=== PATIENT | male | born 1960 | race Caucasian/White ===

== ENCOUNTER → 2019-08-16 10:24 | Outpatient (BNVA) | payer BC, SELFPAY | PROVIDERS: Family Provider Family Medicine; PCP Family Medicine; Referring Provider Family Medicine; Visit Provider Family Medicine | DX: R50.9 Fever, unspecified (principal); J30.89 Other allergic rhinitis | CPT/HCPCS: 87071; 87400; 87880 ==

== ENCOUNTER 2020-06-13 07:14 | Emergency (ER) | payer OTHER, SELFPAY ==
[2020-06-13] VITALS (9 sets, daily range): BP systolic 138–183; BP diastolic 85–115; PULSE 97–119; RESP 17–28; TEMP 36.9; O2SAT 91–95; BMI 27.9
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
--- NOTE | 2020-06-13 07:31 | ECG_ITS ---
[facility] Test Date: 2020-06-13 Pat Name: Joshua Avila Department: Room: Gender: Male Diamond Broker: : 1960 Requested By: Vivien Barbosa Order Number: [id number] Reading MD: MYRA KAY Measurements Intervals [place] Rate: 114 P: 64 ND: 151 QRS: -82 QRSD: 89 T: 67 QT: 324 QTc: 447 Interpretive Statements SINUS TACHYCARDIA POSSIBLE LEFT ATRIAL ENLARGEMENT [-0.1mV P WAVE IN V1/V2] INFERIOR MYOCARDIAL INFARCTION , OF INDETERMINATE AGE [40+ ms Q WAVE AND/OR ST/T ABNORMALITY IN II/aVF] No previous ECG available for comparison Electronically Signed On 06-13-2020 18:09:43 MARKET SPECIALIST by MYRA KAY [id number]
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
[2020-06-13] MEDS: morphine 4 mg/mL SDV 1 mL IVP (09:14)
[2020-06-13] MEDS: ondansetron 2 mg/ML SDV 2 mL 4 MG IVP (09:14)
[2020-06-13 09:19] LABS: Basophils # 0.1 10^3/uL (0.0-0.1); Basophils % 0.3 %; Hematocrit 48.1 % (42.0-52.0); Hemoglobin 16.7 g/dL (11.7-16.6); Lymphocytes # 0.6 10^3/uL (0.8-4.8); Lymphocytes % 3.5 %; Mean Corpuscular HGB Conc 34.7 g/dL (30.0-36.0); Mean Corpuscular Hemoglobin 33.1 pg (28.0-34.0); Mean Corpuscular Volume 95.2 fL (80-94); Mean Platelet Volume 9.6 fL (7.4-10.4); Monocytes # 1.1 10^3/uL (0.2-0.9); Monocytes % 6.2 %; Neutrophils # 15.87 10^3/uL (1.8-7.7); Neutrophils % 89.2 %; Nucleated Red Blood Cells % 0 %; Platelet Count 249 10^3/cmm (130-400); Red Blood Count 5.05 10^6/uL (4.1-5.3); Red Cell Distribution Width 12.3 % (12.1-15.1); White Blood Count 17.8 10^3/uL (4.0-10.0)
[2020-06-13] MEDS: sodium chloride 0.9% 1,000 ML 999 ML IV (09:19)
[2020-06-13] MEDS: iohexol 300 mg/mL 100 mL Btl IV (09:26)
[2020-06-13 09:34] LABS: Alanine Aminotransferase 26 U/L (0-41); Albumin Level 4.1 g/dL (3.5-5.2); Alkaline Phosphatase 137 IU/L (40-130); Anion Gap 12.7 (5-19); Aspartate Amino Transferase 30 U/L (0-40); Blood Urea Nitrogen 8 mg/dL (6-20); Calcium 9.7 mg/dL (8.5-10.5); Carbon Dioxide 25 mmol/L (22-29); Chloride 97 mmol/L (98-107); Globulin 3.6 g/dL (1.3-4.6); Glomerular Filtration Rate 115.8 mL/min (90-130); Glucose 259 mg/dL (65-115); Osmolality Calculated 277 mOsm/kg (285-295); Potassium 4.7 mmol/L (3.5-5.1); Sodium 130 mmol/L (136-145); Total Bilirubin 0.6 mg/dL (0.15-1.2); Total Protein 7.7 g/dL (6.6-8.7)
[2020-06-13] MEDS: HYDROmorphone 1 mg/mL INJ 1 mL IVP (10:32)
[2020-06-13] MEDS: HYDROmorphone 1 mg/mL INJ 1 mL 0.5 MG IVP ×2 (12:12→14:44)
[2020-06-13] MEDS: fentaNYL 50 mcg/mL INJ 2mL IVP ×2 (15:19→17:05)
== END 2020-06-13 17:10 ==
PROVIDERS: Physician Assistant; Emergency Provider Nurse Practitioner Family; PCP Family Medicine
DX: S42.018A Nondisplaced fracture of sternal end of left clavicle, initial encounter for closed fracture (principal); S42.021A Displaced fracture of shaft of right clavicle, initial encounter for closed fracture; S20.211A Contusion of right front wall of thorax, initial encounter; S22.31XA Fracture of one rib, right side, initial encounter for closed fracture; J44.9 Chronic obstructive pulmonary disease, unspecified; I10 Essential (primary) hypertension; Z87.891 Personal history of nicotine dependence; V68.5XXA Driver of heavy transport vehicle injured in noncollision transport accident in traffic accident, initial encounter
CPT/HCPCS: 12345; 36415; 71045; 71260; 73030; 73090; 80053; 85025; 93005; 96361; 96374; 96375; 96376; 99281; 99285; J1170; J2270; J2405; J3010; J7030; Q9967

== ENCOUNTER 2020-10-16 15:27 | Outpatient (CLI) | payer BC, SELFPAY ==
--- NOTE | 2020-10-16 15:32 | CT_ITS ---
WS: [id number] CT ABDOMEN AND PELVIS WITH CONTRAST HISTORY: acute appendicitis TECHNIQUE: Imaging performed of the abdomen and pelvis with IV contrast. Single phase imaging of the abdomen. Coronal and sagittal reformats are submitted. All CT scans at [facility] use at least one of these dose optimization techniques: automated exposure control; mA and/or kV adjustment per patient size (includes targeted exams where dose is matched to clinical indication); or iterativ e reconstruction. IV CONTRAST: Omnipaque 300; 95 mL IV. Oral contrast: No DLP: 1682.02 mGy.cm COMPARISON: 03/29/2013 Lower thorax: Lung bases are hyperinflated. Benign granuloma at the RIGHT lung base. Heart is normal size. No hiatal hernia. Liver/biliary system: Mild hepatomegaly. Mild steatosis. Surface of the liver is slightly irregular. Gallbladder: Normal. No gallstones or wall thickening. No pericholecystic fluid. Pancreas: Normal size pancreas and pancreatic duct. No adjacent inflammation. Spleen: Normal size spleen. No mass or infarct. Adrenal glands: Normal. Right kidney: Normal. Left kidney: Normal. Aorta: Mild atherosclerosis with no aneurysm. Lymphadenopathy: Small RIGHT lower quadrant mesenteric lymph nodes. Free fluid: None. GI tract: Normal appendix. There is mild fluid distention of the cecum. There is no obstructive patte rn. Changing caliber in the colon at the splenic flexure may be due to peristalsis. No definite mass is identified. Anastomosis near the sigmoid rectal junction. Abdominal wall: Supraumbilical abdominal wall hernia contains fat only. There is additional umbilical hernia containing fat only. Pelvis: Nondistended urinary bladder. Bones: Benign bone island in the RIGHT femoral head and neck area. CT/CT abdomen pelvis w con* [id number] IMPRESSION: 1. No evidence for acute appendicitis. 2. No GI tract obstruction. There is an air-fluid level in the cecum but no wa ll thickening. 3. Stable rectosigmoid anastomosis. 4. Umbilical and supraumbilical abdominal wall hernias containing fat only. 5. No renal obstruction. 6. Change in caliber in the colon near the splenic flexure. May be due to yeny stalsis. No definite soft tissue mass is identified. Colonoscopy may be necessa ry for further evaluation if symptoms persist.
[2020-10-16] MEDS: iohexol 300 mg/mL 100 mL Btl IV (15:39)
== END 2020-10-16 15:28 | disposition home or self-care (01) ==
LOC: RAD 15:29
PROVIDERS: PCP Family Medicine; Visit Provider Family Medicine
DX: K35.80 Unspecified acute appendicitis (principal); K43.9 Ventral hernia without obstruction or gangrene; K63.89 Other specified diseases of intestine
CPT/HCPCS: 74177

== ENCOUNTER → 2020-11-21 10:00 | Outpatient (BNVA) | payer BC, SELFPAY | PROVIDERS: PCP Family Medicine; Visit Provider Nurse Practitioner Family | DX: Z20.822 Contact with and (suspected) exposure to COVID-19 (principal) | CPT/HCPCS: 87635 ==

== ENCOUNTER → 2021-05-01 10:08 | Outpatient (BNVA) | payer BC, SELFPAY | PROVIDERS: PCP Family Medicine; Visit Provider Nurse Practitioner Family | DX: Z01.812 Encounter for preprocedural laboratory examination (principal); Z20.822 Contact with and (suspected) exposure to COVID-19 | CPT/HCPCS: 87635 ==

== ENCOUNTER 2022-03-08 06:56 | Outpatient (CLI) | payer BC, SELFPAY ==
--- NOTE | 2022-03-08 07:03 | XR_ITS ---
WS: [id number] Exam: XR chest 2V* [id number] Date/Time of Exam: 03/08/2022 7:03 AM Reason For Exam: J41.0 - Simple chronic bronchitis Comparison 06/13/2020. The lungs are hyperinflated and clear. Normal cardiomediastinal silhouette. No pleural effusions. Old fracture deformity of the right clavicle. XR/XR chest 2V* [id number] IMPRESSION: 1. Pulmonary hyperinflation which may indicate COPD. No acute process noted.
== END 2022-03-08 06:57 | disposition home or self-care (01) ==
LOC: RAD 06:58
PROVIDERS: PCP Family Medicine; Visit Provider Family Medicine
DX: J41.0 Simple chronic bronchitis (principal)
CPT/HCPCS: 71046

== ENCOUNTER 2022-04-29 16:52 | Emergency (ER) | payer BC, SELFPAY ==
[2022-04-29 16:56] VITALS: BP 203/101; PULSE 102; RESP 16; TEMP 36.8; O2SAT 96
--- NOTE | 2022-04-29 17:14 | XRR_ITS ---
PROCEDURE INFORMATION: Exam: XR Left Ribs with PA Chest Exam date and time: 04/29/2022 5:24 PM Age: 61 years old Clinical indication: Other: Lt mid rib pain; Additional info: Fall injury TECHNIQUE: Imaging protocol: Radiologic exam of the Left ribs with PA chest. Views: 3 views COMPARISON: CR XR chest 2V* [id number] 03/08/2022 7:08 AM FINDINGS: Lungs: Minimal left lung base atelectasis or airspace disease. Pleural spaces: Unremarkable. No pleural effusion. No pneumothorax. A few minute benign calcified lung nodules. Heart/Mediastinum: Unremarkable. No cardiomegaly. Vasculature: Vascular calcification. Bones/joints: Subtle left 3rd and 4th rib fractures are possible. Subtle left lateral 8th rib fracture. No filled chest or displaced rib fracture. XR/XR ribs LT mn 3V w CXR1V [id number] IMPRESSION: 1. A couple of very subtle left rib fracture are likely, as above. No pneumothorax. 2. Minimal left lung base atelectasis or, less likely, airspace disease. Given the presence of left rib fractures, atelectasis is favored.
--- NOTE | 2022-04-29 17:16 | W.ED.FALL ---
HPI - Fall General: Chief Complaint: Fall Stated Complaint: fell and both ribs are hurting Time Seen by Provider: 04/29/22 17:11 History of Present Illness: 61-year-old male patient fell on and now with complaints of bilateral thoracic pain. Patient does have a history of rib fractures on the right side. Patient does have history of COPD. Patient endorses pain with deep inspiration. Patient appears chronically ill. Patient appears in mild to moderate pain. Review of Systems Resp: Reports: wheezing and pain on inspiration Musc: Reports: other (Rib pain) PFS ED PFSH: Medical History COPD (chronic obstructive pulmonary disease) Hypertension Social History Smoking and tobacco status: former smoker Alcohol intake: current Physical Exam Const: COMMON NORMALS: alert HENMT: COMMON NORMALS: normocephalic HEAD & SCALP: normocephalic Neck/C-Spine: COMMON NORMALS: full ROM Chest: CHEST: No crepitus and Yes tenderness rib (Left posterior) Resp: COMMON NORMALS: normal respiratory effort AUSCULTATION: wheezes Cardio: COMMON NORMALS: regular rhythm RHYTHM: regular rhythm GI: COMMON NORMALS: Soft to palpation PALPATION: Yes Soft to palpation Extremity: COMMON NORMALS: normal to inspection Neuro: SENSORIUM/ORIENTATION: Yes alert Skin: COMMON NORMALS: turgor normal GENERAL SKIN EXAM: turgor normal Course Vital Signs: Vital signs: Vital Signs Temperature 98.2 F 04/29/22 16:56 Pulse Rate 102 H 04/29/22 16:56 Respiratory Rate 16 04/29/22 16:56 Blood Pressure 203/101 04/29/22 16:56 Pulse Oximetry 96 04/29/22 16:56 Oxygen Delivery Me thod 04/29/22 16:56 MDM - Fall Medical Decision Making 61-year-old male patient comes in today with complaints of chest wall pain from a fall last . Patient reports increased pain with inspiration. On exam patient has wheezes throughout lung jones this is most likely due to his COPD. Vital signs note some mild elevation in pulse of 102, and blood pressure 203. Pulse oxygenation is 96 on room air. Differential diagnosis includes but not limited to rib contusion, fracture, pneumothorax, pneumonia. Chest x-ray noted some nondisplaced rib fractures on the left side with some atelectasis. No signs of pneumonia or pneumothorax at this time. Reviewed exam with patient with recommendations for treatment for nondisplaced rib fractures. Recommended medications for pain and follow-up with primary care. Discussed need for monitoring for fever and return to the ER for worsening symptoms. Lab Data Radiology Impressions Ribs X-Ray 04/29/22 17:14 IMPRESSION: 1. A couple of very subtle left rib fracture are likely, as above. No pneumothorax. 2. Minimal left lung base atelectasis or, less likely, airspace disease. Given the presence of left rib fractures, atelectasis is favored. Discharge Plan Discharge Patient Disposition: Home Clinical Impression: Left rib fracture Qualifiers: Encounter type: initial encounter Rib fracture type: multiple ribs Fracture type: closed Qualified Code(s): S22.42XA - Multiple fractures of ribs, left side, initial encounter for closed fracture Condition: Stable Prescriptions: Continued hydrocodone-acetaminophen 7.5-325 mg tablet 1 tab PO Q6H PRN (Reason: pain) 7 Days Qty: 10 0RF No Action clonidine HCl 0.2 mg tablet 0.2 mg PO PRN amoxicillin 875 mg tablet 875 mg PO BID Qty: 20 0RF prednisone 20 mg tablet 20 mg PO DAILY Qty: 30 0RF Rx Instructions: 4 tabs day 1 and 2, then 3 /12 x 2 d, then 3 x 2d, then 2 1/2 x 2....... losartan-hydrochlorothiazide 100-12.5 mg tablet See Rx Instructions .ROUTE .COMPLEX Qty: 90 0RF Dose Instruction: Take 1 tablet by mouth once daily Rx Instructions: Take 1 tablet by mouth once daily benzonatate 200 mg capsule 200 mg PO TID PRN (Reason: cough) Qty: 30 1RF albuterol sulfate 90 mcg/actuation HFA aerosol inhaler See Rx Instructions .ROUTE .COMPLEX Qty: 18 5RF Dose Instruction: INHALE 2 PUFFS BY MOUTH EVERY 4 HOURS NEEDED FOR SHORTNESS OF BREATH AND FOR WHEEZING Rx Instructions: INHALE 2 PUFFS BY MOUTH EVERY 4 HOURS NEEDED FOR SHORTNESS OF BREATH AND FOR WHEEZING Symbicort 160-4.5 mcg/actuation HFA aerosol inhaler See Rx Instructions .ROUTE .COMPLEX Qty: 11 5RF Dose Instruction: INHALE 2 PUFFS BY MOUTH EVERY 12 HOURS Rx Instructions: INHALE 2 PUFFS BY MOUTH EVERY 12 HOURS Spiriva Respimat 2.5 mcg/actuation mist See Rx Instructions .ROUTE .COMPLEX Rx Instructions: 2 sprays po daily Discharge Orders: Discharge ED (Routine); Ordered 04/29/22 Ordered By: Yasmani Clark Referrals: Abram Horn MD [Primary Care Provider] - Discharge Diet: Usual diet Discharge Activity: Increase activity as tolerated Patient Instructions: Rib Fracture (ED), Opioid Safety Activity Restrictions/Additional Instructions: Home and rest. Activity as tolerated. Take medications as needed for pain. Use hydrocodone for severe pain. Use acetaminophen or ibuprofen for pain control. Use ice or heat for further pain relief. Follow-up with primary care for further instruction. Return to ED for new concerns. Coding Level of Care Code ED Bulk Loader for Sabine Fwd Exam Comprehensive
[2022-04-29] MEDS: HYDROcodone-acetaminophen 7.5-325 mg Tablet 1 TAB PO (17:21)
== END 2022-04-29 18:30 | disposition home or self-care (01) ==
PROVIDERS: Emergency Provider Nurse Practitioner Family; PCP Family Medicine
DX: S22.42XA Multiple fractures of ribs, left side, initial encounter for closed fracture (principal); W19.XXXA Unspecified fall, initial encounter
CPT/HCPCS: 71101; 99283

== ENCOUNTER 2022-05-10 20:35 | Inpatient (IN) | payer BC, SELFPAY ==
[2022-05-10] VITALS (13 sets, daily range): BP systolic 109–137; BP diastolic 70–81; PULSE 90–111; RESP 17–27; TEMP 37.1; O2SAT 92–95
[2022-05-10 21:09] LABS: Basophils # 0.1 10^3/uL (0.0-0.1); Basophils % 0.6 %; Eosinophils # 0.2 10^3/uL (0.0-0.8); Eosinophils % 1.6 %; Hematocrit 32.6 % (42.0-52.0); Hemoglobin 10.8 g/dL (11.7-16.6); Lymphocytes # 1.7 10^3/uL (0.8-4.8); Lymphocytes % 15.8 %; Mean Corpuscular HGB Conc 33.1 g/dL (30.0-36.0); Mean Corpuscular Hemoglobin 30.6 pg (28.0-34.0); Mean Corpuscular Volume 92.4 fl (80-94); Mean Platelet Volume 8.8 fL (7.4-10.4); Monocytes # 1.7 10^3/uL (0.2-0.9); Monocytes % 15.7 %; Neutrophils % 65.8 %; Nucleated Red Blood Cells % 0 %; Platelet Count 310 10^3/cmm (130-400); Red Blood Count 3.53 10^6/uL (4.1-5.3); Red Cell Distribution Width 14.4 % (12.1-15.1); White Blood Count 10.8 10^3/uL (4.0-10.0)
[2022-05-10 21:32] LABS: Alanine Aminotransferase 56 U/L (0-41); Albumin Level 3.6 g/dL (3.5-5.2); Alkaline Phosphatase 139 U/L (40-130); Anion Gap 12.2 (5-19); Aspartate Amino Transferase 27 U/L (0-40); Blood Urea Nitrogen 33 mg/dL (8-23); Calcium 9.4 mg/dL (8.5-10.5); Carbon Dioxide 28 mmol/L (22-29); Chloride 94 mmol/L (98-107); Globulin 3.3 g/dL (1.3-4.6); Glomerular Filtration Rate 86.1 mL/min (90-130); Glucose 111 mg/dL (65-115); Lipase 30 U/L (13-60); Osmolality Calculated 278 mOsm/kg (285-295); Potassium 4.2 mmol/L (3.5-5.1); Sodium 130 mmol/L (136-145); Total Bilirubin 0.8 mg/dL (0.15-1.2); Total Protein 6.9 g/dL (6.6-8.7)
--- NOTE | 2022-05-10 22:10 | CTR_ITS ---
PROCEDURE INFORMATION: Exam: CTA Abdomen and Pelvis With Contrast Exam date and time: 05/10/2022 10:22 PM Age: 61 years old Clinical indication: Other: Gi bleed - no cta chest; Other: Gi bleed -no cta chest; Prior surgery; Surgery date: 6+ months; Patient HX: HX colon resection x2 for diverticulitis TECHNIQUE: Imaging protocol: Computed tomographic angiography of the abdomen and pelvis with contrast. 3D rendering (Not supervised by radiologist): MIP and/or 3D reconstructed images were created by the technologist. Radiation optimization: All CT scans at this facility use at least one of these dose optimization techniques: automated exposure control; mA and/or kV adjustment per patient size (includes targeted exams where dose is matched to clinical indication); or iterative reconstruction. Contrast material: OMNI 350; Contrast volume: 100 ml; Contrast route: INTRAVENOUS (IV); COMPARISON: CT abdomen pelvis w con* [id number] 10/16/2020 3:35 PM RADIATION DOSE METRICS: Total DLP (mGy-cm): 1852.68 FINDINGS: Lungs: Lung bases grossly clear. Pleural spaces: Trace left pleural effusion. Heart: The heart is normal size. Aorta: The abdominal aorta measures up to 2.7 cm. No AAA. Celiac trunk and mesenteric arteries: No occlusion or significant stenosis. Renal arteries: No occlusion or significant stenosis. Right iliac arteries: No occlusion or significant stenosis. Left iliac arteries: No occlusion or significant stenosis. Liver: Liver appears moderately cirrhotic. No ascites or liver mass noted. Gallbladder and bile ducts: Few tiny gallstones are present. Pancreas: Unremarkable. No mass. No ductal dilation. Spleen: Unremarkable. No splenomegaly. Adrenal glands: Unremarkable. No mass. Kidneys and ureters: Unremarkable. No solid mass. No hydronephrosis. Very tiny left renal calcification. Stomach and bowel: Distal sigmoid anastomotic sutures. Appendix: No evidence of appendicitis. Intraperitoneal space: Unremarkable. No free air. No significant fluid collection. Lymph nodes: Unremarkable. No enlarged lymph nodes. Urinary bladder: Bladder is not well distended. Reproductive: Mildly enlarged prostate. Bones/joints: Moderate spine DJD. Soft tissues: Mild fat in left inguinal ring. Small fat umbilical hernia. Small left periumbilical small bowel containing hernia. No evidence of inflammatory change or obstruction. Other findings: Advanced diffuse vascular calcification noted. CT/CT angio abdomen pelvis [id number] IMPRESSION: 1. No small bowel obstruction, abscess or free air. No AAA or definite acute finding. 2. Small left periumbilical small bowel containing hernia. 3. Atherosclerosis, trace left effusion, cirrhosis, cholelithiasis, and other chronic findings.
--- NOTE | 2022-05-10 22:38 | ED_ITS ---
HPI - GI Bleed General: Chief complaint: GI Bleed Stated complaint: abd pain, bld in stool Time Seen by Provider: 05/10/22 22:10 Source: patient Mode of arrival: ambulatory Limitations: no limitations History of Present Illness: 61-year-old male states he been having diffuse abdominal pain along with blood in his stool throughout the day. He states he had multiple dark stools its been bloody he denies any syncopal events or denies feeling weak. He states pain is diffuse rates it a 7 out of 10 he has had a history of a colectomy in the past due to diverticulitis. Associated symptoms: Denies chills, easy bruising, fever(s), headache(s) or rash Review of Systems Const: Denies: fever(s), chills, body aches or change in appetite Eyes: Denies: blurry vision or eye discomfort ENMT: Denies: throat pain or dental pain Card: Denies: chest pain Resp: Denies: dyspnea GI: Reports: hematochezia : Denies: dysuria Musc: Denies: neck pain or back pain Skin/Breast: Denies: rash Neuro: Denies: headache(s) Psych: Denies: depression Luis/Lymph: Denies: easy bruising All/Imm: Denies: urticaria PFSH ED PFSH: Medical History COPD (chronic obstructive pulmonary disease) Hypertension Social History Smoking and tobacco status: former smoker Alcohol intake: current Physical Exam Const: COMMON NORMALS: patient oriented x3 HENMT: COMMON NORMALS: normocephalic and atraumatic HEAD & SCALP: normocephalic and atraumatic Eye: COMMON NORMALS: Equal, round and reactive pupils present and EOMs intact bilaterally PUPIL: Yes Equal, round and reactive pupils present Neck/C-Spine: COMMON NORMALS: full ROM and supple Chest: COMMONS NORMALS: normal inspection of the chest and normal palpation of entire chest wall Resp: COMMON NORMALS: normal respiratory effort, No retractions, No use of accessory muscles and clear to auscultation bilaterally AUSCULTATION: clear to auscultation bilaterally Cardio: COMMON NORMALS: regular rate, regular rhythm and No murmurs present (Cardio) RATE: regular rate RHYTHM: regular rhythm GI: COMMON NORMALS: Normal to inspection, nondistended, normoactive bowel sounds present, Soft to palpation, non-tender and no masses PALPATION: Yes Soft to palpation OTHER: heme positive stool Extremity: COMMON NORMALS: normal to inspection and full ROM Neuro: COMMON NORMALS: patient oriented x3, moves all extremities and no focal motor deficits Psych: COMMON NORMALS: mental status grossly normal, Normal thought process present and cooperative THOUGHT PROCESS: Normal thought process present Skin: COMMON NORMALS: no rashes or lesions noted and no wounds GENERAL SKIN EXAM: no rashes or lesions noted Course Vital Signs: Vital signs: Vital Signs Temperature 98.8 F 05/10/22 21:58 Pulse Rate 108 H 05/10/22 23:15 Respiratory Rate 25 H 05/10/22 23:15 Blood Pressure 109/70 05/10/22 23:15 Pulse Oximetry 94 05/10/22 23:15 MDM - GI Bleed Medical Decision Making Patient presents here with GI bleeding his hemoglobin here has been stable he does have some maroon-colored stool on rectal exam and had a bloody bowel movement here as well no signs of large amount of bleeding and will admit for observation talk to surgeon along with hospitalist will admit Lab Data 05/10/22 21:02 05/10/22 21:02 Radiology Impressions Abdomen/Pelvis CTA 05/10/22 22:10 IMPRESSION: 1. No small bowel obstruction, abscess or free air. No AAA or definite acute finding. 2. Small left periumbilical small bowel containing hernia. 3. Atherosclerosis, trace left effusion, cirrhosis, cholelithiasis, and other chronic findings. Laboratory Results WBC 10.8 10^3/uL (4.0-10.0) H 05/10/22 21:02 RBC 3.53 10^6/uL (4.1-5.3) L 05/10/22 21:02 Hgb 9.9 g/dL (11.7-16.6) L 05/10/22 22:28 Hct 29.7 % (42.0-52.0) L 05/10/22 22:28 MCV 92.4 fl (80-94) 05/10/22 21:02 MCH 30.6 pg (28.0-34.0) 05/10/22 21:02 MCHC 33.1 g/dL (30.0-36.0) 05/10/22 21:02 RDW 14.4 % (12.1-15.1) 05/10/22 21:02 Plt Count 310 10^3/cmm (130-400) 05/10/22 21:02 MPV 8.8 fL (7.4-10.4) 05/10/22 21:02 Neut % (Auto) 65.8 % 05/10/22 21:02 Lymph % (Auto) 15.8 % 05/10/22 21:02 [place] % (Auto) 15.7 % 05/10/22 21:02 Eos % (Auto) 1.6 % 05/10/22 21:02 Baso % (Auto) 0.6 % 05/10/22 21:02 Neut # (Auto) 7.10 10^3/uL (1.8-7.7) 05/10/22 21:02 Lymph # (Auto) 1.7 10^3/uL (0.8-4.8) 05/10/22 21:02 [place] # (Auto) 1.7 10^3/uL (0.2-0.9) H 05/10/22 21:02 Eos # (Auto) 0.2 10^3/uL (0.0-0.8) 05/10/22 21:02 Baso # (Auto) 0.1 10^3/uL (0.0-0.1) 05/10/22 21:02 Nucleated RBC % (auto) 0 % 05/10/22 21:02 Nucleated RBCs # 0.0 /100WBC 05/10/22 21:02 PT 14.50 SECONDS (12.1-14.9) 05/10/22 21:02 INR 1.10 (0.8-1.2) 05/10/22 21:02 Sodium 130 mmol/L (136-145) L 05/10/22 21:02 Potassium 4.2 mmol/L (3.5-5.1) 05/10/22 21:02 Chloride 94 mmol/L (98-107) L 05/10/22 21:02 Carbon Dioxide 28 mmol/L (22-29) 05/10/22 21:02 Anion Gap 12.2 (5-19) 05/10/22 21:02 BUN 33 mg/dL (8-23) H 05/10/22 21:02 Creatinine 0.9 mg/dL (0.7-1.2) 05/10/22 21:02 GFR Calculation 86.1 mL/min (90-130) L 05/10/22 21:02 Glucose 111 mg/dL (65-115) 05/10/22 21:02 Calculated Osmolality 278 mOsm/kg (285-295) L 05/10/22 21:02 Calcium 9.4 mg/dL (8.5-10.5) 05/10/22 21:02 Total Bilirubin 0.8 mg/dL (0.15-1.2) 05/10/22 21:02 AST 27 U/L (0-40) 05/10/22 21:02 ALT 56 U/L (0-41) H 05/10/22 21:02 Alkaline Phosphatase 139 U/L (40-130) H 05/10/22 21:02 Total Protein 6.9 g/dL (6.6-8.7) 05/10/22 21:02 Albumin 3.6 g/dL (3.5-5.2) 05/10/22 21:02 Globulin 3.3 g/dL (1.3-4.6) 05/10/22 21:02 Lipase 30 U/L (13-60) 05/10/22 21:02 Discharge Plan Discharge Patient Disposition: Admitted As Inpatient Clinical Impression: GI bleed Condition: Stable Prescriptions: No Action clonidine HCl 0.2 mg tablet 0.2 mg PO PRN hydrocodone-acetaminophen 7.5-325 mg tablet 1 tab PO Q12H PRN (Reason: pain) 20 Days Qty: 40 0RF hydrocodone-acetaminophen 7.5-325 mg tablet 1 tab PO BID PRN (Reason: pain) 20 Days Qty: 40 0RF promethazine-DM 6.25-15 mg/5 mL syrup 5 ml PO Q6H PRN (Reason: cough) Qty: 240 0RF losartan-hydrochlorothiazide 100-12.5 mg tablet See Rx Instructions .ROUTE .COMPLEX Qty: 90 0RF Dose Instruction: Take 1 tablet by mouth once daily Rx Instructions: Take 1 tablet by mouth once daily benzonatate 200 mg capsule 200 mg PO TID PRN (Reason: cough) Qty: 30 1RF albuterol sulfate 90 mcg/actuation HFA aerosol inhaler See Rx Instructions .ROUTE .COMPLEX Qty: 18 5RF Dose Instruction: INHALE 2 PUFFS BY MOUTH EVERY 4 HOURS NEEDED FOR SHORTNESS OF BREATH AND FOR WHEEZING Rx Instructions: INHALE 2 PUFFS BY MOUTH EVERY 4 HOURS NEEDED FOR SHORTNESS OF BREATH AND FOR WHEEZING Symbicort 160-4.5 mcg/actuation HFA aerosol inhaler See Rx Instructions .ROUTE .COMPLEX Qty: 11 5RF Dose Instruction: INHALE 2 PUFFS BY MOUTH EVERY 12 HOURS Rx Instructions: INHALE 2 PUFFS BY MOUTH EVERY 12 HOURS Spiriva Respimat 2.5 mcg/actuation mist See Rx Instructions .ROUTE .COMPLEX Rx Instructions: 2 sprays po daily Referrals: Abram Horn MD [Primary Care Provider] - Coding Level of Care Code ED Diesel Automotive Technician for Chg Fwd Exam Comprehensive
[2022-05-10] MEDS: morphine 4 mg/mL SDV 1 mL IVP (22:51)
[2022-05-10] MEDS: ondansetron 2 mg/ML SDV 2 mL 4 MG IVP (22:51)
[2022-05-10 23:01] LABS: Hematocrit 29.7 % (42.0-52.0); Hemoglobin 9.9 g/dL (11.7-16.6)
[2022-05-11] VITALS (75 sets, daily range): BP systolic 105–145; BP diastolic 65–92; PULSE 78–119; RESP 15–28; TEMP 36–37; O2SAT 86–98
[2022-05-11] MEDS: morphine 4 mg/mL SDV 1 mL IVP (01:12)
[2022-05-11] MEDS: iohexol 350 mg/mL 500 mL Btl (per mL) IV (01:47)
--- NOTE | 2022-05-11 01:53 | XRR_ITS ---
PROCEDURE INFORMATION: Exam: XR Chest Exam date and time: 05/11/2022 2:13 AM Age: 61 years old Clinical indication: Shortness of breath; Additional info: SOB TECHNIQUE: Imaging protocol: Radiologic exam of the chest. Views: 1 view. COMPARISON: CR (CHEST, ) 04/29/2022 5:24 PM FINDINGS: Lungs: They ground-glass opacity projecting peripherally over the left mid lung zone that is inconclusive for infiltrate and may be artifactual related to adjacent soft tissue attenuation. Lung jones are otherwise aerated and clear. Pleural spaces: Unremarkable. No pleural effusion. No pneumothorax. Heart/Mediastinum: Unremarkable. No cardiomegaly. Bones/joints: Unremarkable for age. XR/XR chest 1V portable [id number] IMPRESSION: Findings inconclusive for peripheral ground-glass opacity left mid lung zone which could be clarified on follow-up PA and lateral chest clinically warranted.
--- NOTE | 2022-05-11 01:55 | ECG_ITS ---
[facility] Test Date: 2022-05-11 Pat Name: Joshua Avila Department: Room: Gender: Male Linesperson: : 1960 Requested By: Neil Zafar Order Number: [id number] Ulysses MD: Melida Bejarano M.D. Measurements Intervals [place] Rate: 103 P: 58 MN: 171 QRS: 0 QRSD: 91 T: 48 QT: 344 QTc: 452 Interpretive Statements SINUS TACHYCARDIA ABNORMAL RHYTHM ECG Compared to ECG 06/13/2020 07:35:28 Myocardial infarct finding no longer present Electronically Signed On 05-11-2022 15:18:35 PEDIATRIC DERMATOLOGIST by Melida Bejarano M.D. [id number]
--- NOTE | 2022-05-11 02:02 | P.HP_ITS ---
Providers/Chief Complaint Primary Care Provider: Abram Horn MD Chief Complaint: abd pain, bld in stool History of Present Illness Joshua Avila is a 61 year old male with a past medical history of COPD, current smoker, hypertension, who presents to [facility] due to complaints of black tarry stools, lightheadedness, increased shortness of breath, wheezing, productive cough, subjective fevers. Patient tells me for the last few days he has noticed increased black tarry stools, lightheadedness, no nausea, no vomiting, no hematemesis, no use of ibuprofen or NSAIDs, no aspirin use he has had a colonoscopy before that showed diverticulosis, colonic polyps, no history of colon cancer. Denies a history of gastric ulcers, also reports lightheadedness with exertion. Denies any chest pain, no palpitations. Denies history of transfusions in the past. He tells me that also recently has been feeling feverish, having subjective fevers, productive cough, increased shortness of breath and increased wheezing, he is a smoker Review of Systems Const: Denies: fever(s) or chills Eyes: Denies: change in vision ENMT: Denies: throat pain Card: Denies: chest pain Resp: Denies: dyspnea GI: Reports: nausea; Denies: abdominal pain or hematemesis : Denies: flank pain or difficulty urinating Musc: Reports: muscle weakness Neuro: Denies: headache(s) Medications/Allergies Home Medications Medication Instructions Recorded Confirmed Last Taken Type clonidine HCl 0.2 mg tablet 0.2 mg PO PRN 08/16/19 05/09/22 Unknown History tiotropium bromide 2.5 See Rx Instructions .Route .COMPLEX 06/13/20 05/09/22 06/12/20 History mcg/actuation mist for inhalation (Spiriva Respimat) losartan 100 See Rx Instructions .Route 01/02/22 05/09/22 Unknown Rx mg-hydrochlorothiazide 12.5 mg .COMPLEX #90 tabs tablet benzonatate 200 mg capsule 200 mg PO TID PRN cough #30 caps 02/21/22 05/09/22 Unknown Rx albuterol sulfate 90 mcg/actuation See Rx Instructions .Route 02/26/22 05/09/22 Unknown Rx aerosol inhaler .COMPLEX #18 grams Symbicort 160 mcg-4.5 See Rx Instructions .Route 03/25/22 05/09/22 Unknown Rx mcg/actuation HFA aerosol inhaler .COMPLEX #11 grams (budesonide-formoterol) hydrocodone 7.5 mg-acetaminophen 1 tab PO BID PRN pain 20 days #40 05/09/22 05/09/22 Unknown Rx 325 mg tablet tabs hydrocodone 7.5 mg-acetaminophen 1 tab PO Q12H PRN pain 20 days #40 05/09/22 05/09/22 Unknown Rx 325 mg tablet tabs promethazine-DM 6.25 mg-15 mg/5 mL 5 ml PO Q6H PRN cough #240 mL 05/09/22 05/09/22 Unknown Rx oral syrup Allergies Allergy/AdvReac Type Severity Reaction Status Date / Time No Known Allergies Allergy Verified 05/09/22 07:16 PFSH Acute PFSH: Medical History (Updated 05/11/22 @ 02:06 by Neil Zafar MD) COPD (chronic obstructive pulmonary disease) Erectile dysfunction History of abdominal hernia Hypertension Renal insufficiency Surgical History (Updated 05/11/22 @ 02:04 by Neil Zafar MD) History of bowel resection History of colon surgery Family History (Updated 05/11/22 @ 02:04 by Neil Zafar MD) Other CAD (coronary artery disease) Social History (Updated 05/11/22 @ 02:04 by Neil Zafar MD) Smoking and tobacco status: current some day smoker Alcohol intake: current Substance/Drug Use: never Vitals/I&O/Wt Last Vital Signs Temp 98.8 F 05/10/22 21:58 Pulse 104 H 05/11/22 01:20 Resp 19 H 05/11/22 01:20 BP 116/78 05/11/22 01:20 Pulse Ox 92 05/11/22 01:20 Physical Exam Const: COMMON NORMALS: no acute distress and patient oriented x3 HENMT: COMMON NORMALS: normocephalic HEAD & SCALP: normocephalic Eye: COMMON NORMALS: Equal, round and reactive pupils present and EOMs intact bilaterally Neck/C-Spine: COMMON NORMALS: no JVD Lymph: LYMPHATIC: no lymphadenopathy noted Resp: COMMON NORMALS: normal respiratory effort, No retractions and No use of accessory muscles AUSCULTATION: wheezes Cardio: COMMON NORMALS: no JVD, regular rate, regular rhythm, S1 normal heart sound present and S2 normal heart sound present RATE: regular rate RHYTHM: regular rhythm HEART SOUNDS: S1 normal heart sound present and S2 normal heart sound present GI: COMMON NORMALS: Normal to inspection, nondistended, normoactive bowel sounds present, Soft to palpation, non-tender, no masses and no bruits PALPATION: Yes Soft to palpation Extremity: COMMON NORMALS: capillary refill normal, no calf tenderness and no pedal edema Neuro: COMMON NORMALS: patient oriented x3, CN's II-XII intact bilaterally and moves all extremities Psych: COMMON NORMALS: mental status grossly normal Data 05/10/22 22:28 05/10/22 21:02 A&P Assessment and plan (1) GI bleed: (2) COPD exacerbation: (3) Anemia: (4) Liver cirrhosis: Plan Upper GI bleed -Hemoccult positive stools, black tarry stools Plan -Currently hemodynamically stable, nor no recurrent episodes of black tarry stools -Hemoglobin 9.9 -Monitor hemoglobin and 4 hour -transfuse if less than 7 -Protonix, Carafate -N.p.o. midnight -General surgery consulted by ER, will see if he can have an EGD in the morning CT scan abdomen pelvis showed evidence of liver cirrhosis -No evidence of portal hypertension or varices -No history of hepatitis C, does drink alcohol -Acute hepatitis panel, alcohol level -Denies any hematemesis -Albumin within normal limits, INR within normal limits COPD exacerbation -Solu-Medrol -Followed by prednisone -Budesonide, ipratropium -Oxygen therapy -Doxycycline -Complaints of subjective fevers, poor Pro-Brian, CRP, flu, COVID, chest x-ray Hypertension continue blood pressure medications Anemia, iron studies, B12, folate Attestations Medical Necessity Statement*: Patient requires hospitalization, inpatient, greater than 2 midnights due to COPD exacerbation, anemia, GI bleed, liver cirrhosis Coding Level of Care Code Acute Sheet Manager for [facility] Diagnoses GI bleed K92.2 COPD exacerbation J44.1 Anemia D64.9 Liver cirrhosis K74.60
[2022-05-11 02:42] LABS: Influenza A by IFA negative (Negative); Influenza B by IFA negative (Negative); SARS Covid-2 Antigen positive (Negative)
[2022-05-11] MEDS: pantoprazole 40 mg SDV IVP ×2 (02:53→15:05)
[2022-05-11] MEDS: sucralfate 1 gm Tablet PO ×2 (02:53→15:05)
[2022-05-11] MEDS: doxycycline 100 MG in sodium chloride 0.9% (plus) 100 ML IV (02:54)
[2022-05-11 03:18] LABS: Basophils # 0.1 10^3/uL (0.0-0.1); Basophils % 0.8 %; Eosinophils # 0.2 10^3/uL (0.0-0.8); Eosinophils % 1.8 %; Hemoglobin 9.9 g/dL (11.7-16.6); Lymphocytes # 1.3 10^3/uL (0.8-4.8); Lymphocytes % 14.4 %; Mean Corpuscular Hemoglobin 30.7 pg (28.0-34.0); Mean Corpuscular Volume 92.9 fl (80-94); Mean Platelet Volume 9.4 fL (7.4-10.4); Monocytes # 1.4 10^3/uL (0.2-0.9); Monocytes % 14.7 %; Neutrophils # 6.29 10^3/uL (1.8-7.7); Neutrophils % 67.9 %; Nucleated Red Blood Cells % 0 %; Platelet Count 314 10^3/cmm (130-400); Red Blood Count 3.23 10^6/uL (4.1-5.3); Red Cell Distribution Width 14.2 % (12.1-15.1); White Blood Count 9.3 10^3/uL (4.0-10.0)
[2022-05-11] MEDS: dextrose 5%-sod chloride 0.9% 1,000 ML 50 ML IV ×2 (03:18→22:58)
[2022-05-11] MEDS: ipratropium-albuterol 3 mL Neb INHALATION ×2 (03:34→08:02)
[2022-05-11] MEDS: budesonide 0.5 mg/2 mL Neb INHALATION ×2 (03:34→19:52)
[2022-05-11 03:36] LABS: Troponin(5th) Baseline 94 ng/L (0-15)
[2022-05-11 03:45] LABS: NT Pro B Type Natriuretic Pept 453 pg/mL (0-125); Procalcitonin 0.51 ng/mL (0-0.5)
[2022-05-11 03:46] LABS: Thyroid Stimulating Hormone 1.47 uIU/mL (0.27-4.20)
--- NOTE | 2022-05-11 03:55 | ECG_ITS ---
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 Measurements Intervals [place] Rate: 105 P: 47 FL: 140 QRS: 22 QRSD: 92 T: 55 QT: 348 QTc: 460 Interpretive Statements SINUS TACHYCARDIA WITH FREQUENT SUPRAVENTRICULAR PREMATURE COMPLEXES ABNORMAL RHYTHM ECG Compared to ECG 05/11/2022 02:22:34 No significant changes Electronically Signed On 05-12-2022 20:21:48 UNIX MANAGER by Melida Bejarano M.D. [id number]
[2022-05-11] MEDS: HYDROmorphone 1 mg/mL INJ 1 mL IVP (03:56)
[2022-05-11 03:57] LABS: C Reactive Protein 44.2 mg/L (0.0-4.9)
[2022-05-11 03:58] LABS: Alcohol Level < 10 mg/dL (0-10)
[2022-05-11] MEDS: losartan 50 mg Tablet 100 MG PO ×2 (04:03→11:49)
[2022-05-11 05:10] LABS: Folate Level 10.7 ng/mL (4.5-32.2)
[2022-05-11 05:11] LABS: Ferritin 213 ng/mL (30-400); Iron 58 ug/dL (59-158); Vitamin B12 362 pg/mL (232-1245)
[2022-05-11 05:44] LABS: Troponin 5 2HR 94.99 ng/L (0-15)
[2022-05-11 05:45] LABS: Troponin 5 2HR Delta 0.99 ABS# (0-10)
--- NOTE | 2022-05-11 07:28 | PM.CONSULT ---
Providers/Reason For Consult Consulting Physician/Specialty*: Dr. Andreas Krishnamurthy, DO/General surgery Reason for Consult*: GI bleed Attending Physician: Neil Zafar MD Primary Care Provider: Abram Horn MD History of Present Illness History of Present Illness Joshua Avila is a 61 year old male who presented to the hospital with approximately a 3-day history of black tarry stools, epigastric abdominal pain, progressive cough, weakness and lightheadedness. He reports that his epigastric abdominal pain is dull and constant. It radiates across his upper abdomen. Palpation makes the pain worse. Nothing makes pain better. He denies any nausea or vomiting. He does endorse black tarry stools. He denies any history of NSAID use or gastric ulcers. He does have a midline laparotomy from exploratory laparotomy and colon resection for diverticulitis. He is COVID-positive. Denies any fever or chills Review of Systems General: Reports: 10 or more systems reviewed and unremarkable except in HPI and below Medications/Allergies Home Medications Medication Instructions Recorded Confirmed Last Taken Type clonidine HCl 0.2 mg tablet 0.2 mg PO PRN 08/16/19 05/11/22 Unknown History tiotropium bromide 2.5 See Rx Instructions .Route .COMPLEX 06/13/20 05/11/22 05/10/22 History mcg/actuation mist for inhalation (Spiriva Respimat) losartan 100 See Rx Instructions .Route 01/02/22 05/11/22 05/09/22 Rx mg-hydrochlorothiazide 12.5 mg .COMPLEX #90 tabs tablet benzonatate 200 mg capsule 200 mg PO TID PRN cough #30 caps 02/21/22 05/09/22 Unknown Rx albuterol sulfate 90 mcg/actuation See Rx Instructions .Route 02/26/22 05/09/22 Unknown Rx aerosol inhaler .COMPLEX #18 grams Symbicort 160 mcg-4.5 See Rx Instructions .Route 03/25/22 05/11/22 05/10/22 Rx mcg/actuation HFA aerosol inhaler .COMPLEX #11 grams (budesonide-formoterol) hydrocodone 7.5 mg-acetaminophen 1 tab PO BID PRN pain 20 days #40 05/09/22 05/09/22 Unknown Rx 325 mg tablet tabs hydrocodone 7.5 mg-acetaminophen 1 tab PO Q12H PRN pain 20 days #40 05/09/22 05/11/22 Unknown Rx 325 mg tablet tabs promethazine-DM 6.25 mg-15 mg/5 mL 5 ml PO Q6H PRN cough #240 mL 05/09/22 05/11/22 05/10/22 Rx oral syrup albuterol sulfate 90 mcg/actuation inhalation 05/11/22 05/11/22 Unknown History aerosol inhaler Allergies Allergy/AdvReac Type Severity Reaction Status Date / Time No Known Allergies Allergy Verified 05/09/22 07:16 Current Medications Generic Name Dose Route Start Last Admin Trade Name Freq PRN Reason Stop Dose Admin Albuterol/Ipratropium 3 ml 05/11/22 02:00 05/11/22 03:34 Ipratropium-Albuterol 3 Ml Neb INHALATION 3 ml Q6H.RESP SHERITA Administration Budesonide 0.5 mg 05/11/22 03:00 05/11/22 03:34 Budesonide 0.5 Mg/2 Ml Neb INHALATION 0.5 mg Q12H SHERITA Administration Dextrose/Sodium Chloride 1,000 mls @ 50 mls/hr 05/11/22 02:00 05/11/22 03:18 Dextrose 5%-Sod Chloride 0.9% IV 50 mls/hr .Q20H SHERITA Administration Doxycycline Hyclate 100 mg/ 100 mls @ 100 mls/hr 05/11/22 02:00 05/11/22 04:05 Sodium Chloride IV Infused Q12H SHERITA Infusion Protocol Losartan Potassium 100 mg 05/11/22 03:15 05/11/22 04:03 Losartan 50 Mg Tablet PO 100 mg DAILY SHERITA Administration Pantoprazole Sodium 40 mg 05/11/22 02:00 05/11/22 02:53 Pantoprazole 40 Mg Sdv IVP 40 mg Q12H SHERITA Administration Sucralfate 1 gm 05/11/22 02:00 05/11/22 02:53 Sucralfate 1 Gm Tablet PO 1 gm Q12H SHERITA Administration PFSH Acute PFSH: Medical History COPD (chronic obstructive pulmonary disease) Erectile dysfunction History of abdominal hernia Hypertension Renal insufficiency Surgical History History of bowel resection History of colon surgery Family History Other CAD (coronary artery disease) Social History Smoking and tobacco status: current some day smoker Alcohol intake: current Substance/Drug Use: never Vitals/I&O/Wt Last Vital Signs Temp 98.3 F 05/11/22 04:00 Pulse 102 H 05/11/22 05:10 Resp 22 H 05/11/22 04:20 BP 131/75 05/11/22 04:20 Pulse Ox 93 05/11/22 05:42 O2 Del Method 05/11/22 05:42 O2 Flow Rate 4 05/11/22 05:42 05/10/22 05/11/22 05/11/22 22:59 06:59 14:59 Intake Total 100 / 100 Balance 100 / 100 Physical Exam Narrative: General : Patient is well developed , no acute distress, oriented x3 Head : Normal cephalic, a-traumatic. Ears : Pinnae and external canal are normal. Hearing is normal. Eyes : PERRLA, Sclera and injection are normal. No conjunctival discharge. Nose : Mucous membranes are without erythema. Throat : buccal mucosa is normal, gums are without significant recession or hypertrophy. Lungs : Equal chest rise bilaterally, no use of accessory muscles, trachea is midline. Cor : Rate and rhythm are normal. Abdomen : Soft, ND, mild epigastric tenderness, midline incisional hernias, no guarding or rebound Extremities : No edema, no cyanosis or clubbing, dorsalis pedis pulses are present bilaterally, non-tender to palpation of calves. Upper extremities are normal bilaterally. Back : non-tender to palpation, no CVA tenderness. Neuro : CN II - XII intact, Upper and lower extremities have equal and full strength he Data 05/11/22 02:45 05/10/22 21:02 Micro: Microbiology 05/11/22 02:45 Blood Culture - Preliminary Blood SPECIMEN COLLECTED 05/11/22 02:34 Blood Culture - Preliminary Blood SPECIMEN COLLECTED A&P Assessment and plan (1) GI bleed: Plan EGD The risks and benefits of the procedure, including bleeding, infection, intestinal perforation requiring surgery, missed lesion were explained to the patient. The patient is understanding of the risks and wishes to proceed. Coding Level of Care Code Acute Milling Machine Operator for [facility] Diagnoses GI bleed K92.2
--- NOTE | 2022-05-11 07:55 | ECG_ITS ---
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 Measurements Intervals [place] Rate: 93 P: 57 RI: 136 QRS: 10 QRSD: 90 T: 47 QT: 367 QTc: 459 Interpretive Statements SINUS RHYTHM Compared to ECG 05/11/2022 04:11:54 Sinus tachycardia no longer present Electronically Signed On 05-12-2022 20:22:16 MEDICINE AIDE by Melida Bejarano M.D. [email or web address] [email or web address]/store/[id number]
--- NOTE | 2022-05-11 08:08 | ANES.PREANE2 ---
Pre-Anesthetic Assessment Height/Weight: Height 1.83 m Temp Pulse Resp BP Pulse Ox O2 Del Method O2 Flow Rate 98.3 F 108 H 18 131/75 95 4 05/11/22 04:00 05/11/22 08:06 05/11/22 08:06 05/11/22 04:20 05/11/22 08:06 05/11/22 08:06 05/11/22 08:06 Operation Date: 05/11/22 09:00 Proposed Procedures p EGD(Not Applicable) - Andreas Krishnamurthy DO Familial anesthetic complications: Hx of post-op COPD exacerbation Last intake: > 8 hrs Social No alcohol and No tobacco former smoker Exam alert, oriented x 3, clear to auscultation bilaterally and regular rate & rhythm Airway Mallampati: Class III Dentition: chipped Pulmonary Chronic Obstructive Pulmonary Disease Covid + CV/HEM Anemia and Hypertension Hepatic Cirrhosis GI Gi bleed, hx diveticulosis, no vomiting, no nausea Anesthetic Plan ASA status: 3 Anesthesia: MAC Risk of > 500 ml blood loss (7ml/kg in children): No Medications/Allergies Home Medications Medication Instructions Recorded Confirmed Last Taken Type clonidine HCl 0.2 mg tablet 0.2 mg PO PRN 08/16/19 05/11/22 Unknown History tiotropium bromide 2.5 See Rx Instructions .Route .COMPLEX 06/13/20 05/11/22 05/10/22 History mcg/actuation mist for inhalation (Spiriva Respimat) losartan 100 See Rx Instructions .Route 01/02/22 05/11/22 05/09/22 Rx mg-hydrochlorothiazide 12.5 mg .COMPLEX #90 tabs tablet benzonatate 200 mg capsule 200 mg PO TID PRN cough #30 caps 02/21/22 05/09/22 Unknown Rx albuterol sulfate 90 mcg/actuation See Rx Instructions .Route 02/26/22 05/09/22 Unknown Rx aerosol inhaler .COMPLEX #18 grams Symbicort 160 mcg-4.5 See Rx Instructions .Route 03/25/22 05/11/22 05/10/22 Rx mcg/actuation HFA aerosol inhaler .COMPLEX #11 grams (budesonide-formoterol) hydrocodone 7.5 mg-acetaminophen 1 tab PO BID PRN pain 20 days #40 05/09/22 05/09/22 Unknown Rx 325 mg tablet tabs hydrocodone 7.5 mg-acetaminophen 1 tab PO Q12H PRN pain 20 days #40 05/09/22 05/11/22 Unknown Rx 325 mg tablet tabs promethazine-DM 6.25 mg-15 mg/5 mL 5 ml PO Q6H PRN cough #240 mL 05/09/22 05/11/22 05/10/22 Rx oral syrup albuterol sulfate 90 mcg/actuation inhalation 05/11/22 05/11/22 Unknown History aerosol inhaler Allergies Allergy/AdvReac Type Severity Reaction Status Date / Time No Known Allergies Allergy Verified 05/09/22 07:16 Current Medications Generic Name Dose Route Start Last Admin Trade Name Freq PRN Reason Stop Dose Admin Albuterol/Ipratropium 3 ml 05/11/22 02:00 05/11/22 03:34 Ipratropium-Albuterol 3 Ml Neb INHALATION 3 ml Q6H.RESP SHERITA Administration Budesonide 0.5 mg 05/11/22 03:00 05/11/22 03:34 Budesonide 0.5 Mg/2 Ml Neb INHALATION 0.5 mg Q12H SHERITA Administration Dextrose/Sodium Chloride 1,000 mls @ 50 mls/hr 05/11/22 02:00 05/11/22 03:18 Dextrose 5%-Sod Chloride 0.9% IV 50 mls/hr .Q20H SHERITA Administration Doxycycline Hyclate 100 mg/ 100 mls @ 100 mls/hr 05/11/22 02:00 05/11/22 04:05 Sodium Chloride IV Infused Q12H SHERITA Infusion Protocol Losartan Potassium 100 mg 05/11/22 03:15 05/11/22 04:03 Losartan 50 Mg Tablet PO 100 mg DAILY SHERITA Administration Pantoprazole Sodium 40 mg 05/11/22 02:00 05/11/22 02:53 Pantoprazole 40 Mg Sdv IVP 40 mg Q12H SHERITA Administration Sucralfate 1 gm 05/11/22 02:00 05/11/22 02:53 Sucralfate 1 Gm Tablet PO 1 gm Q12H SHERITA Administration PFSH Anesthesia Medical History COPD (chronic obstructive pulmonary disease) Erectile dysfunction History of abdominal hernia Hypertension Renal insufficiency Surgical History History of bowel resection History of colon surgery Family History Other CAD (coronary artery disease) Social History Smoking and tobacco status: current some day smoker Alcohol intake: current Substance/Drug Use: never Data Anesthesia 05/11/22 02:45 05/10/22 21:02 Short CBC 05/10/22 05/10/22 05/11/22 Range/Units 21:02 22:28 02:45 WBC 10.8 H 9.3 (4.0-10.0) 10^3/uL Hgb 10.8 L 9.9 L 9.9 L (11.7-16.6) g/dL Hct 32.6 L 29.7 L 30.0 L (42.0-52.0) % MCV 92.4 92.9 (80-94) fl Plt Count 310 314 (130-400) 10^3/cmm Neut % (Auto) 65.8 67.9 % Neut # (Auto) 7.10 6.29 (1.8-7.7) 10^3/uL BMP 05/10/22 21:02 Sodium 130 L Potassium 4.2 Chloride 94 L Carbon Dioxide 28 BUN 33 H Creatinine 0.9 Glucose 111 Calcium 9.4 Cardiac Enzymes 05/11/22 05/11/22 05/11/22 Range/Units 02:45 02:45 04:09 Troponin T Baseline 94 H (0-15) ng/L Troponin T 120 Minute 94.99 H (0-15) ng/L Delta Troponin T 0.99 (0-10) ABS# NT-Pro-B Natriuret Pep 453 H (0-125) pg/mL Liver Function 05/10/22 Range/Units 21:02 Total Bilirubin 0.8 (0.15-1.2) mg/dL AST 27 (0-40) U/L ALT 56 H (0-41) U/L Alkaline Phosphatase 139 H (40-130) U/L Albumin 3.6 (3.5-5.2) g/dL Blood Bank 05/10/22 22:28 Blood Type O Positive Rho(D) Type Positive Antibody Screen Negative COVID Results 05/11/22 02:09 SARS-CoV-2 Ag (Rapid) positive Coags 05/10/22 05/11/22 21:02 02:45 PT 14.50 INR 1.10 C-Reactive Protein 44.2 H Microbiology 05/11/22 02:45 Blood Culture - Preliminary Blood SPECIMEN COLLECTED 05/11/22 02:34 Blood Culture - Preliminary Blood SPECIMEN COLLECTED Cardiac Studies: No Data to Display
[2022-05-11] MEDS: sodium chloride 0.9% 1,000 ML 30 ML IV (09:19)
--- NOTE | 2022-05-11 09:45 | P.PCN_ITS ---
PACU note Narrative: VSS, Good respiratory effort, report to CLIENT SERVICE ASSOCIATE Exam: awake
--- NOTE | 2022-05-11 09:45 | PM.PACU ---
PACU note Narrative: VSS, Good respiratory effort, report to RETAIL COVERAGE MERCHANDISER LEAD Exam: awake
--- NOTE | 2022-05-11 09:47 | P.PN_ITS ---
Subjective Subjective: There is an IT issue with uploading the EGD report. He had old blood in the stomach and a non-bleeding duodenal ulcer. Continue Meigs diet, IV protonix and carafate Vitals/I&O/Wt Last Vital Signs Temp 98 F 05/11/22 09:31 Pulse 101 H 05/11/22 09:44 Resp 24 H 05/11/22 09:44 BP 119/73 05/11/22 09:44 Pulse Ox 92 05/11/22 09:44 O2 Del Method 05/11/22 09:44 O2 Flow Rate 4 05/11/22 09:44 05/10/22 05/11/22 05/11/22 22:59 06:59 14:59 Intake Total 100 / 100 Balance 100 / 100 Data 05/11/22 02:45 05/10/22 21:02 Micro: Microbiology 05/11/22 02:45 Blood Culture - Preliminary Blood SPECIMEN COLLECTED 05/11/22 02:34 Blood Culture - Preliminary Blood SPECIMEN COLLECTED Attestations Medical Necessity Statement*: Patient requires at least 1 more night in the hospital for IV Protonix and monitoring for GI blood loss Coding Level of Care Code Acute Public Bath Attendant for [facility]
--- NOTE | 2022-05-11 09:50 | PM.MISC ---
Miscellaneous Note Note: This morning patient had EGD which showed old clot, nonbleeding duodenal ulcer Patient is on 4 L nasal cannula Endorsing to drinking alcohol on daily basis, smokes cigarettes as well Awake and alert In distress, has chronic ventral hernia Currently on 4 L nasal cannula Patient is awake and alert, GCS 15 No active signs of withdrawal He was in distress because he wanted to eat No abdominal pain S1, S2 Hemodynamically stable Mild sinus tachycardia Status post EGD, we will keep him on bland diet, Protonix 40 mg IV twice daily For COVID-19 continue remdesivir and Decadron monitor blood sugar, if becomes more hypoxic we will put him on heated high flow nasal cannula, nurse updated Patient is full code Would use phenobarbital for alcohol withdrawal symptoms, continue thiamine and folic acid
--- NOTE | 2022-05-11 10:00 | ANE.PACU2 ---
Inpatient post-anesthesia follow up: Airway intact: Yes Vital signs: Temperature 97.8 F Pulse Rate 92 Respiratory Rate 19 Blood Pressure 131/76 Pulse Oximetry 97 Oxygen Delivery Me thod Nasal Cannula Oxygen Flow Rate 4 Fraction of Inspir ed Oxygen Hydration adequate: Yes Nausea and vomiting: No Pain level: 1 Mental status: Baseline
[2022-05-11 11:05] LABS: Hepatitis A Antibody IgM Non-Reactive (Nonreactive); Hepatitis B Core IgM Non-Reactive (Nonreactive); Hepatitis B Surface Antigen Non-Reactive (Nonreactive); Hepatitis C Virus Antibody Non-Reactive (Nonreactive)
[2022-05-11] MEDS: HYDROcodone-acetaminophen 7.5-325 mg Tablet 1 TAB PO (11:55)
[2022-05-11] MEDS: albuterol 2.5 mg/3 mL Neb INHALATION ×2 (13:34→19:52)
[2022-05-11] MEDS: ipratropium 0.5 mg/2.5 mL Neb INHALATION ×2 (13:35→19:52)
[2022-05-11 16:27] LABS: Hematocrit 26.5 % (42.0-52.0); Hemoglobin 8.4 g/dL (11.7-16.6); Lymphocytes # 0.4 10^3/uL (0.8-4.8); Lymphocytes % 5.7 %; Mean Corpuscular HGB Conc 31.7 g/dL (30.0-36.0); Mean Corpuscular Hemoglobin 30.3 pg (28.0-34.0); Mean Corpuscular Volume 95.7 fl (80-94); Mean Platelet Volume 9.5 fL (7.4-10.4); Monocytes # 0.1 10^3/uL (0.2-0.9); Neutrophils # 5.94 10^3/uL (1.8-7.7); Neutrophils % 91.7 %; Nucleated Red Blood Cells % 0 %; Platelet Count 260 10^3/cmm (130-400); Red Blood Count 2.77 10^6/uL (4.1-5.3); Red Cell Distribution Width 14.4 % (12.1-15.1); White Blood Count 6.5 10^3/uL (4.0-10.0)
[2022-05-11] MEDS: remdesivir 200 MG in sodium chloride 0.9% (100 ml) 60 ML 100 MG IV (21:40)
[2022-05-11] MEDS: acetaminophen 325 mg Tablet 650 MG PO (23:11)
[2022-05-12] VITALS (16 sets, daily range): BP systolic 131–147; BP diastolic 67–89; PULSE 89–100; RESP 17–24; TEMP 36.1–36.8; O2SAT 93–100
[2022-05-12] MEDS: sucralfate 1 gm Tablet PO ×2 (02:03→13:57)
[2022-05-12] MEDS: pantoprazole 40 mg SDV IVP ×2 (02:03→13:58)
[2022-05-12] MEDS: albuterol 2.5 mg/3 mL Neb INHALATION ×4 (02:29→20:55)
[2022-05-12] MEDS: ipratropium 0.5 mg/2.5 mL Neb INHALATION ×4 (02:29→20:55)
[2022-05-12] MEDS: HYDROcodone-acetaminophen 7.5-325 mg Tablet 1 TAB PO ×2 (04:01→19:47)
--- NOTE | 2022-05-12 04:49 | PC.NURSE ---
Patient experiencing small amounts of dark red colored tarry stools throughout the shift.
[2022-05-12 05:19] LABS: ABG PCO2 47.4 mmHg (35-45); ABG PH Result 7.37 (7.35-7.45); Arterial Blood Gas Hematocrit 28.4 % (42-52); Base Excess ABG 1.3 mmol/L (-2.0-2.0); Blood Gas Allen Test Pos; Blood Gas Operator Identificat JB; Blood Gas Sample Site Radial, right; Blood Gas Sample Type Arterial; Oxygen Device ROOM AIR; PO2 ABG 49.6 mmHg (80.0-100.0)
--- NOTE | 2022-05-12 05:29 | PC.RESP ---
patient on room air asleep when this Rt entered room to obtain ABG. spo2 in the mid 80's placed back on 4lm oxymask. ABG obtain corrleating with low spo2. Spo2 improved after being placed back on oxymask to 98% will continue to monitor
[2022-05-12 05:30] LABS: Hematocrit 24.6 % (42.0-52.0); Hemoglobin 7.7 g/dL (11.7-16.6); Lymphocytes # 0.6 10^3/uL (0.8-4.8); Lymphocytes % 5.3 %; Mean Corpuscular HGB Conc 31.3 g/dL (30.0-36.0); Mean Corpuscular Volume 95.7 fl (80-94); Mean Platelet Volume 9.8 fL (7.4-10.4); Monocytes # 0.8 10^3/uL (0.2-0.9); Monocytes % 6.8 %; Neutrophils % 87.2 %; Nucleated Red Blood Cells % 0 %; Platelet Count 236 10^3/cmm (130-400); Red Blood Count 2.57 10^6/uL (4.1-5.3); Red Cell Distribution Width 14.3 % (12.1-15.1); White Blood Count 11.3 10^3/uL (4.0-10.0)
[2022-05-12 05:47] LABS: Blood Urea Nitrogen 28 mg/dL (8-23); Calcium 8.7 mg/dL (8.5-10.5); Carbon Dioxide 25 mmol/L (22-29); Glomerular Filtration Rate 98.6 mL/min (90-130); Glucose 167 mg/dL (65-115)
[2022-05-12 06:36] LABS: Anion Gap 11.5 (5-19); Chloride 98 mmol/L (98-107); Osmolality Calculated 279 mOsm/kg (285-295); Potassium 4.5 mmol/L (3.5-5.1); Sodium 130 mmol/L (136-145)
[2022-05-12] MEDS: budesonide 0.5 mg/2 mL Neb INHALATION ×2 (08:52→20:55)
[2022-05-12] MEDS: losartan 50 mg Tablet 100 MG PO (09:20)
[2022-05-12 09:29] LABS: Hematocrit 26.1 % (42.0-52.0); Hemoglobin 8.3 g/dL (11.7-16.6)
--- NOTE | 2022-05-12 10:06 | PM.PN ---
Subjective Subjective: Patient this morning endorsing feeling better He noticed 1 episode of dark stools yesterday Repeat H&H this morning is 8.3 No need of blood transfusion Hemodynamically stable Still wheezing Getting inhaled steroids I have discontinued p.o. prednisone Patient was asking to go home I did tell him that he is not ready yet history of requiring 4 to 5 L of oxygen with active wheezing he should wait at least 24-40hrs Vitals/I&O/Wt Last Vital Signs Temp 97.9 F 05/12/22 07:46 Pulse 95 05/12/22 08:57 Resp 18 05/12/22 08:57 BP 134/75 05/12/22 09:20 Pulse Ox 99 05/12/22 08:57 O2 Del Method 05/12/22 08:50 O2 Flow Rate 4 05/12/22 08:50 05/11/22 05/12/22 05/12/22 22:59 06:59 14:59 Intake Total 1723.333 / 2693.333 100 / 2793.333 480 / 480 Output Total 900 / 900 1200 / 2100 525 / 525 Balance 823.333 / 1793.333 -1100 / 693.333 -45 / -45 Weight last 48 hrs Weight 93.803 kg Physical Exam Narrative: Active wheezing Currently on 4 L cannula No acute respiratory distress S1, S2 Hemodynamic stable Abdomen soft Unkept appearance Awake and alert, nonfocal neuro exam Dry cough Data 05/12/22 08:55 05/12/22 04:41 Micro: Microbiology 05/11/22 02:45 Blood Culture - Preliminary Blood NEGATIVE TO DATE 05/11/22 02:34 Blood Culture - Preliminary Blood NEGATIVE TO DATE A&P Assessment and plan (1) Liver cirrhosis: (2) Anemia: (3) COPD exacerbation: (4) GI bleed: (5) Duodenal ulcer: (6) Hypertension: Qualifiers: Hypertension type: essential hypertension Qualified Code(s): I10 - Essential (primary) hypertension (7) COPD (chronic obstructive pulmonary disease): Qualifiers: COPD type: chronic bronchitis Chronic bronchitis type: simple Qualified Code(s): J41.0 - Simple chronic bronchitis Plan Acute macrocytic GI blood loss anemia Patient is alcoholic, normal B12 Duodenal ulcer noted H&H stable around 8 No need of blood transfusion Discontinue steroids Continue protonix COVID-19 related pneumonia Acute hypoxia currently requiring 4 L nasal cannula Active wheezing Inhaled budesonide Continue remdesivir Will discharge him once wheezing improves and hemoglobin remained stable Liver cirrhosis likely alcohol induced Continue thiamine and folic acid Full code Advance diet, patient is asking his diet to be advanced DVT prophylaxis contraindicated use SCDs for now Discontinue IV fluids Attestations Medical Necessity Statement*: Continue medical management Time Spent in Patient Care: 30 Coding Level of Care Code Acute Tile Layer Drainage for [facility] Fwd Diagnoses Liver cirrhosis K74.60 Anemia D64.9 COPD exacerbation J44.1 GI bleed K92.2 Duodenal ulcer K26.9 Hypertension I10 Hypertension type: essential hypertension COPD (chronic obstructive pulmonary disease) J41.0 COPD type: chronic bronchitis Chronic bronchitis type: simple
[2022-05-12] MEDS: acetaminophen 325 mg Tablet 650 MG PO (11:29)
--- NOTE | 2022-05-12 13:31 | PM.PN ---
Subjective Subjective: Patient seen and examined. He is mostly reporting rib pain and saying is not getting enough pain medicine. Reports minimal epigastric abdominal pain. Denies any nausea or vomiting. Denies any bloody stools. Vitals/I&O/Wt Last Vital Signs Temp 98.1 F 05/12/22 11:53 Pulse 96 05/12/22 11:53 Resp 18 05/12/22 11:53 BP 132/72 05/12/22 11:53 Pulse Ox 100 05/12/22 11:53 O2 Del Method 05/12/22 08:50 O2 Flow Rate 4 05/12/22 08:50 05/11/22 05/12/22 05/12/22 22:59 06:59 14:59 Intake Total 1723.333 / 2693.333 100 / 2793.333 480 / 480 Output Total 900 / 900 1200 / 2100 525 / 525 Balance 823.333 / 1793.333 -1100 / 693.333 -45 / -45 Weight last 48 hrs Weight 206 lb 12.8 oz Physical Exam Narrative: General: No acute distress, awake alert and oriented x3 Abdomen: Soft, nondistended, minimally tender to palpation over epigastrium, no guarding rebound or masses Data 05/12/22 08:55 05/12/22 04:41 Micro: Microbiology 05/12/22 09:12 Gram Stain - Final Sputum - Expectorated Sputum 05/11/22 02:45 Blood Culture - Preliminary Blood NEGATIVE TO DATE 05/11/22 02:34 Blood Culture - Preliminary Blood NEGATIVE TO DATE A&P Assessment and plan (1) Duodenal ulcer: (2) Anemia: (3) GI bleed: Plan Ulcer is currently no longer bleeding Protonix twice daily for 6 weeks followed by Protonix once a day for 6 weeks Carafate twice a day for 4 weeks Beltrami diet Surgically stable for discharge Medical management per hospitalist Attestations Medical Necessity Statement*: Further hospitalization per hospitalist Coding Level of Care Code Acute [employer]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
[2022-05-12] MEDS: remdesivir 100 MG in sodium chloride 0.9% (100 ml) 80 ML IV (17:52)
[2022-05-13] VITALS (10 sets, daily range): BP systolic 123–139; BP diastolic 67–79; PULSE 89–96; RESP 16–18; TEMP 36.6–36.7; O2SAT 85–96
[2022-05-13] MEDS: ipratropium 0.5 mg/2.5 mL Neb INHALATION ×2 (01:50→09:09)
[2022-05-13] MEDS: albuterol 2.5 mg/3 mL Neb INHALATION ×2 (01:50→09:09)
[2022-05-13] MEDS: pantoprazole 40 mg SDV IVP (02:23)
[2022-05-13] MEDS: HYDROcodone-acetaminophen 7.5-325 mg Tablet 1 TAB PO ×2 (02:24→08:15)
[2022-05-13] MEDS: sucralfate 1 gm Tablet PO (02:24)
[2022-05-13 04:54] LABS: Basophils % 0.2 %; Eosinophils % 0.5 %; Hematocrit 25.1 % (42.0-52.0); Lymphocytes # 1.2 10^3/uL (0.8-4.8); Lymphocytes % 14.2 %; Mean Corpuscular HGB Conc 31.9 g/dL (30.0-36.0); Mean Corpuscular Hemoglobin 31.1 pg (28.0-34.0); Mean Corpuscular Volume 97.7 fl (80-94); Mean Platelet Volume 9.5 fL (7.4-10.4); Monocytes # 1.1 10^3/uL (0.2-0.9); Monocytes % 12.7 %; Neutrophils # 6.04 10^3/uL (1.8-7.7); Neutrophils % 71.7 %; Nucleated Red Blood Cells % 0 %; Platelet Count 240 10^3/cmm (130-400); Red Blood Count 2.57 10^6/uL (4.1-5.3); Red Cell Distribution Width 14.6 % (12.1-15.1); White Blood Count 8.4 10^3/uL (4.0-10.0)
[2022-05-13 05:17] LABS: Anion Gap 10.2 (5-19); Blood Urea Nitrogen 19 mg/dL (8-23); Calcium 9.5 mg/dL (8.5-10.5); Carbon Dioxide 30 mmol/L (22-29); Chloride 99 mmol/L (98-107); Glomerular Filtration Rate 98.6 mL/min (90-130); Glucose 101 mg/dL (65-115); Osmolality Calculated 282 mOsm/kg (285-295); Potassium 4.2 mmol/L (3.5-5.1); Sodium 135 mmol/L (136-145)
--- NOTE | 2022-05-13 06:42 | PM.DCS ---
Discharge Providers Date of Admission: 05/11/22 03:05 Date of Discharge: May 13, 2022 Attending Provider at Admission: Neil Zafar MD Attending Provider at Discharge: Marichuy Higuera MD Primary Care Provider: Abram Horn MD Diagnoses at Discharge Discharge Diagnosis (1) Duodenal ulcer: Status: Acute (2) Anemia: Status: Acute (3) GI bleed: Status: Acute Reason for Visit Reason for Visit: abd pain, bld in stool Hospital Course Hospital Course 61 male who was admitted to the hospital for management of melanotic stools, he was diagnosed with COVID-19 in the ER. He was put on remdesivir, Decadron was not continued because of duodenal ulcer found on EGD, he was not given any blood transfusion however his hemoglobin trickled down from 10.8-8. He remained hemodynamically stable. He was put on Protonix and sucralfate. Qualified for 4 L of oxygen. He remained afebrile. Physical Exam Narrative: Patient is hemodynamically stable Currently doing well 4 L Unkept appearance COPD related wheezing has improved Abdomen soft Euvolemic S1, S2 Nonfocal neuro exam Discharge Data Studies Completed and Pending Completed Studies During Hospitalization Category Date Time Status CT angio abdomen pelvis [id number] Stat Cat Scan 05/10/22 22:10 Completed XR chest 1V portable [id number] Stat Exams 05/11/22 01:53 Completed Pending at discharge Category Date Time Status Blood Culture Stat Lab 05/11/22 02:45 Results Sputum Culture and Gram Stain Stat Lab 05/12/22 09:12 Results Radiology Impressions Abdomen/Pelvis CTA 05/10/22 22:10 IMPRESSION: 1. No small bowel obstruction, abscess or free air. No AAA or definite acute finding. 2. Small left periumbilical small bowel containing hernia. 3. Atherosclerosis, trace left effusion, cirrhosis, cholelithiasis, and other chronic findings. Chest X-Ray 05/11/22 01:53 IMPRESSION: Findings inconclusive for peripheral ground-glass opacity left mid lung zone which could be clarified on follow-up PA and lateral chest clinically warranted. Laboratory Results WBC 8.4 10^3/uL (4.0-10.0) 05/13/22 04:43 RBC 2.57 10^6/uL (4.1-5.3) L 05/13/22 04:43 Hgb 8.0 g/dL (11.7-16.6) L 05/13/22 04:43 Hct 25.1 % (42.0-52.0) L 05/13/22 04:43 MCV 97.7 fl (80-94) H 05/13/22 04:43 MCH 31.1 pg (28.0-34.0) 05/13/22 04:43 MCHC 31.9 g/dL (30.0-36.0) 05/13/22 04:43 RDW 14.6 % (12.1-15.1) 05/13/22 04:43 Plt Count 240 10^3/cmm (130-400) 05/13/22 04:43 MPV 9.5 fL (7.4-10.4) 05/13/22 04:43 Neut % (Auto) 71.7 % 05/13/22 04:43 Lymph % (Auto) 14.2 % 05/13/22 04:43 [place] % (Auto) 12.7 % 05/13/22 04:43 Eos % (Auto) 0.5 % 05/13/22 04:43 Baso % (Auto) 0.2 % 05/13/22 04:43 Neut # (Auto) 6.04 10^3/uL (1.8-7.7) 05/13/22 04:43 Lymph # (Auto) 1.2 10^3/uL (0.8-4.8) 05/13/22 04:43 [place] # (Auto) 1.1 10^3/uL (0.2-0.9) H 05/13/22 04:43 Eos # (Auto) 0.0 10^3/uL (0.0-0.8) 05/13/22 04:43 Baso # (Auto) 0.0 10^3/uL (0.0-0.1) 05/13/22 04:43 Nucleated RBC % (auto) 0 % 05/13/22 04:43 Nucleated RBCs # 0.0 /100WBC 05/13/22 04:43 PT 14.50 SECONDS (12.1-14.9) 05/10/22 21:02 INR 1.10 (0.8-1.2) 05/10/22 21:02 Specimen Type Arterial 05/12/22 05:06 Sample Site Radial, right 05/12/22 05:06 ABG pH 7.37 (7.35-7.45) 05/12/22 05:06 ABG pCO2 47.4 mmHg (35-45) H 05/12/22 05:06 ABG pO2 49.6 mmHg (80.0-100.0) L 05/12/22 05:06 ABG HCO3 27.0 mmol/L (22-26) H 05/12/22 05:06 ABG Base Excess 1.3 mmol/L (-2.0-2.0) 05/12/22 05:06 Jaylen Test Pos 05/12/22 05:06 Hematocrit 28.4 % (42-52) L 05/12/22 05:06 O2 Delivery Device Room air 05/12/22 05:06 FiO2 21.0 % 05/12/22 05:06 Field Sales Representative ID [email or web address] 05/12/22 05:06 Sodium 135 mmol/L (136-145) L 05/13/22 04:43 Potassium 4.2 mmol/L (3.5-5.1) 05/13/22 04:43 Chloride 99 mmol/L (98-107) 05/13/22 04:43 Carbon Dioxide 30 mmol/L (22-29) H 05/13/22 04:43 Anion Gap 10.2 (5-19) 05/13/22 04:43 BUN 19 mg/dL (8-23) 05/13/22 04:43 Creatinine 0.8 mg/dL (0.7-1.2) 05/13/22 04:43 GFR Calculation 98.6 mL/min (90-130) 05/13/22 04:43 Glucose 101 mg/dL (65-115) 05/13/22 04:43 Calculated Osmolality 282 mOsm/kg (285-295) L 05/13/22 04:43 Lactic Acid 1.0 mmol/L (0.5-2.2) 05/11/22 04:09 Calcium 9.5 mg/dL (8.5-10.5) 05/13/22 04:43 Iron 58 ug/dL (59-158) L 05/11/22 02:45 Ferritin 213 ng/mL (30-400) 05/11/22 02:45 Total Bilirubin 0.8 mg/dL (0.15-1.2) 05/10/22 21:02 AST 27 U/L (0-40) 05/10/22 21:02 ALT 56 U/L (0-41) H 05/10/22 21:02 Alkaline Phosphatase 139 U/L (40-130) H 05/10/22 21:02 Troponin T Baseline 94 ng/L (0-15) H 05/11/22 02:45 Troponin T 120 Minute 94.99 ng/L (0-15) H 05/11/22 04:09 Delta Troponin T 0.99 ABS# (0-10) 05/11/22 04:09 Troponin T Hi Sens 6Hr 44.90 ng/L (0-15) H 05/11/22 16:01 Troponin T Hi Sens 6Hr Delta -49.1 ng/L (0-12) L 05/11/22 16:01 C-Reactive Protein 44.2 mg/L (0.0-4.9) H 05/11/22 02:45 NT-Pro-B Natriuret Pep 453 pg/mL (0-125) H 05/11/22 02:45 Total Protein 6.9 g/dL (6.6-8.7) 05/10/22 21:02 Albumin 3.6 g/dL (3.5-5.2) 05/10/22 21:02 Globulin 3.3 g/dL (1.3-4.6) 05/10/22 21:02 Lipase 30 U/L (13-60) 05/10/22 21:02 Vitamin B12 362 pg/mL (232-1245) 05/11/22 02:45 Folate 10.7 ng/mL (4.5-32.2) 05/11/22 02:45 Procalcitonin 0.51 ng/mL (0-0.5) H 05/11/22 02:45 TSH 1.47 uIU/mL (0.27-4.20) 05/11/22 02:45 Ethyl Alcohol < 10 mg/dL (0-10) 05/11/22 02:45 Hepatitis A IgM Ab Non-reactive (Nonreactive) 05/11/22 10:17 Hep Bs Antigen Non-reactive (Nonreactive) 05/11/22 10:17 Hep B Core IgM Ab Non-reactive (Nonreactive) 05/11/22 10:17 Hepatitis C Antibody Non-reactive (Nonreactive) 05/11/22 10:17 Influenza Type A Ag negative (Negative) 05/11/22 02:09 Influenza Type B Ag negative (Negative) 05/11/22 02:09 SARS-CoV-2 Ag (Rapid) positive (Negative) 05/11/22 02:09 Blood Type O Positive 05/10/22 22:28 Rho(D) Type Positive 05/10/22 22:28 Antibody Screen Negative 05/10/22 22:28 Vitals Last Vital Signs Temp 97.8 F 05/13/22 04:00 Pulse 90 05/13/22 05:04 Resp 18 05/13/22 04:00 BP 136/72 05/13/22 04:00 Pulse Ox 90 05/13/22 04:00 O2 Del Method 05/13/22 01:59 O2 Flow Rate 4 05/12/22 21:09 FiO2 4 05/12/22 13:37 Discharge Plan Discharge Patient Disposition: Home Condition: Stable Prescriptions: New sucralfate 1 gram Tablet 1 g PO Q12H Qty: 180 0RF azithromycin 250 mg tablet 250 mg PO DAILY 4 Days Qty: 4 0RF Rx Instructions: start on day 2 of therapy methylprednisolone [Medrol ([place])] 4 mg tablets,dose pack See Rx Instructions .ROUTE .COMPLEX Qty: 21 0RF Rx Instructions: orally per package directions omeprazole 20 mg capsule,delayed release(DR/EC) 20 mg PO BID 84 Days Qty: 168 0RF Continued hydrocodone-acetaminophen 7.5-325 mg tablet 1 tab PO BID PRN (Reason: pain) 20 Days Qty: 40 0RF promethazine-DM 6.25-15 mg/5 mL syrup 5 ml PO Q6H PRN (Reason: cough) Qty: 240 0RF losartan-hydrochlorothiazide 100-12.5 mg tablet See Rx Instructions .ROUTE .COMPLEX Qty: 90 0RF Dose Instruction: Take 1 tablet by mouth once daily Rx Instructions: Take 1 tablet by mouth once daily albuterol sulfate 90 mcg/actuation HFA aerosol inhaler 2 puff INHALATION Q4H PRN (Reason: Shortness Of Breath) Symbicort 160-4.5 mcg/actuation HFA aerosol inhaler See Rx Instructions .ROUTE .COMPLEX Qty: 11 7RF Dose Instruction: INHALE 2 PUFFS BY MOUTH EVERY 12 HOURS Rx Instructions: INHALE 2 PUFFS BY MOUTH EVERY 12 HOURS albuterol sulfate 90 mcg/actuation HFA aerosol inhaler See Rx Instructions .ROUTE .COMPLEX Qty: 18 4RF Dose Instruction: INHALE 2 PUFFS BY MOUTH EVERY 4 HOURS NEEDED FOR SHORTNESS OF BREATH AND FOR WHEEZING Rx Instructions: INHALE 2 PUFFS BY MOUTH EVERY 4 HOURS NEEDED FOR SHORTNESS OF BREATH AND FOR WHEEZING Spiriva Respimat 2.5 mcg/actuation mist See Rx Instructions .ROUTE .COMPLEX Qty: 18 4RF Rx Instructions: 2 sprays po daily Discontinued clonidine HCl 0.2 mg tablet 0.2 mg PO PRN Discharge Orders: Discharge Order (Routine); Ordered 05/13/22 Ordered By: Marichuy Higuera Referrals: Abram Horn MD [Primary Care Provider] - 7-10 days Discharge Diet: Cardiac Discharge Activity: Increase activity as tolerated Patient Instructions: GI Discharge Instructions, Opioid Safety Discharge Attestations Time Spent in Discharge Care*: less than 30 min Quality Metrics Clinical Quality Measures [ No reported AMI, CVA or VTE this stay] Coding Level of Care Code Acute Chg [facility] note Diagnoses Duodenal ulcer K26.9 Anemia D64.9 GI bleed K92.2
[2022-05-13] MEDS: losartan 50 mg Tablet 100 MG PO (08:10)
[2022-05-13] MEDS: budesonide 0.5 mg/2 mL Neb INHALATION (09:10)
== END 2022-05-13 12:10 | disposition home or self-care (01) | DRG 177 ==
LOC: ER 05-11 02:00 → MEDSURG 05-11 03:05
PROVIDERS: Surgery; Admitting Provider Family Medicine; Emergency Provider Emergency Medicine; PCP Family Medicine; Visit Provider Internal Medicine
PROC: 0DJ08ZZ Inspection of Upper Intestinal Tract, Via Natural or Artificial Opening Endoscopic (ICD-10-PCS; CPT 43235; principal; 2022-05-11 09:00)
DX: U07.1 COVID-19 (principal); J12.82 Pneumonia due to coronavirus disease 2019; K26.4 Chronic or unspecified duodenal ulcer with hemorrhage; D53.9 Nutritional anemia, unspecified; Z79.891 Long term (current) use of opiate analgesic; Z79.51 Long term (current) use of inhaled steroids; J41.0 Simple chronic bronchitis; F17.200 Nicotine dependence, unspecified, uncomplicated; Z90.49 Acquired absence of other specified parts of digestive tract; K70.30 Alcoholic cirrhosis of liver without ascites
CPT/HCPCS: 36415; 43235; 71045; 74174; 80048; 80053; 80074; 80307; 82607; 82728; 82746; 82803; 83540; 83605; 83690; 83880; 84145; 84443; 84484; 85014; 85018; 85025; 85610; 86140; 86850; 86900; 87040; 87070; 87205; 87426; 87804; 93005; 94640; 94664; 94760; 96365; 96375; 96376; 99285; C9113; J0248; J1170; J2270; J2405; J2704; J2930; J3490; J7030; J7042; J7613; J7626; J7644; Q9967

== ENCOUNTER → 2022-05-20 12:07 | Outpatient (BNVA) | payer BC, SELFPAY | PROVIDERS: PCP Family Medicine; Visit Provider Family Medicine | DX: D64.9 Anemia, unspecified (principal) | CPT/HCPCS: 82728; 83540; 85025 ==

== ENCOUNTER → 2022-05-24 09:43 | Day surgery (SDC) | payer BC, SELFPAY ==
[2022-05-24] MEDS: iron sucrose 200 MG in sodium chloride 0.9% (100 ml) 100 ML 220 MG IV (10:01)
[2022-05-24 10:04] VITALS: BP 163/86; PULSE 108; RESP 18; TEMP 37.1; O2SAT 94
== END ==
LOC: GILAB 09:46
PROVIDERS: PCP Family Medicine; Visit Provider Family Medicine
DX: D50.9 Iron deficiency anemia, unspecified (principal)
CPT/HCPCS: 96365; J1756

== ENCOUNTER → 2022-05-31 09:28 | Day surgery (SDC) | payer BC, SELFPAY ==
[2022-05-31] MEDS: iron sucrose 200 MG in sodium chloride 0.9% (100 ml) 100 ML 220 MG IV (09:38)
[2022-05-31 09:44] VITALS: BP 160/93; PULSE 93; RESP 18; TEMP 37.1; O2SAT 98
== END ==
LOC: GILAB 09:30
PROVIDERS: PCP Family Medicine; Visit Provider Family Medicine
DX: D50.9 Iron deficiency anemia, unspecified (principal)
CPT/HCPCS: 96365; J1756

== ENCOUNTER → 2022-06-06 07:29 | Day surgery (SDC) | payer BC, SELFPAY ==
[2022-06-06] MEDS: iron sucrose 200 MG in sodium chloride 0.9% (100 ml) 100 ML 220 MG IV (07:44)
[2022-06-06 07:49] VITALS: BP 164/82; PULSE 95; RESP 18; TEMP 36.6; O2SAT 94
== END ==
LOC: GILAB 07:31
PROVIDERS: PCP Family Medicine; Visit Provider Family Medicine
DX: D50.9 Iron deficiency anemia, unspecified (principal)
CPT/HCPCS: 96365; J1756

== ENCOUNTER → 2022-06-13 07:26 | Day surgery (SDC) | payer BC, SELFPAY ==
[2022-06-13 07:34] VITALS: BP 156/91; PULSE 84; RESP 18; TEMP 36.6; O2SAT 96
[2022-06-13] MEDS: iron sucrose 200 MG in sodium chloride 0.9% (100 ml) 100 ML 220 MG IV (07:51)
== END ==
PROVIDERS: PCP Family Medicine; Visit Provider Family Medicine
DX: D50.9 Iron deficiency anemia, unspecified (principal)
CPT/HCPCS: 96365; J1756

== ENCOUNTER → 2022-06-20 07:18 | Day surgery (SDC) | payer BC, SELFPAY ==
[2022-06-20 07:35] VITALS: BP 154/84; PULSE 86; RESP 18; TEMP 36.7; O2SAT 95
[2022-06-20] MEDS: iron sucrose 200 MG in sodium chloride 0.9% (100 ml) 100 ML 220 MG IV (07:42)
== END ==
PROVIDERS: PCP Family Medicine; Visit Provider Family Medicine
DX: D50.9 Iron deficiency anemia, unspecified (principal)
CPT/HCPCS: 96365; J1756

== ENCOUNTER → 2023-06-16 12:29 | Outpatient (BNVA) | payer BC, SELFPAY | PROVIDERS: PCP Family Medicine; Visit Provider Family Medicine | DX: D64.9 Anemia, unspecified (principal); J41.0 Simple chronic bronchitis | CPT/HCPCS: 80053; 85025 ==

== ENCOUNTER 2023-06-25 12:49 | Outpatient (CLI) | payer BC, SELFPAY ==
--- NOTE | 2023-06-25 12:53 | XRR_ITS ---
PROCEDURE INFORMATION: Exam: XR Chest Exam date and time: 06/25/2023 12:59 PM Age: 62 years old Clinical indication: Dyspnea; Patient HX: Copd, hard to breath for 2 weeks; Additional info: Dyspnea at rest and on exertion TECHNIQUE: Imaging protocol: Radiologic exam of the chest. Views: 2 views. COMPARISON: CR XR chest 1V portable [id number] 05/11/2022 2:13 AM FINDINGS: Lungs: Left lower lobe/lingular infiltrate. Calcified granuloma in the right lower lobe. Pleural spaces: Unremarkable. No pleural effusion. No pneumothorax. Heart/Mediastinum: Unremarkable. No cardiomegaly. Bones/joints: Unremarkable. XR/XR chest 2V* [id number] IMPRESSION: Left-sided infiltrate.
== END 2023-06-25 12:50 | disposition home or self-care (01) ==
LOC: RAD 12:50
PROVIDERS: PCP Family Medicine; Visit Provider Family Medicine
DX: J41.0 Simple chronic bronchitis (principal); R91.8 Other nonspecific abnormal finding of lung field
CPT/HCPCS: 71046

== ENCOUNTER 2023-06-26 06:58 | Outpatient (CLI) | payer BC, SELFPAY ==
--- NOTE | 2023-06-26 07:15 | USCV_ITS ---
[place]Joshua shepherd Age: 62 Gender: M : 1960 Exam Date: 06/26/2023 07:22 Ordering Phys: Abram Horn MD Technologist: JARAD Exam Location: [facility] [place] Indication: LLE PAIN AND SWELLING HISTORY: Lower extremity swelling. Lower extremity pain. PROCEDURES: Venous duplex imaging was performed in only the left lower extremity. The following venous structures were evaluated: common femoral vein, profunda vein, proximal portion of the greater saphenous vein, superficial femoral vein, and the popliteal vein. In addition, the posterior tibial and peroneal trunk were evaluated. Serial compression, augmentation maneuvers, and spectral Doppler flow evaluation were performed. FINDINGS: Normal 2-D Doppler and augmentation and compressibility throughout the lower extremity venous structures. Additional imaging through the proximal calf veins also reveals no thrombus. Limited evaluation of the greater saphenous vein is patent with no thrombus. CONCLUSIONS No DVT left lower extremity. Dr. Sheri Hunter DO (Electronically Signed) Final Date: 26 June 2023 07:48 S
== END 2023-06-26 06:59 | disposition home or self-care (01) ==
LOC: RAD 06:58
PROVIDERS: PCP Family Medicine; Visit Provider Family Medicine
DX: I82.412 Acute embolism and thrombosis of left femoral vein (principal)
CPT/HCPCS: 93971

== ENCOUNTER 2023-07-07 09:23 | Outpatient (CLI) | payer BC, SELFPAY ==
--- NOTE | 2023-07-07 09:33 | XR_ITS ---
WS: [id number] Exam: XR chest 2V* [id number] Date/Time of Exam: 07/07/2023 9:49 AM Reason For Exam: left lower lobe infiltrate f/u Comparison 06/25/2023. The lungs are hyperinflated and clear. Mild plaque atelectasis in the LEFT base. Normal cardiomedias tinal silhouette and regional bony structures. Degenerative changes of the T-spine. No pleural effusi on. IMPRESSION: 1. Mild plaque atelectasis in the LEFT base. Pulmonary hyperinflation. 2. No acute process.
== END 2023-07-07 09:24 | disposition home or self-care (01) ==
LOC: RAD 09:25
PROVIDERS: PCP Family Medicine; Visit Provider Family Medicine
DX: J41.0 Simple chronic bronchitis (principal); J98.11 Atelectasis; R91.8 Other nonspecific abnormal finding of lung field
CPT/HCPCS: 71046; J7611

== ENCOUNTER 2023-07-13 12:12 | Inpatient (IN) | payer BC, SELFPAY ==
[2023-07-13] VITALS (16 sets, daily range): BP systolic 140–177; BP diastolic 73–99; PULSE 88–107; RESP 6–30; TEMP 36.7; O2SAT 89–94; BMI 31.7
--- NOTE | 2023-07-13 12:15 | ECG_ITS ---
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 Measurements Intervals [place] Rate: 93 P: 68 [place]: 167 QRS: -43 QRSD: 93 T: 64 QT: 354 QTc: 442 Interpretive Statements SINUS RHYTHM LEFT AXIS DEVIATION [QRS AXIS < -30] Compared to ECG 05/11/2022 07:59:13 Left-axis deviation now present Electronically Signed On 07-14-2023 8:48:45 SHOE IRONER by Gurmeet Treadwell M.D. [id number]
--- NOTE | 2023-07-13 12:17 | XRR_ITS ---
PROCEDURE INFORMATION: Exam: XR Chest Exam date and time: 07/13/2023 1:31 PM Age: 62 years old Clinical indication: Pain; Cough and shortness of breath and wheezing; Chest pressure; Additional info: Cp TECHNIQUE: Imaging protocol: Radiologic exam of the chest. Views: 1 view. COMPARISON: CR XR chest 2V* [id number] 07/07/2023 9:50 AM FINDINGS: Lungs: Increased pneumonia and/or atelectasis in the left lower lung. This may be superimposed upon scarring. Unchanged pulmonary calcified granulomas. Otherwise, unremarkable. Pleural spaces: Unremarkable. No pleural effusion. No pneumothorax. Heart/Mediastinum: Unremarkable. No cardiomegaly. Bones/joints: Unchanged mild multilevel spondylosis and very mild scoliosis. 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 XR/XR chest 1V portable [id number] IMPRESSION: Increased left lower lung pneumonia and/or atelectasis, possibly superimposed upon scarring.
[2023-07-13] MEDS: methylPREDNISolone sod succ 125 mg/2 mL INJ IVP (13:35)
--- NOTE | 2023-07-13 13:35 | ED_ITS ---
HPI - SOB/Dyspnea 2 General: Chief Complaint: Shortness of Breath/Dyspnea Stated Complaint: sob, chest pressure Time Seen by Provider: 07/13/23 13:09 Source: patient Mode of arrival: ambulatory Limitations: no limitations History of Present Illness: HPI Narrative: 62-year-old male who has a history of [place] states he has been having increasing shortness of breath over the last 2 weeks. He states he had swelling to his lower extremities he states that he only wears oxygen at night he is requiring 3 L of oxygen currently denies any fever he does have a chronic cough. Associated symptoms: Deny abdominal pain, chest pain, fever(s), nausea or vomiting Review of Systems 2 Const: Denies: fever(s), chills, body aches or change in appetite ENMT: Denies: throat pain or dental pain Card: Denies: chest pain Resp: Reports: dyspnea GI: Denies: abdominal pain, nausea, vomiting or diarrhea : Denies: dysuria Musc: Denies: neck pain or back pain Skin/Breast: Denies: rash Neuro: Denies: headache(s) PFSH ED 2 PFSH: Medical History Duodenal ulcer Liver cirrhosis Anemia COPD exacerbation Erectile dysfunction History of abdominal hernia Renal insufficiency GI bleed Hypertension COPD (chronic obstructive pulmonary disease) Surgical History History of bowel resection History of colon surgery Family History Other CAD (coronary artery disease) Social History Smoking and tobacco/nicotine status: current some day tobacco/nicotine user Alcohol intake: current Substance/Drug Use: never Physical Exam 2 Const: COMMON NORMALS: patient oriented x3 GENERAL APPEARANCE: ill appearing HENMT: COMMON NORMALS: normocephalic and atraumatic HEAD & SCALP: n ormocephalic and atraumatic Neck/C-Spine: COMMON NORMALS: full ROM and supple Chest: COMMONS NORMALS: normal inspection of the chest and normal palpation of entire chest wall Resp: COMMON NORMALS: No retractions and No use of accessory muscles EFFORT & INSPECTION: Yes labored and Yes audible wheezes Cardio: COMMON NORMALS: regular rate, regular rhythm and No murmurs present (Cardio) RATE: regular rate RHYTHM: regular rhythm GI: COMMON NORMALS: Normal to inspection, nondistended, normoactive bowel sounds present, Soft to palpation, non-tender and no masses PALPATION: Yes Soft to palpation Extremity: COMMON NORMALS: full ROM GENERAL: Yes edema Neuro: COMMON NORMALS: patient oriented x3, moves all extremities and no focal motor deficits Psych: COMMON NORMALS: mental status grossly normal, Normal thought process present and cooperative THOUGHT PROCESS: Normal thought process present Skin: COMMON NORMALS: no rashes or lesions noted and no wounds GENERAL SKIN EXAM: no rashes or lesions noted Course 2 Vital Signs: Vital signs: Vital Signs Temperature 98.0 F 07/13/23 12:20 Pulse Rate 98 07/13/23 15:30 Respiratory Rate 19 H 07/13/23 14:30 Blood Pressure 145/73 07/13/23 15:30 Pulse Oximetry 93 07/13/23 15:30 Oxygen Delivery Me thod Nasal Cannula 07/13/23 15:30 Oxygen Flow Rate 4 07/13/23 15:30 MDM - SOB/Dyspnea Medical Decision Making Patient presents here with shortness of breath CT shows a likely pneumonia he is requiring oxygen here he is also hyponatremic sodium of 120 I spoke to the hospitalist will admit to the ICU at this time. Medical Records I reviewed the patient's medical records. Lab Data I reviewed the patient's lab results. 07/13/23 13:30 07/13/23 13:30 Labs/Radiology: Radiology Impressions Chest X-Ray 07/13/23 12:17 IMPRESSION: Increased left lower lung pneumonia and/or atelectasis, possibly superimposed upon scarring. Chest CTA 07/13/23 14:23 IMPRESSION: 1. Limitations result in suboptimal opacification and heterogeneity of the pulmonary arteries. There is no obvious larger central pulmonary embolism, but a smaller segmental or subsegmental PE in either lung can not be excluded on the basis of this examination. 2. A few small 3 mm and less solid noncalcified pulmonary nodules. For patients at low risk (minimal or absent history of smoking and of other known risk factors), no routine follow-up is indicated. For patients at high risk (history of smoking or of other known risk factors), consider optional CT Chest at 12 months. (Reference: Doris). 3. Moderate amount of scarring, atelectasis, and/or pneumonitis in the left upper lobe. 4. Mild mediastinal lymphadenopathy is probably reactive, but could be neoplastic. 5. Additional details as above. REFERENCES: Doris Jimenez, et al. Guidelines for Management of Incidental Pulmonary Nodules Detected on CT Images: From the Fleischner Society 2017. Radiology. 2017;284(1):228-243. Laboratory Results WBC 6.62 10^3/uL (3.29-11.43) 07/13/23 13:30 RBC 4.77 10^6/uL (3.85-5.65) 07/13/23 13:30 Hgb 11.90 g/dL (11.27-16.99) 07/13/23 13:30 Hct 38.7 % (37-53) 07/13/23 13:30 MCV 81.1 fl (82-101) L 07/13/23 13:30 MCH 24.9 pg (27-33) L 07/13/23 13:30 MCHC 30.7 g/dL (30-55) 07/13/23 13:30 RDW 17.3 % (12.1-15.1) H 07/13/23 13:30 Plt Count 237 10^3/cmm (157-399) 07/13/23 13:30 MPV 8.3 fL (7.4-10.4) 07/13/23 13:30 Neut % (Auto) 87.8 % 07/13/23 13:30 Lymph % (Auto) 8.0 % 07/13/23 13:30 [place] % (Auto) 3.3 % 07/13/23 13:30 Eos % (Auto) 0.5 % 07/13/23 13:30 Baso % (Auto) 0.2 % 07/13/23 13:30 Neut # (Auto) 5.82 10^3/uL (1.8-7.7) 07/13/23 13:30 Lymph # (Auto) 0.5 10^3/uL (0.8-4.8) L 07/13/23 13:30 [place] # (Auto) 0.2 10^3/uL (0.2-0.9) 07/13/23 13:30 Eos # (Auto) 0.0 10^3/uL (0.0-0.8) 07/13/23 13:30 Baso # (Auto) 0.0 10^3/uL (0.0-0.1) 07/13/23 13:30 Nucleated RBC % (auto) 0 % 07/13/23 13:30 Nucleated RBCs # 0.0 /100WBC 07/13/23 13:30 PT 13.30 SECONDS (12.1-14.9) 07/13/23 13:30 INR 0.99 (0.8-1.2) 07/13/23 13:30 Specimen Type Arterial 07/13/23 14:20 Sample Site Radial, right 07/13/23 14:20 ABG pH 7.44 (7.35-7.45) 07/13/23 14:20 ABG pCO2 52.3 mmHg (35-45) H 07/13/23 14:20 ABG pO2 60.5 mmHg (80.0-100.0) L 07/13/23 14:20 ABG HCO3 35.3 mmol/L (22-26) H 07/13/23 14:20 ABG Base Excess 9.5 mmol/L (-2.0-2.0) H 07/13/23 14:20 Jaylen Test Pos 07/13/23 14:20 Hematocrit 37.1 % (42-52) L 07/13/23 14:20 O2 Delivery Device Nc 07/13/23 14:20 O2 Liters/Min 2.0 % 07/13/23 14:20 Shoe Packer ID Walci 07/13/23 14:20 Sodium 120 mmol/L (136-145) L 07/13/23 13:30 Potassium 4.4 mmol/L (3.5-5.1) 07/13/23 13:30 Chloride 83 mmol/L (98-107) L 07/13/23 13:30 Carbon Dioxide 33 mmol/L (22-29) H 07/13/23 13:30 Anion Gap 8.4 (5-19) 07/13/23 13:30 BUN 9 mg/dL (8-23) 07/13/23 13:30 Creatinine 0.6 mg/dL (0.7-1.2) L 07/13/23 13:30 GFR Calculation 137.0 mL/min (90-130) H 07/13/23 13:30 Glucose 129 mg/dL (65-115) H 07/13/23 13:30 Calculated Osmolality 250 mOsm/kg (285-295) L 07/13/23 13:30 Calcium 8.4 mg/dL (8.5-10.5) L 07/13/23 13:30 Total Bilirubin 0.6 mg/dL (0.15-1.2) 07/13/23 13:30 AST 22 U/L (0-40) 07/13/23 13:30 ALT 19 U/L (0-41) 07/13/23 13:30 Alkaline Phosphatase 108 U/L (40-130) 07/13/23 13:30 Troponin T Baseline 47 ng/L (0-15) H 07/13/23 13:30 Troponin T 120 Minute 38.86 ng/L (0-15) H 07/13/23 16:00 Delta Troponin T -8.14 ABS# (0-10) L 07/13/23 16:00 NT-Pro-B Natriuret Pep 175 pg/mL (0-125) H 07/13/23 13:30 Total Protein 6.2 g/dL (6.6-8.7) L 07/13/23 13:30 Albumin 3.9 g/dL (3.5-5.2) 07/13/23 13:30 Globulin 2.3 g/dL (1.3-4.6) 07/13/23 13:30 Lipase 30 U/L (13-60) 07/13/23 13:30 Influenza Type A Ag negative (Negative) 07/13/23 13:50 Influenza Type B Ag negative (Negative) 07/13/23 13:50 SARS-CoV-2 Ag (Rapid) negative (Negative) 07/13/23 13:50 All radiology interpretation(s) finalized by discharge EKG Data EKG 1: I personally reviewed and interpreted this EKG as follows: EKG Interpretation Date: 07/13/23 EKG interpretation time: 12:15 Interpretation: nsr hr [address] or t wave abnormalities qrs 93 qtc 405 Critical Care Time 2 Critical Care Time: Critical Care Time: Yes Total Critical Care Time: 35 Attestation: The high probability of a clinically significant, sudden or life threatening deterioration of the patient's resp/electrolytes system(s) required my full and direct attention, intervention and personal management. The critical care time is as shown. This time is in addition to time spent performing any reported procedures but includes the following: [x] Data and vital sign review and interpretation [x] Patient assessment, examination and intervention [x] Documentation [x] Medication orders and management Discharge Plan Discharge Patient Disposition: Admitted As Inpatient Clinical Impression: Community acquired pneumonia, Acute respiratory failure with hypoxia, Acute hyponatremia Condition: Stable Prescriptions: No Action promethazine-DM 6.25-15 mg/5 mL syrup 5 ml PO Q6H PRN (Reason: cough) Qty: 240 0RF alprazolam 0.5 mg tablet 0.5 mg PO TID PRN (Reason: smothering/anxiety) Qty: 20 0RF promethazine 6.25 mg/5 mL syrup 12.5 mg PO Q6H PRN (Reason: allergy symptoms) Qty: 473 0RF Rx Instructions: 3 doses during day; last dose no later than 4 hr before bedtime fluticasone propionate [Flonase Allergy Relief] 50 mcg/actuation spray,suspension 2 spray intranasal DAILY Qty: 16 1RF Rx Instructions: administer into each nostril tamsulosin 0.4 mg capsule 0.4 mg PO DAILY Qty: 90 1RF amoxicillin-pot clavulanate 875-125 mg tablet 1 tab PO BID PRN (Reason: Rhinosinusitis) 15 Days Qty: 30 0RF hydrocodone-acetaminophen 7.5-325 mg tablet 1 tab PO BID PRN (Reason: pain) 20 Days Qty: 40 0RF albuterol sulfate 90 mcg/actuation HFA aerosol inhaler See Rx Instructions .ROUTE .COMPLEX Qty: 18 0RF Dose Instruction: INHALE 2 PUFFS BY MOUTH EVERY 4 HOURS NEEDED FOR SHORTNESS OF BREATH AND FOR WHEEZING Rx Instructions: INHALE 2 PUFFS BY MOUTH EVERY 4 HOURS NEEDED FOR SHORTNESS OF BREATH AND FOR WHEEZING budesonide-formoterol [Symbicort] 160-4.5 mcg/actuation HFA aerosol inhaler See Rx Instructions .ROUTE .COMPLEX Qty: 11 7RF Dose Instruction: INHALE 2 PUFFS BY MOUTH EVERY 12 HOURS Rx Instructions: INHALE 2 PUFFS BY MOUTH EVERY 12 HOURS levofloxacin 750 mg tablet 750 mg PO DAILY Qty: 10 0RF losartan-hydrochlorothiazide 100-12.5 mg tablet See Rx Instructions .ROUTE .COMPLEX Qty: 90 3RF Dose Instruction: Take 1 tablet by mouth once daily Rx Instructions: Take 1 tablet by mouth once daily sucralfate 1 gram Tablet 1 g PO Q12H Qty: 180 0RF Spiriva Respimat 2.5 mcg/actuation mist See Rx Instructions .ROUTE .COMPLEX Qty: 18 4RF Rx Instructions: 2 sprays po daily Referrals: Abram Horn MD [Primary Care Provider] - Coding Level of Care Code ED Driller Brake Lining for Sabine Salazar
[2023-07-13 13:37] LABS: Basophils % 0.2 %; Eosinophils % 0.5 %; Hematocrit 38.7 % (37-53); Lymphocytes # 0.5 10^3/uL (0.8-4.8); Mean Corpuscular HGB Conc 30.7 g/dL (30-55); Mean Corpuscular Hemoglobin 24.9 pg (27-33); Mean Corpuscular Volume 81.1 fl (82-101); Mean Platelet Volume 8.3 fL (7.4-10.4); Monocytes # 0.2 10^3/uL (0.2-0.9); Monocytes % 3.3 %; Neutrophils # 5.82 10^3/uL (1.8-7.7); Neutrophils % 87.8 %; Nucleated Red Blood Cells % 0 %; Platelet Count 237 10^3/cmm (157-399); Red Blood Count 4.77 10^6/uL (3.85-5.65); Red Cell Distribution Width 17.3 % (12.1-15.1); White Blood Count 6.62 10^3/uL (3.29-11.43)
[2023-07-13] MEDS: ipratropium-albuterol 3 mL Neb INHALATION ×2 (13:39→19:59)
[2023-07-13 13:53] LABS: INR 0.99 (0.8-1.2)
[2023-07-13 14:02] LABS: Troponin(5th) Baseline 47 ng/L (0-15)
[2023-07-13 14:10] LABS: Alanine Aminotransferase 19 U/L (0-41); Albumin Level 3.9 g/dL (3.5-5.2); Alkaline Phosphatase 108 U/L (40-130); Anion Gap 8.4 (5-19); Aspartate Amino Transferase 22 U/L (0-40); Blood Urea Nitrogen 9 mg/dL (8-23); Calcium 8.4 mg/dL (8.5-10.5); Carbon Dioxide 33 mmol/L (22-29); Chloride 83 mmol/L (98-107); Globulin 2.3 g/dL (1.3-4.6); Glucose 129 mg/dL (65-115); Lipase 30 U/L (13-60); NT Pro B Type Natriuretic Pept 175 pg/mL (0-125); Osmolality Calculated 250 mOsm/kg (285-295); Potassium 4.4 mmol/L (3.5-5.1); Sodium 120 mmol/L (136-145); Total Bilirubin 0.6 mg/dL (0.15-1.2); Total Protein 6.2 g/dL (6.6-8.7)
[2023-07-13 14:13] LABS: Creatinine Clr Calc Pharmacy 162.7846
--- NOTE | 2023-07-13 14:17 | ECG_ITS ---
[facility] Test Date: 2023-07-13 Pat Name: Joshua Avila Department: Room: Gender: Male Sunglass Clip Attacher: : 1960 Requested By: Suze Knowles Order Number: [id number] Ulysses MD: Gurmeet Treadwell M.D. Measurements Intervals [place] Rate: 95 P: 69 AK: 180 QRS: -67 QRSD: 89 T: 68 QT: 362 QTc: 455 Interpretive Statements SINUS RHYTHM LEFT ANTERIOR FASCICULAR BLOCK [QRS AXIS <= -45, QR IN I, RS IN II] Compared to ECG 05/11/2022 07:59:13 Left anterior fascicular block now present Electronically Signed On 07-14-2023 9:36:53 MOTHER REPAIRER by Gurmeet Treadwell M.D. [id number]
--- NOTE | 2023-07-13 14:23 | CTR_ITS ---
PROCEDURE INFORMATION: Exam: CTA Chest With Contrast Exam date and time: 07/13/2023 3:07 PM Age: 62 years old Clinical indication: Shortness of breath; Additional info: SOB TECHNIQUE: Imaging protocol: Computed tomographic angiography of the chest with contrast. Exam focused on the arteries. 3D rendering (Not supervised by radiologist): MIP and/or 3D reconstructed images were created by the technologist. Radiation optimization: All CT scans at this facility use at least one of these dose optimization techniques: automated exposure control; mA and/or kV adjustment per patient size (includes targeted exams where dose is matched to clinical indication); or iterative reconstruction. Contrast material: OMNI 350; Contrast volume: 70 ml; Contrast route: INTRAVENOUS (IV); COMPARISON: CT chest w con* [id number] 06/13/2020 9:19 AM RADIATION DOSE METRICS: Total DLP (mGy-cm): 576.35 FINDINGS: Pulmonary arteries: Suboptimal pulmonary artery opacification. Limitations result in suboptimal opacification and heterogeneity of the pulmonary arteries. There is no obvious larger central pulmonary embolism, but a smaller segmental or subsegmental PE in either lung can not be excluded on the basis of this examination. Great vessels off aortic arch: Small amount of calcification in the great vessels from the aortic arch. Otherwise, unremarkable. Aorta: Moderate amount of aortic calcification. Otherwise, unremarkable aortic root and visualized aorta. Lungs: Moderate amount of scarring, atelectasis, and/or pneumonitis in the left upper lobe, most pronounced dependently and in the lingula. Calcified granuloma posterior mid right lung. A few small 3 mm and less solid noncalcified nodules scattered in both lungs. Otherwise, unremarkable. Pleural spaces: Unremarkable. No pneumothorax. No pleural effusion. Heart: Normal heart size. No evidence of right heart strain. The right ventricular to left ventricular ratio is 0.99. Coronary arteries: Nctoeawr-cd-[id number] amount of coronary artery calcification. Lymph nodes: Mild mediastinal lymphadenopathy. No other lymphadenopathy. Bones/joints: Unremarkable. No acute fracture. Soft tissues: Unremarkable visualized body wall. Otherwise, unremarkable soft tissues. CT/CT angio chest PE protcl [id number] IMPRESSION: 1. Limitations result in suboptimal opacification and heterogeneity of the pulmonary arteries. There is no obvious larger central pulmonary embolism, but a smaller segmental or subsegmental PE in either lung can not be excluded on the basis of this examination. 2. A few small 3 mm and less solid noncalcified pulmonary nodules. For patients at low risk (minimal or absent history of smoking and of other known risk factors), no routine follow-up is indicated. For patients at high risk (history of smoking or of other known risk factors), consider optional CT Chest at 12 months. (Reference: Doris). 3. Moderate amount of scarring, atelectasis, and/or pneumonitis in the left upper lobe. 4. Mild mediastinal lymphadenopathy is probably reactive, but could be neoplastic. 5. Additional details as above. REFERENCES: Doris Jimenez, et al. Guidelines for Management of Incidental Pulmonary Nodules Detected on CT Images: From the Fleischner Society 2017. Radiology. 2017;284(1):228-243.
[2023-07-13 14:27] LABS: Influenza A by IFA negative (Negative); Influenza B by IFA negative (Negative); SARS Covid-2 Antigen negative (Negative)
[2023-07-13 14:31] LABS: ABG PCO2 52.3 mmHg (35-45); ABG PH Result 7.44 (7.35-7.45); Arterial Blood Gas Hematocrit 37.1 % (42-52); Base Excess ABG 9.5 mmol/L (-2.0-2.0); Blood Gas Allen Test Pos; Blood Gas Operator Identificat WALCI; Blood Gas Sample Site Radial, right; Blood Gas Sample Type Arterial; HCO3 ABG 35.3 mmol/L (22-26); Oxygen Device NC; PO2 ABG 60.5 mmHg (80.0-100.0)
[2023-07-13] MEDS: iohexol 350 mg/mL 500 mL Btl (per mL) IV (15:09)
[2023-07-13] MEDS: sodium chloride 0.9% 1,000 ML 999 ML IV (15:44)
[2023-07-13 16:26] LABS: Troponin 5 2HR 38.86 ng/L (0-15)
[2023-07-13 16:27] LABS: Troponin 5 2HR Delta -8.14 ABS# (0-10)
[2023-07-13] MEDS: cefTRIAXone 1,000 MG in sodium chloride 0.9% (plus) 50 ML 100 MG IV (16:55)
--- NOTE | 2023-07-13 17:18 | P.HP_ITS ---
Providers/Chief Complaint 2 Primary Care Provider: Abram Horn MD Chief Complaint: sob, chest pressure History of Present Illness Joshua Avila is a 62 year old male who has chronic oxygen dependent COPD 3 L at baseline, presented with orthopnea PND and shortness of breath for last 3 weeks. Stating that he has been struggling with the symptoms for quite some time which has gotten worse recently especially last few weeks. He was put on azithromycin by the PCP with no significant improvement he is denying fever but endorsing chest pain on exertion. No history of coronary disease. He drinks 3 to 4 cans of beer every day, smokes on daily basis as well stating that he has cut back from 1 pack/day to a few cigarettes a day. In the ER there is pulm nodule with mediastinal lymphadenopathy concern for pneumonia, hyponatremia, acute CHF exacerbation clinically patient has signs of fluid overload Review of Systems 2 Const: Reports: chills and fatigue Eyes: Denies: change in vision ENMT: Denies: throat pain Card: Reports: chest pain and swelling of feet/ankles Resp: Reports: dyspnea GI: Denies: abdominal pain : Denies: flank pain Medications/Allergies Home Medications Medication Instructions Recorded Confirmed Last Taken Type amoxicillin 875 mg-potassium 1 tab PO BID PRN Rhinosinusitis 15 07/03/23 07/13/23 07/13/23 Rx clavulanate 125 mg tablet days #30 tabs see pharmacy comment alprazolam 0.5 mg tablet 0.5 mg PO TID PRN 07/10/23 07/13/23 Unknown Rx smothering/anxiety #20 tabs albuterol sulfate 90 mcg/actuation 2 puff inhalation Q4H PRN 07/13/23 07/13/23 Unknown History aerosol inhaler Shortness Of Breath Or Wheezing azithromycin 500 mg tablet See Rx Instructions .Route .COMPLEX 07/13/23 07/13/23 07/11/23 History budesonide-formoterol HFA 160 2 puff inhalation Q12H 07/13/23 07/13/23 Unknown History mcg-4.5 mcg/actuation aerosol inhaler (Symbicort) ferrous sulfate 325 mg (65 mg 325 mg PO QPM 07/13/23 07/13/23 Unknown History iron) tablet (iron) losartan 100 1 tab PO BEDTIME 07/13/23 07/13/2324 History mg-hydrochlorothiazide 12.5 mg tablet oxymetazoline 0.05 % nasal spray See Rx Instructions .Route .COMPLEX 07/13/23 07/13/23 Unknown History prednisone 20 mg tablet 20 mg PO DAILY 07/13/23 07/13/23 07/13/23 History tamsulosin 0.4 mg capsule 0.4 mg PO QAM 07/13/23 07/13/23 07/13/23 History tiotropium bromide 2.5 2 puff inhalation BEDTIME 07/13/23 07/13/23 07/12/23 History mcg/actuation mist for inhalation (Spiriva Respimat) Allergies Allergy/AdvReac Type Severity Reaction Status Date / Time No Known Allergies Allergy Verified 07/13/23 16:54 PFSH Acute 2 PFSH: Medical History Duodenal ulcer Liver cirrhosis Anemia COPD exacerbation Erectile dysfunction History of abdominal hernia Renal insufficiency GI bleed Hypertension COPD (chronic obstructive pulmonary disease) Surgical History History of bowel resection History of colon surgery Family History Other CAD (coronary artery disease) Social History Smoking and tobacco/nicotine status: current some day tobacco/nicotine user Alcohol intake: current Substance/Drug Use: never Vitals/I&O/Wt Last Vital Signs Temp 98.0 F 07/13/23 12:20 Pulse 98 07/13/23 15:30 Resp 19 H 07/13/23 14:30 BP 145/73 07/13/23 15:30 Pulse Ox 93 07/13/23 15:30 O2 Del Method Nasal Cannula 07/13/23 15:30 O2 Flow Rate 4 07/13/23 15:30 Weight last 48 hrs Weight 106.141 kg Physical Exam 2 Narrative: Active sign of fluid overload GCS 15 Nonfocal neuroexam Currently on 3 L S1, S2 Abdomen distended Lower extremity edema 3+ GCS 15 Nonfocal neuroexam Data 07/13/23 13:30 07/13/23 13:30 A&P Assessment and plan (1) Chronic maxillary sinusitis: (2) Acute hyponatremia: (3) Prostatic hypertrophy: (4) Anemia: Qualifiers: Anemia type: iron deficiency Iron deficiency anemia type: other iron deficiency Qualified Code(s): D50.8 - Other iron deficiency anemias (5) COPD (chronic obstructive pulmonary disease): Qualifiers: COPD type: chronic bronchitis Chronic bronchitis type: simple Qualified Code(s): J41.0 - Simple chronic bronchitis (6) Community acquired pneumonia: (7) New onset of congestive heart failure: (8) Alcohol abuse: (9) Nicotine dependence: Plan New onset CHF Clinically patient has signs of fluid overload BMP unremarkable CTA did not show PE Patient will get IV Lasix Requested echo Hyponatremia Clinically patient is fluid overloaded He will need Lasix He also drinks alcohol 2 to 3 cans of beer every day Monitor sodium for now Monitor in ICU No active neurological signs or symptoms Ultrasound of seizure Dyspnea on exertion along with chest discomfort Will request echo Will require serial troponin and EKG After chest pain at the time of evaluation Hypertension: Hold hydrochlorothiazide Will add losartan Full code Cardiac diet DVT prophylaxis added Chronic sinusitis no acute exacerbation Chronic hypoxia requiring 3 L without acute exacerbation Attestations 2 Medical Necessity Statement*: More than 2 midnights anticipated Diagnoses Chronic maxillary sinusitis J32.0 Acute hyponatremia E87.1 Prostatic hypertrophy N40.0 Other iron deficiency anemia D50.8 Anemia type: iron deficiency Iron deficiency anemia type: other iron deficiency Simple chronic bronchitis J41.0 COPD type: chronic bronchitis Chronic bronchitis type: simple Community acquired pneumonia J18.9 New onset of congestive heart failure I50.9 Alcohol abuse F10.10 Nicotine dependence F17.200
[2023-07-13] MEDS: azithromycin 500 MG in sodium chloride 0.9% 250 ML 250 MG IV (17:30)
--- NOTE | 2023-07-13 18:22 | ECG_ITS ---
[facility] Test Date: 2023-07-13 Pat Name: Joshua Avila Department: Room: [facility] Gender: Male Qa Specialist: : 1960 Requested By: Suze Knowles Order Number: [id number] Ulysses MD: Gurmeet Treadwell M.D. Measurements Intervals [place] Rate: 93 P: 66 ME: 192 QRS: 54 QRSD: 96 T: 58 QT: 365 QTc: 455 Interpretive Statements SINUS RHYTHM Compared to ECG 07/13/2023 14:17:51 Left anterior fascicular block no longer present Electronically Signed On 07-14-2023 9:33:31 STUCCO APPLICATOR by Gurmeet Treadwell M.D. [id number]
[2023-07-13 19:13] LABS: Procalcitonin 0.13 ng/mL (0-0.5); Sodium 121 mmol/L (136-145); Thyroid Stimulating Hormone 1.01 uIU/mL (0.27-4.20); Uric Acid 2.7 mg/dL (3.4-7.0)
[2023-07-13] MEDS: doxycycline 100 mg Tablet PO (19:43)
[2023-07-13 19:51] LABS: Estmated Average Glucose 134; Hemoglobin A1C 6.3 % (4.0-6.0)
[2023-07-13 19:57] LABS: Anion Gap 10.4 (5-19); Blood Urea Nitrogen 8 mg/dL (8-23); Calcium 8.2 mg/dL (8.5-10.5); Carbon Dioxide 30 mmol/L (22-29); Chloride 87 mmol/L (98-107); Creatinine Clr Calc Pharmacy 163.3171; Glucose 167 mg/dL (65-115); Osmolality Calculated 258 mOsm/kg (285-295); Potassium 4.4 mmol/L (3.5-5.1); Sodium 123 mmol/L (136-145)
[2023-07-13 19:59] LABS: Troponin 5 6HR 32.46 ng/L (0-15)
[2023-07-13 20:00] LABS: Troponin 5 6HR Delta -14.54 ng/L (0-12)
[2023-07-13] MEDS: ALPRAZolam 0.5 mg Tablet PO (21:08)
[2023-07-13] MEDS: morphine IR 15 mg Tablet PO (21:08)
[2023-07-13 21:29] LABS: Urine Random Sodium 10 mmol/L
[2023-07-14] VITALS (29 sets, daily range): BP systolic 138–177; BP diastolic 70–92; PULSE 89–107; RESP 14–24; TEMP 36.6–37.1; O2SAT 85–96; BMI 30.3
[2023-07-14] MEDS: ipratropium-albuterol 3 mL Neb INHALATION (03:14)
[2023-07-14 04:38] LABS: Basophils % 0.1 %; Hematocrit 36.9 % (37-53); Lymphocytes # 0.5 10^3/uL (0.8-4.8); Lymphocytes % 6.1 %; Mean Corpuscular HGB Conc 30.6 g/dL (30-55); Mean Corpuscular Hemoglobin 24.9 pg (27-33); Mean Corpuscular Volume 81.3 fl (82-101); Mean Platelet Volume 8.8 fL (7.4-10.4); Monocytes # 0.4 10^3/uL (0.2-0.9); Monocytes % 4.5 %; Neutrophils # 7.02 10^3/uL (1.8-7.7); Neutrophils % 88.7 %; Nucleated Red Blood Cells % 0 %; Platelet Count 256 10^3/cmm (157-399); Red Blood Count 4.54 10^6/uL (3.85-5.65); Red Cell Distribution Width 17.7 % (12.1-15.1); White Blood Count 7.92 10^3/uL (3.29-11.43)
[2023-07-14 05:02] LABS: Anion Gap 11.4 (5-19); Blood Urea Nitrogen 11 mg/dL (8-23); C Reactive Protein 3.8 mg/L (0.0-4.9); Calcium 8.7 mg/dL (8.5-10.5); Carbon Dioxide 31 mmol/L (22-29); Chloride 89 mmol/L (98-107); Creatinine Clr Calc Pharmacy 139.9861; Glomerular Filtration Rate 114.6 mL/min (90-130); Glucose 194 mg/dL (65-115); Magnesium 2.1 mg/dL (1.7-2.3); Osmolality Calculated 269 mOsm/kg (285-295); Phosphorus 2.9 mg/dL (2.5-4.5); Potassium 4.4 mmol/L (3.5-5.1); Sodium 127 mmol/L (136-145)
--- NOTE | 2023-07-14 06:00 | USCV_ITS ---
Joshua Avila Age: 62 Gender: M : 1960 Exam Date: 07/14/2023 15:07 Ordering Phys: Marichuy Higuera MD Technologist: CT Exam Location: [facility] [place] Indication: chf BP: 160 / 95 HR: Rhythm: Sinus Technical Quality: Adequate MEASUREMENTS (Male / Female) Normal Values 2D ECHO LA Diameter 2.9 cm Aorta at Sinotubular Diameter 2.6 cm DOPPLER AV Peak Velocity 208.5 cm/s LVOT Peak Velocity 159.0 cm/s MV Area PHT 3.2 cm squared Mitral E to A Ratio 0.9 TR Peak Velocity 166.0 cm/s TR Peak Gradient 11.0 mmHg TV Peak E Velocity 63.0 cm/s PV Peak Velocity 101.0 cm/s FINDINGS Left Ventricle Left ventricle is normal in size. LV systolic function is normal with EF of 60 to 65%. No regional wall motion abnormalities are seen Right Ventricle Normal in size and function Right Atrium Normal in size Left Atrium Normal in size Mitral Valve Structurally normal mitral valve. Mild mitral regurgitation. Aortic Valve Aortic valve is thickened. Mild aortic stenosis with aortic valve area of 1.6 cm squared and mean gradient of 9 mmHg. Tricuspid Valve Trace tricuspid regurgitation. Insufficient TR jet to calculate RVSP Pulmonic Valve Not well-visualized Pericardium Grossly normal Aorta Normal in size IVC Appears to be normal CONCLUSIONS LV systolic function is normal with EF of 60 to 65%. Mild mitral regurgitation. Mild aortic stenosis. Trace tricuspid regurgitation. No comparison studies are available. Gurmeet Treadwell MD (Electronically Signed) Final Date: 15 July 2023 08:13 S
[2023-07-14] MEDS: tamsulosin 0.4 mg Capsule 0.400000000000000022 MG PO (06:32)
[2023-07-14] MEDS: FUROsemide 10 mg/mL SDV 2mL 20 MG IVP (08:40)
[2023-07-14] MEDS: sennosides-docusate Tablet 1 TAB PO (08:40)
[2023-07-14] MEDS: enoxaparin 40 mg/0.4 mL Syringe SUBCUT (08:40)
[2023-07-14] MEDS: doxycycline 100 mg Tablet PO ×2 (08:40→18:14)
[2023-07-14] MEDS: losartan 50 mg Tablet 25 MG PO (08:40)
[2023-07-14] MEDS: predniSONE 20 mg Tablet PO (08:40)
[2023-07-14] MEDS: cefTRIAXone 1,000 MG in sodium chloride 0.9% (plus) 50 ML 100 MG IV (08:40)
[2023-07-14] MEDS: albuterol 2.5 mg/3 mL Neb INHALATION ×4 (09:36→19:53)
[2023-07-14] MEDS: budesonide 0.5 mg/2 mL Neb INHALATION ×2 (09:37→19:53)
--- NOTE | 2023-07-14 12:15 | PM.PN ---
Subjective Subjective: Sodium improving Continue diuresis Will do stress test tomorrow morning No active complaints Vitals/I&O/Wt Last Vital Signs Temp 98 F 07/14/23 07:00 Pulse 96 07/14/23 11:27 Resp 18 07/14/23 11:27 BP 153/92 07/14/23 08:00 Pulse Ox 93 07/14/23 11:27 O2 Del Method Nasal Cannula 07/14/23 11:27 O2 Flow Rate 3 07/14/23 11:27 07/13/23 07/14/23 07/14/23 22:59 06:59 14:59 Intake Total 1540 / 1540 50 / 50 Output Total 400 / 400 1550 / 1950 1510 / 1510 Balance 1140 / 1140 -1550 / -410 -1460 / -1460 Weight last 48 hrs Weight 104.326 kg Weight 103.419 kg Weight 106.141 kg Physical Exam Narrative: Signs of fluid overload improving Currently on 3 L GCS 15 Pleasant cooperative Nonfocal neuroexam Pleasant and cooperative No active chest pain Ankle swelling improving Data 07/14/23 03:43 07/14/23 03:43 Micro: Microbiology 07/13/23 19:30 Blood Culture - Preliminary Blood SPECIMEN COLLECTED 07/13/23 19:25 Blood Culture - Preliminary Blood SPECIMEN COLLECTED A&P Assessment and plan (1) Alcohol abuse: (2) New onset of congestive heart failure: (3) Chronic maxillary sinusitis: (4) Acute hyponatremia: (5) Prostatic hypertrophy: (6) Anemia: Qualifiers: Anemia type: iron deficiency Iron deficiency anemia type: other iron deficiency Qualified Code(s): D50.8 - Other iron deficiency anemias (7) COPD (chronic obstructive pulmonary disease): Qualifiers: COPD type: chronic bronchitis Chronic bronchitis type: simple Qualified Code(s): J41.0 - Simple chronic bronchitis (8) Community acquired pneumonia: (9) Acute respiratory failure with hypoxia: (10) Nicotine dependence: (11) Prediabetes: Plan New onset CHF Continue diuresis Hypervolemic hyponatremia Continue diuresis Alcohol abuse as well Hyponatremia: Improving with diuresis Echo is pending Prediabetic will benefit from metformin Hypertension: Will increase the dose of lisinopril Will require stress test for atypical chest pain no significant elevation of troponin EKG unremarkable 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 diet for now Transfer out of ICU Attestations Medical Necessity Statement*: Patient likely will go home tomorrow after stress test Diagnoses Alcohol abuse F10.10 New onset of congestive heart failure I50.9 Chronic maxillary sinusitis J32.0 Acute hyponatremia E87.1 Prostatic hypertrophy N40.0 Other iron deficiency anemia D50.8 Anemia type: iron deficiency Iron deficiency anemia type: other iron deficiency Simple chronic bronchitis J41.0 COPD type: chronic bronchitis Chronic bronchitis type: simple Community acquired pneumonia J18.9 Acute respiratory failure with hypoxia J96.01 Nicotine dependence F17.200 Prediabetes R73.03
[2023-07-14] MEDS: ALPRAZolam 0.5 mg Tablet PO (22:09)
[2023-07-15] VITALS (18 sets, daily range): BP systolic 120–176; BP diastolic 63–111; PULSE 76–102; RESP 20–25; TEMP 36.4–36.6; O2SAT 84–96
--- NOTE | 2023-07-15 02:59 | NMCV_ITS ---
NM kenia perf SPECT r/s* [id number] Joshua Avila Age: 62 Gender: M : 1960 Exam Date: 07/15/2023 06:25 Ordering Phys: Marichuy Higuera MD Technologist: MARCIA Grossman Exam Location: [facility] Indications: CHEST PAIN STRESS TEST Please see separate stress test report in [facility] for full findings IMAGE PROTOCOL Rest/Stress 1 Lexiscan Day Radiopharmaceutical Dose (mCi) Administration Site Administered by Rest: Tc-99m 11.0 IV MARCIA Jain Sestamibi Stress:Tc-99m 32.9 IV MARCIA Jain Sestamibi Rest: 15-Jul-2023 60 Discovery 630 Stress: 15-Jul-2023 30 Discovery 630 0.4mg Lexiscan. Supine position only as patient was unable to lay prone. SPECT RESULTS Technical Quality: Excellent Raw Data Analysis: Normal Image Corrections: No attenuation or motion correction applied Summed Stress Score: 0 Summed Rest Score: 0 Summed Difference Score: 0 PERFUSION FINDINGS Fairly uniform myocardial tracer uptake with no significant perfusion abnormalities FUNCTIONAL RESULTS (calculated via Gated SPECT) Stress Image LV EF (%): 74 Stress EDV (mL):109 TID: 0.92 Stress ESV (mL):28 FUNCTIONAL FINDINGS: Segmental wall motion analysis revealing no gross wall motion abnormalities IMPRESSIONS 1. Uniform myocardial tracer uptake with no significant perfusion abnormalities. 2. Normal LV ejection fraction of 74%. 3. LV wall motion analysis revealing no gross wall motion abnormalities. 4. Normal LV volume Low probability for coronary ischemia, based on the above findings. No similar previous studies are available for comparison Dr Melida Bejarano MD [facility] (Electronically Signed) Final Date: 15 July 2023 11:27 S
--- NOTE | 2023-07-15 02:59 | ECG_ITS ---
[facility] Test Date: 2023-07-15 Pat Name: Joshua Avila Department: Room: ICU02 Gender: Male House Admin: : 1960 Requested By: Marichuy Higuera Order Number: [id number] Ulysses MD: Melida Bejarano M.D. Interpretive Statements NAME OF STUDY: LEXISCAN SESTAMIBI STRESS TEST INDICATION: Unstable Angina PROCEDURE: At the baseline, the EKG revealed normal sinus rhythm with a normal ST Ts.. The baseline heart was 92 bpm with a blood pressue of 145/76 mm of Hg Lexiscan was infused over a period of 20 seconds. A total of 0.4 milligrams of Lexiscan was infused. The stress phase was continued for a total of 5 minutes. Heart rate at the end of the stress phase was 95 bpm with a blood pressure 132/66 mm of Hg. The EKG at the peak infusion revealed no significant changes. Sestamibi was injected 20 seconds after the Lexiscan infusion. Heart rate at the end of the recovery phase was 98 bpm with a blood pressure of 139/63 mm of Hg. CONCLUSION: 1. No significant EKG changes with the LexiScan infusion 2. No LexiScan induced chest pain or cardiac arrhythmia 3. Normal blood pressure and heart rate response 4. Sestamibi/sestamibi perfusion scan pending; see separate report. Electronically Signed On 07-19-2023 20:29:04 RADIO RIGGER by Melida Bejarano M.D. [email or web address]
[2023-07-15 03:59] LABS: Basophils % 0.2 %; Eosinophils % 0.7 %; Hematocrit 37.9 % (37-53); Lymphocytes # 0.9 10^3/uL (0.8-4.8); Lymphocytes % 15.4 %; Mean Corpuscular HGB Conc 29.8 g/dL (30-55); Mean Corpuscular Hemoglobin 24.7 pg (27-33); Mean Corpuscular Volume 82.9 fl (82-101); Mean Platelet Volume 8.5 fL (7.4-10.4); Monocytes # 0.6 10^3/uL (0.2-0.9); Monocytes % 9.9 %; Neutrophils # 4.39 10^3/uL (1.8-7.7); Neutrophils % 73.5 %; Nucleated Red Blood Cells % 0 %; Platelet Count 219 10^3/cmm (157-399); Red Blood Count 4.57 10^6/uL (3.85-5.65); Red Cell Distribution Width 18.2 % (12.1-15.1); White Blood Count 5.97 10^3/uL (3.29-11.43)
[2023-07-15 04:23] LABS: Anion Gap 9.2 (5-19); Blood Urea Nitrogen 12 mg/dL (8-23); Calcium 8.6 mg/dL (8.5-10.5); Carbon Dioxide 35 mmol/L (22-29); Chloride 96 mmol/L (98-107); Creatinine Clr Calc Pharmacy 122.9854; Glomerular Filtration Rate 98.3 mL/min (90-130); Glucose 99 mg/dL (65-115); Osmolality Calculated 282 mOsm/kg (285-295); Potassium 4.2 mmol/L (3.5-5.1); Sodium 136 mmol/L (136-145)
[2023-07-15] MEDS: FUROsemide 10 mg/mL SDV 2mL 20 MG IVP ×2 (04:35→09:21)
[2023-07-15] MEDS: lisinopril 10 mg Tablet PO ×2 (04:35→09:21)
[2023-07-15] MEDS: tamsulosin 0.4 mg Capsule 0.400000000000000022 MG PO (05:57)
[2023-07-15] MEDS: albuterol 2.5 mg/3 mL Neb INHALATION ×2 (07:18→11:34)
[2023-07-15] MEDS: budesonide 0.5 mg/2 mL Neb INHALATION (07:20)
[2023-07-15] MEDS: regadenoson 0.4 Mg/5 ml Syringe 0.400000000000000022 MG IVP (07:58)
[2023-07-15] MEDS: sennosides-docusate Tablet 1 TAB PO (09:20)
[2023-07-15] MEDS: doxycycline 100 mg Tablet PO (09:21)
[2023-07-15] MEDS: predniSONE 20 mg Tablet PO (09:21)
[2023-07-15] MEDS: enoxaparin 40 mg/0.4 mL Syringe SUBCUT (09:21)
[2023-07-15] MEDS: losartan 50 mg Tablet 25 MG PO (09:21)
[2023-07-15] MEDS: cefTRIAXone 1,000 MG in sodium chloride 0.9% (plus) 50 ML 100 MG IV (10:12)
--- NOTE | 2023-07-15 11:04 | P.DS_ITS ---
Discharge Providers Date of Admission: 07/13/23 16:29 Date of Discharge: July 15, 2023 Attending Provider at Admission: Elsi Cortes MD Attending Provider at Discharge: Marichuy Higuera MD Primary Care Provider: Abram Horn MD Diagnoses at Discharge Discharge Diagnosis (1) Alcohol abuse: Status: Acute (2) New onset of congestive heart failure: Status: Acute (3) Chronic maxillary sinusitis: Status: Acute (4) Acute hyponatremia: Status: Acute (5) Prostatic hypertrophy: Status: Acute (6) Anemia: Status: Acute Qualifiers: Anemia type: iron deficiency Iron deficiency anemia type: other iron deficiency Qualified Code(s): D50.8 - Other iron deficiency anemias (7) COPD (chronic obstructive pulmonary disease): Status: Acute Qualifiers: COPD type: chronic bronchitis Chronic bronchitis type: simple Qualified Code(s): J41.0 - Simple chronic bronchitis (8) Community acquired pneumonia: Status: Acute (9) Acute respiratory failure with hypoxia: Status: Acute (10) Nicotine dependence: Status: Acute (11) Prediabetes: Status: Acute Reason for Visit Reason for Visit: sob, chest pressure Hospital Course Hospital Course 62-year male who was admitted for management evaluation orthopnea PND Rester distress he was diagnosed with new onset CHF, EF showed preserved action fraction, I requested stress test because he was complaining of chest pain which seem atypical pleuritic in nature, CTA rule out PE, no signs of aortic dissection, remained hemodynamically stable, patient had hypervolemic hyponatremia he was monitored in the ICU with fluid restriction and diuresis his sodium improved, no neurological signs or symptoms, patient is prediabetic I will add metformin at the time of discharge as well he will get lisinopril for his hypertension. He was counseled to quit smoking and stay away from alcohol. At baseline uses 3 L of oxygen, no acute worsening. Physical Exam Narrative: Awake and alert Sign of fluid load improving Ankle swelling improved Pleasant cooperative Nonfocal neuroexam Currently on 2 to 3 L GCS 15 Discharge Data Studies Completed and Pending Completed Studies During Hospitalization Category Date Time Status CT angio chest PE protcl [id number] Stat Cat Scan 07/13/23 14:23 Completed Sestamibi Stress Test Request Routine Exams 07/15/23 02:59 Draft XR chest 1V portable [id number] Stat Exams 07/13/23 12:17 Completed CV. echo complete* [id number] Routine Ultrasound 07/14/23 06:00 Completed Pending at discharge Category Date Time Status Blood Culture Stat Lab 07/13/23 19:30 Results Osmolality Serum Routine Lab 07/13/23 16:30 Received Osmolality Urine Routine Lab 07/13/23 20:40 Received NM kenia perf SPECT r/s* [id number] Routine Nuc Med 07/15/23 02:59 Taken Radiology Impressions Chest X-Ray 07/13/23 12:17 IMPRESSION: Increased left lower lung pneumonia and/or atelectasis, possibly superimposed upon scarring. Chest CTA 07/13/23 14:23 IMPRESSION: 1. Limitations result in suboptimal opacification and heterogeneity of the pulmonary arteries. There is no obvious larger central pulmonary embolism, but a smaller segmental or subsegmental PE in either lung can not be excluded on the basis of this examination. 2. A few small 3 mm and less solid noncalcified pulmonary nodules. For patients at low risk (minimal or absent history of smoking and of other known risk factors), no routine follow-up is indicated. For patients at high risk (history of smoking or of other known risk factors), consider optional CT Chest at 12 months. (Reference: Doris). 3. Moderate amount of scarring, atelectasis, and/or pneumonitis in the left upper lobe. 4. Mild mediastinal lymphadenopathy is probably reactive, but could be neoplastic. 5. Additional details as above. REFERENCES: Doris Jimenez, et al. Guidelines for Management of Incidental Pulmonary Nodules Detected on CT Images: From the Fleischner Society 2017. Radiology. 2017;284(1):228-243. Laboratory Results WBC 5.97 10^3/uL (3.29-11.43) 07/15/23 03:52 RBC 4.57 10^6/uL (3.85-5.65) 07/15/23 03:52 Hgb 11.30 g/dL (11.27-16.99) 07/15/23 03:52 Hct 37.9 % (37-53) 07/15/23 03:52 MCV 82.9 fl (82-101) 07/15/23 03:52 MCH 24.7 pg (27-33) L 07/15/23 03:52 MCHC 29.8 g/dL (30-55) L 07/15/23 03:52 RDW 18.2 % (12.1-15.1) H 07/15/23 03:52 Plt Count 219 10^3/cmm (157-399) 07/15/23 03:52 MPV 8.5 fL (7.4-10.4) 07/15/23 03:52 Neut % (Auto) 73.5 % 07/15/23 03:52 Lymph % (Auto) 15.4 % 07/15/23 03:52 [place] % (Auto) 9.9 % 07/15/23 03:52 Eos % (Auto) 0.7 % 07/15/23 03:52 Baso % (Auto) 0.2 % 07/15/23 03:52 Neut # (Auto) 4.39 10^3/uL (1.8-7.7) 07/15/23 03:52 Lymph # (Auto) 0.9 10^3/uL (0.8-4.8) 07/15/23 03:52 [place] # (Auto) 0.6 10^3/uL (0.2-0.9) 07/15/23 03:52 Eos # (Auto) 0.0 10^3/uL (0.0-0.8) 07/15/23 03:52 Baso # (Auto) 0.0 10^3/uL (0.0-0.1) 07/15/23 03:52 Nucleated RBC % (auto) 0 % 07/15/23 03:52 Nucleated RBCs # 0.0 /100WBC 07/15/23 03:52 PT 13.30 SECONDS (12.1-14.9) 07/13/23 13:30 INR 0.99 (0.8-1.2) 07/13/23 13:30 Specimen Type Arterial 07/13/23 14:20 Sample Site Radial, right 07/13/23 14:20 ABG pH 7.44 (7.35-7.45) 07/13/23 14:20 ABG pCO2 52.3 mmHg (35-45) H 07/13/23 14:20 ABG pO2 60.5 mmHg (80.0-100.0) L 07/13/23 14:20 ABG HCO3 35.3 mmol/L (22-26) H 03/03/24 14:20 ABG Base Excess 9.5 mmol/L (-2.0-2.0) H 07/13/23 14:20 Jaylen Test Pos 07/13/23 14:20 Hematocrit 37.1 % (42-52) L 07/13/23 14:20 O2 Delivery Device Nc 07/13/23 14:20 O2 Liters/Min 2.0 % 07/13/23 14:20 Weather Analyst ID [place] 07/13/23 14:20 Sodium 136 mmol/L (136-145) 07/15/23 03:52 Potassium 4.2 mmol/L (3.5-5.1) 07/15/23 03:52 Chloride 96 mmol/L (98-107) L 07/15/23 03:52 Carbon Dioxide 35 mmol/L (22-29) H 07/15/23 03:52 Anion Gap 9.2 (5-19) 07/15/23 03:52 BUN 12 mg/dL (8-23) 07/15/23 03:52 Creatinine 0.8 mg/dL (0.7-1.2) 07/15/23 03:52 GFR Calculation 98.3 mL/min (90-130) 07/15/23 03:52 Glucose 99 mg/dL (65-115) 07/15/23 03:52 Estimat Average Glucose 134 07/13/23 13:30 Hemoglobin A1c 6.3 % (4.0-6.0) H 07/13/23 13:30 Calculated Osmolality 282 mOsm/kg (285-295) L 07/15/23 03:52 Uric Acid 2.7 mg/dL (3.4-7.0) L 07/13/23 16:30 Calcium 8.6 mg/dL (8.5-10.5) 07/15/23 03:52 Phosphorus 2.9 mg/dL (2.5-4.5) 07/14/23 03:43 Magnesium 2.1 mg/dL (1.7-2.3) 07/14/23 03:43 Total Bilirubin 0.6 mg/dL (0.15-1.2) 07/13/23 13:30 AST 22 U/L (0-40) 07/13/23 13:30 ALT 19 U/L (0-41) 07/13/23 13:30 Alkaline Phosphatase 108 U/L (40-130) 07/13/23 13:30 Troponin T Baseline 47 ng/L (0-15) H 07/13/23 13:30 Troponin T 120 Minute 38.86 ng/L (0-15) H 07/13/23 16:00 Delta Troponin T -8.14 ABS# (0-10) L 07/13/23 16:00 Troponin T Hi Sens 6Hr 32.46 ng/L (0-15) H 07/13/23 19:25 Troponin T Hi Sens 6Hr Delta -14.54 ng/L (0-12) L 07/13/23 19:25 C-Reactive Protein 3.8 mg/L (0.0-4.9) 07/14/23 03:43 NT-Pro-B Natriuret Pep 175 pg/mL (0-125) H 07/13/23 13:30 Total Protein 6.2 g/dL (6.6-8.7) L 07/13/23 13:30 Albumin 3.9 g/dL (3.5-5.2) 07/13/23 13:30 Globulin 2.3 g/dL (1.3-4.6) 07/13/23 13:30 Lipase 30 U/L (13-60) 07/13/23 13:30 Procalcitonin 0.13 ng/mL (0-0.5) 07/13/23 16:30 TSH 1.01 uIU/mL (0.27-4.20) 07/13/23 16:30 Ur Random Sodium 10 mmol/L 07/13/23 20:40 Influenza Type A Ag negative (Negative) 07/13/23 13:50 Influenza Type B Ag negative (Negative) 07/13/23 13:50 SARS-CoV-2 Ag (Rapid) negative (Negative) 07/13/23 13:50 Vitals Last Vital Signs Temp 97.9 F 07/15/23 04:00 Pulse 96 07/15/23 10:00 Resp 23 H 07/15/23 09:20 BP 121/78 07/15/23 10:00 Pulse Ox 84 L 07/15/23 10:09 O2 Del Method Nasal Cannula 07/15/23 07:21 O2 Flow Rate 2 07/15/23 07:21 FiO2 3 07/14/23 17:00 Discharge Plan Discharge Patient Disposition: Home Condition: Stable Prescriptions: New furosemide [Lasix] 20 mg tablet 20 mg PO DAILY Qty: 60 5RF losartan 50 mg Tablet 25 mg PO DAILY Qty: 60 3RF potassium chloride 10 mEq tablet,ER particles/crystals 10 meq PO DAILY Qty: 60 3RF Rx Instructions: Only take when you take Lasix Continued alprazolam 0.5 mg tablet 0.5 mg PO TID PRN (Reason: smothering/anxiety) Qty: 20 0RF azithromycin 500 mg tablet See Rx Instructions .ROUTE .COMPLEX Rx Instructions: 500mg po on mon,wed,fri Nasal [place] Moisturizing 0.05 % [place],Non-Aerosol See Rx Instructions .ROUTE .COMPLEX Rx Instructions: intranasally as directed as needed Spiriva Respimat 2.5 mcg/actuation mist 2 puff INHALATION BEDTIME tamsulosin 0.4 mg capsule 0.4 mg PO QAM iron 325 mg (65 mg iron) Tablet 325 mg PO QPM Changed albuterol sulfate 90 mcg/actuation HFA aerosol inhaler 2 puff inhalation Q4H PRN (Reason: Shortness Of Breath Or Wheezing) Qty: 6.7 4RF Symbicort 160-4.5 mcg/actuation HFA aerosol inhaler 2 puff inhalation Q12H Qty: 10.2 4RF Discontinued amoxicillin-pot clavulanate 875-125 mg tablet 1 tab PO BID PRN (Reason: Rhinosinusitis) 15 Days Qty: 30 0RF prednisone 20 mg tablet 20 mg PO DAILY Rx Instructions: take 20mg po bid for 7 days then 20mg po daily for 7 days (rx filled 07/01/23 pt states on the once a day dose 07/13/23 losartan-hydrochlorothiazide 100-12.5 mg tablet 1 tab PO BEDTIME Discharge Orders: Discharge Order (Routine); Ordered 07/15/23 Ordered By: Marichuy Higuera Other Ambulatory Orders: DME: Oxygen (Order) Location: None Selected Ordered By: Marichuy Higuera [place] [facility] [place] Abram Horn MD [Primary Care Provider] - Discharge Diet: Cardiac and Low Salt Patient Instructions: Alcohol Abuse, Alcohol Intoxication, How to Stop Smoking (DC), Using Oxygen at Home (DC), Prediabetes (GEN), Opioid Safety Activity Restrictions/Additional Instructions: I have given you refills for your inhalers Take Lasix every day 20 mg daily if you notice more than 3 pounds weight gain or worsening of swelling or shortness of breath you can increase the dose up to 40 mg or 60 mg, whenever you take Lasix please do not forget to take your potassium supplementation because Lasix will decrease your potassium in the body Avoid alcohol and smoking You have prediabetes I will add metformin as well Please do not take hydrochlorothiazide and losartan combination because you had low sodium I have given you losartan 25 mg daily for blood pressure, if blood pressure below 130/80 you do not need to take blood pressure medications Discharge Attestations Time Spent in Discharge Care*: greater than 30 min Quality Metrics Clinical Quality Measures [ No reported AMI, CVA or VTE this stay] Coding Level of Care Code Acute Code for Chg Fwd Diagnoses Alcohol abuse F10.10 New onset of congestive heart failure I50.9 Chronic maxillary sinusitis J32.0 Acute hyponatremia E87.1 Prostatic hypertrophy N40.0 Other iron deficiency anemia D50.8 Anemia type: iron deficiency Iron deficiency anemia type: other iron deficiency Simple chronic bronchitis J41.0 COPD type: chronic bronchitis Chronic bronchitis type: simple Community acquired pneumonia J18.9 Acute respiratory failure with hypoxia J96.01 Nicotine dependence F17.200 Prediabetes R73.03
[2023-07-15 12:14] LABS: Osmolality Serum 257 mOsm/kg (278-305)
[2023-07-15 13:10] LABS: Osmolality Urine 165 mOsm/kg (50-1200)
--- NOTE | 2023-07-15 13:25 | PC.NURSE ---
Discharge Note Patient discharged to [home] via [w/c to POV] accompanied by [self]. Discharge instructions reviewed with patient and/or customer success representative. Mobile pharmacy medications and/or prescriptions provided. Belongings/home medications returned.
== END 2023-07-15 13:26 | disposition home or self-care (01) | DRG 291 ==
LOC: ER 16:42 → ICU 17:39
PROVIDERS: Admitting Provider Internal Medicine; Emergency Provider Emergency Medicine; PCP Family Medicine; Visit Provider Internal Medicine
DX: I11.0 Hypertensive heart disease with heart failure (principal); I50.31 Acute diastolic (congestive) heart failure; J18.9 Pneumonia, unspecified organism; E87.1 Hypo-osmolality and hyponatremia; R73.03 Prediabetes; Z99.81 Dependence on supplemental oxygen; F17.210 Nicotine dependence, cigarettes, uncomplicated; J41.0 Simple chronic bronchitis; F10.10 Alcohol abuse, uncomplicated; N40.0 Benign prostatic hyperplasia without lower urinary tract symptoms; J32.0 Chronic maxillary sinusitis
CPT/HCPCS: 36415; 36600; 71045; 71275; 78452; 80048; 80053; 82803; 83036; 83690; 83735; 83880; 83930; 83935; 84100; 84145; 84295; 84300; 84443; 84484; 84550; 85025; 85610; 86140; 87040; 87426; 87804; 93005; 93017; 93306; 94640; 94760; 96365; 96367; 96372; 96375; 96376; 97161; 97530; 99291; A9500; J0456; J0696; J1650; J1940; J2785; J2930; J7030; J7050; J7512; J7613; J7626; Q9967

== ENCOUNTER → 2023-08-04 12:19 | Outpatient (BNVA) | payer BC, SELFPAY | PROVIDERS: PCP Family Medicine; Visit Provider Family Medicine | DX: I10 Essential (primary) hypertension (principal) | CPT/HCPCS: 80053 ==

== ENCOUNTER → 2023-12-02 12:50 | Outpatient (BNVA) | payer BC, SELFPAY | PROVIDERS: PCP Family Medicine; Visit Provider Family Medicine | DX: R30.0 Dysuria (principal); R31.9 Hematuria, unspecified | CPT/HCPCS: 81000 ==

== ENCOUNTER 2024-02-03 06:35 | Outpatient (CLI) | payer BC, SELFPAY ==
[2024-02-03 07:26] VITALS: PULSE 85; RESP 18; O2SAT 92
[2024-02-03] MEDS: albuterol 2.5 mg/3 mL Neb INHALATION (07:26)
[2024-02-03 07:29] VITALS: PULSE 86
== END 2024-02-03 06:36 | disposition home or self-care (01) ==
LOC: RT 06:35
PROVIDERS: PCP Family Medicine; Visit Provider Internal Medicine Critical Care Medicine
DX: J41.0 Simple chronic bronchitis (principal); R53.81 Other malaise; R94.2 Abnormal results of pulmonary function studies
CPT/HCPCS: 94060; 94618; 94726; 94729

== ENCOUNTER → 2024-02-16 11:51 | Outpatient (BNVA) | payer BC, SELFPAY | PROVIDERS: PCP Family Medicine; Visit Provider Family Medicine | DX: I10 Essential (primary) hypertension (principal) | CPT/HCPCS: 80053; 85025 ==

== ENCOUNTER 2024-02-24 12:37 | Outpatient (CLI) | payer BC, SELFPAY ==
--- NOTE | 2024-02-24 12:39 | XRR_ITS ---
PROCEDURE INFORMATION: Exam: XR Chest Exam date and time: 02/24/2024 12:56 PM Age: 63 years old Clinical indication: Shortness of breath; Patient HX: SOB, tightness in chest 2-3 months, pain in center of chest; Additional info: Progressive dyspnea p 8 days TECHNIQUE: Imaging protocol: Radiologic exam of the chest. Views: 2 views. COMPARISON: CT angio chest PE protcl [id number] 07/13/2023 3:07 PM FINDINGS: Lungs: Increasing bilateral lower lobe opacities, [id number]-hpcw-right. Pleural spaces: No pleural effusion. No pneumothorax. Heart/Mediastinum: No cardiomegaly. Bones/joints: No acute findings. XR/XR chest 2V* [id number] IMPRESSION: Increasing bilateral lower lobe opacities, [id number]-[id number]-cwkj-right concerning for sequelae of infection. Recommend follow-up imaging to ensure resolution.
== END 2024-02-24 12:38 | disposition home or self-care (01) ==
PROVIDERS: PCP Family Medicine; Visit Provider Family Medicine
DX: J41.0 Simple chronic bronchitis (principal); R91.8 Other nonspecific abnormal finding of lung field
CPT/HCPCS: 71046

== ENCOUNTER 2024-04-09 09:11 | Observation (INO) | payer BC, SELFPAY ==
[2024-04-09] VITALS (14 sets, daily range): BP systolic 135–164; BP diastolic 5–110; PULSE 93–111; RESP 17–24; TEMP 36.7–37.2; O2SAT 88–97; BMI 30.8
--- NOTE | 2024-04-09 09:19 | XRR_ITS ---
PROCEDURE INFORMATION: Exam: XR Chest Exam date and time: 04/09/2024 9:31 AM Age: 63 years old Clinical indication: Cough and dyspnea; Additional info: Dyspnea/cough TECHNIQUE: Imaging protocol: Radiologic exam of the chest. Views: 1 view. COMPARISON: CR XR chest 2V* [id number] 02/24/2024 12:56 PM FINDINGS: Lungs: The lungs are hyperinflated with no pulmonary consolidation. Calcified granulomas are noted at the right lung base unchanged. Pleural spaces: Unremarkable. No pleural effusion. No pneumothorax. Heart/Mediastinum: Unremarkable. No cardiomegaly. Bones/joints: Bones are osteopenic. XR/XR chest 1V portable [id number] IMPRESSION: No acute cardiopulmonary disease.
--- NOTE | 2024-04-09 09:26 | ECG_ITS ---
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 Measurements Intervals [place] Rate: 106 P: 56 IN: 160 QRS: -59 QRSD: 84 T: 66 QT: 336 QTc: 447 Interpretive Statements SINUS TACHYCARDIA LEFT ANTERIOR FASCICULAR BLOCK [QRS AXIS <= -45, QR IN I, RS IN II] Compared to ECG 07/13/2023 18:22:49 Left anterior fascicular block now present Sinus rhythm no longer present Electronically Signed On 04-11-2024 18:54:06 WET PROCESS HEAD MILLER by Gurmeet Treadwell M.D. [email or web address]
--- NOTE | 2024-04-09 09:43 | ED_ITS ---
HPI - SOB/Dyspnea 2 General: Chief Complaint: Shortness of Breath/Dyspnea Stated Complaint: SOB, constipated, uncontrollable bladder Time Seen by Provider: 04/09/24 09:16 History of Present Illness: HPI Narrative: 63-year-old male presents emergency room complaining of shortness of breath for the last 3 days. Patient is also difficulty with urination he is occasionally having some incontinence does not feel like he is ever completely emptying his bladder. Family has also been constipated. Denies any fever sweats or chills denies productive cough he does have his chronic baseline cough and worsening wheezing. He is chronically on oxygen at around 3 L/min. Denies any chest pain. Associated symptoms: Reports chest congestion; Deny abdominal pain, chest pain, fever(s) or hemoptysis Related Data Home Medications Medication Instructions Recorded Confirmed albuterol sulfate 90 mcg/actuation 2 puff inhalation Q4H PRN 04/09/24 04/09/24 aerosol inhaler Shortness Of Breath Or Wheezing fluticasone propionate 50 2 spray intranasal DAILY 04/09/24 04/09/24 mcg/actuation nasal spray,suspension meloxicam 15 mg tablet 15 mg PO DAILY 04/09/24 04/09/24 potassium chloride 10 mEq 10 meq PO DAILY PRN Edema 04/09/24 04/09/24 tablet,extended release(part/cryst) prednisone 20 mg tablet 20 mg PO BID 04/09/24 04/09/24 Previous Rx's Medication Instructions Recorded clonidine HCl 0.2 mg tablet 0.2 mg PO BID PRN blooe pressure 09/22/23 >180/100 p 30 #60 tabs alprazolam 0.5 mg tablet 0.5 mg PO BID PRN 11/03/23 smothering/anxiety 30 days #50 tabs losartan 100 mg tablet 100 mg PO DAILY #90 tabs 11/03/23 arformoterol 15 mcg/2 mL solution 2 ml inhalation BID #120 mL 02/16/24 for nebulization (Brovana) ipratropium 0.5 mg-albuterol 3 mg 3 ml inhalation TID #180 mL 02/16/24 (2.5 mg base)/3 mL nebulization soln furosemide 40 mg tablet 40 mg PO BID #60 tabs 02/23/24 portable oxygen concentrator #1 ea 02/23/24 tamsulosin 0.4 mg capsule 0.4 mg PO M #90 caps 02/23/24 Allergies Allergy/AdvReac Type Severity Reaction Status Date / Time No Known Allergies Allergy Verified 02/23/24 14:38 Review of Systems 2 Const: Denies: fever(s) or chills Card: Denies: chest pain Resp: Reports: dyspnea, non-productive cough, wheezing and chest congestion; Denies: hemoptysis GI: Denies: abdominal pain : Denies: dysuria, urinary frequency or urinary urgency Musc: Denies: neck pain or back pain Skin/Breast: Denies: rash PFSH ED 2 PFSH: Medical History COPD (chronic obstructive pulmonary disease) Hypertension Prediabetes Nicotine dependence Alcohol abuse New onset of congestive heart failure Acute hyponatremia Acute respiratory failure with hypoxia Community acquired pneumonia Chronic maxillary sinusitis Prostatic hypertrophy Duodenal ulcer Liver cirrhosis Anemia COPD exacerbation Erectile dysfunction History of abdominal hernia Renal insufficiency GI bleed Surgical History History of bowel resection History of colon surgery Family History Other CAD (coronary artery disease) Social History Smoking and tobacco/nicotine status: never used tobacco/nicotine Quit status (tobacco/nicotine): has quit using Former quit date comment: 2 ppd X 40 years Alcohol intake: current Substance/Drug Use: never Physical Exam 2 Const: GENERAL APPEARANCE: cooperative ORIENTATION/CONSCIOUSNESS: Yes awake, Yes oriented to person, Yes oriented to place and Yes oriented to time HENMT: COMMON NORMALS: normocephalic, atraumatic and hearing grossly normal bilaterally HEAD & SCALP: normocephalic and atraumatic Resp: EFFORT & INSPECTION: Yes tachypneic AUSCULTATION: wheezes Cardio: COMMON NORMALS: regular rhythm and No murmurs present (Cardio) R ATE: tachycardic RHYTHM: regular rhythm GI: COMMON NORMALS: Soft to palpation and No hepatosplenomegaly present A USCULTATION: Yes normoactive bowel sounds PALPATION: Yes Soft to palpation, No Tenderness to palpation present (GI), No Guarding due to palpation present (GI) and Yes No hepatosplenomegaly present Extremity: COMMON NORMALS: normal to inspection, capillary refill normal, no clubbing, cyanosis or edema, no calf tenderness and no pedal edema Neuro: SENSORIUM/ORIENTATION: Yes oriented to person, Yes oriented to place and Yes oriented to time Skin: COMMON NORMALS: no rashes or lesions noted GENERAL SKIN EXAM: no rashes or lesions noted Course 2 Vital Signs: Vital signs: Vital Signs Temperature 98.9 F 04/09/24 09:21 Pulse Rate 106 H 04/09/24 15:00 Respiratory Rate 24 H 04/09/24 11:52 Blood Pressure 135/83 04/09/24 15:00 Pulse Oximetry 92 04/09/24 15:00 Oxygen Delivery Me thod Room Air 04/09/24 14:52 Oxygen Flow Rate 3 04/09/24 11:52 MDM - SOB/Dyspnea Medical Decision Making Patient is significantly hyperglycemic however there is no anion gap and no ketones. We did give him insulin which improved some. He had moderate results from the nebulizers. In talking the patient more he has been taking 70 mg/day of prednisone for the last at least 4 possibly 5 weeks. Despite this he is having exacerbation COPD due to his blood sugars he needs to have his type prednisone titrated down however if done in outpatient setting afraid his COPD will significantly worsen. Discussed with the hospitalist will admit. Orders written. Medical Records I reviewed the patient's medical records. Lab Data I reviewed the patient's lab results. 04/09/24 09:43 04/09/24 09:43 Labs/Radiology: Radiology Impressions Chest X-Ray 04/09/24 09:19 IMPRESSION: No acute cardiopulmonary disease. Abdomen X-Ray 04/09/24 11:06 IMPRESSION: Nonspecific bowel gas pattern. Laboratory Results WBC 8.08 10^3/uL (3.29-11.43) 04/09/24 09:43 RBC 4.85 10^6/uL (3.85-5.65) 04/09/24 09:43 Hgb 11.60 g/dL (11.27-16.99) 04/09/24 09:43 Hct 38.5 % (37-53) 04/09/24 09:43 MCV 79.4 fl (82-101) L 04/09/24 09:43 MCH 23.9 pg (27-33) L 04/09/24 09:43 MCHC 30.1 g/dL (30-55) 04/09/24 09:43 RDW 16.4 % (12.1-15.1) H 04/09/24 09:43 Plt Count 129 10^3/cmm (157-399) L 04/09/24 09:43 MPV 9.6 fL (7.4-10.4) 04/09/24 09:43 Neut % (Auto) 81.6 % 04/09/24 09:43 Lymph % (Auto) 8.3 % 04/09/24 09:43 [place] % (Auto) 7.2 % 04/09/24 09:43 Eos % (Auto) 2.1 % 04/09/24 09:43 Baso % (Auto) 0.1 % 04/09/24 09:43 Neut # (Auto) 6.59 10^3/uL (1.8-7.7) 04/09/24 09:43 Lymph # (Auto) 0.7 10^3/uL (0.8-4.8) L 04/09/24 09:43 [place] # (Auto) 0.6 10^3/uL (0.2-0.9) 04/09/24 09:43 Eos # (Auto) 0.2 10^3/uL (0.0-0.8) 04/09/24 09:43 Baso # (Auto) 0.0 10^3/uL (0.0-0.1) 04/09/24 09:43 Nucleated RBC % (auto) 0 % 04/09/24 09:43 Nucleated RBCs # 0.0 /100WBC 04/09/24 09:43 Specimen Type Arterial 04/09/24 09:56 Sample Site Radial, left 04/09/24 09:56 ABG pH 7.41 (7.35-7.45) 04/09/24 09:56 ABG pCO2 48.3 mmHg (35-45) H 04/09/24 09:56 ABG pO2 93.8 mmHg (80.0-100.0) 04/09/24 09:56 ABG PO2/FiO2 Ratio 335 04/09/24 09:56 ABG HCO3 30.7 mmol/L (22-26) H 04/09/24 09:56 ABG O2 Saturation 97.8 04/09/24 09:56 ABG Base Excess 5.2 mmol/L (-2.0-2.0) H 04/09/24 09:56 Jaylen Test Pos 04/09/24 09:56 A-a O2 Gradient 6.3 mmHg (5-10) 04/09/24 09:56 Hematocrit 35.9 % (42-52) L 04/09/24 09:56 Hgb O2 Saturation 95.8 % (95-100) 04/09/24 09:56 Carboxyhemoglobin 1.8 %THgb (0.4-20.1) 04/09/24 09:56 Methemoglobin 0.3 % (0.4-1.5) L 04/09/24 09:56 Total Hemoglobin 11.7 g/dL (14-18) L 04/09/24 09:56 Sodium 135.0 mmol/L (131-143) 04/09/24 09:56 Potassium 4.4 mmol/L (3.5-5.0) 04/09/24 09:56 Glucose 472.0 mg/dL (70-115) H 04/09/24 09:56 Ionized Calcium 1.3 mmol/L (1.1-1.4) 04/09/24 09:56 O2 Delivery Device Nc 04/09/24 09:56 O2 Liters/Min 2.0 % 04/09/24 09:56 FiO2 28.0 % 04/09/24 09:56 Human Performance Professor ID Monro 04/09/24 09:56 Sodium 132 mmol/L (136-145) L 04/09/24 09:43 Potassium 4.6 mmol/L (3.5-5.1) 04/09/24 09:43 Chloride 94 mmol/L (98-107) L 04/09/24 09:43 Carbon Dioxide 30 mmol/L (22-29) H 04/09/24 09:43 Anion Gap 12.6 (5-19) 04/09/24 09:43 BUN 24 mg/dL (8-23) H 04/09/24 09:43 Creatinine 0.9 mg/dL (0.7-1.2) 04/09/24 09:43 GFR Calculation 85.5 mL/min (90-130) L 04/09/24 09:43 Glucose 493 mg/dL (65-115) H 04/09/24 09:43 POC Glucose 569 mg/dL (70-110) H* 04/09/24 11: Calculated Osmolality 300 mOsm/kg (285-295) H 04/09/24 09:43 Calcium 9.7 mg/dL (8.5-10.5) 04/09/24 09:43 Total Bilirubin 0.5 mg/dL (0.15-1.2) 04/09/24 09:43 AST 21 U/L (0-40) 04/09/24 09:43 ALT 35 U/L (0-41) 04/09/24 09:43 Alkaline Phosphatase 156 U/L (40-130) H 04/09/24 09:43 Total Protein 6.1 g/dL (6.6-8.7) L 04/09/24 09:43 Albumin 3.6 g/dL (3.5-5.2) 04/09/24 09:43 Globulin 2.5 g/dL (1.3-4.6) 04/09/24 09:43 Urine Color Yellow (Yellow) 04/09/24 10:52 Urine Appearance Clear (CLEAR) 04/09/24 10:52 Urine pH 5.5 (5-7) 04/09/24 10:52 Ur Specific [place] 1.043 (1.005-1.030) H 04/09/24 10:52 Urine Protein 1+ (Negative) A 04/09/24 10:52 Urine Glucose (UA) 3+ (Normal) H 04/09/24 10:52 Urine Ketones Trace (Negative) 04/09/24 10:52 Urine Blood 1+ (Negative) A 04/09/24 10:52 Urine Nitrate Negative (Negative) 04/09/24 10:52 Urine Bilirubin Negative (Negative) 04/09/24 10:52 Urine Urobilinogen 1.0 mg/dL (Negative) 04/09/24 10:52 Ur Leukocyte Esterase Negative (Negative) 04/09/24 10:52 Urine RBC 0-2 /hpf (0-2) 04/09/24 10:52 Urine WBC 0-5 /hpf (0-5) 04/09/24 10:52 Ur Squamous Epith Cells 0-5 /hpf (0-5) 04/09/24 10:52 Amorphous Sediment Not Reportable 04/09/24 10:52 Urine Bacteria None seen /hpf (NONE) 04/09/24 10:52 Hyaline Casts 1.62 /lpf 04/09/24 10:52 Serum Ketones Negative (Negative) 04/09/24 09:43 All radiology interpretation(s) finalized by discharge Discharge Plan Discharge Patient Disposition: Admitted As Inpatient Admit Provider: Kiarra Reese Clinical Impression: Acute exacerbation of chronic obstructive airways disease, Type 2 diabetes mellitus, Acute hyperglycemia, Steroid dependent Condition: Stable Coding Level of Care Code ED Assistant Auto Center Manager for Sabine Salazar
[2024-04-09 09:49] LABS: Basophils % 0.1 %; Eosinophils # 0.2 10^3/uL (0.0-0.8); Eosinophils % 2.1 %; Hematocrit 38.5 % (37-53); Lymphocytes # 0.7 10^3/uL (0.8-4.8); Lymphocytes % 8.3 %; Mean Corpuscular HGB Conc 30.1 g/dL (30-55); Mean Corpuscular Hemoglobin 23.9 pg (27-33); Mean Corpuscular Volume 79.4 fl (82-101); Mean Platelet Volume 9.6 fL (7.4-10.4); Monocytes # 0.6 10^3/uL (0.2-0.9); Monocytes % 7.2 %; Neutrophils # 6.59 10^3/uL (1.8-7.7); Neutrophils % 81.6 %; Nucleated Red Blood Cells % 0 %; Platelet Count 129 10^3/cmm (157-399); Red Blood Count 4.85 10^6/uL (3.85-5.65); Red Cell Distribution Width 16.4 % (12.1-15.1); White Blood Count 8.08 10^3/uL (3.29-11.43)
[2024-04-09] MEDS: dexamethasone 10 mg/mL INJ IM (10:00)
[2024-04-09] MEDS: ipratropium-albuterol 3 mL Neb INHALATION ×4 (10:03→20:42)
[2024-04-09 10:09] LABS: ABG PCO2 48.3 mmHg (35-45); ABG PH Result 7.41 (7.35-7.45); Alveolar-Arterial Oxygen Gradi 6.3 mmHg (5-10); Arterial Blood Gas Hematocrit 35.9 % (42-52); Base Excess ABG 5.2 mmol/L (-2.0-2.0); Blood Gas Allen Test Pos; Blood Gas Operator Identificat MONRO; Blood Gas Sample Site Radial, left; Blood Gas Sample Type Arterial; Carboxyhemoglobin 1.8 %THgb (0.4-20.1); HCO3 ABG 30.7 mmol/L (22-26); HGB O2 Sat 95.8 % (95-100); Ionized Calcium Level - ABG 1.3 mmol/L (1.1-1.4); Methemoglobin 0.3 % (0.4-1.5); Oxygen Device NC; Oxygen Saturation ABG 97.8; PO2 ABG 93.8 mmHg (80.0-100.0); PO2 FiO2 Ratio Arterial Blood 335; Potassium Level - ABG 4.4 mmol/L (3.5-5.0); Total Hemoglobin 11.7 g/dL (14-18)
[2024-04-09 10:15] LABS: Alanine Aminotransferase 35 U/L (0-41); Albumin Level 3.6 g/dL (3.5-5.2); Alkaline Phosphatase 156 U/L (40-130); Anion Gap 12.6 (5-19); Aspartate Amino Transferase 21 U/L (0-40); Blood Urea Nitrogen 24 mg/dL (8-23); Calcium 9.7 mg/dL (8.5-10.5); Carbon Dioxide 30 mmol/L (22-29); Chloride 94 mmol/L (98-107); Creatinine Clr Calc Pharmacy 111.7817; Globulin 2.5 g/dL (1.3-4.6); Glomerular Filtration Rate 85.5 mL/min (90-130); Glucose 493 mg/dL (65-115); Osmolality Calculated 300 mOsm/kg (285-295); Potassium 4.6 mmol/L (3.5-5.1); Sodium 132 mmol/L (136-145); Total Bilirubin 0.5 mg/dL (0.15-1.2); Total Protein 6.1 g/dL (6.6-8.7)
[2024-04-09 10:59] LABS: Bilirubin Urine Negative (Negative); Blood Urine 1+ (Negative); Glucose Urine UA 3+ (Normal); Ketones Urine Trace (Negative); Leukocyte Esterase Urine Negative (Negative); Nitrate Urine Negative (Negative); Protein Urine 1+ (Negative); Urine Appearance Clear (CLEAR); Urine Color Yellow (Yellow); pH Urine 5.5 (5-7)
[2024-04-09 11:03] LABS: Ketone (Acetest) Serum Negative (Negative)
[2024-04-09 11:04] LABS: Add Urine Microscopic? YES; Bacteria Urine None Seen /hpf; Hyaline Casts Urine 1.62 /lpf; RBC Urine 0-2 /hpf (0-2); Squamous Epithelial Cell Urine 0-5 /hpf (0-5); WBC Urine 0-5 /hpf (0-5)
--- NOTE | 2024-04-09 11:06 | XRR_ITS ---
PROCEDURE INFORMATION: Exam: XR Abdomen Exam date and time: 04/09/2024 11:15 AM Age: 63 years old Clinical indication: Constipation; Abdominal pain; Generalized; Additional info: Abdominal pain constipation TECHNIQUE: Imaging protocol: Radiologic exam of the abdomen. Views: 2 Views. Upright and supine views. COMPARISON: CT angio abdomen pelvis [id number] 05/10/2022 10:22 PM FINDINGS: Lungs: A 3 mm calcified granuloma is noted at the right lung base. Gastrointestinal tract: The bowel gas pattern is nonspecific with stool and gas in the colon. Intraperitoneal space: Normal. No free air. Bones/joints: Degenerative changes are noted in the bones. XR/XR abdomen min 2V [id number] IMPRESSION: Nonspecific bowel gas pattern.
[2024-04-09 11:08] LABS: Specific Gravity, Urine 1.043 (1.005-1.030)
[2024-04-09] MEDS: insulin regular-human 100 units/1 mL 10 UNIT IVP (11:25)
[2024-04-09 11:29] LABS: Glucose Point of Care 569 mg/dL (70-110)
--- NOTE | 2024-04-09 13:24 | PM.HP ---
Providers/Chief Complaint Primary Care Provider: Abram Horn MD Chief Complaint: SOB, constipated, uncontrollable bladder History of Present Illness Joshua Avila is a 63 year old male with past medical history of COPD, on supplemental oxygen 3 L at home, hypertension, prediabetes, smoker, quit 2 months ago, congestive heart failure, hyponatremia, BPH, liver cirrhosis, CKD, GI bleed presented with complaint of worsening shortness of breath since 3 days. As per the patient he has been followed up with his primary frequently for shortness of breath and COPD exacerbation, last visit was 03/16 and was prescribed steroid taper starting from 80 mg, 10 mg every other day. He has still not been feeling well and had worsening shortness of breath since 3 days. Denies any history of fever, change in the character of cough, cold, chest pain, palpitations. He does state that his blood sugars have been running high because of the steroids. He has been on oral steroid since almost 1 month. Also complained of increased urinary frequency since 3 days but denies any fever, dysuria or hematuria. Also his blood pressure has not been well-controlled since he has been feeling sick since last 1 month. 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 He has worsening bilateral lower extremity swelling since last 1 month, had increased dose of Lasix with no relief. In ER he was noted to be hypoxic on minimal exertion and talking during my assessment. ABG was 7.4/48/93/30/97% on 2 L nasal cannula Blood sugar was 493, POC glucose 569 Sodium was 132 UA was negative, serum ketones negative, normal anion gap Chest x-ray negative for acute findings Abdominal x-ray negative for acute findings ECHO 08/02 LV systolic function is normal with EF of 60 to 65%. Mild mitral regurgitation. Mild aortic stenosis. Trace tricuspid regurgitation. Stress test 08/03 was negative Review of Systems General: Reports: 10 or more systems reviewed and unremarkable except in HPI and below Medications/Allergies Home Medications Medication Instructions Recorded Confirmed Last Taken Type clonidine HCl 0.2 mg tablet 0.2 mg PO BID PRN blooe pressure 09/22/23 04/09/24 Unknown Rx >180/100 p 30 #60 tabs alprazolam 0.5 mg tablet 0.5 mg PO BID PRN 11/03/23 04/09/24 Unknown Rx smothering/anxiety 30 days #50 tabs losartan 100 mg tablet 100 mg PO DAILY #90 tabs 11/03/23 04/09/24 04/08/24 Rx arformoterol 15 mcg/2 mL solution 2 ml inhalation BID #120 mL 02/16/24 04/09/24 04/08/24 Rx for nebulization (Brovana) ipratropium 0.5 mg-albuterol 3 mg 3 ml inhalation TID #180 mL 02/16/24 04/09/24 04/08/24 Rx (2.5 mg base)/3 mL nebulization soln furosemide 40 mg tablet 40 mg PO BID #60 tabs 02/23/24 04/09/24 04/08/24 Rx portable oxygen concentrator #1 ea 02/23/24 04/09/24 Unknown Rx tamsulosin 0.4 mg capsule 0.4 mg PO QAM #90 caps 02/23/24 04/09/24 04/08/24 Rx albuterol sulfate 90 mcg/actuation 2 puff inhalation Q4H PRN 04/09/24 04/09/24 04/08/24 History aerosol inhaler Shortness Of Breath Or Wheezing fluticasone propionate 50 2 spray intranasal DAILY 04/09/24 04/09/24 04/08/24 History mcg/actuation nasal spray,suspension meloxicam 15 mg tablet 15 mg PO DAILY 04/09/24 04/09/24 04/08/24 History potassium chloride 10 mEq 10 meq PO DAILY PRN Edema 04/09/24 04/09/24 04/08/24 History tablet,extended release(part/cryst) prednisone 20 mg tablet 20 mg PO BID 04/09/24 04/09/24 04/08/24 History Allergies Allergy/AdvReac Type Severity Reaction Status Date / Time No Known Allergies Allergy Verified 02/23/24 14:38 PFSH Acute PFSH: Medical History (Updated 04/09/24 @ 17:28 by Kiarra Reese MD) Prediabetes COPD (chronic obstructive pulmonary disease) Hypertension Nicotine dependence Alcohol abuse New onset of congestive heart failure Acute hyponatremia Acute respiratory failure with hypoxia Community acquired pneumonia Chronic maxillary sinusitis Prostatic hypertrophy Duodenal ulcer Liver cirrhosis Anemia COPD exacerbation Erectile dysfunction History of abdominal hernia Renal insufficiency GI bleed Surgical History History of bowel resection History of colon surgery Family History Other CAD (coronary artery disease) Social History Smoking and tobacco/nicotine status: never used tobacco/nicotine Quit status (tobacco/nicotine): has quit using Former quit date comment: 2 ppd X 40 years Alcohol intake: current Substance/Drug Use: never Vitals/I&O/Wt Last Vital Signs Temp 98.9 F 04/09/24 09:21 Pulse 111 H 04/09/24 12:56 Resp 24 H 04/09/24 11:52 BP 164/110 04/09/24 12:56 Pulse Ox 95 04/09/24 12:56 O2 Del Method Room Air 04/09/24 12:56 O2 Flow Rate 3 04/09/24 11:52 04/08/24 04/09/24 04/09/24 22:59 06:59 14:59 Intake Total 0 / 0 Balance 0 / 0 Weight last 48 hrs Weight 108.862 kg Physical Exam Narrative: He is alert awake oriented x 3, in moderate respiratory distress, morbidly obese, desaturating while speaking, unable to speak in full sentences Chest air entry equal on both sides, bilateral mild wheezing and coarse rhonchi present Cardiovascular normal heart sounds no murmurs Abdomen soft nondistended nontender normal bowel sounds Extremities bilateral lower extremity 3+ pitting edema present Data 04/09/24 09:43 04/09/24 16:03 A&P Assessment and plan (1) Acute exacerbation of chronic obstructive airways disease: (2) Acute hyperglycemia: (3) Physical deconditioning: (4) Morbid obesity: (5) Chronic hypoxemic respiratory failure: (6) COPD (chronic obstructive pulmonary disease): Qualifiers: COPD type: chronic bronchitis Chronic bronchitis type: simple Qualified Code(s): J41.0 - Simple chronic bronchitis (7) Urinary frequency: (8) Acute on chronic congestive heart failure with left ventricular diastolic dysfunction: (9) Hypertensive urgency: Plan landry Avila is a 63 year old male with past medical history of COPD, on supplemental oxygen 3 L at home, hypertension, prediabetes, smoker, quit 2 months ago, congestive heart failure, hyponatremia, BPH, liver cirrhosis, CKD, GI bleed presented with complaint of worsening shortness of breath and increased urinary frequency since 3 days. Was found to have blood sugar of 493. Sudden worsening of COPD symptoms since last 3 days, likely could be due to atmospheric temperature changes. #COPD exacerbation-nonresponsive to outpatient steroid therapy In ER he was noted to be hypoxic on minimal exertion and talking during my assessment. ABG was 7.4/48/93/30/97% on 2 L nasal cannula Chest x-ray negative for any acute finding Will do IV methylprednisolone 60 mg every 6 hours DuoNebs every 6 hours, budesonide inhalation twice daily Continue supplemental oxygen to keep saturation more than 90% Will do IV levofloxacin 750 mg daily #Urinary frequency-likely secondary to hyperglycemia UA negative for UTI Will control hyperglycemia with correction scale insulin #Congestive heart failure-have worsening of bilateral lower extremity edema will do IV Lasix 40 mg daily, hold PAPETERIE TABLE ASSEMBLER p.o. Lasix Monitor electrolytes and replace if needed Continue PAPET[employer]IE TABLE ASSEMBLER potassium chloride 10 mEq daily Check BMP in a.m. #Prediabetes-was found to have blood sugar of 493 in ER Will do insulin correction scale for now Will check HbA1c in a.m. #[id number] continue PAPET[employer]IE TABLE ASSEMBLER losartan and clonidine #BPH-continue PAP[employer]IE TABLE ASSEMBLER Flomax DVT prophylaxis with subcutaneous heparin GI prophylaxis with IV Pepcid twice daily CODE STATUS discussed with the patient, he is full code for now. Attestations Medical Necessity Statement*: He needs continued hospitalization for management of COPD with IV steroids, DuoNebs, respiratory support, hyperglycemia management with insulin and monitoring. Time Spent in Patient Care: 50 minutes Coding Level of Care Code Acute Code for Chg Fwd Diagnoses Acute exacerbation of chronic obstructive airways disease J44.1 Acute hyperglycemia R73.9 Physical deconditioning R53.81 Morbid obesity E66.01 Chronic hypoxemic respiratory failure J96.11 Simple chronic bronchitis J41.0 COPD type: chronic bronchitis Chronic bronchitis type: simple Urinary frequency R35.0 Acute on chronic congestive heart failure with left ventricular diastolic dysfunction I50.33 Hypertensive urgency I16.0 Time Spent (min) 50
[2024-04-09] MEDS: famotidine 20 mg/2 mL INJ IVP (14:03)
[2024-04-09] MEDS: heparin 5,000 unit/mL INJ 1 mL 5000 UNIT SUBCUT (14:05)
[2024-04-09] MEDS: levofloxacin-dextrose 5 % 750 MG/150 ML PREMIX 100 MG IV (14:31)
[2024-04-09] MEDS: methylPREDNISolone sod succ 40 mg/mL INJ IVP ×2 (14:32→20:51)
--- NOTE | 2024-04-09 15:59 | PC.NURSE ---
Notified lab of STAT BMP ordered d/t glucometer reading HIGH . States they will send a keyboard instrument tuner.
[2024-04-09 16:59] LABS: Anion Gap 14.3 (5-19); Blood Urea Nitrogen 24 mg/dL (8-23); Calcium 9.8 mg/dL (8.5-10.5); Carbon Dioxide 27 mmol/L (22-29); Chloride 91 mmol/L (98-107); Creatinine Clr Calc Pharmacy 100.6035; Glomerular Filtration Rate 75.7 mL/min (90-130); Osmolality Calculated 296 mOsm/kg (285-295); Potassium 5.3 mmol/L (3.5-5.1); Sodium 127 mmol/L (136-145)
[2024-04-09 17:03] LABS: Glucose 608 mg/dL (65-115)
[2024-04-09 17:11] LABS: Glucose Point of Care > 600 mg/dL (70-110)
[2024-04-09 17:11] LABS: Glucose Point of Care > 600 mg/dL (70-110)
[2024-04-09] MEDS: insulin lispro 100 unit/1 mL SUBCUT ×2 (17:16→20:51)
[2024-04-09] MEDS: docusate sodium 100 mg Capsule PO (17:17)
[2024-04-09] MEDS: FUROsemide 10 mg/mL SDV 4mL 40 MG IVP (17:17)
[2024-04-09 17:56] LABS: Glucose Point of Care > 600 mg/dL (70-110)
[2024-04-09 18:34] LABS: Anion Gap 14.7 (5-19); Blood Urea Nitrogen 24 mg/dL (8-23); Calcium 9.9 mg/dL (8.5-10.5); Carbon Dioxide 26 mmol/L (22-29); Chloride 90 mmol/L (98-107); Creatinine Clr Calc Pharmacy 100.6035; Glomerular Filtration Rate 75.7 mL/min (90-130); Osmolality Calculated 297 mOsm/kg (285-295); Potassium 4.7 mmol/L (3.5-5.1); Sodium 126 mmol/L (136-145)
[2024-04-09 18:38] LABS: Glucose 652 mg/dL (65-115)
[2024-04-09] MEDS: insulin lispro 100 unit/1 mL 12 UNIT SUBCUT (18:54)
--- NOTE | 2024-04-09 19:18 | PC.NURSE ---
Pt has had multiple glucose readings of HIGH. BMP ordered per protocol. Dr. Reese notified for each critical reading. Insulin given per orders.
[2024-04-09] MEDS: budesonide 0.5 mg/2 mL Neb INHALATION (20:42)
[2024-04-09] MEDS: insulin glargine 100 units/1 mL 15 UNIT SUBCUT (20:51)
[2024-04-09 20:53] LABS: Glucose Point of Care 514 mg/dL (70-110)
[2024-04-09 22:32] LABS: Glucose Point of Care 372 mg/dL (70-110)
[2024-04-10] MEDS: methylPREDNISolone sod succ 40 mg/mL INJ IVP ×2 (01:56→08:04)
[2024-04-10] MEDS: heparin 5,000 unit/mL INJ 1 mL 5000 UNIT SUBCUT (01:56)
[2024-04-10] MEDS: famotidine 20 mg/2 mL INJ IVP (01:56)
--- NOTE | 2024-04-10 03:55 | PC.NURSE ---
Addendum entered by Laurie Kay RN 04/10/24 04:01: transcribing operators supervisor contacted for US and called in a tech. States they will be here at 0530. Original Note: Patient complaining of left lower leg pain. Upon assessment, patient left leg from knee down is cool to the touch. Pitting edema unchanged from prior assessment. Popliteal pulse dopplered, but unable to hear dorsalis pedis and posterior tibial. Pulses heard throughout on right leg. Pulses were dopplered by this nurse and CHRISTEN Chen. Dr. Aceves notified and orders given for STAT bilateral venous duplex. Plan of care ongoing.
[2024-04-10 04:00] VITALS: BP 164/92; PULSE 85; RESP 18; TEMP 36.6; O2SAT 96
--- NOTE | 2024-04-10 04:00 | USR_ITS ---
PROCEDURE INFORMATION: Exam: US Duplex Bilateral Lower Extremity Arteries Exam date and time: 04/10/2024 6:24 AM Age: 63 years old Clinical indication: Pain; Leg, lower; Left; Additional info: Left leg pain, edema, unable to doppler pulses TECHNIQUE: Imaging protocol: Real-time ultrasound scan of the arteries of the bilateral lower extremities with 2-D granado scale, color Doppler flow and spectral waveform analysis. Images documented and saved. COMPARISON: CT angio abdomen pelvis [id number] 05/10/2022 10:22 PM FINDINGS: Right common femoral artery: No occlusion or significant stenosis. Normal waveform. Right superficial femoral artery: No occlusion or significant stenosis. Normal waveform. Right popliteal artery: No occlusion or significant stenosis. Normal waveform. Right calf/foot arteries: No occlusion identified. Amplitude reduction the waveforms. Waveform dampening with monophasic pattern. Left common femoral artery: Severely dampened monophasic waveform. Reduced velocities. Left superficial femoral artery: No flow detected proximal to midportion. Monophasic waveform distally. Left popliteal artery: Monophasic waveform with diminished amplitude. Peak systolic velocity 35 cm/2nd. Left calf/foot arteries: Left anterior tibial artery not assessed. Posterior tibial artery demonstrates severely diminished, dampened spectral Doppler waveform pattern. Diminished peak systolic velocity measuring 15 cm/2nd. Left peroneal artery not imaged. No flow in the left dorsalis pedis artery detected. US/CV arterial duplex [facility] [id number] IMPRESSION: 1. 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 2. Severe occlusive disease of the left lower extremity tibioperoneal arterial runoff. 3. Mild severity arterial occlusive disease of the right lower extremity tibioperoneal arterial runoff.
[2024-04-10 04:27] LABS: Glucose Point of Care 552 mg/dL (70-110)
--- NOTE | 2024-04-10 04:37 | PC.NURSE ---
Patient blood sugar is 552. Dr. Aceves notified and orders given for 10 units of insulin IVP once.
[2024-04-10 04:58] LABS: Basophils % 0.2 %; Hematocrit 33.5 % (37-53); Lymphocytes # 0.3 10^3/uL (0.8-4.8); Lymphocytes % 4.7 %; Mean Corpuscular HGB Conc 30.4 g/dL (30-55); Mean Corpuscular Hemoglobin 24.6 pg (27-33); Mean Corpuscular Volume 80.7 fl (82-101); Mean Platelet Volume 10.3 fL (7.4-10.4); Monocytes # 0.1 10^3/uL (0.2-0.9); Monocytes % 1.7 %; Neutrophils # 4.94 10^3/uL (1.8-7.7); Neutrophils % 92.8 %; Nucleated Red Blood Cells % 0 %; Platelet Count 96 10^3/cmm (157-399); Red Blood Count 4.15 10^6/uL (3.85-5.65); Red Cell Distribution Width 16.6 % (12.1-15.1); White Blood Count 5.32 10^3/uL (3.29-11.43)
[2024-04-10] MEDS: acetaminophen 325 mg Tablet 650 MG PO (04:58)
[2024-04-10] MEDS: insulin regular-human 10 UNIT in SYRINGE 1 EACH IVP (05:06)
[2024-04-10 05:28] LABS: Anion Gap 12.9 (5-19); Blood Urea Nitrogen 26 mg/dL (8-23); Calcium 8.9 mg/dL (8.5-10.5); Carbon Dioxide 28 mmol/L (22-29); Chloride 92 mmol/L (98-107); Creatinine Clr Calc Pharmacy 97.5199; Glomerular Filtration Rate 75.7 mL/min (90-130); Glucose 478 mg/dL (65-115); Osmolality Calculated 292 mOsm/kg (285-295); Potassium 4.9 mmol/L (3.5-5.1); Sodium 128 mmol/L (136-145); Thyroid Stimulating Hormone 0.57 uIU/mL (0.27-4.20)
[2024-04-10 05:29] LABS: Estmated Average Glucose 338; Hemoglobin A1C 13.4 % (4.0-6.0)
[2024-04-10 05:34] LABS: NT Pro B Type Natriuretic Pept 253 pg/mL (0-125)
[2024-04-10 06:13] LABS: Glucose Point of Care 475 mg/dL (70-110)
[2024-04-10] MEDS: tamsulosin 0.4 mg Capsule PO (07:02)
[2024-04-10 07:15] VITALS: BP 149/77; PULSE 81; RESP 18; TEMP 36.6; O2SAT 93
[2024-04-10 07:32] LABS: Glucose Point of Care 437 mg/dL (70-110)
[2024-04-10] MEDS: insulin lispro 100 unit/1 mL SUBCUT (08:04)
[2024-04-10] MEDS: FUROsemide 10 mg/mL SDV 4mL 40 MG IVP (08:04)
[2024-04-10] MEDS: losartan 50 mg Tablet 100 MG PO (08:05)
[2024-04-10] MEDS: docusate sodium 100 mg Capsule PO (08:05)
[2024-04-10] MEDS: polyethylene glycol 3350 Pkt 17 gm PO (08:05)
[2024-04-10] MEDS: levofloxacin-dextrose 5 % 750 MG/150 ML PREMIX 100 MG IV (08:05)
[2024-04-10] MEDS: meloxicam 7.5 mg tablet 15 MG PO (08:08)
[2024-04-10] MEDS: budesonide 0.5 mg/2 mL Neb INHALATION (09:04)
[2024-04-10] MEDS: ipratropium-albuterol 3 mL Neb INHALATION (09:04)
[2024-04-10 09:05] VITALS: PULSE 94; RESP 18; O2SAT 94
--- NOTE | 2024-04-10 09:45 | PM.TDS ---
Transfer Summary Providers Date of Admission: 04/09/24 13:46 Date of Discharge/Transfer: 04/10/24 Attending Provider at Admission: Kiarra Reese MD Attending Provider at Transfer: Kiarra Reese MD Primary Care Provider: Abram Horn MD Transfer Plans: Anticipated date of transfer: 04/10/24. Receiving Facility: [facility]. Receiving Provider: Dr Tolentino. Diagnoses at Discharge Discharge Diagnosis (1) Acute exacerbation of chronic obstructive airways disease: Status: Acute (2) Acute hyperglycemia: Status: Acute (3) Physical deconditioning: Status: Acute (4) Morbid obesity: Status: Acute (5) Chronic hypoxemic respiratory failure: Status: Acute (6) COPD (chronic obstructive pulmonary disease): Status: Acute Qualifiers: COPD type: chronic bronchitis Chronic bronchitis type: simple Qualified Code(s): J41.0 - Simple chronic bronchitis (7) Urinary frequency: Status: Acute (8) Acute on chronic congestive heart failure with left ventricular diastolic dysfunction: Status: Acute (9) Hypertensive urgency: Status: Acute Reason for Visit Reason for Visit SOB, constipated, uncontrollable bladder Brief History: Joshua Avila is a 63 year old male with past medical history of COPD, on supplemental oxygen 3 L at home, hypertension, prediabetes, smoker, quit 2 months ago, congestive heart failure, hyponatremia, BPH, liver cirrhosis, CKD, GI bleed presented with complaint of worsening shortness of breath since 3 days. As per the patient he has been followed up with his primary frequently for shortness of breath and COPD exacerbation, last visit was 03/16 and was prescribed steroid taper starting from 80 mg, 10 mg every other day. He has still not been feeling well and had worsening shortness of breath since 3 days. Denies any history of fever, change in the character of cough, cold, chest pain, palpitations. He does state that his blood sugars have been running high because of the steroids. He has been on oral steroid since almost 1 month. Also complained of increased urinary frequency since 3 days but denies any fever, dysuria or hematuria. Also his blood pressure has not been well-controlled since he has been feeling sick since last 1 month. 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 He has worsening bilateral lower extremity swelling since last 1 month, had increased dose of Lasix with no relief. In ER he was noted to be hypoxic on minimal exertion and talking during my assessment. ABG was 7.4/48/93/30/97% on 2 L nasal cannula Blood sugar was 493, POC glucose 569 Sodium was 132 UA was negative, serum ketones negative, normal anion gap Chest x-ray negative for acute findings Abdominal x-ray negative for acute findings ECHO 08/02 LV systolic function is normal with EF of 60 to 65%. Mild mitral regurgitation. Mild aortic stenosis. Trace tricuspid regurgitation. Stress test 08/03 was negative Hospital Course Hospital Course Assessment and plan (1) Acute exacerbation of chronic obstructive airways disease: (2) Acute hyperglycemia: (3) Physical deconditioning: (4) Morbid obesity: (5) Chronic hypoxemic respiratory failure: (6) COPD (chronic obstructive pulmonary disease): Qualifiers: COPD type: chronic bronchitis Chronic bronchitis type: simple Qualified Code(s): J41.0 - Simple chronic bronchitis (7) Urinary frequency: (8) Acute on chronic congestive heart failure with left ventricular diastolic dysfunction: (9) Hypertensive urgency: Plan landry Avila is a 63 year old male with past medical history of COPD, on supplemental oxygen 3 L at home, hypertension, prediabetes, smoker, quit 2 months ago, congestive heart failure, hyponatremia, BPH, liver cirrhosis, CKD, GI bleed presented with complaint of worsening shortness of breath and increased urinary frequency since 3 days. Was found to have blood sugar of 493. Sudden worsening of COPD symptoms since last 3 days, likely could be due to atmospheric temperature changes. #COPD exacerbation-nonresponsive to outpatient steroid therapy In ER he was noted to be hypoxic on minimal exertion and talking during my assessment. ABG was 7.4/48/93/30/97% on 2 L nasal cannula Chest x-ray negative for any acute finding Will do IV methylprednisolone 60 mg every 6 hours DuoNebs every 6 hours, budesonide inhalation twice daily Continue supplemental oxygen to keep saturation more than 90% Will do IV levofloxacin 750 mg daily #Urinary frequency-likely secondary to hyperglycemia UA negative for UTI Will control hyperglycemia with correction scale insulin #Congestive heart failure-have worsening of bilateral lower extremity edema will do IV Lasix 40 mg daily, hold CODING VALIDATOR p.o. Lasix Monitor electrolytes and replace if needed Continue CODING VALIDATOR potassium chloride 10 mEq daily Check BMP in a.m. #Prediabetes-was found to have blood sugar of 493 in ER Will do insulin correction scale for now Will check HbA1c in a.m. #[id number]-gfht continue CODING VALIDATOR losartan and clonidine #BPH-continue CODING VALIDATOR Flomax DVT prophylaxis with subcutaneous heparin GI prophylaxis with IV Pepcid twice daily CODE STATUS discussed with the patient, he is full code for now. 04/09/24 He is feeling better this morning, B/l lower extremity edema improved. Overnight was found to have pain in left LE, absent pulses. Arterial doppler done as a result showed MPRESSION: 1. 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 2. Severe occlusive disease of the left lower extremity tibioperoneal arterial runoff. 3. Mild severity arterial occlusive disease of the right lower extremity tibioperoneal arterial runoff. VS Afeb, BP 149/77, P 94, O2 sat-94% on 2LNC, POC glu 437 Hb 10.2, Sodium 128, Creat 1.0, HbA1c 13.4 Patient needs to be transferred to Higher level of care for vascular surgery for further intervention. Started on heparin drip, given atorvastatin 80mg once. Insulin glargine changed to 20 units bid. Physical Exam Narrative: He is alert awake oriented x 3, in moderate respiratory distress, morbidly obese, desaturating while speaking, unable to speak in full sentences Chest air entry equal on both sides, bilateral mild wheezing and coarse rhonchi present Cardiovascular normal heart sounds no murmurs Abdomen soft nondistended nontender normal bowel sounds Extremities bilateral lower extremity 3+ pitting edema present TS Data Studies Completed and Pending Pending at discharge Category Date Time Status Basic Metabolic Panel AM LABS Lab 04/11/24 04:00 Ordered Basic Metabolic Panel AM LABS Lab 04/12/24 04:00 Ordered Complete Blood Count w/Auto AM LABS Lab 04/11/24 04:00 Ordered Complete Blood Count w/Auto AM LABS Lab 04/12/24 04:00 Ordered Magnesium AM LABS Lab 04/11/24 04:00 Ordered Magnesium AM LABS Lab 04/12/24 04:00 Ordered Platelet Count Q2D Lab 04/12/24 04:00 Ordered Platelet Count Q2D Lab 04/14/24 04:00 Ordered Completed Studies During Hospitalization Category Date Time Status XR abdomen min 2V [id number] Stat Exams 04/09/24 11:06 Completed XR chest 1V portable [id number] Stat Exams 04/09/24 09:19 [place] [id number] Stat Ultrasound 04/10/24 04:00 Completed Laboratory Last Values WBC 5.32 10^3/uL (3.29-11.43) 04/10/24 04:28 RBC 4.15 10^6/uL (3.85-5.65) 04/10/24 04:28 Hgb 10.20 g/dL (11.27-16.99) L 04/10/24 04:28 Hct 33.5 % (37-53) L 04/10/24 04:28 MCV 80.7 fl (82-101) L 04/10/24 04:28 MCH 24.6 pg (27-33) L 04/10/24 04:28 MCHC 30.4 g/dL (30-55) 04/10/24 04:28 RDW 16.6 % (12.1-15.1) H 04/10/24 04:28 Plt Count 96 10^3/cmm (157-399) L 04/10/24 04:28 MPV 10.3 fL (7.4-10.4) 04/10/24 04:28 Neut % (Auto) 92.8 % 04/10/24 04:28 Lymph % (Auto) 4.7 % 04/10/24 04:28 [place] % (Auto) 1.7 % 04/10/24 04:28 Eos % (Auto) 0.0 % 04/10/24 04:28 Baso % (Auto) 0.2 % 04/10/24 04:28 Neut # (Auto) 4.94 10^3/uL (1.8-7.7) 04/10/24 04:28 Lymph # (Auto) 0.3 10^3/uL (0.8-4.8) L 04/10/24 04:28 [place] # (Auto) 0.1 10^3/uL (0.2-0.9) L 04/10/24 04:28 Eos # (Auto) 0.0 10^3/uL (0.0-0.8) 04/10/24 04:28 Baso # (Auto) 0.0 10^3/uL (0.0-0.1) 04/10/24 04:28 Nucleated RBC % (auto) 0 % 04/10/24 04:28 Nucleated RBCs # 0.0 /100WBC 04/10/24 04:28 Specimen Type Arterial 04/09/24 09:56 Sample Site Radial, left 04/09/24 09:56 ABG pH 7.41 (7.35-7.45) 04/09/24 09:56 ABG pCO2 48.3 mmHg (35-45) H 04/09/24 09:56 ABG pO2 93.8 mmHg (80.0-100.0) 04/09/24 09:56 ABG PO2/FiO2 Ratio 335 04/09/24 09:56 ABG HCO3 30.7 mmol/L (22-26) H 04/09/24 09:56 ABG O2 Saturation 97.8 04/09/24 09:56 ABG Base Excess 5.2 mmol/L (-2.0-2.0) H 04/09/24 09:56 Jaylen Test Pos 04/09/24 09:56 A-a O2 Gradient 6.3 mmHg (5-10) 04/09/24 09:56 Hematocrit 35.9 % (42-52) L 04/09/24 09:56 Hgb O2 Saturation 95.8 % (95-100) 04/09/24 09:56 Carboxyhemoglobin 1.8 %THgb (0.4-20.1) 04/09/24 09:56 Methemoglobin 0.3 % (0.4-1.5) L 04/09/24 09:56 Total Hemoglobin 11.7 g/dL (14-18) L 04/09/24 09:56 Sodium 135.0 mmol/L (131-143) 04/09/24 09:56 Potassium 4.4 mmol/L (3.5-5.0) 04/09/24 09:56 Glucose 472.0 mg/dL (70-115) H 04/09/24 09:56 Ionized Calcium 1.3 mmol/L (1.1-1.4) 04/09/24 09:56 O2 Delivery Device Nc 04/09/24 09:56 O2 Liters/Min 2.0 % 04/09/24 09:56 FiO2 28.0 % 04/09/24 09:56 Furniture Manager ID [place] 04/09/24 09:56 Sodium 128 mmol/L (136-145) L 04/10/24 04:28 Potassium 4.9 mmol/L (3.5-5.1) 04/10/24 04:28 Chloride 92 mmol/L (98-107) L 04/10/24 04:28 Carbon Dioxide 28 mmol/L (22-29) 04/10/24 04:28 Anion Gap 12.9 (5-19) 04/10/24 04:28 BUN 26 mg/dL (8-23) H 04/10/24 04:28 Creatinine 1.0 mg/dL (0.7-1.2) 04/10/24 04:28 GFR Calculation 75.7 mL/min (90-130) L 04/10/24 04:28 Glucose 478 mg/dL (65-115) H 04/10/24 04:28 POC Glucose 437 mg/dL (70-110) H 04/10/24 07:28 Estimat Average Glucose 338 04/10/24 04:28 Hemoglobin A1c 13.4 % (4.0-6.0) H 04/10/24 04:28 Calculated Osmolality 292 mOsm/kg (285-295) 04/10/24 04:28 Calcium 8.9 mg/dL (8.5-10.5) 04/10/24 04:28 Magnesium 2.0 mg/dL (1.7-2.3) 04/10/24 04:28 Total Bilirubin 0.5 mg/dL (0.15-1.2) 04/09/24 09:43 AST 21 U/L (0-40) 04/09/24 09:43 ALT 35 U/L (0-41) 04/09/24 09:43 Alkaline Phosphatase 156 U/L (40-130) H 04/09/24 09:43 NT-Pro-B Natriuret Pep 253 pg/mL (0-125) H 04/10/24 04:28 Total Protein 6.1 g/dL (6.6-8.7) L 04/09/24 09:43 Albumin 3.6 g/dL (3.5-5.2) 04/09/24 09:43 Globulin 2.5 g/dL (1.3-4.6) 04/09/24 09:43 TSH 0.57 uIU/mL (0.27-4.20) 04/10/24 04:28 Urine Color Yellow (Yellow) 04/09/24 10:52 Urine Appearance Clear (CLEAR) 04/09/24 10:52 Urine pH 5.5 (5-7) 04/09/24 10:52 Ur Specific [place] 1.043 (1.005-1.030) H 04/09/24 10:52 Urine Protein 1+ (Negative) A 04/09/24 10:52 Urine Glucose (UA) 3+ (Normal) H 04/09/24 10:52 Urine Ketones Trace (Negative) 04/09/24 10:52 Urine Blood 1+ (Negative) A 04/09/24 10:52 Urine Nitrate Negative (Negative) 04/09/24 10:52 Urine Bilirubin Negative (Negative) 04/09/24 10:52 Urine Urobilinogen 1.0 mg/dL (Negative) 04/09/24 10:52 Ur Leukocyte Esterase Negative (Negative) 04/09/24 10:52 Urine RBC 0-2 /hpf (0-2) 04/09/24 10:52 Urine WBC 0-5 /hpf (0-5) 04/09/24 10:52 Ur Squamous Epith Cells 0-5 /hpf (0-5) 04/09/24 10:52 Amorphous Sediment Not Reportable 04/09/24 10:52 Urine Bacteria None seen /hpf (NONE) 04/09/24 10:52 Hyaline Casts 1.62 /lpf 04/09/24 10:52 Serum Ketones Negative (Negative) 04/09/24 09:43 Radiology Impressions Chest X-Ray 04/09/24 09:19 IMPRESSION: No acute cardiopulmonary disease. Abdomen X-Ray 04/09/24 11:06 IMPRESSION: Nonspecific bowel gas pattern. Duplex Scan Lower Extremity Artery 04/10/24 04:00 IMPRESSION: 1. 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 2. Severe occlusive disease of the left lower extremity tibioperoneal arterial runoff. 3. Mild severity arterial occlusive disease of the right lower extremity tibioperoneal arterial runoff. Recent Clincial Data Last Vital Signs Temp 97.8 F 04/10/24 07:15 Pulse 94 04/10/24 09:05 Resp 18 04/10/24 09:05 BP 149/77 04/10/24 07:15 Pulse Ox 94 04/10/24 09:05 O2 Del Method Nasal Cannula 04/10/24 09:05 O2 Flow Rate 2 04/10/24 09:05 Vital Signs Temp Pulse Resp BP Pulse Ox O2 Del Method O2 Flow Rate 04/10/24 09:05 94 18 94 Nasal Cannula 2 04/10/24 07:15 97.8 F 81 18 149/77 93 Nasal Cannula 2 04/10/24 04:00 97.9 F 85 18 164/92 96 Nasal Cannula 04/09/24 23:52 98.1 F 93 19 H 136/82 90 Nasal Cannula Intake & Output/Weight 04/08/24 04/09/24 04/10/24 04/11/24 06:59 06:59 06:59 06:59 Intake Total 504.1 / 504.1 359.333 / 359.333 Output Total 975 / 975 Balance -470.9 / -470.9 359.333 / 359.333 Weight 101.746 kg Vitals Last Vital Signs Temp 97.8 F 04/10/24 07:15 Pulse 94 04/10/24 09:05 Resp 18 04/10/24 09:05 BP 149/77 04/10/24 07:15 Pulse Ox 94 04/10/24 09:05 O2 Del Method Nasal Cannula 04/10/24 09:05 O2 Flow Rate 2 04/10/24 09:05 TS Medications Medications Acetaminophen (Acetaminophen 325 Mg Tablet) 650 mg PO Q6H PRN PRN Reason: MILD PAIN Last Admin: 04/10/24 04:58 Dose: 650 mg Albuterol/Ipratropium (Ipratropium-Albuterol 3 Ml Neb) 3 ml INHALATION QID.RESPIRATORY SHERITA Last Admin: 04/10/24 09:04 Dose: 3 ml Alprazolam (Alprazolam 0.5 Mg Tablet) 0.5 mg PO BID PRN PRN Reason: smothering/anxiety Atorvastatin Calcium (Atorvastatin 40 Mg Tablet) 80 mg PO BEDTIME SHERITA Budesonide (Budesonide 0.5 Mg/2 Ml Neb) 0.5 mg INHALATION BID SHERITA Last Admin: 04/10/24 09:04 Dose: 0.5 mg Clonidine HCl (Clonidine 0.1 Mg Tablet) 0.2 mg PO BID PRN PRN Reason: blooe pressure >180/100 p 30 Docusate Sodium (Docusate Sodium 100 Mg Capsule) 100 mg PO BID SHERITA Last Admin: 04/10/24 08:05 Dose: 100 mg Famotidine (Famotidine 20 Mg/2 Ml Inj) 20 mg IVP Q12H SHERITA Last Admin: 04/10/24 01:56 Dose: 20 mg Furosemide (Furosemide 10 Mg/Ml Sdv 4ml) 40 mg IVP BID SHERITA Last Admin: 04/10/24 08:04 Dose: 40 mg Glucagon (Glucagon 1 Mg/Ml Kit 1 Ml) 1 mg IM ONCE PRN; Protocol PRN Reason: Adult Acute Hypoglycemia Nursing Prot. Heparin Sodium (Porcine) (Heparin 5,000 Unit/Ml Inj 1 Ml) 5,000 unit SUBCUT Q12H SHERITA Last Admin: 04/10/24 01:56 Dose: 5,000 unit Heparin Sodium (Porcine) (Heparin 5,000 Unit/Ml Inj 1 Ml) 0 unit IVP PRN PRN; Protocol PRN Reason: Heparin Weight Based Protocol -Subsequent Bolus Levofloxacin/Dextrose (Levaquin-D5w) 750 mg in 150 mls @ 100 mls/hr IV DAILY SHERITA; Protocol Stop: 04/13/24 17:00 Last Infusion: 04/10/24 09:19 Dose: 0 mls/hr Dextrose (D5w) 500 mls @ 0 mls/hr IV ONCE PRN; Protocol PRN Reason: Adult Acute Hypoglycemia Prot Dextrose (D10w) 125 mls @ 750 mls/hr IV PRN PRN; Protocol PRN Reason: Adult Acute Hypoglycemia Nursing Protocol Dextrose (D10w) 250 mls @ 1,000 mls/hr IV PRN PRN; Protocol PRN Reason: Adult Acute Hypoglycemia Nursing Protocol Heparin Sodium/Sodium Chloride (Heparin Drip) 25,000 unit in 500 mls @ 0 mls/hr IV CONT SHERITA; Protocol Insulin Glargine (Insulin Glargine 100 Units/1 Ml) 15 unit SUBCUT BEDTIME SHERITA Last Admin: 04/09/24 20:51 Dose: 15 unit Insulin Human Lispro (Insulin Lispro 100 Unit/1 Ml) 0 unit SUBCUT WM&BEDTIME SHERITA; Protocol Last Admin: 04/10/24 08:04 Dose: 16 unit Losartan Potassium (Losartan 50 Mg Tablet) 100 mg PO DAILY SHERITA Last Admin: 04/10/24 08:05 Dose: 100 mg Meloxicam (Meloxicam 7.5 Mg Tablet) 15 mg PO DAILY SHERITA Last Admin: 04/10/24 08:08 Dose: 15 mg Methylprednisolone Sodium Succinate (Methylprednisolone Sod Succ 40 Mg/Ml Inj) 40 mg IVP Q6H [facility] Last Admin: 04/10/24 08:04 Dose: 40 mg Polyethylene Glycol (Polyethylene Glycol 3350 Pkt 17 Gm) 17 gm PO DAILY [facility] Last Admin: 04/10/24 08:05 Dose: 17 gm Potassium Chloride (Potassium Chloride Er 10 Meq Tablet) 10 meq PO DAILY PRN PRN Reason: Edema Tamsulosin HCl (Tamsulosin 0.4 Mg Capsule) 0.4 mg PO QAM [facility] Last Admin: 04/10/24 07:02 Dose: 0.4 mg Discontinued Medications Albuterol/Ipratropium (Ipratropium-Albuterol 3 Ml Neb) 3 ml INHALATION ONCE ONE Stop: 04/09/24 09:46 Last Admin: 04/09/24 10:03 Dose: 3 ml Albuterol/Ipratropium (Ipratropium-Albuterol 3 Ml Neb) 3 ml INHALATION ONCE ONE Stop: 04/09/24 11:34 Last Admin: 04/09/24 11:52 Dose: 3 ml Budesonide (Budesonide 0.5 Mg/2 Ml Neb) 0.5 mg INHALATION BID [facility] Dexamethasone (Dexamethasone 10 Mg/Ml Inj) 10 mg IM ONCE ONE Stop: 04/09/24 09:46 Last Admin: 04/09/24 10:00 Dose: 10 mg Furosemide (Furosemide 10 Mg/Ml Sdv 4ml) 40 mg IVP DAILY [facility] Glucagon (Glucagon 1 Mg/Ml Kit 1 Ml) 1 mg IM ONCE PRN; Protocol PRN Reason: Adult Acute Hypoglycemia Nursing Prot. Heparin Sodium (Porcine) (Heparin 5,000 Unit/Ml Inj 1 Ml) 0 unit IVP ONCE ONE; Protocol Stop: 04/10/24 08:38 Dextrose (D5w) 500 mls @ 0 mls/hr IV ONCE PRN; Protocol PRN Reason: Adult Acute Hypoglycemia Prot Dextrose (D10w) 125 mls @ 750 mls/hr IV PRN PRN; Protocol PRN Reason: Adult Acute Hypoglycemia Nursing Protocol Dextrose (D10w) 250 mls @ 1,000 mls/hr IV PRN PRN; Protocol PRN Reason: Adult Acute Hypoglycemia Nursing Protocol Insulin Human Regular 10 unit/ (N/A) 0.1 mls @ 0 mls/hr IVP ONCE ONE Stop: 04/10/24 04:31 Last Infusion: 04/10/24 05:18 Dose: Infused Insulin Human Lispro (Insulin Lispro 100 Unit/1 Ml) 0 unit SUBCUT WM&BEDTIME SHERITA; Protocol Insulin Human Lispro (Insulin Lispro 100 Unit/1 Ml) 12 unit SUBCUT NOW ONE Stop: 04/09/24 18:39 Last Admin: 04/09/24 18:54 Dose: 12 unit Insulin Human Regular (Insulin Regular-Human 100 Units/1 Ml) 10 unit IVP ONCE ONE Stop: 04/09/24 10:51 Last Admin: 04/09/24 11:25 Dose: 10 unit Insulin Human Regular (Insulin Regular-Human 100 Units/1 Ml) Confirm Administered Dose 10 unit .ROUTE .STK-MED ONE Stop: 04/10/24 04:50 Allergies No Known Allergies Allergy (Verified 02/23/24 14:38) Home Medications clonidine HCl 0.2 mg tablet 0.2 mg PO BID PRN blooe pressure >180/100 p 30 #60 tabs 09/22/23 [Rx Confirmed 04/09/24] alprazolam 0.5 mg tablet 0.5 mg PO BID PRN smothering/anxiety 30 days #50 tabs 11/03/23 [Rx Confirmed 04/09/24] losartan 100 mg tablet 100 mg PO DAILY #90 tabs 11/03/23 [Rx Confirmed 04/09/24] arformoterol 15 mcg/2 mL solution for nebulization (Brovana) 2 ml inhalation BID #120 mL 02/16/24 [Rx Confirmed 04/09/24] ipratropium 0.5 mg-albuterol 3 mg (2.5 mg base)/3 mL nebulization soln 3 ml inhalation TID #180 mL 02/16/24 [Rx Confirmed 04/09/24] furosemide 40 mg tablet 40 mg PO BID #60 tabs 02/23/24 [Rx Confirmed 04/09/24] portable oxygen concentrator #1 ea 02/23/24 [Rx Confirmed 04/09/24] tamsulosin 0.4 mg capsule 0.4 mg PO QAM #90 caps 02/23/24 [Rx Confirmed 04/09/24] albuterol sulfate 90 mcg/actuation aerosol inhaler 2 puff inhalation Q4H PRN Shortness Of Breath Or Wheezing 04/09/24 [History Confirmed 04/09/24] fluticasone propionate 50 mcg/actuation nasal spray,suspension 2 spray intranasal DAILY 04/09/24 [History Confirmed 04/09/24] meloxicam 15 mg tablet 15 mg PO DAILY 04/09/24 [History Confirmed 04/09/24] potassium chloride 10 mEq tablet,extended release(part/cryst) 10 meq PO DAILY PRN Edema 04/09/24 [History Confirmed 04/09/24] prednisone 20 mg tablet 20 mg PO BID 04/09/24 [History Confirmed 04/09/24] Discharge Plan Discharge Patient Disposition: Xfer Other Condition: Stable Prescriptions: No Action losartan 100 mg tablet 100 mg PO DAILY Qty: 90 3RF alprazolam 0.5 mg tablet 0.5 mg PO BID PRN (Reason: smothering/anxiety) 30 Days Qty: 50 0RF ipratropium-albuterol 0.5 mg-3 mg(2.5 mg base)/3 mL solution for nebulization 3 ml inhalation TID Qty: 180 5RF arformoterol [Brovana] 15 mcg/2 mL solution for nebulization 2 ml inhalation BID Qty: 120 5RF tamsulosin 0.4 mg capsule 0.4 mg PO QAM Qty: 90 3RF furosemide 40 mg tablet 40 mg PO BID Qty: 60 2RF (DME) portable oxygen concentrator See Rx Instructions .Route .MEDSUPPLY Qty: 1 0RF Rx Instructions: As directed clonidine HCl 0.2 mg tablet 0.2 mg PO BID PRN (Reason: blooe pressure >180/100 p 30 ) Qty: 60 6RF meloxicam 15 mg tablet 15 mg PO DAILY prednisone 20 mg tablet 20 mg PO BID albuterol sulfate 90 mcg/actuation HFA aerosol inhaler 2 puff inhalation Q4H PRN (Reason: Shortness Of Breath Or Wheezing) fluticasone propionate 50 mcg/actuation spray,suspension 2 spray intranasal DAILY potassium chloride 10 mEq tablet,ER particles/crystals 10 meq PO DAILY PRN (Reason: Edema) Rx Instructions: Only take when you take Lasix Discharge Orders: Transfer Out of Facility (Order); Ordered 04/10/24 Ordered By: Kiarra Reese Referrals: Abram Horn MD [Primary Care Provider] - Discharge Diet: Diabetic Discharge Activity: Increase activity as tolerated Patient Instructions: Opioid Safety Transfer Attestations Time Spent in Transfer Care: less than 30 min Quality Metrics Clinical Quality Measures [ No reported AMI, CVA or VTE this stay] Coding Level of Care Code Acute Code for Chg Fwd Diagnoses Acute exacerbation of chronic obstructive airways disease J44.1 Acute hyperglycemia R73.9 Physical deconditioning R53.81 Morbid obesity E66.01 Chronic hypoxemic respiratory failure J96.11 Simple chronic bronchitis J41.0 COPD type: chronic bronchitis Chronic bronchitis type: simple Urinary frequency R35.0 Acute on chronic congestive heart failure with left ventricular diastolic dysfunction I50.33 Hypertensive urgency I16.0 Time Spent (min) 25
[2024-04-10] MEDS: heparin 5,000 unit/mL INJ 1 mL IVP (09:54)
[2024-04-10] MEDS: heparin drip 25,000 UNIT/500 ML PREMIX 29 UNIT IV (09:57)
[2024-04-10 10:04] LABS: Glucose Point of Care 563 mg/dL (70-110)
--- NOTE | 2024-04-10 10:09 | PC.NURSE ---
Report called to Cherri at [facility]. All questions answered at this time. Will continue the hep gtt in route.
== END 2024-04-10 10:33 | disposition other institution (70) ==
LOC: ER 12:50 → MEDSURG 13:48
PROVIDERS: Admitting Provider Internal Medicine; Emergency Provider Family Medicine; PCP Family Medicine; Visit Provider Internal Medicine
DX: J44.1 Chronic obstructive pulmonary disease with (acute) exacerbation (principal); R73.9 Hyperglycemia, unspecified; R53.81 Other malaise; E66.01 Morbid (severe) obesity due to excess calories; Z68.28 Body mass index [BMI] 28.0-28.9, adult; J96.11 Chronic respiratory failure with hypoxia; R35.0 Frequency of micturition; I11.0 Hypertensive heart disease with heart failure; I50.33 Acute on chronic diastolic (congestive) heart failure; I16.0 Hypertensive urgency; K59.00 Constipation, unspecified; Z99.81 Dependence on supplemental oxygen; N40.0 Benign prostatic hyperplasia without lower urinary tract symptoms; R73.03 Prediabetes
CPT/HCPCS: 36415; 36416; 36600; 51798; 71045; 74019; 80048; 80051; 80053; 81001; 82009; 82330; 82805; 82962; 83036; 83735; 83880; 84443; 85025; 93005; 93925; 94640; 94664; 96365; 96367; 96372; 96375; 96376; 99285; G0378; J1100; J1644; J1815; J1940; J1956; J2919; J3490; J7626

== ENCOUNTER → 2024-04-28 10:12 | Outpatient (BNVA) | payer BC, SELFPAY | PROVIDERS: PCP Family Medicine; Visit Provider Family Medicine | DX: E11.9 Type 2 diabetes mellitus without complications (principal); D64.9 Anemia, unspecified | CPT/HCPCS: 80053; 85025 ==

== ENCOUNTER → 2024-05-18 10:05 | Outpatient (BNVA) | payer BC, SELFPAY | PROVIDERS: PCP Family Medicine; Visit Provider Family Medicine | DX: I10 Essential (primary) hypertension (principal); E11.51 Type 2 diabetes mellitus with diabetic peripheral angiopathy without gangrene; J45.40 Moderate persistent asthma, uncomplicated; F19.20 Other psychoactive substance dependence, uncomplicated | CPT/HCPCS: 80053; 82728; 83550; 85025 ==

== ENCOUNTER → 2024-06-15 09:55 | Outpatient (BNVA) | payer BC, SELFPAY | PROVIDERS: PCP Family Medicine; Visit Provider Family Medicine | DX: I10 Essential (primary) hypertension (principal); E11.51 Type 2 diabetes mellitus with diabetic peripheral angiopathy without gangrene; J41.0 Simple chronic bronchitis | CPT/HCPCS: 80053; 83036; 83540; 85025 ==

== ENCOUNTER → 2024-07-01 13:22 | Outpatient (BNVA) | payer BC, SELFPAY | PROVIDERS: PCP Family Medicine; Visit Provider Internal Medicine | DX: I10 Essential (primary) hypertension (principal); R07.9 Chest pain, unspecified; J41.0 Simple chronic bronchitis; R06.09 Other forms of dyspnea | CPT/HCPCS: 36415; 80048; 83880; 93005 ==

== ENCOUNTER 2024-07-26 07:13 | Outpatient (CLI) | payer BC, SELFPAY ==
--- NOTE | 2024-07-26 07:00 | USCV_ITS ---
Joshua Avila Age: 63 Gender: M : 1960 Exam Date: 07/26/2024 07:24 Ordering Phys: Gurmeet Treadwell M.D ([email or web address]) Technologist: Exam Location: [facility] [place] Indication: sob BP: / HR: 87 Rhythm: Sinus Technical Quality: Adequate MEASUREMENTS (Male / Female) Normal Values 2D ECHO LV Diastolic Diameter PLAX 4.2 cm 4.2 - 5.9 / 3.9 - 5.3 cm IVS Diastolic Thickness 1.3 cm 0.6 - 1.0 / 0.6 - 0.9 cm IVS Systolic Thickness 1.8 cm LVPW Diastolic Thickness 1.4 cm 0.6 - 1.0 / 0.6 - 0.9 cm LVPW Systolic Thickness 1.5 cm LVOT Diameter 2.2 cm LV Ejection Fraction 2D Teich 67.5 % LV Ejection Fraction MOD 4C 52.3 % LV Ejection Fraction MOD 2C 80.1 % LV Ejection Fraction 2C AL 80.8 % LA Diameter 3.0 cm RA Systolic Volume 4C AL 42.1 ml RA Systolic Volume 4C MOD 40.0 ml Aorta at Sinotubular Diameter 2.8 cm M-MODE LA Ao Ratio MM 0.9 AV Cusp Separation MM 2.0 cm DOPPLER AV Peak Velocity 139.0 cm/s LVOT Peak Velocity 120.0 cm/s AV Area Cont Eq vti 5.3 cm squared AV Area Cont Eq pk 3.3 cm squared MV Peak Velocity 102.0 cm/s MV Area PHT 5.3 cm squared Mitral E to A Ratio 0.8 TV Peak Velocity 167.5 cm/s TR Peak Velocity 177.0 cm/s TR Peak Gradient 12.5 mmHg TV Peak E Velocity 92.0 cm/s PV Peak Velocity 105.0 cm/s FINDINGS Left Ventricle Normal left ventricular size, systolic function and wall thickness, with no regional wall motion abnormalities. Left ventricular ejection fraction is estimated at 60%. Right Ventricle The right ventricle is normal in size and function. Right Atrium The right atrium is normal in size. Left Atrium The left atrium is normal in size. Mitral Valve Thickened mitral valve. No mitral valve stenosis. Trace mitral valve regurgitation. Aortic Valve Moderate aortic valve calcification. No aortic valve stenosis. Trace aortic valve regurgitation. Tricuspid Valve Structurally normal tricuspid valve without significant stenosis or regurgitation. Pulmonary artery systolic pressure is normal. Pulmonic Valve Structurally normal pulmonic valve without significant stenosis. There is no pulmonic regurgitation. Pericardium Normal pericardium without effusion. Aorta Normal ascending aorta dimension. IVC The inferior vena cava appears normal. CONCLUSIONS Normal left ventricular size, systolic function and wall thickness, with no regional wall motion abnormalities. Left ventricular ejection fraction is estimated at 60%. There is no pericardial effusion. No significant valve abnormalities. Right atrial pressure is around 5 mm of mercury. Marichuy Bates MD (Electronically Signed) Final Date: 30 July 2024 13:53 S
== END 2024-07-26 07:14 | disposition home or self-care (01) ==
LOC: RAD 07:15
PROVIDERS: PCP Family Medicine; Visit Provider Internal Medicine
DX: R07.9 Chest pain, unspecified (principal); R06.02 Shortness of breath; I05.9 Rheumatic mitral valve disease, unspecified; I35.8 Other nonrheumatic aortic valve disorders
CPT/HCPCS: 93306

== ENCOUNTER → 2024-08-17 10:06 | Outpatient (BNVA) | payer BC, SELFPAY | PROVIDERS: PCP Family Medicine; Visit Provider Family Medicine | DX: I10 Essential (primary) hypertension (principal); E11.51 Type 2 diabetes mellitus with diabetic peripheral angiopathy without gangrene | CPT/HCPCS: 80053; 85025 ==

== ENCOUNTER 2024-10-13 12:14 | Outpatient (CLI) | payer OTHER, SELFPAY ==
--- NOTE | 2024-10-13 12:18 | XR_ITS ---
WS: [id number] XR chest 2V insp/exp [id number] REASON FOR EXAM: increased dyspnea/fatigue FINDINGS: The chest is unchanged compared to 06/09/2023. Calcification of the aortic arch with mild to moderate tortuosity and ectasia of the thoracic aorta. Normal heart size. Calcified granulomatous disease bilaterally. No acute pulmonary parenchymal or pleural abnormality. Elevation of the right hemidiaphragm. Both diaphragms have moved appropriately with inspiration and expiration. No pneumothorax. XR/XR chest 2V insp/exp [id number] IMPRESSION: Stable chest without acute abnormality.
== END 2024-10-13 12:15 | disposition home or self-care (01) ==
LOC: RAD 12:15
PROVIDERS: PCP Family Medicine; Visit Provider Family Medicine
DX: J41.0 Simple chronic bronchitis (principal); I70.0 Atherosclerosis of aorta; I77.810 Thoracic aortic ectasia; J84.10 Pulmonary fibrosis, unspecified
CPT/HCPCS: 71046

== ENCOUNTER 2024-10-20 14:31 | Outpatient (CLI) | payer OTHER, SELFPAY ==
--- NOTE | 2024-10-20 14:40 | USR_ITS ---
PROCEDURE INFORMATION: Exam: US Duplex Left Lower Extremity Arteries Or Arterial Bypass Grafts Exam date and time: 10/20/2024 2:44 PM Age: 63 years old Clinical indication: Pain; Leg, lower; Left; Additional info: 6 month f/u from 04/10/24 finding, request end of september/early October for study TECHNIQUE: Imaging protocol: Left Real-time duplex scan of the arteries or arterial bypass grafts of the left lower extremity with 2-D granado scale, color Doppler flow and spectral waveform analysis. Images documented and saved. COMPARISON: CT angio abdomen pelvis [id number] 05/10/2022 10:22 PM FINDINGS: Left external iliac artery: Left common iliac artery: Triphasic, 55.4. Triphasic, 59.6 cm/sec. Left common femoral artery: Moderate partially calcified plaque. Triphasic, 55 cm/sec. Left profunda femoris artery: cm/sec. Left superficial femoral artery: Proximal moderate partially calcified plaque Proximal SFA triphasic, 72 cm/sec. Mid SFA triphasic, 94 cm/sec. Distal SFA triphasic, 115 cm/sec. Left popliteal artery: Triphasic, 45 cm/sec. Left calf/foot arteries: SENIOR UI UX DEVELOPER biphasic, 92 cm/sec, spectral broadening. Dorsalis pedis biphasic 85 cm/sec, spectral broadening. Left Ankle-Brachial Index: Did not occlude-dorsalis pedis; 1.0 (posterior tibial). US/CV arterial duplex [facility] [id number] IMPRESSION: No stenosis or occlusion.
== END 2024-10-20 14:32 | disposition home or self-care (01) ==
PROVIDERS: PCP Family Medicine; Visit Provider Family Medicine
DX: I70.202 Unspecified atherosclerosis of native arteries of extremities, left leg (principal)
CPT/HCPCS: 93926

== ENCOUNTER 2024-11-10 12:04 | Outpatient (CLI) | payer OTHER, SELFPAY ==
--- NOTE | 2024-11-10 12:12 | XR_ITS ---
WS: [id number] XR chest 2V* [id number] REASON FOR EXAM: worsening dyspnea since prior radiograph 4 weeks prior FINDINGS: The chest is unchanged compared to 10/13/2024. Calcification of the aortic arch with mild tortuosity and ectasia of the descending thoracic aorta. Normal heart size. Elevation of the right hemidiaphragm. Hemidiaphragms are somewhat flattened. Calcified granulomatous disease bilaterally. Coarse chronic reticular interstitial lung opacities with peribronchial cuffing. No acute pulmonary parenchymal or pleural abnormality is identified. Old healed fractures of both clavicles. Mild degenerative spondylosis in the mid and lower thoracic spine. XR/XR chest 2V* [id number] IMPRESSION: Stable abnormal chest with no acute abnormality.
== END 2024-11-10 12:05 | disposition home or self-care (01) ==
PROVIDERS: PCP Family Medicine; Visit Provider Family Medicine
DX: J44.1 Chronic obstructive pulmonary disease with (acute) exacerbation (principal); E11.51 Type 2 diabetes mellitus with diabetic peripheral angiopathy without gangrene; F19.20 Other psychoactive substance dependence, uncomplicated
CPT/HCPCS: 71046; 80053; 83880; 85025

== ENCOUNTER 2025-01-04 07:24 | Outpatient (CLI) | payer OTHER, SELFPAY ==
[2025-01-04 07:35] VITALS: PULSE 105; RESP 20; O2SAT 97
--- NOTE | 2025-01-04 08:00 | CT_ITS ---
WS: [id number] CTA OF THE CHEST WITH PULMONARY EMBOLISM PROTOCOL TECHNIQUE: High-resolution contrast enhanced CTA of the chest with coronal and sagittal reformatted images with pulmonary embolism protocol. MIP images are also reviewed. CLINICAL INFORMATION: Hx of blood clots COMPARISON: CTA 07/13/2023 DLP: 470.[address] scans at [facility] use at least one of these dose optimization techniques: automated exposure control; mA and/or kV adjustment per patient size (includes targeted exams where dose is matched to clinical indication); or iterative reconstruction. FINDINGS: Proximal main pulmonary arteries are normal. Normal segmental and subsegmental pulmonary arteries. No evidence of pulmonary embolus. Chronic emphysematous changes. A few calcified granulomas. No suspicious pulmonary parenchymal abnormalities. Slight subsegmental atelectasis in the lingula. No axillary lymphadenopathy. No mediastinal or hilar lymphadenopathy. Adrenal glands are normal. Slightly cirrhotic configuration to the liver capsule partially visualized. Correlation with liver function tests. CT/CT angio chest PE protcl [id number] IMPRESSION: 1. No evidence of pulmonary embolus. 2. No suspicious pulmonary parenchymal abnormalities. 3. Slightly nodular contour to the liver capsule. Recommend correlation with l iver function tests. 4. Aortic and coronary calcification. 5. Cholelithiasis.
--- NOTE | 2025-01-04 08:00 | CT_ITS ---
WS: [id number] CT CHEST HIGH RESOLUTION, NONCONTRAST. HISTORY: Short of breath on exertion. Technique: High-resolution chest CT is performed in inspiration, expiration, supine and prone positioning. All CT scans at [facility] use at least one of these dose optimization techniques: automated exposure control; mA and/or kV adjustment per patient size (includes targeted exams where dose is matched to clinical indication); or iterative reconstruction. DLP: 1801.48 mGy COMPARISON: 07/13/2023 Findings: Hyperinflated lungs with centrilobular emphysema. No pulmonary mass, pneumonia or nodule. Benign granuloma RIGHT lower lobe. Mild central bronchiectasis extending into the upper lungs. Normal size aorta with mild atherosclerosis. Normal size pulmonary artery. Extensive coronary artery calcifi cations. Small mediastinal and hilar lymph nodes with normal fatty claudy. Small hiatal hernia. No honeycombing. Linear atelectasis at the LEFT lung base. Atelectasis persists on prone imaging. Volume loss is symmetric on expiration. No evidence for air trapping of any significance. Cholelithiasis without acute cholecystitis. No adrenal mass. Lobulated liver consistent with cirrhosis. Schmorl's nodes in the thoracic spine. No destructive bone lesions. Remote bilateral clavicular fractures with healing. RIGHT clavicular fractures slightly displaced. CT/CT chest w/o HI-Res(Pulm Only) Impression: 1. Mild central bilateral upper lobe bronchiectasis. 2. No honeycombing. 3. Mild centrilobular emphysema. 4. Extensive coronary artery calcifications. 5. No pathologic mediastinal or hilar lymph nodes. 6. Cholelithiasis. 7. Prior bilateral clavicular fractures with healing.
[2025-01-04] MEDS: iohexol 350 mg/mL 500 mL Btl (per mL) IV (08:39)
== END 2025-01-04 07:25 | disposition home or self-care (01) ==
LOC: RT 07:25
PROVIDERS: PCP Family Medicine; Visit Provider Internal Medicine
DX: R06.02 Shortness of breath (principal); R06.09 Other forms of dyspnea; J41.0 Simple chronic bronchitis; J98.8 Other specified respiratory disorders; R94.2 Abnormal results of pulmonary function studies; J47.9 Bronchiectasis, uncomplicated; J43.2 Centrilobular emphysema; I25.10 Atherosclerotic heart disease of native coronary artery without angina pectoris; K80.20 Calculus of gallbladder without cholecystitis without obstruction; S42.002D Fracture of unspecified part of left clavicle, subsequent encounter for fracture with routine healing; S42.001D Fracture of unspecified part of right clavicle, subsequent encounter for fracture with routine healing; X58.XXXD Exposure to other specified factors, subsequent encounter; R91.8 Other nonspecific abnormal finding of lung field; J84.10 Pulmonary fibrosis, unspecified; I70.0 Atherosclerosis of aorta; K44.9 Diaphragmatic hernia without obstruction or gangrene; J98.11 Atelectasis; R93.2 Abnormal findings on diagnostic imaging of liver and biliary tract; M51.44 Schmorl's nodes, thoracic region
CPT/HCPCS: 71250; 71275; 94060; 94726; 94729; J7613

== ENCOUNTER 2025-01-25 19:33 | Observation (INO) | payer OTHER, SELFPAY ==
[2025-01-25] VITALS (11 sets, daily range): BP systolic 91–131; BP diastolic 45–77; PULSE 71–118; RESP 16–20; TEMP 36.5–36.7; O2SAT 91–98; BMI 29.7
--- OUTSIDE RECORDS SUMMARY | 2025-01-25 19:38 | XMS_ITS | Encounter Summary ---
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
--- OUTSIDE RECORDS SUMMARY | 2025-01-25 19:38 | XMS_ITS | Encounter Summary ---
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
--- OUTSIDE RECORDS SUMMARY | 2025-01-25 19:38 | XMS_ITS | Encounter Summary ---
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
--- NOTE | 2025-01-25 19:48 | XRR_ITS ---
PROCEDURE INFORMATION: Exam: XR Chest Exam date and time: 01/25/2025 8:02 PM Age: 64 years old Clinical indication: Other: Weakness TECHNIQUE: Imaging protocol: Radiologic exam of the chest. Views: 1 view. COMPARISON: CT angio chest PE protcl [id number] 01/04/2025 8:26 AM FINDINGS: Lungs: Calcified granuloma present right lower lobe. No consolidation is demonstrated. Pleural spaces: Unremarkable. No pleural effusion. No pneumothorax. Heart/Mediastinum: Unremarkable. No cardiomegaly. Bones/joints: There is an old healed fracture deformity of the right mid clavicle. XR/XR chest 1V portable [id number] IMPRESSION: No acute cardiopulmonary process demonstrated.
--- NOTE | 2025-01-25 20:34 | ED_ITS ---
HPI - Dizziness 2 General: Chief Complaint: Dizziness Stated Complaint: BP low\Light Headed Time Seen by Provider: 01/25/25 20:01 History of Present Illness: HPI Narrative: 64-year-old man with a history o of DVT, chronic anticoagulation on Eliquis, anemia, COPD, hypertension, congestive heart failure, cirrhosis, and chronic kidney disease who presents emergency room with weakness and lightheadedness. He had been started on some Bumex yesterday but then today says his blood pressure medications were stopped and he has not taken any Bumex. He gets lightheaded with standing. 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 He is not on any oxygen at home. He said no fevers. No chest pain. No malaise. No new cough. No increased shortness of breath. Currently no lower extremity swelling. Related Data Home Medications ?Medication ?Instructions ?Recorded ?Confirmed fluticasone propionate 50 2 spray intranasal DAILY 01/25/25 mcg/actuation nasal spray,suspension ferrous sulfate 325 mg (65 mg 325 mg PO DAILY acute bl ood loss 09/30/24 01/25/25 iron) tablet insulin lispro 100 unit/mL 30 unit SUBCUT TID 09/30/24 01/25/25 subcutaneous pen (Humalog KwikPen (U-100) Insulin) alprazolam 0.5 mg tablet 0.5 mg PO TID PRN 12/22/24 0 01/25/25 smothering/anxiety potassium chloride 10 mEq 10 meq PO BID Edema 01/18/25 01/25/25 tablet,extended release(part/cryst) Previous Rx's ?Medication ?Instructions ?Recorded losartan 100 mg tablet 100 mg PO DAILY #90 tabs tamsulosin 0.4 mg capsule 0.4 mg PO QAM #90 caps 02/22 blood-glucose sensor (Dexcom G6 #3 ea 06/15/24 Sensor device) blood-glucose,fur blower,cont #1 ea 06/15/24 (Dexcom G6 Neurophysiological Technician) lancets for glucose testing #1 ea 07/21/24 ipratropium 0.5 mg-albuterol 3 mg 3 ml inhalation TID #180 mL 10/15/24 (2.5 mg base)/3 mL nebulization soln lancets 33 gauge (Conexus-ITTouch Delica #100 ea 11/01/24 Plus Lancet) blood sugar diagnostic (OneTouch #300 ea 11/05/24 Verio test strips) pantoprazole 20 mg tablet,delayed See Rx Instructions .Route 11/17/24 release .COMPLEX #150 tabs spironolactone 25 mg tablet See Rx Instructions .Route 11/22/24 .COMPLEX #150 tabs budesonide 160 mcg-glycopyr 9 2 inh inhalation BID #10 .7 grams 12/22/24 mcg-formot 4.8 mcg/actuation HFA inhaler ([employer]) prednisone 5 mg tablet 5 mg PO DAILY #60 tabs 12/22 one touch ben test strips #200 ea 12/29/24 insulin glargine 100 unit/mL (3 20 unit (0.2 mL) SUBCU T BID 12/31/24 mL) subcutaneous pen (Lantus steroid induced insulin r equiring Solostar U-100 Insulin) diabetes #15 mL albuterol sulfate 90 mcg/actuation See Rx Instructions .Route 01/05/25 aerosol inhaler .COMPLEX #9 grams portable oxygen #1 ea 01/11/25 portable oxygen concentrator #1 ea 01/11/25 portable oxygen container #1 ea 01/11/25 dabigatran etexilate 75 mg capsule 75 mg PO BID #60 ca ps 01/12/25 (Pradaxa) bumetanide 1 mg tablet 3 mg (3 x 1 mg) PO .q pm #27 0 tabs 01/18/25 Held on 01/25/25. Instructions: Adverse Reaction atorvastatin 40 mg tablet (Lipitor) 40 mg PO DAILY #90 tabs 01/19/25 empagliflozin 10 mg tablet 10 mg PO DAILY #90 tabs 03/05 (Jardiance) roflumilast 250 mcg tablet 250 mcg PO DAILY 4 weeks #3 0 tabs 01/25/25 Allergies Allergy/AdvReac Type Severity Reaction Status Date / Time No Known Allergies Allergy Verified 01/25/25 13:13 Review of Systems 2 Narrative: Constitutional symptoms: Negative except as documented in HPI. Skin symptoms: Negative except as documented in HPI. Eye symptoms: Negative except as documented in HPI. ENMT symptoms: Negative except as documented in HPI. Respiratory symptoms: Negative except as documented in HPI. Cardiovascular symptoms: Negative except as documented in HPI. Gastrointestinal symptoms: Negative except as documented in HPI. Genitourinary symptoms: Negative except as documented in HPI. Musculoskeletal symptoms: Negative except as documented in HPI. Neurologic symptoms: Negative except as documented in HPI. Psychiatric symptoms: Negative except as documented in HPI. Endocrine symptoms: Negative except as documented in HPI. PFS ED 2 PFSH: Medical History (Updated 01/25/25 @ 21:46 by Kisha Woodward MD) Prediabetes COPD (chronic obstructive pulmonary disease) Hypertension Nicotine dependence Alcohol abuse New onset of congestive heart failure Acute hyponatremia Acute respiratory failure with hypoxia Community acquired pneumonia Chronic maxillary sinusitis Prostatic hypertrophy Duodenal ulcer Liver cirrhosis Anemia COPD exacerbation Erectile dysfunction History of abdominal hernia Renal insufficiency GI bleed Surgical History History of bowel resection History of colon surgery Family History Other CAD (coronary artery disease) Social History Smoking and tobacco/nicotine status: former use of tobacco/nicotine (quit in 2009. hx of 2 ppd X 40+years) Quit status (tobacco/nicotine): has quit using Year quit tobacco: 2009 Former quit date comment: 2 ppd X 40 years Alcohol intake: current Substance/Drug Use: never Physical Exam 2 Narrative: EXAM NARRATIVE: General: Alert, no acute distress. Skin: Warm, dry. Head: Normocephalic, atraumatic. Neck: Supple, trachea midline. Eye: Extraocular movements are intact. Ears, nose, mouth and throat: mucosa moist. Cardiovascular: Regular, Normal peripheral perfusion. Respiratory: Lungs are clear to auscultation, respirations are non-labored, breath sounds are equal, Symmetrical chest wall expansion. Gastrointestinal: Soft, Nontender, Non distended Musculoskeletal: Normal ROM, no deformity. Neurological: Alert and oriented, No focal neurological deficit observed. Psychiatric: Cooperative, appropriate mood & affect. Course 2 Vital Signs: Vital signs: Vital Signs Temperature 97.7 F 01/25/25 19:56 Pulse Rate 91 01/25/25 21:00 Respiratory Rate 18 01/25/25 21:00 Blood Pressure 109/63 01/25/25 21:00 Pulse Oximetry 91 01/25/25 21:00 Oxygen Delivery Me thod Room Air 01/25/25 21:00 MDM - Dizziness Medical Decision Making Medical decision making: Differential diagnosis for patient presenting with generalized weakness including but not limited to and based on the above HPI, review of systems and physical exam: Sepsis. Dehydration. Renal failure. Electrolyte abnormalities. Anemia. Congestive heart failure. Hypotension. Coronary syndrome. Hepatitis. Cirrhosis. Infections such as pneumonia, urinary tract infection, [place]ne illness, Cellulitis, Viral infections including influenza and Covid-19. Workup: labwork and lab/exam driven imaging ordered to evaluate, rule in and rule out above pathologies. Chest x-ray: No acute process. No infiltrate. No pneumothorax. Films were interpreted by myself the emergency room provider and pending final radiology review. Lab Review: Laboratory results were reviewed and interpreted by myself the emergency room physician. No leukocytosis. Hemoglobin is down to points at 7 from a couple of months ago. 2 units have been ordered. He is been having some issues with anemia secondary to blood thinners. He is on Eliquis secondary to DVT. Acute renal insufficiency with creatinine of 1.5. He is normally around 0.9. Fluids and bladder begin given. I reviewed the patient's medical record. 64-year-old man with a history o of DVT, chronic anticoagulation on Eliquis, anemia, COPD, hypertension, congestive heart failure, cirrhosis, chronic hypoxemic respiratory failure on 3 L nasal cannula at all time, coronary artery disease, and chronic kidney disease Reexamination: Patient remained stable. No increased work of breathing. No altered mental status. No focal motor deficits. Consultation: I spoke with Dr. Hernandez who is on-call for the hospital service who agrees to admission. Assessment and plan: Anemia Hypotension Acute renal insufficiency Dehydration Chronic anticoagulation on Eliquis History of DVT Chronic hypoxemic respiratory failure stable on 3 L nasal cannula ?2 units PRBCs ordered. ? 1 L normal saline bolus ordered ? Stable on his 3 L nasal cannula ?Does not appear to be acute blood loss anemia. BUN is at his baseline around 18 and he does have some elevation in his creatinine likely secondary to dehydration/overdiuresis -I discussed the patient with the hospitalist on-call who is admitting the patient. - Discussed findings and plan with patient. Answered any questions. - All laboratory values were reviewed and interpreted personally by myself, the ER physician - All imaging was reviewed and interpreted personally by myself, the ER physician. - Evaluation and treatment of this problem were appropriate in the emergency setting Lab Data 01/25/25 20:35 01/25/25 20:35 Laboratory Results WBC 8.95 10^3/uL (3.29-11.43) 01/25/25 20:35 RBC 3.07 10^6/uL (3.85-5.65) L 01/25/25 20: Hgb 7.20 g/dL (11.27-16.99) L 01/25/25 20: Hct 25.2 % (37-53) L 01/25/25 20: MCV 82.1 fl (82-101) 01/25/25: MCH 23.5 pg (27-33) L 01/25/25: MCHC 28.6 g/dL (30-55) L 01/25/25: RDW 16.6 % (12.1-15.1) H 01/25/25: Plt Count 282 10^3/cmm (157-399) 01/25/25 20: MPV 8.8 fL (7.4-10.4) 01/25/25 20:35 Neut % (Auto) 63.7 % 01/25/25 20:35 Lymph % (Auto) 22.9 % 01/25/25 20:35 Yates % (Auto) 10.3 % 01/25/25 20:35 Eos % (Auto) 2.2 % 01/25/25: Baso % (Auto) 0.2 % 01/25/25: Neut # (Auto) 5.70 10^3/uL (1.8-7.7) 01/25/25 20:35 Lymph # (Auto) 2.1 10^3/uL (0.8-4.8) 01/25/25 20:35 Yates # (Auto) 0.9 10^3/uL (0.2-0.9) 01/25/25 20:35 Eos # (Auto) 0.2 10^3/uL (0.0-0.8) 01/25/25 20:35 Baso # (Auto) 0.0 10^3/uL (0.0-0.1) 01/25/25 20:35 Nucleated RBC % (auto) 0 % 01/25/25 20:35 Nucleated RBCs # 0.0 /100WBC 01/25/25 20:35 Sodium 140 mmol/L (136-145) 01/25/25 20:35 Potassium 4.3 mmol/L (3.5-5.1) 01/25/25 20:35 Chloride 102 mmol/L (98-107) 01/25/25 20:35 Carbon Dioxide 26 mmol/L (22-29) 01/25/25 20:35 Anion Gap 16.3 (5-19) 01/25/25 20:35 BUN 18 mg/dL (8-23) 01/25/25 20:35 Creatinine 1.5 mg/dL (0.7-1.2) H 01/25/25 20:35 GFR Calculation 47.3 mL/min (90-130) L 01/25/25 20:35 Glucose 114 mg/dL (65-115) 01/25/25 20:35 Calculated Osmolality 293 mOsm/kg (285-295) 01/25/25 20:35 Lactic Acid 1.8 mmol/L (0.5-2.2) 01/25/25 20:35 Calcium 8.6 mg/dL (8.5-10.5) 01/25/25 20:35 Total Bilirubin 0.3 mg/dL (0.15-1.2) 01/25/25 20:35 AST 13 U/L (0-40) 01/25/25 20:35 ALT 10 U/L (0-41) 01/25/25 20:35 Alkaline Phosphatase 112 U/L (40-130) 01/25/25 20:35 Total Protein 6.5 g/dL (6.6-8.7) L 01/25/25 20:35 Albumin 3.6 g/dL (3.5-5.2) 01/25/25 20:35 Globulin 2.9 g/dL (1.3-4.6) 01/25/25 20:35 Crossmatch See Detail 01/25/25 21:24 XR interpretation done by ED provider, pending radiology final review Discharge Plan Discharge Patient Disposition: Placed in Observation Clinical Impression: Anemia, Chronic anticoagulation, History of deep vein thrombosis, Acute hypotension, Acute renal insufficiency, Chronic hypoxemic respiratory failure Coding Level of Care Code ED Mental Health Director for Sabine Salazar
[2025-01-25 20:47] LABS: Hematocrit 25.2 % (37-53); Hemoglobin 7.20 g/dL (11.27-16.99); Mean Corpuscular HGB Conc 28.6 g/dL (30-55); Mean Corpuscular Hemoglobin 23.5 pg (27-33); Mean Corpuscular Volume 82.1 fl (82-101); Nucleated Red Blood Cells % 0 %; Platelet Count 282 10^3/cmm (157-399); Red Blood Count 3.07 10^6/uL (3.85-5.65); White Blood Count 8.95 10^3/uL (3.29-11.43)
[2025-01-25 21:30] LABS: Lactic Sepsis W/Reflex 1.8 mmol/L (0.5-2.2)
[2025-01-25 21:33] LABS: Alanine Aminotransferase 10 U/L (0-41); Albumin Level 3.6 g/dL (3.5-5.2); Alkaline Phosphatase 112 U/L (40-130); Anion Gap 16.3 (5-19); Aspartate Amino Transferase 13 U/L (0-40); Blood Urea Nitrogen 18 mg/dL (8-23); Calcium 8.6 mg/dL (8.5-10.5); Carbon Dioxide 26 mmol/L (22-29); Chloride 102 mmol/L (98-107); Creatinine Clr Calc Pharmacy 63.2849; Globulin 2.9 g/dL (1.3-4.6); Glucose 114 mg/dL (65-115); Osmolality Calculated 293 mOsm/kg (285-295); Potassium 4.3 mmol/L (3.5-5.1); Sodium 140 mmol/L (136-145); Total Protein 6.5 g/dL (6.6-8.7)
--- NOTE | 2025-01-25 21:47 | ECG_ITS ---
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 Measurements Intervals [place]mage Rate: 99 P: 52 MS: 176 QRS: 45 QRSD: 129 T: 37 QT: 371 QTc: 478 Interpretive Statements SINUS RHYTHM RIGHT BUNDLE BRANCH BLOCK [120+ ms QRS DURATION, UPRIGHT V1, 40+ ms S IN I/aVL/V4/V5/V6] Compared to ECG 07/01/2024 13:38:34 Right bundle-branch block now present Sinus tachycardia no longer present Incomplete right bundle-branch block no longer present Myocardial infarct finding no longer present Electronically Signed On 01-26-2025 13:46:47 CDT by Melida Bejarano M.D. [email or web address]
[2025-01-25 23:08] LABS: Iron 19 ug/dL (59-158); Total Iron Binding Capacity 375 mcg/dl; Unsaturated Iron Binding 356 ug/dL (112-347)
--- NOTE | 2025-01-25 23:44 | PM.HP ---
Providers/Chief Complaint Admitting Physician: Tapan Hernandez MD Primary Care Provider: Abram Horn MD Chief Complaint: BP low\Light Headed History of Present Illness Joshua Avila is a 64 year old male with diabetes, COPD, history of left leg DVT, chronic GI bleeding with iron deficiency anemia, obesity and atypical chest discomfort comes in with hypotension blood pressure at home 84/57 and lightheadedness. says he saw Dr. Sim this morning was noted to have low blood pressure and appeared to be dry. He also had been off prednisone for the last 2 weeks having weaned off the medication. Because he was hypotensive and feeling dizzy Dr. Sim recommended emergency department but patient declined he was counseled to hold his diuretic and blood pressure medications and follow-up with PCP tomorrow but patient noted to have low blood pressure at home so came to the ER. Here patient reports dark stools though this is chronic on iron replacement. His hematocrit is 25.2 down from 30.5 on November 10, 2024. His hematocrit was 43.6 on December 17, 2024 tells me that in 2023 patient was at [facility] for 15 days. He had been ignoring left leg swelling for about 6 months was seen at [facility] and transferred to [facility] for absent pulses and pain in the left lower extremity arterial Doppler showed long segment occlusion of the left superficial femoral artery and severe occlusive disease of the tibioperoneal arterial runoff patient was transferred to vascular surgery. told me that it was a left lower extremity DVT and that this was suctioned out. I will request old records. January 04, 2025 patient had a CTA of the chest negative for PE. Arterial duplex legs 10/20/2024 showed no stenosis or occlusion left leg arterial duplex follow-up 2 occlusion April 10, 2024. Notably venous duplex 06/26/2023 showed no left lower extremity DVT Review of Systems Narrative: General no fevers chills Cardiovascular no chest pain he does have neck pain and left shoulder pain described as atypical and is planning to undergo angiogram with Dr. 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 GI no nausea vomiting diarrhea constipation no dysuria hematuria Neuro no seizures strokes he had passed out 2 weeks ago denies ever having a carotid ultrasound Medications/Allergies Home Medications ?Medication ?Instructions ?Recorded ?Confirmed ?Last Taken ?Type losartan 100 mg tablet 100 mg PO DAILY #90 tabs 11/03/23 01/25/25 04/08/24 Rx tamsulosin 0.4 mg capsule 0.4 mg PO QAM #90 caps 02/23/24 01/25/25 04/08/24 Rx fluticasone propionate 50 2 spray intranasal DAILY 04/09/24 01/25/25 04/08/24 History mcg/actuation nasal spray,suspension blood-glucose sensor (Dexcom G6 #3 ea 06/15/24 01/25/25 Unknown Rx Sensor device) blood-glucose,instrumentation and controls technician,cont #1 ea 06/15/24 01/25/25 Unknown Rx (Dexcom G6 Die Cut Operator) lancets for glucose testing #1 ea 07/21/24 01/25/25 Unknown Rx ferrous sulfate 325 mg (65 mg 325 mg PO DAILY acute blood loss 09/30/24 01/25/25 Unknown History iron) tablet insulin lispro 100 unit/mL 30 unit SUBCUT TID 09/30/24 01/25/25 Unknown History subcutaneous pen (Humalog KwikPen (U-100) Insulin) ipratropium 0.5 mg-albuterol 3 mg 3 ml inhalation TID #180 mL 10/15/24 01/25/25 Unknown Rx (2.5 mg base)/3 mL nebulization soln lancets 33 gauge (3CLogicTouch Delica #100 ea 11/01/24 01/25/25 Unknown Rx Plus Lancet) blood sugar diagnostic (3CLogicTouch #300 ea 11/05/24 01/25/25 Unknown Rx Verio test strips) pantoprazole 20 mg tablet,delayed See Rx Instructions .Route 11/17/24 01/25/25 Unknown Rx release .COMPLEX #150 tabs spironolactone 25 mg tablet See Rx Instructions .Route 11/22/24 01/25/25 Unknown Rx .COMPLEX #150 tabs alprazolam 0.5 mg tablet 0.5 mg PO TID PRN 12/22/24 01/25/25 Unknown History smothering/anxiety budesonide 160 mcg-glycopyr 9 2 inh inhalation BID #10.7 grams 12/22/24 01/25/25 Unknown Rx mcg-formot 4.8 mcg/actuation HFA inhaler (Breztri Aerosphere) prednisone 5 mg tablet 5 mg PO DAILY #60 tabs 12/22/24 01/25/25 Unknown Rx one touch ben test strips #200 ea 12/29/24 01/25/25 Unknown Rx insulin glargine 100 unit/mL (3 20 unit (0.2 mL) SUBCUT BID 12/31/24 01/25/25 Unknown Rx mL) subcutaneous pen (Lantus steroid induced insulin requiring Solostar U-100 Insulin) diabetes #15 mL albuterol sulfate 90 mcg/actuation See Rx Instructions .Route 01/05/25 01/25/25 Unknown Rx aerosol inhaler .COMPLEX #9 grams portable oxygen #1 ea 01/11/25 01/25/25 Unknown Rx portable oxygen concentrator #1 ea 01/11/25 01/25/25 Unknown Rx portable oxygen container #1 ea 01/11/25 01/25/25 Unknown Rx dabigatran etexilate 75 mg capsule 75 mg PO BID #60 caps 01/12/25 01/25/25 Unknown Rx (Pradaxa) bumetanide 1 mg tablet 3 mg (3 x 1 mg) PO .q pm #270 tabs 01/18/25 01/25/25 Unknown Rx Held on 01/25/25. Instructions: Adverse Reaction potassium chloride 10 mEq 10 meq PO BID Edema 01/18/25 01/25/25 Unknown History tablet,extended release(part/cryst) atorvastatin 40 mg tablet (Lipitor) 40 mg PO DAILY #90 tabs 01/19/25 01/25/25 Unknown Rx empagliflozin 10 mg tablet 10 mg PO DAILY #90 tabs 01/19/25 01/25/25 Unknown Rx (Jardiance) roflumilast 250 mcg tablet 250 mcg PO DAILY 4 weeks #30 tabs 01/25/25 01/25/25 Unknown Rx Allergies Allergy/AdvReac Type Severity Reaction Status Date / Time No Known Allergies Allergy Verified 01/25/25 13:13 PFSH Acute PFSH: Medical History (Updated 01/26/25 @ 00:22 by Tapan Hernandez MD) Iron deficiency anemia due to chronic blood loss Prediabetes COPD (chronic obstructive pulmonary disease) Hypertension Nicotine dependence Alcohol abuse New onset of congestive heart failure Acute hyponatremia Acute respiratory failure with hypoxia Community acquired pneumonia Chronic maxillary sinusitis Prostatic hypertrophy Duodenal ulcer Liver cirrhosis Anemia COPD exacerbation Erectile dysfunction History of abdominal hernia Renal insufficiency GI bleed Surgical History History of bowel resection History of colon surgery Family History Other CAD (coronary artery disease) Social History (Updated 01/26/25 @ 00:18 by Tapan Hernandez MD) Smoking and tobacco/nicotine status: current some day tobacco/nicotine user (quit in 2009. 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 Vitals/I&O/Wt Last Vital Signs Temp 98.1 F 01/25/25 23:23 Pulse 103 H 01/25/25 23:23 Resp 18 01/25/25 23:23 BP 116/62 01/25/25 23:23 Pulse Ox 94 01/25/25 23:23 O2 Del Method Nasal Cannula 01/25/25 23:11 O2 Flow Rate 3 01/25/25 23:11 01/25/25 01/25/25 01/26/25 14:59 22:59 06:59 Intake Total 0 / 0 Balance 0 / 0 Weight last 48 hrs Weight 102.058 kg Physical Exam Narrative: General well-developed obese male in no acute cardiopulmonary distress CV regular rate and rhythm Lungs prolonged expiratory phase with diffuse wheezing moderate air movement no crackles Abdomen positive bowel sounds obese soft nontender Calves 2+ right pedal edema left side 3+ edema. Mildly compressive socks are in place bilaterally Skin warm and dry Oral Mallampati 3 Data 01/25/25 20:35 01/25/25 20:35 Micro: Microbiology 01/25/25 20:40 Blood Culture - Preliminary Blood SPECIMEN COLLECTED 01/25/25 20:35 Blood Culture - Preliminary Blood SPECIMEN COLLECTED A&P Assessment and plan 1. Acute hypotension: Patient has recently been started on Bumex with improvement in his diuresis and is also on chronic anticoagulation with dabigatran as well is antihypertensive with losartan and Flomax. The patient is acutely hypotensive and found to be anemic. It is unclear if this is patient has acute blood loss anemia or more chronic blood loss anemia and hypotension from volume depletion. His leg edema suggest that he is not really volume depleted. For this reason patient is observed in the hospital 2. Acute renal insufficiency: Hold diuretics and losartan orthostatic blood pressures 3. Iron deficiency anemia due to chronic blood loss: Transfused 2 units due to severity of anemia and associated lightheadedness. Unfortunately the patient developed headache and back pain and is being worked up for transfusion reaction now 4. Chronic anticoagulation: Hold dabigatran for now obtain old records from [employer]. Patient needs repeat EGD and colonoscopy as well as capsule endoscopy of her small bowel if EGD and colonoscopy are not diagnostic of the source of his chronic GI blood loss. Guaiac stools and check CBC. If he is dropping his hematocrit he will need to have inpatient EGD and colonoscopy acutely 5. Type 2 diabetes mellitus: Diabetic clears for now orthostatic blood pressures. If not acutely needing endoscopy then could advance his diet to a diabetic 1800-calorie diet 6. COPD (chronic obstructive pulmonary disease): Continue with nebulizers and add Decadron due to wheezing PDMP PDMP Reviewed: Not Reviewed Attestations Medical Necessity Statement*: Patient mid to the hospital on observation for blood transfusion and monitoring for signs of acute blood loss versus chronic GI blood loss that is already known and expected at this time to require less than 2 midnights Coding Level of Care Code 10933 Diagnoses Acute hypotension I95.9 Acute renal insufficiency N28.9 Iron deficiency anemia due to chronic blood loss D50.0 Chronic anticoagulation Z79.01 Type 2 diabetes mellitus E11.9 COPD (chronic obstructive pulmonary disease) J44.9 Time Spent (min) 70
[2025-01-26] VITALS (16 sets, daily range): BP systolic 102–142; BP diastolic 64–90; PULSE 87–117; RESP 17–25; TEMP 36.3–36.7; O2SAT 93–100
--- NOTE | 2025-01-26 00:15 | USCV_ITS ---
Joshua Avila Age: 64 Gender: M : 1960 Exam Date: 01/26/2025 10:49 Ordering Phys: Tapan Hernandez MD Technologist: LUCIAN Exam Location: [facility] Indication: Syncope Risk Factors: Previous Vascular Surgery: Right Brachial BP: / Left Brachial BP: / Right Left Velocity (cm/s) Spectral Plaque Velocity (cm/s) Spectral Plaque Syst/Diast Broadening Syst/Diast Broadening 50.50/ 18.10 Prox CCA 70.60 / 22.00 37.60/ 12.20 Mid CCA 73.50 / 23.40 55.50/ 16.20 Distal CCA 57.30 / 17.50 45.60/ 19.10 Prox ICA 86.00 / 26.20 62.40/ 20.30 Mid ICA 63.40 / 15.40 48.00/ 19.10 Distal ICA 61.40 / 15.60 67.40 ECA 148.90 0.80 ICA/CCA 1.50 Antegrade Vertebral Antegrade 66.50/ 23.20 cm/s 58.50/ 15.30 cm/s Tri Subclavian Tri 80.30 118.8 0 FINDINGS Comparison: none available. Limited quality exam. No significant elevation of systolic or diastolic velocities. Waveforms are normal. CONCLUSIONS Bilateral ICA stenosis less than 50%. Limited exam. Dr. Sheri Hunter DO (Electronically Signed) Final Date: 26 January 2025 13:43 S
[2025-01-26 01:05] LABS: Glucose Urine UA 3+ (Normal); Nitrate Urine Negative (Negative); Specific Gravity, Urine 1.022 (1.005-1.030)
[2025-01-26 01:41] LABS: UA Slide Review UA Slide Review Perf
[2025-01-26] MEDS: diphenhydrAMINE 50 mg/mL SDV 1mL 25 MG IVP (02:46)
[2025-01-26] MEDS: iron sucrose 200 MG in sodium chloride 0.9% (100 ml) 100 ML 220 MG IV (02:49)
[2025-01-26] MEDS: FUROsemide 10 mg/mL SDV 2mL 20 MG IVP (03:28)
[2025-01-26] MEDS: ferrous sulfate EC 325 mg Tablet PO (08:01)
[2025-01-26] MEDS: insulin glargine 100 units/1 mL 20 UNIT SUBCUT (08:01)
[2025-01-26] MEDS: fluticasone nasal spray 16gm Btl 2 SPRAY INTRANASAL (08:02)
[2025-01-26 08:23] LABS: Hematocrit 32.0 % (37-53); Hemoglobin 9.40 g/dL (11.27-16.99); Mean Corpuscular HGB Conc 29.4 g/dL (30-55); Mean Corpuscular Hemoglobin 24.7 pg (27-33); Mean Corpuscular Volume 84.2 fl (82-101); Nucleated Red Blood Cells % 0 %; Platelet Count 278 10^3/cmm (157-399); Red Blood Count 3.80 10^6/uL (3.85-5.65); White Blood Count 6.45 10^3/uL (3.29-11.43)
[2025-01-26 09:02] LABS: Anion Gap 15.1 (5-19); Blood Urea Nitrogen 17 mg/dL (8-23); Calcium 8.6 mg/dL (8.5-10.5); Carbon Dioxide 26 mmol/L (22-29); Chloride 101 mmol/L (98-107); Creatinine Clr Calc Pharmacy 79.1061; Glucose 208 mg/dL (65-115); Osmolality Calculated 292 mOsm/kg (285-295); Potassium 5.1 mmol/L (3.5-5.1); Sodium 137 mmol/L (136-145)
[2025-01-26 09:12] LABS: Ferritin 22 ng/mL (30-400)
--- NOTE | 2025-01-26 10:12 | PC.PHAR ---
Pt states pulmonology stopped 3 medications yesterday 01/25/25, they are Bumetanide 1mg, Spironolactone 25mg, and Jardiance 10mg. Pt, also has Eliquis 2.5mg bid last fill 11/22/24 90ds and is currently taking. He states instructions are to finish the Eliquis and then start Pradaxa 75mg bid. Pt has not picked up the Pradaxa, yet.
--- NOTE | 2025-01-26 13:42 | PC.NURSE ---
Telephone order per Dr. Zafar to change diet order from Clear liquid to cardiac diet
--- NOTE | 2025-01-26 14:13 | P.DS_ITS ---
Discharge Providers Date of Admission: 01/26/25 00:56 Date of Discharge: January 26, 2025 Attending Provider at Admission: Tapan Hernandez MD Attending Provider at Discharge: Neil Zafar MD Primary Care Provider: Abram Horn MD Diagnoses at Discharge Discharge Diagnosis 1. Acute hypotension: 2. Acute renal insufficiency: 3. Iron deficiency anemia due to chronic blood loss: 4. Chronic anticoagulation: 5. Type 2 diabetes mellitus with diabetic peripheral angiopathy without gangrene, unspecified whether prison insulin use: 6. Simple chronic bronchitis: Reason for Visit Reason for Visit: BP low\Light Headed Hospital Course Hospital Course This is a 69-year-old male with past medical history of type 2 diabetes, COPD, history of left leg DVT, history of acute arterial occlusion, requiring vascular intervention, history of GI bleed, history of iron deficiency who presents [facility] due to low blood pressures and lightheadedness Patient was admitted to [facility] for low blood pressures and lightheadedness, likely polypharmacy, from Bumex therapy and losartan and spironolactone. He was monitored as inpatient, orthostats were within reasonable range, no recurrent episodes of low blood pressure or lightheadedness, I have adjusted his Bumex dose to 1 mg daily, decrease losartan to 50 mg daily. Follow-up with primary care provider, for recheck blood pressure this week, if any recurrent symptoms, the emergency room For his acute on chronic anemia, was on Eliquis is currently being transition to dabigatran. He was monitored as an inpatient, hemoglobin 9.4, no bloody black stools reported, his ferritin levels are 22, iron levels are 19. Does have evidence of iron deficiency, will have him follow with flavor tank tender oncology as outpatient for consideration of iron infusions, discharged on oral iron. Will have him follow-up with general surgery as outpatient for consideration of EGD and colonoscopy. In terms of anticoagulant therapy, given his complicated history of DVT, vascular extrusion we discussed the risks and benefits of anticoagulant therapy, shared decision making, he was arsenical congestion, agreed to continue anticoagulant therapy for now. However if he continues to have lightheadedness or dizziness, or bloody black stools these are indicators of a possible life-threatening GI bleed go to emergency room. Patient had COPD exacerbation during his hospitalization, managed with IV steroids discharged on p.o. steroids, and doxycycline Physical Exam Const: COMMON NORMALS: no acute distress and patient oriented x3 Resp: COMMON NORMALS: normal respiratory effort, No retractions, No use of accessory muscles and clear to auscultation bilaterally AUSCULTATION: clear to auscultation bilaterally Cardio: COMMON NORMALS: regular rate, regular rhythm, S1 normal heart sound present and S2 normal heart sound present RATE: regular rate RHYTHM: regular rhythm HEART SOUNDS: S1 normal heart sound present and S2 normal heart sound present GI: COMMON NORMALS: Normal to inspection, nondistended, normoactive bowel sounds present and non-tender Extremity: COMMON NORMALS: no pedal edema Neuro: COMMON NORMALS: patient oriented x3 Psych: COMMON NORMALS: mental status grossly normal Discharge Data Studies Completed and Pending Completed Studies During Hospitalization Category Date Time Status XR chest 1V portable [id number] Stat Exams 01/25/25 19:48 Completed CV carotid duplex BI* [id number] Routine Ultrasound 01/26/25 00:15 Completed Pending at discharge Category Date Time Status Blood Culture Stat Lab 01/25/25 20:40 Results Occult Blood Stool [Immunochemical Fecal OCB] Routine Lab 01/26/25 08:36 Uncollected Radiology Impressions Chest X-Ray 01/25/25 19:48 IMPRESSION: No acute cardiopulmonary process demonstrated. Laboratory Results WBC 6.45 10^3/uL (3.29-11.43) 01/26/25 07:59 RBC 3.80 10^6/uL (3.85-5.65) L 01/26/25 07:59 Hgb 9.40 g/dL (11.27-16.99) L D 01/26/25 07:59 Hct 32.0 % (37-53) L 01/26/25 07:59 MCV 84.2 fl (82-101) 01/26/25 07:59 MCH 24.7 pg (27-33) L 01/26/25 07:59 MCHC 29.4 g/dL (30-55) L 01/26/25 07:59 RDW 16.9 % (12.1-15.1) H 01/26/25 07:59 Plt Count 278 10^3/cmm (157-399) 01/26/25 07:59 MPV 9.2 fL (7.4-10.4) 01/26/25 07:59 Neut % (Auto) 87.9 % 01/26/25 07:59 Lymph % (Auto) 9.9 % 01/26/25 07:59 [place] % (Auto) 1.1 % 01/26/25 07:59 Eos % (Auto) 0.2 % 01/26/25 07:59 Baso % (Auto) 0.3 % 01/26/25 07:59 Neut # (Auto) 5.67 10^3/uL (1.8-7.7) 01/26/25 07:59 Lymph # (Auto) 0.6 10^3/uL (0.8-4.8) L 01/26/25 07:59 [place] # (Auto) 0.1 10^3/uL (0.2-0.9) L 01/26/25 07:59 Eos # (Auto) 0.0 10^3/uL (0.0-0.8) 01/26/25 07:59 Baso # (Auto) 0.0 10^3/uL (0.0-0.1) 01/26/25 07:59 Nucleated RBC % (auto) 0 % 01/26/25 07:59 Nucleated RBCs # 0.0 /100WBC 01/26/25 07:59 Sodium 137 mmol/L (136-145) 01/26/25 07:59 Potassium 5.1 mmol/L (3.5-5.1) 01/26/25 07:59 Chloride 101 mmol/L (98-107) 01/26/25 07:59 Carbon Dioxide 26 mmol/L (22-29) 01/26/25 07:59 Anion Gap 15.1 (5-19) 01/26/25 07:59 BUN 17 mg/dL (8-23) 01/26/25 07:59 Creatinine 1.2 mg/dL (0.7-1.2) 01/26/25 07:59 GFR Calculation 61.1 mL/min (90-130) L 01/26/25 07:59 Glucose 208 mg/dL (65-115) H 01/26/25 07:59 POC Glucose 222 mg/dL (70-110) H 01/26/25 11:05 Calculated Osmolality 292 mOsm/kg (285-295) 01/26/25 07:59 Lactic Acid 1.8 mmol/L (0.5-2.2) 01/25/25 20:35 Calcium 8.6 mg/dL (8.5-10.5) 01/26/25 07:59 Iron 19 ug/dL (59-158) L 01/25/25 20:38 TIBC 375 mcg/dl 01/25/25 20:38 % Saturation 5.0 % (20-50) L 01/25/25 20:38 Unsat Iron Binding 356 ug/dL (112-347) H 01/25/25 20:38 Ferritin 22 ng/mL (30-400) L 01/25/25 20:35 Total Bilirubin 0.3 mg/dL (0.15-1.2) 01/25/25 20:35 AST 13 U/L (0-40) 01/25/25 20:35 ALT 10 U/L (0-41) 01/25/25 20:35 Alkaline Phosphatase 112 U/L (40-130) 01/25/25 20:35 Total Protein 6.5 g/dL (6.6-8.7) L 01/25/25 20:35 Albumin 3.6 g/dL (3.5-5.2) 01/25/25 20:35 Globulin 2.9 g/dL (1.3-4.6) 01/25/25 20:35 Urine Color Yellow (Yellow) 01/26/25 00:58 Urine Appearance Clear (CLEAR) 01/26/25 00:58 Urine pH 5.5 (5-7) 01/26/25 00:58 Ur Specific [place] 1.022 (1.005-1.030) 01/26/25 00:58 Urine Protein Trace (Negative) A 01/26/25 00:58 Urine Glucose (UA) 3+ (Normal) H 01/26/25 00:58 Urine Ketones Trace (Negative) 01/26/25 00:58 Urine Blood Negative (Negative) 01/26/25 00:58 Urine Nitrate Negative (Negative) 01/26/25 00:58 Urine Bilirubin Negative (Negative) 01/26/25 00:58 Urine Urobilinogen 1.0 mg/dL (Negative) 01/26/25 00:58 Ur Leukocyte Esterase Negative (Negative) 01/26/25 00:58 Urine RBC 0-2 /hpf (0-2) 01/26/25 00:58 Urine WBC 0-5 /hpf (0-5) 01/26/25 00:58 Ur Squamous Epith Cells 0-5 /hpf (0-5) 01/26/25 00:58 Amorphous Sediment Not Reportable 01/26/25 00:58 Urine Bacteria None seen /hpf (NONE) 01/26/25 00:58 Hyaline Casts 30.59 /lpf 01/26/25 00:58 Blood Type O Positive 01/25/25 21:24 Rho(D) Type Rh positive 01/25/25 21:24 Antibody Screen Negative 01/25/25 21:24 Crossmatch See Detail 01/25/25 21:24 Reaction Clerical Check No discrepancy 01/25/25 23:49 Pre-Trans Blood Type Op 01/25/25 23:49 Post-Trans Blood Type O Positive 01/25/25 23:49 Post-Tx Visible Hemolys No hemolysis 01/25/25 23:49 Post-Trans RAFAELA Negative 01/25/25 23:49 Vitals Last Vital Signs Temp 97.9 F 01/26/25 11:23 Pulse 92 01/26/25 11:23 Resp 18 01/26/25 11:23 BP 120/68 01/26/25 11:23 Pulse Ox 95 01/26/25 11:23 O2 Del Method Nasal Cannula 01/26/25 11:23 O2 Flow Rate 1 01/26/25 08:26 Discharge Plan Discharge Patient Disposition: Home Condition: Stable Prescriptions: New pantoprazole 40 mg Tablet,Delayed Release (Dr/Ec) 40 mg PO BID@0500,1700 30 Days Qty: 60 0RF sucralfate [Carafate] 1 gram tablet 1 g PO BID 28 Days Qty: 56 0RF prednisone 20 mg tablet 20 mg PO BID 5 Days Qty: 10 0RF doxycycline monohydrate 100 mg capsule 100 mg PO BID 5 Days Qty: 10 0RF Continued potassium chloride 10 mEq tablet,ER particles/crystals 10 meq PO BID Rx Instructions: Only take when you take Lasix Jardiance 10 mg tablet 10 mg PO DAILY Qty: 90 3RF atorvastatin [Lipitor] 40 mg tablet 40 mg PO DAILY Qty: 90 3RF roflumilast 250 mcg tablet 250 mcg PO DAILY 28 Days Qty: 30 1RF tamsulosin 0.4 mg capsule 0.4 mg PO QAM Qty: 90 3RF ferrous sulfate 325 mg (65 mg iron) tablet 325 mg PO DAILY insulin lispro [Humalog KwikPen Insulin] 100 unit/mL insulin pen 30 unit SUBCUT TID Rx Instructions: sliding scale alprazolam 0.5 mg tablet 0.5 mg PO TID PRN (Reason: smothering/anxiety) Breztri Aerosphere 160-9-4.8 mcg/actuation HFA aerosol inhaler 2 inh inhalation BID Qty: 10.7 3RF ipratropium-albuterol 0.5 mg-3 mg(2.5 mg base)/3 mL solution for nebulization 3 ml inhalation TID Qty: 180 5RF spironolactone 25 mg tablet See Rx Instructions .ROUTE .COMPLEX Qty: 150 0RF Dose Instruction: Take 1 tablet by mouth once daily Rx Instructions: Take 1 tablet by mouth once daily dabigatran etexilate [Pradaxa] 75 mg capsule 75 mg PO BID Qty: 60 3RF fluticasone propionate 50 mcg/actuation spray,suspension 2 spray intranasal DAILY Rezvoglar KwikPen 100 unit/mL (3 mL) insulin pen 20 unit SUBCUT QAM albuterol sulfate 90 mcg/actuation HFA aerosol inhaler 2 puff inhalation Q4H PRN (Reason: Shortness Of Breath Or Wheezing) Changed bumetanide 1 mg tablet 1 mg PO DAILY Qty: 270 1RF losartan 100 mg tablet 50 mg PO DAILY Qty: 90 3RF Discontinued Eliquis 2.5 mg tablet 2.5 mg PO BID pantoprazole 20 mg tablet,delayed release (DR/EC) 20 mg PO DAILY No Action (DME) Dexcom G6 Catering Sous Chef Misc See Rx Instructions .Route Qty: 1 0RF Rx Instructions: As directed (DME) Dexcom G6 Sensor Device See Rx Instructions .Route Qty: 3 0RF Rx Instructions: As directed (DME) lancets for glucose testing See Rx Instructions .Route .MEDSUPPLY Qty: 1 0RF Rx Instructions: As directed (DME) lancets [OneTouch Delica Plus Lancet] 33 gauge misc See Rx Instructions .ROUTE .COMPLEX Qty: 100 4RF Dose Instruction: USE DIRECTED ONCE DAILY FOR TESTING Rx Instructions: USE DIRECTED ONCE DAILY FOR TESTING (DME) OneTouch Verio test strips Strip See Rx Instructions .ROUTE .COMPLEX Qty: 300 3RF Dose Instruction: USE DIRECTED Rx Instructions: USE DIRECTED (DME) one touch ben test strips See Rx Instructions .Route .MEDSUPPLY Qty: 200 0RF Rx Instructions: As directed (DME) portable oxygen See Rx Instructions .Route .MEDSUPPLY Qty: 1 0RF Rx Instructions: As directed (DME) portable oxygen container 4liter continous See Rx Instructions .Route .MEDSUPPLY Qty: 1 0RF Rx Instructions: As directed (DME) portable oxygen concentrator See Rx Instructions .Route .MEDSUPPLY Qty: 1 0RF Rx Instructions: As directed Discharge Order = DC NOW: Discharge Order (Routine); Ordered 01/26/25 Ordered By: Neil Zafar Referrals: Marshall Ugalde MD [Physician, General Surgery] - 02/09/25 9:20 am Referral Note: egd and colonoscopy Rowan Reich MD [Hospitalist, Oncology] - 1 week Referral Note: Abram Horn MD [Primary Care Provider, [facility]] - 01/31/25 9:30 am Discharge Diet: Cardiac Discharge Activity: Resume usual activity Patient Instructions: Sucralfate (By mouth), Doxycycline (By mouth), Prednisone (By mouth), Pantoprazole (By mouth), Anemia (GEN), Opioid Safety, Patient Portal & Arina Instructions Activity Restrictions/Additional Instructions: - See a primary care provider this week to recheck hemoglobin - If any blood boxes go to emergency room - Decrease Bumex dose to 1 mg daily - Please have your primary care provider monitor hemoglobin if you develop bloody or black stools or lightheadedness please come back to the emergency room -Please follow-up with general surgery for consideration of EGD and colonoscopy -Please follow-up with hematology oncology for iron deficiency Discharge Attestations Time Spent in Discharge Care*: greater than 30 min Quality Metrics Clinical Quality Measures [ No reported AMI, CVA or VTE this stay] Coding Level of Care Code 82059 Total time (in minutes) for Discharge: 45 Diagnoses Acute hypotension I95.9 Acute renal insufficiency N28.9 Iron deficiency anemia due to chronic blood loss D50.0 Chronic anticoagulation Z79.01 Type 2 diabetes mellitus with diabetic peripheral angiopathy without gangrene, unspecified whether terminal operations manager insulin use E11.51 Diabetes mellitus complication detail: with peripheral angiopathy without gangrene Diabetes mellitus complication status: with circulatory complication Diabetes mellitus terminal operations manager insulin use: unspecified terminal operations manager insulin use status Simple chronic bronchitis J41.0 COPD type: chronic bronchitis Chronic bronchitis type: simple
== END 2025-01-26 14:56 | disposition home or self-care (01) ==
LOC: ER 21:46 → ER IP 22:50 → MEDSURG 01-26 06:35
PROVIDERS: Admitting Provider Internal Medicine; Emergency Provider Emergency Medicine; PCP Family Medicine; Visit Provider Family Medicine
DX: I95.9 Hypotension, unspecified (principal); N28.9 Disorder of kidney and ureter, unspecified; D50.0 Iron deficiency anemia secondary to blood loss (chronic); Z79.01 Long term (current) use of anticoagulants; E11.51 Type 2 diabetes mellitus with diabetic peripheral angiopathy without gangrene; Z99.81 Dependence on supplemental oxygen; Z79.4 Long term (current) use of insulin; K21.9 Gastro-esophageal reflux disease without esophagitis; J44.9 Chronic obstructive pulmonary disease, unspecified; E11.9 Type 2 diabetes mellitus without complications; D50.9 Iron deficiency anemia, unspecified; F17.210 Nicotine dependence, cigarettes, uncomplicated
CPT/HCPCS: 36415; 36416; 36430; 71045; 80048; 80053; 80503; 81001; 82728; 82962; 83540; 83550; 83605; 85025; 86850; 86900; 86920; 87040; 93005; 93880; 94640; 94664; 96365; 96366; 96372; 96375; 99285; G0378; J1100; J1200; J1756; J1815; J1938; J7030; J7626; J9999; P9016

== ENCOUNTER 2025-02-03 18:10 | Inpatient (IN) | payer OTHER, SELFPAY ==
[2025-02-03] VITALS (7 sets, daily range): BP systolic 111–141; BP diastolic 58–83; PULSE 123–147; RESP 14–26; TEMP 36.8; O2SAT 90–96
--- OUTSIDE RECORDS SUMMARY | 2025-02-03 18:15 | XMS_ITS | Encounter Summary ---
Author Organization [facility] [place] [facility] Address [address] Attn: [place] [address] Care Team Providers Care Field Operations Farm Manager Name Role Phone Abram Horn MD Primary Care Provider [phone] Encounter Details Date Type Department Care Team (Latest Contact Info) Description 07/29/1991 Emergency Social History Tobacco Use Types Packs/Day Years Used Date Smoking Tobacco: Never Assessed Sex and Gender Information Value Date Recorded Sex Assigned at Not on file Legal Sex Male 9:41 AM SEXER Gender Identity Not on file Sexual Orientation Not on file documented as of this encounter Plan of Treatment Not on file documented as of this encounter Visit Diagnoses Not on filedocumented in this encounter Care Teams Field Operations Farm Manager Relationship Specialty Start Date End Date Abram Hron MD [address] [place] [id number] PCP - General Family Practice 02/18/18 documented as of this encounter
--- OUTSIDE RECORDS SUMMARY | 2025-02-03 18:15 | XMS_ITS | Clinical Summary ---
Author Organization [facility] Address [address] [place] [address] Phone Care Team Providers Care Refrigeration Engineering Teacher Name Role Phone Abram Horn MD Primary Care Provider [phone] Allergies No known active allergies Medications polyethylene [...] age 3 moderate COPD by GOLD classification (CMS/[facility]) INHALE 2 SPRAY(S) BY MOUTH ONCE DAILY [...] on file Legal Sex Male 4:43 AM PRINT DEVELOPER Gender Identity Not on file Sexual Orientation Not on file Last Filed Vital Signs Vital Sign Reading Time Taken Comments Blood Pressure 162/90 04/17/2022 11:43 AM PRINT DEVELOPER Pulse 90 04/17/2022 11:43 AM PRINT DEVELOPER Temperature 36.6 C (97.8 F) 02/16/2021 9:56 AM CDT Respiratory Rate 16 02/16/2021 11:31 AM CDT Oxygen Saturation 94% 04/17/2022 11:43 AM PRINT DEVELOPER Inhaled Oxygen Concentration - - Weight 103 kg (227 lb) 04/17/2022 11:43 AM PRINT DEVELOPER Height 185.4 cm (6' 1 ) 04/17/2022 11:43 AM PRINT DEVELOPER Body Mass Index 29.95 04/17/2022 11:43 AM PRINT DEVELOPER Plan of Treatment Health Maintenance Due Date [...] (#1) 2024 Medical Devices Implanted Type Area Sander And Polisher Device Identifier Shelf Expiration Date Model / Serial / Lot [place] Speedbridge 4.75mm Swivelock [id number] - [id number] Implanted:Qty: 1 on 02/16/2021 by Kevin Castillo MD at [facility] [place] Right: Shoulder [employer] [id number] 03/11/2022 [id number] S-9 / / [id number] Insurance PREFERRED [employer] PPO CLAIMS MANAGEMENT OF [facility] Care Teams Refrigeration Engineering Teacher Relationship Specialty Start Date End Date Abram Horn MD [address] [facility] [address] [place] [address] PCP - General 07/20/20
--- OUTSIDE RECORDS SUMMARY | 2025-02-03 18:15 | XMS_ITS | Encounter Summary ---
Author Organization [facility] Address [address] Attn: [place] [address] Care Team Providers Care Drier Operator Helper Name Role Phone Abram Horn MD Primary Care Provider [phone] Encounter Details Date Type Department Care Team (Latest Contact Info) Description 05/08/1996 Emergency Michelle Grubbs DO NO ADDRESS ON FILE Social History Tobacco Use Types Packs/Day Years Used Date Smoking Tobacco: Never Assessed Sex and Gender Information Value Date Recorded Sex Assigned at Not on file Legal Sex Male 9:41 AM YOUTH LEADER Gender Identity Not on file Sexual Orientation Not on file documented as of this encounter Plan of Treatment Not on file documented as of this encounter Visit Diagnoses Not on filedocumented in this encounter Care Teams Drier Operator Helper Relationship Specialty Start Date End Date Abram oHrn MD [address] [place] [phone] PCP - General Family Practice 02/18/18 documented as of this encounter
--- OUTSIDE RECORDS SUMMARY | 2025-02-03 18:15 | XMS_ITS | Encounter Summary ---
Author Organization [facility] Address [address] Attn: [place] [address] Care Team Providers Care Marine Extension Agent Name Role Phone Abram Horn MD Primary Care Provider [phone] Encounter Details Date Type Department Care Team (Latest Contact Info) Description 05/03/1996 Emergency Roberto Odell MD NO ADDRESS ON FILE Social History Tobacco Use Types Packs/Day Years Used Date Smoking Tobacco: Never Assessed Sex and Gender Information Value Date Recorded Sex Assigned at Not on file Legal Sex Male 9: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
--- OUTSIDE RECORDS SUMMARY | 2025-02-03 18:15 | XMS_ITS | Clinical Summary ---
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 Not on file Not on file Not on file Last Filed Vital Signs Vital Sign Reading Time Taken Comments Blood Pressure 164/84 10/18/2020 9:33 AM CDT Pulse 97 10/18/2020 9:33 AM CDT Temperature 36.9 C (98.5 F) 06/17/2020 1:33 PM PEDIATRIC DENTAL ASSISTANT Respiratory Rate 19 06/17/2020 1:33 PM PEDIATRIC DENTAL ASSISTANT Oxygen Saturation 94% 10/18/2020 9:33 AM CDT [...] Advance Directives For more information, please contact: [phone] Documents on File Type Date Recorded Patient Painter Spring Expl anation Advance Directive POA * Full Code (Latest Code Status on File) Date Activated Date Inactivated Comments 06/13/2020 9:21 PM 06/17/2020 6:21 PM Care Teams Forest Firefighter Relationship Specialty Start Date End Date Abarm Horn MD [address] [facility] [address] [place] [phone] PCP - General Family Practice 02/18/18
--- NOTE | 2025-02-03 18:22 | ECG_ITS ---
[facility] Pat Name: Joshua Avila Department: Room: Gender: Male Hole Digger Operator: : 1960 Requested By: Kisha Be Order Number: [id number] Arora MD: MYRA KAY Measurements Intervals [place] Rate: 153 P: 0 MD: 0 QRS: 80 QRSD: 120 T: 30 QT: 292 QTc: 467 Interpretive Statements ATRIAL FIBRILLATION WITH RAPID VENTRICULAR RESPONSE WITH ABERRANT CONDUCTION OR VENTRICULAR PREMATURE COMPLEXES RIGHT BUNDLE BRANCH BLOCK [120+ ms QRS DURATION, UPRIGHT V1, 40+ ms S IN I/aVL/V4/V5/V6] CRITICAL TEST RESULT Compared to ECG 01/25/2025 21:47:59 Ventricular premature complex(es) now present Aberrant conduction of supraventricular beat(s) now present Sinus rhythm no longer present Electronically Signed On 02-05-2025 21:36:01 CDT by MYRA KAY [email or web address]
[2025-02-03] MEDS: methylPREDNISolone sod succ 125 mg/2 mL INJ IVP (18:43)
[2025-02-03 18:44] LABS: Hematocrit 36.0 % (37-53); Hemoglobin 10.60 g/dL (11.27-16.99); Mean Corpuscular HGB Conc 29.4 g/dL (30-55); Mean Corpuscular Hemoglobin 24.8 pg (27-33); Mean Corpuscular Volume 84.1 fl (82-101); Nucleated Red Blood Cells % 0 %; Platelet Count 322 10^3/cmm (157-399); Red Blood Count 4.28 10^6/uL (3.85-5.65); White Blood Count 12.73 10^3/uL (3.29-11.43)
[2025-02-03] MEDS: amiodarone 150 MG/100 ML PREMIX 400 MG IV (18:44)
--- NOTE | 2025-02-03 18:47 | ED_ITS ---
HPI - Arrhythmia/Palpitations 2 General: Chief Complaint: Arrhythmia/Palpitations Stated Complaint: CP SOB can't breath Time Seen by Provider: 02/03/25 18:22 Source: patient Mode of arrival: ambulatory Limitations: no limitations History of Present Illness: 64-year-old male has extensive medical h istory of coronary disease CHF along with COPD. Patient states that he has been having chest pain shortness of breath throughout the day he is requiring oxygen here. He states he was recently admitted with supposed to have a cardiac cath but did not hold his Eliquis they did not do it scheduled for next week. He is in A-fib with RVR he denies any history of A-fib states his pain sharp in nature rates it a 4 out of 10. Related Data Home Medications ?Medication ?Instructions ?Recorded ?Confirmed fluticasone propionate 50 2 spray intranasal DAILY 02/02/25 mcg/actuation nasal spray,suspension insulin lispro 100 unit/mL 30 unit SUBCUT TID 09/30/24 02/02/25 subcutaneous pen (Humalog KwikPen (U-100) Insulin) alprazolam 0.5 mg tablet 0.5 mg PO TID PRN 12/22/24 0 02/02/25 smothering/anxiety potassium chloride 10 mEq 10 meq PO BID Edema 01/18/25 02/02/25 tablet,extended release(part/cryst) albuterol sulfate 90 mcg/actuation 2 puff inhalation Q 4H PRN 01/26/25 02/02/25 aerosol inhaler Shortness Of Breath Or Wheez ing insulin glargine-aglr 100 unit/mL 20 unit SUBCUT QAM 0 01/26/25 02/02/25 (3 mL) subcutaneous pen (Rezvoglar KwikPen) Previous Rx's ?Medication ?Instructions ?Recorded tamsulosin 0.4 mg capsule 0.4 mg PO QAM #90 caps 02/22 blood-glucose sensor (Dexcom G6 #3 ea 06/15/24 Sensor device) blood-glucose,accounts receivable coordinator,cont #1 ea 06/15/24 (Dexcom G6 Coal Drier Operator) lancets for glucose testing #1 ea 07/21/24 lancets 33 gauge (OneTouch Delica #100 ea 11/01/24 Plus Lancet) blood sugar diagnostic (MC2Touch #300 ea 11/05/24 Verio test strips) spironolactone 25 mg tablet See Rx Instructions .Route 11/22/24 .COMPLEX #150 tabs budesonide 160 mcg-glycopyr 9 2 inh inhalation BID #10 .7 grams 12/22/24 mcg-formot 4.8 mcg/actuation HFA inhaler (Breztri Aerosphere) one touch ben test strips #200 ea 12/29/24 portable oxygen #1 ea 01/11/25 portable oxygen concentrator #1 ea 01/11/25 portable oxygen container #1 ea 01/11/25 dabigatran etexilate 75 mg capsule 75 mg PO BID #60 ca ps 01/12/25 (Pradaxa) atorvastatin 40 mg tablet (Lipitor) 40 mg PO DAILY #90 tabs 01/19/25 empagliflozin 10 mg tablet 10 mg PO DAILY #90 tabs 03/05 (Jardiance) roflumilast 250 mcg tablet 250 mcg PO DAILY 4 weeks #3 0 tabs 01/25/25 bumetanide 1 mg tablet 1 mg PO DAILY #270 tabs 01/10 12/03 ipratropium 0.5 mg-albuterol 3 mg 3 ml inhalation TID #180 mL 01/26/25 (2.5 mg base)/3 mL nebulization soln losartan 100 mg tablet 50 mg (1/2 x 100 mg) PO DEJA Y #90 01/26/25 tabs pantoprazole 40 mg tablet,delayed 40 mg PO BID@0500,17 00 30 days #60 01/26/25 release tabs sucralfate 1 gram tablet (Carafate) 1 g PO BID 4 weeks #56 tabs 01/26/25 ferrous sulfate 325 mg (65 mg See Rx Instructions .Rou te 01/31/25 iron) tablet (Iron (ferrous .COMPLEX #90 tabs sulfate)) Allergies Allergy/AdvReac Type Severity Reaction Status Date / Time No Known Allergies Allergy Verified 02/02/25 09:48 Review of Systems 2 Card: Reports: chest pain and irregular heart rhythm Resp: Reports: dyspnea PFSH ED 2 PFSH: Medical History Iron deficiency anemia due to chronic blood loss Prediabetes COPD (chronic obstructive pulmonary disease) Hypertension Nicotine dependence Alcohol abuse New onset of congestive heart failure Acute hyponatremia Acute respiratory failure with hypoxia Community acquired pneumonia Chronic maxillary sinusitis Prostatic hypertrophy Duodenal ulcer Liver cirrhosis Anemia COPD exacerbation Erectile dysfunction History of abdominal hernia Renal insufficiency GI bleed Surgical History History of bowel resection History of colon surgery Family History Other CAD (coronary artery disease) Social History Smoking and tobacco/nicotine status: former use of tobacco/nicotine Quit status (tobacco/nicotine): has quit using Year quit tobacco: 2009 Former quit date comment: 2 ppd X 40 years Alcohol intake: current Substance/Drug Use: never Additional social history: 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 as discussed with myself and his Rae 01/26/2025 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 Physical Exam 2 Const: COMMON NORMALS: patient oriented x3 GENERAL APPEARANCE: ill appearing HENMT: COMMON NORMALS: normocephalic and atraumatic HEAD & SCALP: n ormocephalic and atraumatic Eye: COMMON NORMALS: conjunctivae normal CONJUNCTIVA: Yes conjunctivae normal Neck/C-Spine: COMMON NORMALS: full ROM and supple Chest: COMMONS NORMALS: normal inspection of the chest Resp: COMMON NORMALS: No retractions and No use of accessory muscles A USCULTATION: wheezes Cardio: COMMON NORMALS: No murmurs present (Cardio) RHYTHM: abnormal rhythm irregularly irregular GI: COMMON NORMALS: Normal to inspection, nondistended, normoactive bowel sounds present, Soft to palpation, non-tender and no masses PALPATION: Yes Soft to palpation Extremity: COMMON NORMALS: normal to inspection and full ROM Neuro: COMMON NORMALS: patient oriented x3, moves all extremities and no focal motor deficits Psych: COMMON NORMALS: mental status grossly normal, Normal thought process present and cooperative THOUGHT PROCESS: Normal thought process present Skin: COMMON NORMALS: no rashes or lesions noted and no wounds GENERAL SKIN EXAM: no rashes or lesions noted Course 2 Vital Signs: Vital signs: Vital Signs Temperature 98.2 F 02/03/25 18:24 Pulse Rate 132 H 02/03/25 19:00 Respiratory Rate 14 02/03/25 19:00 Blood Pressure 112/74 02/03/25 19:00 Pulse Oximetry 96 02/03/25 19:00 Oxygen Delivery Me thod Nasal Cannula 02/03/25 19:00 Oxygen Flow Rate 3 02/03/25 19:00 MDM - Arrhythmia/Palpitations Medical Decision Making Patient presents here with chest pain along with new onset A-fib with RVR. Did start him on amiodarone here. His chest pain is improved. Did give a dose of Lovenox and aspirin. No signs of ST elevation on his EKG his D-dimer is negative no signs of pulm embolism he has no signs of dissection. I went over these findings with patient and will admit. I also spoke to proof clerk Dr. Mayes who was consulted spoke to hospitalist Dr. Page who will admit to cardiac stepdown. Medical Records I reviewed the patient's medical records. Lab Data I reviewed the patient's lab results. 02/03/25 18:30 02/03/25 18:30 Laboratory Results WBC 12.73 10^3/uL (3.29-11.43) H 02/03/25 18:30 RBC 4.28 10^6/uL (3.85-5.65) 02/03/25 18:30 Hgb 10.60 g/dL (11.27-16.99) L 02/03/25 18:30 Hct 36.0 % (37-53) L 02/03/25 18:30 MCV 84.1 fl (82-101) 02/03/25 18: MCH 24.8 pg (27-33) L 02/03/25 18:30 MCHC 29.4 g/dL (30-55) L 02/03/25 18:30 RDW 17.2 % (12.1-15.1) H 02/03/25 18:30 Plt Count 322 10^3/cmm (157-399) 02/03/25 18:30 MPV 9.0 fL (7.4-10.4) 02/03/25 18:30 Neut % (Auto) 79.2 % 02/03/25 18:30 Lymph % (Auto) 11.6 % 02/03/25 18:30 [place] % (Auto) 6.3 % 02/03/25 18:30 Eos % (Auto) 2.2 % 02/03/25 18:30 Baso % (Auto) 0.2 % 02/03/25 18:30 Neut # (Auto) 10.08 10^3/uL (1.8-7.7) H 02/03/25 18:30 Lymph # (Auto) 1.5 10^3/uL (0.8-4.8) 02/03/25 18:30 [place] # (Auto) 0.8 10^3/uL (0.2-0.9) 02/03/25 18:30 Eos # (Auto) 0.3 10^3/uL (0.0-0.8) 02/03/25 18: Baso # (Auto) 0.0 10^3/uL (0.0-0.1) 02/03/25 18:30 Nucleated RBC % (auto) 0 % 02/03/25 18:30 Nucleated RBCs # 0.0 /100WBC 02/03/25 18: D-Dimer 0.56 ug/mLFEU (0-0.59) 02/03/25 18:30 Sodium 137 mmol/L (136-145) 02/03/25 18:30 Potassium 3.9 mmol/L (3.5-5.1) 02/03/25 18: Chloride 100 mmol/L (98-107) 02/03/25 18:30 Carbon Dioxide 25 mmol/L (22-29) 02/03/25 18:30 Anion Gap 15.9 (5-19) 02/03/25 18:30 BUN 14 mg/dL (8-23) 02/03/25 18:30 Creatinine 0.9 mg/dL (0.7-1.2) 02/03/25 18:30 GFR Calculation 85.2 mL/min (90-130) L 02/03/25 18:30 Glucose 102 mg/dL (65-115) 02/03/25 18:30 Calculated Osmolality 285 mOsm/kg (285-295) 02/03/25 18:30 Lactic Acid 1.5 mmol/L (0.5-2.2) 02/03/25 18:30 Calcium 9.2 mg/dL (8.5-10.5) 02/03/25 18: Magnesium 1.9 mg/dL (1.7-2.3) 02/03/25 18:30 Total Bilirubin 0.4 mg/dL (0.15-1.2) 02/03/25 18:30 AST 16 U/L (0-40) 02/03/25 18:30 ALT 12 U/L (0-41) 02/03/25 18:30 Alkaline Phosphatase 93 U/L (40-130) 02/03/25 18:30 Troponin T Baseline 70 ng/L (0-15) H 02/03/25 18:30 NT-Pro-B Natriuret Pep 1968 pg/mL (0-125) H 02/03/25 18:30 Total Protein 6.4 g/dL (6.6-8.7) L 02/03/25 18:30 Albumin 3.7 g/dL (3.5-5.2) 02/03/25 18:30 Globulin 2.7 g/dL (1.3-4.6) 02/03/25 18:30 TSH 1.65 uIU/mL (0.27-4.20) 02/03/25 18:30 All radiology interpretation(s) finalized by discharge EKG Data EKG 1: I personally reviewed and interpreted this EKG as follows: EKG interpretation date: 02/03/25 EKG interpretation time: 18:17 Interpretation: afib with rvr hr [address] elevation qrs 120 qtc 379 Clincial Decision Support The following clinical decision support tools were used to aid in care of the patient HEART Score -> History: Moderately Suspicious, EKG: Normal, Age: 45-64 yrs, Risk Factors: >/=3 Risk Factors, Troponin: Baseline Trop >45 ng/L. Resulting HEART Score: 6. Critical Care Time 2 Critical Care Time: Critical Care Time: Yes Total Critical Care Time: 35 Attestation: The high probability of a clinically significant, sudden or life threatening deterioration of the patient's cv system(s) required my full and direct attention, intervention and personal management. The critical care time is as shown. This time is in addition to time spent performing any reported procedures but includes the following: [x] Data and vital sign review and interpretation [x] Patient assessment, examination and intervention [x] Documentation [x] Medication orders and management Discharge Plan Discharge Patient Disposition: Admitted As Inpatient Clinical Impression: Atrial fibrillation with RVR, Chest pain Condition: Stable Coding Level of Care Code ED Plastic Tile Layer for Sabine Salazar
[2025-02-03 18:57] LABS: Lactic Sepsis W/Reflex 1.5 mmol/L (0.5-2.2)
[2025-02-03 18:59] LABS: Troponin(5th) Baseline 70 ng/L (0-15)
[2025-02-03 19:08] LABS: Alanine Aminotransferase 12 U/L (0-41); Albumin Level 3.7 g/dL (3.5-5.2); Alkaline Phosphatase 93 U/L (40-130); Anion Gap 15.9 (5-19); Aspartate Amino Transferase 16 U/L (0-40); Blood Urea Nitrogen 14 mg/dL (8-23); Calcium 9.2 mg/dL (8.5-10.5); Carbon Dioxide 25 mmol/L (22-29); Chloride 100 mmol/L (98-107); Globulin 2.7 g/dL (1.3-4.6); Glucose 102 mg/dL (65-115); Magnesium 1.9 mg/dL (1.7-2.3); NT Pro B Type Natriuretic Pept 1968 pg/mL (0-125); Osmolality Calculated 285 mOsm/kg (285-295); Potassium 3.9 mmol/L (3.5-5.1); Sodium 137 mmol/L (136-145); Thyroid Stimulating Hormone 1.65 uIU/mL (0.27-4.20); Total Protein 6.4 g/dL (6.6-8.7)
[2025-02-03] MEDS: AMIODARONE HCL/D5W 900 MG/500 ML BAG 33.33 MG IV (19:08)
--- NOTE | 2025-02-03 19:13 | XRR_ITS ---
PROCEDURE INFORMATION: Exam: XR Chest Exam date and time: 02/03/2025 7:23 PM Age: 64 years old Clinical indication: Shortness of breath; Additional info: SOB TECHNIQUE: Imaging protocol: Radiologic exam of the chest. Views: 1 view. COMPARISON: CR (CHEST, ) 01/25/2025 8:02 PM FINDINGS: Lungs: No focal consolidation. Calcified granuloma right lower lobe. Pleural spaces: Unremarkable. No pleural effusion. No pneumothorax. Heart/Mediastinum: Unremarkable. No cardiomegaly. Bones/joints: Chronic deformity of right mid clavicle. XR/XR chest 1V portable [id number] IMPRESSION: No acute cardiopulmonary findings.
[2025-02-03 20:33] LABS: Troponin 5 2HR 65.70 ng/L (0-15); Troponin 5 2HR Delta -4.30 ABS# (0-10)
--- NOTE | 2025-02-03 21:11 | PM.HP ---
Providers/Chief Complaint Admitting Physician: Oanh Page MD----patient seen and evaluated before 12 midnight Primary Care Provider: Abram Horn MD Chief Complaint: CP SOB can't breath History of Present Illness Joshua Avila is a 64 year old male with medical history significant for CHF, end-stage COPD on chronic home oxygen at 5 L, ex heavy cigarette smoking history who, history of diabetes hyperlipidemia high blood pressure who had presented to the emergency room from home because of profound shortness of breath. At presentation patient was found to be in A-fib with rapid ventricular rate in the 140s. Patient had never had any history of atrial fibrillation this is new onset. Patient does have complaints of chest pains and headaches Patient had related that he sees Dr. Bates cardiology who was going to have cardiac catheterization for him yesterday but this was canceled because patient had taking a dose of Eliquis and this was then rescheduled for the of this month outpatient. Patient prior to now did not have atrial fibrillation but now presenting with 1 cardiology had been consulted at this time with Dr. Mayes at home the patient sees. Cardiology will be seeing this patient for unstable angina likely requiring cardiac catheterization this hospitalization in the setting of this new onset A-fib patient may have ongoing ischemic cardiac process. Patient had been started on amiodarone for the new onset A-fib and I had also initiated oral Cardizem at this time heart rate had come down to the 120s to 130s.. Echocardiogram ordered at this time. Patient is profusely wheezing at this time and COPD exacerbation and cannot rule out cardiac component. Steroid and nebulizing treatments on board. Diuretics initiated with Bumex. Review of Systems Narrative: System review upon 10 organ reviewed we are noted to be significant for cardio pulmonary disorder otherwise unremarkable. Medications/Allergies Home Medications ?Medication ?Instructions ?Recorded ?Confirmed ?Last Taken ?Type tamsulosin 0.4 mg capsule 0.4 mg PO QAM #90 caps 02/23/24 02/03/25 01/25/25 Rx fluticasone propionate 50 2 spray intranasal DAILY 04/09/24 02/03/25 01/25/25 History mcg/actuation nasal spray,suspension blood-glucose sensor (Dexcom G6 #3 ea 06/15/24 02/03/25 Unknown Rx Sensor device) blood-glucose,sea foam kiss maker,cont #1 ea 06/15/24 02/03/25 Unknown Rx (Dexcom G6 Director Digital Analytics) lancets for glucose testing #1 ea 07/21/24 02/03/25 Unknown Rx insulin lispro 100 unit/mL 30 unit SUBCUT TID 09/30/24 02/03/25 01/25/25 History subcutaneous pen (Humalog KwikPen (U-100) Insulin) lancets 33 gauge (OneTouch Delica #100 ea 11/01/24 02/03/25 Unknown Rx Plus Lancet) blood sugar diagnostic (OneTouch #300 ea 11/05/24 02/03/25 Unknown Rx Verio test strips) alprazolam 0.5 mg tablet 0.5 mg PO TID PRN 12/22/24 02/03/25 Unknown History smothering/anxiety budesonide 160 mcg-glycopyr 9 2 inh inhalation BID #10.7 grams 12/22/24 02/03/25 01/25/25 Rx mcg-formot 4.8 mcg/actuation HFA inhaler (Virdia) one touch ben test strips #200 ea 12/29/24 02/03/25 Unknown Rx portable oxygen #1 ea 01/11/25 02/03/25 Unknown Rx portable oxygen concentrator #1 ea 01/11/25 02/03/25 Unknown Rx portable oxygen container #1 ea 01/11/25 02/03/25 Unknown Rx dabigatran etexilate 75 mg capsule 75 mg PO BID #60 caps 01/12/25 02/03/25 Unknown Rx (Pradaxa) potassium chloride 10 mEq 10 meq PO BID Edema 01/18/25 02/03/25 Unknown History tablet,extended release(part/cryst) atorvastatin 40 mg tablet (Lipitor) 40 mg PO DAILY #90 tabs 01/19/25 02/03/25 02/02/25 09:00 Rx empagliflozin 10 mg tablet 10 mg PO DAILY #90 tabs 01/19/25 02/03/25 01/25/25 Rx (Jardiance) roflumilast 250 mcg tablet 250 mcg PO DAILY 4 weeks #30 tabs 01/25/25 02/03/25 Unknown Rx albuterol sulfate 90 mcg/actuation 2 puff inhalation Q4H PRN 01/26/25 02/03/25 01/25/25 History aerosol inhaler Shortness Of Breath Or Wheezing bumetanide 1 mg tablet 1 mg PO DAILY #270 tabs 01/26/25 02/03/25 01/24/25 Rx insulin glargine-aglr 100 unit/mL 20 unit SUBCUT QAM 01/26/25 02/03/25 01/25/25 History (3 mL) subcutaneous pen (Rezvoglar [place]Pen) ipratropium 0.5 mg-albuterol 3 mg 3 ml inhalation TID #180 mL 01/26/25 02/03/25 Unknown Rx (2.5 mg base)/3 mL nebulization soln losartan 100 mg tablet 50 mg (1/2 x 100 mg) PO DAILY #90 01/26/25 02/03/25 01/25/25 Rx tabs pantoprazole 40 mg tablet,delayed 40 mg PO BID@0500,1700 30 days #60 01/26/25 02/03/25 Unknown Rx release tabs sucralfate 1 gram tablet (Carafate) 1 g PO BID 4 weeks #56 tabs 01/26/25 02/03/25 Unknown Rx ferrous sulfate 325 mg (65 mg See Rx Instructions .Route 01/31/25 02/03/25 Unknown Rx iron) tablet (Iron (ferrous .COMPLEX #90 tabs sulfate)) Allergies Allergy/AdvReac Type Severity Reaction Status Date / Time No Known Allergies Allergy Verified 02/02/25 09:48 PFSH Acute PFSH: Medical History Iron deficiency anemia due to chronic blood loss Prediabetes COPD (chronic obstructive pulmonary disease) Hypertension Nicotine dependence Alcohol abuse New onset of congestive heart failure Acute hyponatremia Acute respiratory failure with hypoxia Community acquired pneumonia Chronic maxillary sinusitis Prostatic hypertrophy Duodenal ulcer Liver cirrhosis Anemia COPD exacerbation Erectile dysfunction History of abdominal hernia Renal insufficiency GI bleed Surgical History History of bowel resection History of colon surgery Family History Other CAD (coronary artery disease) Social History Smoking and tobacco/nicotine status: former use of tobacco/nicotine Quit status (tobacco/nicotine): has quit using Year quit tobacco: 2009 Former quit date comment: 2 ppd X 40 years Alcohol intake: current Substance/Drug Use: never Additional social history: 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 as discussed with myself and his Rae 01/26/2025 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 Vitals/I&O/Wt Last Vital Signs Temp 98.2 F 02/03/25 18:24 Pulse 133 H 02/03/25 20:15 Resp 18 02/03/25 20:15 BP 113/62 02/03/25 20:15 Pulse Ox 92 02/03/25 20:15 O2 Del Method Nasal Cannula 02/03/25 20:50 O2 Flow Rate 3 02/03/25 19:00 02/03/25 02/03/25 02/03/25 06:59 14:59 22:59 Intake Total 100 / 100 Balance 100 / 100 Weight last 48 hrs Weight 100.244 kg Physical Exam Narrative: Generally patient is ill-appearing but hemodynamically stable with good vital signs pulse oxing in the mid 90s on oxygen but profusely wheezing HEENT normocephalic/atraumatic neck neck is supple cardiovascular heart rate is irregularly irregular. Lungs are coarse with audible wheezes. Abdomen is soft with ventral hernia post GI surgery 13 years ago. unremarkable extremities are intact trace edema has good pulses neurology no focality lab studies lab studies reviewed and noted. Data 02/04/25 00:37 02/04/25 00:37 A&P Assessment and plan 1. Chest pain: 2. Atrial fibrillation with RVR: 3. CHF exacerbation: 4. CAD (coronary artery disease): 5. Chronic anticoagulation: 6. Type 2 diabetes mellitus: 7. History of deep vein thrombosis: Plan: #1 Chest pain - Patient was scheduled for cardiac cath 2 days ago but did not hold the Eliquis and that was rescheduled for the . Patient was with Dr. Bates and Dr. Mayes is on consult - In with chest pain - Continue antiplatelets and heparin and cardiology to follow-up concerning plan of care regarding this - Likely patient may be cathed during this hospital course once optimized #2 New onset atrial fibrillation - Reason for cardiology consultation as well cannot rule out underlying ischemia - Patient was started on amiodarone and placed on stepdown unit - Troponin noted with negative delta #3 COPD exacerbation - Patient with audible wheezing - Steroid therapy, nebulizing treatment in place for bronchial spasm optimization - Supplemental oxygen in place #4 CHF exacerbation secondary to diastolic dysfunction - Patient is on diuretics with Bumex 1 mg IV twice daily #5 GI and DVT prophylaxis in place PDMP PDMP Reviewed: Last Reviewed 02/04/25 06:56 by Oanh Page MD Attestations Medical Necessity Statement*: Patient with acute and multiple medical problem with new onset atrial fibrillation with rapid ventricular rate, chest pains requiring intervention such as cardiac catheterization at this time, COPD exacerbation will need at least 2 midnights for optimization of care. Patient merits inpatient care Coding Level of Care Code 01771 Diagnoses Chest pain R07.9 Atrial fibrillation with RVR I48.91 CHF exacerbation I50.9 CAD (coronary artery disease) I25.10 Chronic anticoagulation Z79.01 Type 2 diabetes mellitus E11.9 History of deep vein thrombosis Z86.718 Time Spent (min) 60
[2025-02-03] MEDS: pantoprazole 40 mg SDV IVP (21:44)
--- NOTE | 2025-02-03 21:44 | ECG_ITS ---
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: : 1960 Requested By: Kisha Be Order Number: [id number] Ulysses MD: MYRA KAY Measurements Intervals [place] Rate: 121 P: 0 GA: 0 QRS: 80 QRSD: 108 T: 54 QT: 337 QTc: 479 Interpretive Statements ATRIAL FIBRILLATION WITH RAPID VENTRICULAR RESPONSE WITH ABERRANT CONDUCTION OR VENTRICULAR PREMATURE COMPLEXES INCOMPLETE RIGHT BUNDLE BRANCH BLOCK [90+ ms QRS DURATION, TERMINAL R IN V1/V2, 40+ ms S IN I/aVL/V4/V5/V6] ABNORMAL RHYTHM ECG Compared to ECG 02/03/2025 18:17:17 Incomplete right bundle-branch block now present Right bundle-branch block no longer present Electronically Signed On 02-05-2025 21:41:32 CDT by MYRA KAY [email or web address]
[2025-02-04] VITALS (13 sets, daily range): BP systolic 106–144; BP diastolic 59–74; PULSE 75–106; RESP 16–28; TEMP 36.4–36.7; O2SAT 92–97
--- NOTE | 2025-02-04 00:22 | ECG_ITS ---
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: : 1960 Requested By: Kisha Be Order Number: [id number] Ulysses MD: MYRA KAY Measurements Intervals [place] Rate: 96 P: 0 VA: 0 QRS: 75 QRSD: 102 T: 46 QT: 360 QTc: 456 Interpretive Statements ATRIAL FIBRILLATION LOW QRS VOLTAGE IN PRECORDIAL LEADS [QRS DEFLECTION < 1.0 mV IN CHEST LEADS] INCOMPLETE RIGHT BUNDLE BRANCH BLOCK [90+ ms QRS DURATION, TERMINAL R IN V1/V2, 40+ ms S IN I/aVL/V4/V5/V6] MINIMAL ST DEPRESSION [0.025+ mV ST DEPRESSION] ABNORMAL RHYTHM ECG Compared to ECG 02/03/2025 21:44:37 Low QRS voltage now present ST (T wave) deviation now present Ventricular premature complex(es) no longer present Aberrant conduction of supraventricular beat(s) no longer present Electronically Signed On 02-05-2025 21:41:26 CDT by MYRA KAY [email or web address] [id number]
[2025-02-04 01:05] LABS: Hematocrit 32.5 % (37-53); Hemoglobin 9.50 g/dL (11.27-16.99); Mean Corpuscular HGB Conc 29.2 g/dL (30-55); Mean Corpuscular Hemoglobin 24.2 pg (27-33); Mean Corpuscular Volume 82.9 fl (82-101); Nucleated Red Blood Cells % 0 %; Platelet Count 281 10^3/cmm (157-399); Red Blood Count 3.92 10^6/uL (3.85-5.65); White Blood Count 10.87 10^3/uL (3.29-11.43)
[2025-02-04 01:28] LABS: Cholesterol 94 mg/dL (0-200); HDL Cholesterol 46 mg/dL (60-100); Triglycerides 72 mg/dL (0-150); Troponin 5 6HR 53.43 ng/L (0-15)
[2025-02-04 01:30] LABS: Troponin 5 6HR Delta -16.57 ng/L (0-12)
[2025-02-04 01:38] LABS: Alanine Aminotransferase 12 U/L (0-41); Albumin Level 3.4 g/dL (3.5-5.2); Alkaline Phosphatase 101 U/L (40-130); Anion Gap 17.0 (5-19); Aspartate Amino Transferase 17 U/L (0-40); Blood Urea Nitrogen 15 mg/dL (8-23); Calcium 8.6 mg/dL (8.5-10.5); Carbon Dioxide 25 mmol/L (22-29); Chloride 97 mmol/L (98-107); Creatinine Clr Calc Pharmacy 78.4594; Globulin 3.0 g/dL (1.3-4.6); Glucose 426 mg/dL (65-115); Magnesium 1.9 mg/dL (1.7-2.3); Osmolality Calculated 297 mOsm/kg (285-295); Potassium 5.0 mmol/L (3.5-5.1); Sodium 134 mmol/L (136-145); Thyroid Stimulating Hormone 0.59 uIU/mL (0.27-4.20); Total Protein 6.4 g/dL (6.6-8.7)
[2025-02-04 01:56] LABS: Estmated Average Glucose 123; Hemoglobin A1C 5.9 % (4.0-6.0)
[2025-02-04] MEDS: methylPREDNISolone sod succ 40 mg/mL INJ IVP ×2 (03:32→11:01)
--- NOTE | 2025-02-04 07:15 | PC.NURSE ---
Patient's amio drip is at 0.5mg/min.
[2025-02-04] MEDS: bumetanide 0.25 mg/mL SDV 4 mL 1 MG IVP ×2 (08:08→20:37)
[2025-02-04] MEDS: pantoprazole 40 mg SDV IVP ×2 (09:09→20:37)
[2025-02-04] MEDS: sucralfate 1 gm/10 mL Oral Liq UDC PO ×3 (09:09→20:37)
--- NOTE | 2025-02-04 10:14 | P.CONIM_ITS ---
<Statement entered by Herbert Mayes MD - 02/04/25 16:55> Patient was evaluated and cared for in conjunction with an advanced practice practitioner. I personally examined the patient and reviewed the chart and all pertinent data including imaging, telemetry, and laboratory results. I discussed the patient in detail with the advanced practice practitioner. Please see their note for complete consult note, testing results and agreed upon plan of care for the patient. GENERAL: Patient is alert, awake and oriented x3. NECK: No JVD or carotid bruit HEART: Regular S1 and S2 LUNGS: rhonchi and expiratory wheezing through lung jones EXTREMITIES: Lower extremities with 1+ edema bilaterally. COPD exacerbation New onset Afib with RVR - back in SR on amio CHF exacerbation PAD Diffuse coronary artery calcification on chest imaging CP Diurese neb treatments IV amio - can change to oral amio eventual left heart catheterization Dr. Bates to cover over weekend Providers/Reason For Consult 2 Consulting Physician/Specialty*: Dr Mayes, cardiology Reason for Consult*: New onset atrial fibrillation Requesting Physician: Dr. Knowles Attending Physician: Neil Zafar MD Primary Care Provider: Abram Horn MD History of Present Illness History of Present Illness Joshua Avila is a 64 year old male with past medical history of CAD, diastolic CHF, COPD (uses 3 L nasal cannula [id number]), history of left DVT previously anticoagulated with Eliquis, switched to Pradaxa on 01/12/2025 due to insurance/cost, PAD (left leg intervention in [place] in 2023), GI bleed with clip of the bleeding source, hypertension, iron deficiency anemia, type 2 diabetes. He presented to the emergency room last night due to worsening shortness of breath and chest pain. He was found to be in atrial fibrillation with RVR which was new onset. He was started on amiodarone infusion and converted to sinus rhythm during the night. EKG did not show any ischemic ST or T wave changes, right bundle branch block present as of 01/26/25-previously was incomplete RBBB. Chest x-ray did not show any pleural effusion or increased pulmonary vasculature. D-dimer negative. He reports constant chest pain since yesterday, it was previously more severe but improved with breathing treatments during the night. Currently he rates the chest pain 6-7 out of 10 located in the center of his chest. He denies nausea, vomiting, diaphoresis, orthopnea however is sitting on the side of the bed. Hemoglobin 9.5 this morning, was 10.6 yesterday, during the last admission when he received blood transfusion was 7.2. Medications/Allergies Home Medications ?Medication ?Instructions ?Recorded ?Confirmed ?Last Taken ?Type tamsulosin 0.4 mg capsule 0.4 mg PO QAM #90 caps 02/2202/03/25 01/25/25 Rx fluticasone propionate 50 2 spray intranasal DAILY 02/03/25 01/25/25 History mcg/actuation nasal spray,suspension blood-glucose sensor (Dexcom G6 #3 ea 06/15/24 Unknown Rx Sensor device) blood-glucose,performance engineer,cont #1 ea 06/15/24 02/03/25 Un known Rx (Dexcom G6 Claim Examiner) lancets for glucose testing #1 ea 07/21/24 02/03/25 Un known Rx insulin lispro 100 unit/mL 30 unit SUBCUT TID 09/30/24 02/03/25 01/25/25 History subcutaneous pen (Humalog KwikPen (U-100) Insulin) lancets 33 gauge (OneTouch Delica #100 ea 11/01/24 Unknown Rx Plus Lancet) blood sugar diagnostic (OneTouch #300 ea 11/05/2401/11 Unknown Rx Verio test strips) alprazolam 0.5 mg tablet 0.5 mg PO TID PRN 12/22/24 0 02/03/25 Unknown History smothering/anxiety budesonide 160 mcg-glycopyr 9 2 inh inhalation BID #10 .7 grams 12/22/24 02/03/25 01/25/25 Rx mcg-formot 4.8 mcg/actuation HFA inhaler ([employer]) one touch ben test strips #200 ea 12/29/24 02/03/25 U nknown Rx portable oxygen #1 ea 01/11/25 02/03/25 Unkn own Rx portable oxygen concentrator #1 ea 01/11/25 02/03/25 U nknown Rx portable oxygen container #1 ea 01/11/25 02/03/25 Unkn own Rx dabigatran etexilate 75 mg capsule 75 mg PO BID #60 ca ps 01/12/25 02/03/25 Unknown Rx (Pradaxa) potassium chloride 10 mEq 10 meq PO BID Edema 01/18/25 02/03/25 Unknown History tablet,extended release(part/cryst) atorvastatin 40 mg tablet (Lipitor) 40 mg PO DAILY #90 tabs 01/19/25 02/03/25 02/02/25 09:00 Rx empagliflozin 10 mg tablet 10 mg PO DAILY #90 tabs 03/0502/03/25 01/25/25 Rx (Jardiance) roflumilast 250 mcg tablet 250 mcg PO DAILY 4 weeks #3 0 tabs 01/25/25 02/03/25 Unknown Rx albuterol sulfate 90 mcg/actuation 2 puff inhalation Q 4H PRN 01/26/25 02/03/25 01/25/25 History aerosol inhaler Shortness Of Breath Or Wheez ing bumetanide 1 mg tablet 1 mg PO DAILY #270 tabs 01/1002/03/25 01/24/25 Rx insulin glargine-aglr 100 unit/mL 20 unit SUBCUT QAM 0 01/26/25 02/03/25 01/25/25 History (3 mL) subcutaneous pen (Fay Leyva) ipratropium 0.5 mg-albuterol 3 mg 3 ml inhalation TID #180 mL 01/26/25 02/03/25 Unknown Rx (2.5 mg base)/3 mL nebulization soln losartan 100 mg tablet 50 mg (1/2 x 100 mg) PO DEJA Y #90 01/26/25 02/03/25 01/25/25 Rx tabs pantoprazole 40 mg tablet,delayed 40 mg PO BID@0500,17 00 30 days #60 01/26/25 02/03/25 Unknown Rx release tabs sucralfate 1 gram tablet (Carafate) 1 g PO BID 4 weeks #56 tabs 01/26/25 02/03/25 Unknown Rx ferrous sulfate 325 mg (65 mg See Rx Instructions .Rou te 01/31/25 02/03/25 Unknown Rx iron) tablet (Iron (ferrous .COMPLEX #90 tabs sulfate)) Allergies Allergy/AdvReac Type Severity Reaction Status Date / Time No Known Allergies Allergy Verified 02/02/25 09:48 Current Medications Generic Name Dose Route Start Last Admin Trade Name Yazmin PRN Reason Stop Dose Admin Albuterol/Ipratropium 3 ml 02/04/25 02:00 02/04/25 08:19 Ipratropium-Albuterol 3 Ml Neb INHALATION 3 ml Q6H.RESP SHERITA Administration Aspirin 81 mg 02/04/25 09:00 02/04/25 09:09 Aspirin 81 Mg Ec Tablet PO 81 mg DAILY SHERITA Administration Azithromycin 500 mg 02/04/25 09:00 02/04/25 08:09 Azithromycin 250 Mg Tablet PO 500 mg DAILY SHERITA Administration Protocol Bumetanide 1 mg 02/04/25 07:15 02/04/25 08:08 Bumetanide 0.25 Mg/Ml Sdv 4 Ml IVP 1 mg Q12H SHERITA Administration Diltiazem HCl 60 mg 02/03/25 21:15 02/04/25 09:09 Diltiazem 60 Mg Tablet PO 60 mg Q6H SHERITA Administration Docusate Sodium 100 mg 02/04/25 09:00 02/04/25 08:12 Docusate Sodium 100 Mg Capsule PO Not Given BID SHERITA Enoxaparin Sodium 100 mg 02/04/25 08:00 02/04/25 08:09 Enoxaparin 100 Mg/Ml Syringe SUBCUT 100 mg Q12H SHERITA Administration AMIODARONE HCL/D5W 900 mg in 500 mls @ 0 mls/hr 02/03/25 18:45 02/03/25 19:08 Amiodarone 900 Mg/500 Ml-D5w IV 1 mg/min .Q0M SHERITA 33.33 mls/hr Protocol Administration Per Protocol Insulin Human Lispro 0 unit 02/04/25 08:00 02/04/25 08:09 Insulin Lispro 100 Unit/1 Ml SUBCUT 12 unit WM&BEDTIME SHERITA Administration Protocol Methylprednisolone Sodium Succinate 40 mg 02/04/25 03:00 02/04/25 03:32 Methylprednisolone Sod Succ 40 Mg/Ml Inj IVP 40 mg Q8H SHERITA Administration Pantoprazole Sodium 40 mg 02/04/25 08:15 02/04/25 09:09 Pantoprazole 40 Mg Sdv IVP 40 mg Q12H SHERITA Administration Sucralfate 1 gm 02/04/25 08:15 02/04/25 09:09 Sucralfate 1 Gm/10 Ml Oral Liq Udc PO 1 gm Q6H SHERITA Administration PFSH Acute 2 PFSH: Medical History Iron deficiency anemia due to chronic blood loss Prediabetes COPD (chronic obstructive pulmonary disease) Hypertension Nicotine dependence Alcohol abuse New onset of congestive heart failure Acute hyponatremia Acute respiratory failure with hypoxia Community acquired pneumonia Chronic maxillary sinusitis Prostatic hypertrophy Duodenal ulcer Liver cirrhosis Anemia COPD exacerbation Erectile dysfunction History of abdominal hernia Renal insufficiency GI bleed Surgical History History of bowel resection History of colon surgery Family History Other CAD (coronary artery disease) Social History Smoking and tobacco/nicotine status: former use of tobacco/nicotine Quit status (tobacco/nicotine): has quit using Year quit tobacco: 2009 Former quit date comment: 2 ppd X 40 years Alcohol intake: current Substance/Drug Use: never Additional social history: 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 as discussed with myself and his Rae 01/26/2025 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 Vitals/I&O/Wt Last Vital Signs Temp 97.8 F 02/04/25 08:00 Pulse 77 02/04/25 08:19 Resp 16 02/04/25 08:19 BP 106/59 02/04/25 08:00 Pulse Ox 94 02/04/25 08:19 O2 Del Method Nasal Cannula 02/04/25 08:19 O2 Flow Rate 3 02/04/25 08:19 02/03/25 02/04/25 02/04/25 22:59 06:59 14:59 Intake Total 100 / 100 240 / 240 Output Total 450 / 450 Balance 100 / 100 -210 / -210 Weight last 48 hrs Weight 222 lb 1 oz Weight 222 lb 1 oz Weight 221 lb Physical Exam 2 Const: COMMON NORMALS: no acute distress and patient oriented x3 GENERAL APPEARANCE: cooperative and comfortable ORIENTATION/CONSCIOUSNESS: Yes awake, Yes oriented to person, Yes oriented to place and Yes oriented to time Chest: COMMONS NORMALS: normal inspection of the chest and normal palpation of entire chest wall CHEST: Yes Symmetrical chest wall rise Resp: COMMON NORMALS: normal respiratory effort, No retractions and No use of accessory muscles EFFORT & INSPECTION: Yes symmetric chest movement A USCULTATION: wheezes throughout Cardio: COMMON NORMALS: regular rate, regular rhythm, S1 normal heart sound present, S2 normal heart sound present, No gallops present (Cardio), No clicks present (Cardio), No murmurs present (Cardio) and No rub (Cardio) RATE: r egular rate RHYTHM: regular rhythm HEART SOUNDS: S1 normal heart sound present and S2 normal heart sound present PERIPHERAL PULSES: radial pulses present Extremity: GENERAL: Yes edema (3+ pitting edema bilateral lower extremity below the knee) Neuro: COMMON NORMALS: patient oriented x3 and moves all extremities S ENSORIUM/ORIENTATION: Yes oriented to person, Yes oriented to place and Yes oriented to time Data 02/04/25 00:37 02/04/25 00:37 A&P Assessment and plan 1. CAD (coronary artery disease): 2. PAD (peripheral artery disease): 3. History of deep vein thrombosis: 4. Atrial fibrillation with RVR: 5. Chest pain: 6. Hypertension: 7. BARGER (dyspnea on exertion): 8. Type 2 diabetes mellitus: 9. Iron deficiency anemia due to chronic blood loss: 10. Acute exacerbation of chronic obstructive airways disease: Plan: He appears volume overloaded, possibly from diastolic CHF related to atrial fibrillation with RVR. Troponin was elevated however downtrending, suspecting demand ischemia. He had normal LVEF 60% in July of this year. We can obtain an echocardiogram to reevaluate. He is in sinus rhythm currently. Continue amiodarone infusion and oral diltiazem. He also appears to have COPD exacerbation concurrently with the new onset arrhythmia. Chest pain is atypical seems to be more related to the COPD and volume overload. Continue diuresis with Bumex 1 mg IV twice daily. PDMP PDMP Reviewed: Not Reviewed Coding Level of Care Code Acute Code for [facility] Fwd Diagnoses CAD (coronary artery disease) I25.10 PAD (peripheral artery disease) I73.9 History of deep vein thrombosis Z86.718 Atrial fibrillation with RVR I48.91 Chest pain R07.9 Hypertension I10 BARGER (dyspnea on exertion) R06.09 Type 2 diabetes mellitus E11.9 Iron deficiency anemia due to chronic blood loss D50.0 Acute exacerbation of chronic obstructive airways disease J44.1
--- NOTE | 2025-02-04 10:44 | PC.NURSE ---
amio drip bag still has volume.
--- NOTE | 2025-02-04 11:23 | PC.NURSE ---
Addendum entered by Patricia Robles RN 02/04/25 12:35: Provider is updated with blood sugar of 371. Provider wants a recheck in 1 hour. Original Note: Provider is updated with his blood sugar and gave order for 20 units of humalog and recheck blood sugar in 1 hour.
--- NOTE | 2025-02-04 13:41 | P.PN_ITS ---
Subjective 2 Subjective: Patient was seen this morning, he is sitting up in the side of the bed, reports that his shortness of breath is improving, denies any fevers, no chills, no nausea, no vomiting, no abdominal pain Vitals/I&O/Wt Last Vital Signs Temp 97.8 F 02/04/25 12:00 Pulse 85 02/04/25 12:00 Resp 19 H 02/04/25 12:00 BP 139/71 02/04/25 12:00 Pulse Ox 95 02/04/25 12:00 O2 Del Method Nasal Cannula 02/04/25 12:00 O2 Flow Rate 3 02/04/25 08:19 02/03/25 02/04/25 02/04/25 22:59 06:59 14:59 Intake Total 100 / 100 480 / 480 Output Total 800 / 800 Balance 100 / 100 -320 / -320 Weight last 48 hrs Weight 100.726 kg Weight 100.726 kg Weight 100.244 kg Physical Exam 2 Const: COMMON NORMALS: no acute distress and patient oriented x3 Resp: COMMON NORMALS: normal respiratory effort, No retractions and No use of accessory muscles AUSCULTATION: crackles and wheezes Cardio: COMMON NORMALS: regular rate, regular rhythm, S1 normal heart sound present and S2 normal heart sound present RATE: regular rate RHYTHM: r egular rhythm HEART SOUNDS: S1 normal heart sound present and S2 normal heart sound present GI: COMMON NORMALS: Normal to inspection, nondistended, normoactive bowel sounds present and non-tender Extremity: COMMON NORMALS: no pedal edema Neuro: COMMON NORMALS: patient oriented x3 Psych: COMMON NORMALS: mental status grossly normal Data 02/04/25 00:37 02/04/25 00:37 A&P Assessment and plan 1. Chest pain: 2. Atrial fibrillation with RVR: 3. CHF exacerbation: 4. CAD (coronary artery disease): 5. Chronic anticoagulation: 6. Type 2 diabetes mellitus: 7. History of deep vein thrombosis: 8. Acute respiratory failure with hypoxia: 9. Acute exacerbation of chronic obstructive airways disease: Plan: #1 Chest pain, NSTEMI - Monitor for recurrent chest pain -Aspirin, statin -Therapeutic Lovenox - Cardiology consulted #2 Atrial fibrillation with rapid ventricular response -Currently on amiodarone drip will wean off -Continue p.o. Cardizem -Continue therapeutic Lovenox #3COPD exacerbation - Wean steroids due to hyperglycemia -Prednisone 40 mg daily -Azithromycin - DuoNeb - Oxygen therapy #4 Heart failure with preserved ejection fraction -Bumex 1 mg IV twice daily #5 acute hypoxic respiratory failure - Multifactorial from heart failure with preserved ejection fraction, COPD #6 History of acute on chronic anemia - Protonix, Carafate - Monitor hemoglobin closely #7 type 2 diabetes mellitus - Monitor blood sugars closely - High dose insulin sliding scale, will consider transitioning him back to his home insulin Full code GI and DVT prophylaxis in place PDMP PDMP Reviewed: Not Reviewed Attestations 2 Medical Necessity Statement*: Patient requires hospitalization for chest pain, NSTEMI, A-fib with RVR, COPD, heart failure with preserved ejection fraction, Diagnoses Chest pain R07.9 Atrial fibrillation with RVR I48.91 CHF exacerbation I50.9 CAD (coronary artery disease) I25.10 Chronic anticoagulation Z79.01 Type 2 diabetes mellitus E11.9 History of deep vein thrombosis Z86.718 Acute respiratory failure with hypoxia J96.01 Acute exacerbation of chronic obstructive airways disease J44.1
--- NOTE | 2025-02-04 13:56 | PC.NURSE ---
Addendum entered by Patricia Robles RN 02/04/25 14:02: Fay Brown is his long acting. Original Note: Provider is updated how the patient takes his insulin at home. He said that he takes 40 units in the morning (once daily) of long acting insulin and around 1000 he will take 20-30 units of short acting , if his sugar is over 300 he takes the 30 and again around 1600 he will take the same amount of short acting. He also said if it is under 200 he doesn't normally take any short acting.
[2025-02-04] MEDS: insulin glargine 100 units/1 mL 20 UNIT SUBCUT (14:22)
--- NOTE | 2025-02-04 15:00 | PC.OT ---
Pt seen for OT evaluation from 13:05 to 13:11. Pt is A+OX3 and reports a little bit of chest tightness and his shoulders hurt chronically. Pt is wearing overalls and sitting EOB with good sitting balance. Pt is A+Ox3 and demonstrates bilateral UE AROM WFL and bilateral UE strength impaired due to chronic shoulder pain. Pt has no needs and [employer] and pt report that he is independent in ADLS. No OT indicated due to patient's high level of function. OT evaluation ceased due to doctors visiting patient. Pt has all needs within reach and no further questions.
--- NOTE | 2025-02-04 21:07 | USCV_ITS ---
Joshua Avila Age: 64 Gender: M : 1960 Exam Date: 02/04/2025 10:34 Ordering Phys: Oanh Page MD Technologist: Exam Location: [facility] [place] Indication: sob cp BP: 130 / 70 HR: 83 Rhythm: Sinus Technical Quality: Adequate MEASUREMENTS (Male / Female) Normal Values 2D ECHO LV Diastolic Diameter PLAX 4.9 cm 4.2 - 5.9 / 3.9 - 5.3 cm IVS Diastolic Thickness 1.5 cm 0.6 - 1.0 / 0.6 - 0.9 cm IVS Systolic Thickness 1.9 cm LVPW Diastolic Thickness 1.7 cm 0.6 - 1.0 / 0.6 - 0.9 cm LVPW Systolic Thickness 1.7 cm LVOT Diameter 2.1 cm LV Ejection Fraction 2D Teich 67.7 % LV Ejection Fraction MOD 4C 62.5 % LV Ejection Fraction MOD 2C 60.7 % LV Ejection Fraction 2C AL 60.9 % LA Diameter 3.9 cm RA Systolic Volume 4C AL 63.4 ml RA Systolic Volume 4C MOD 59.7 ml Aorta at Sinotubular Diameter 3.2 cm M-MODE LA Ao Ratio MM 1.4 AV Cusp Separation MM 2.5 cm DOPPLER AV Peak Velocity 146.0 cm/s LVOT Peak Velocity 122.0 cm/s AV Area Cont Eq vti 3.6 cm squared AV Area Cont Eq pk 2.9 cm squared MV Peak Velocity 127.0 cm/s MV Area PHT 4.6 cm squared Mitral E to A Ratio 1.0 TV Peak Velocity 165.5 cm/s TR Peak Velocity 191.0 cm/s TR Peak Gradient 14.6 mmHg TV Peak E Velocity 72.0 cm/s PV Peak Velocity 107.0 cm/s FINDINGS Left Ventricle Normal left ventricular size, systolic function and wall thickness, with no regional wall motion abnormalities. Left ventricular ejection fraction is estimated at 60 %. Grade I/IV diastolic dysfunction (abnormal relaxation filling pattern), normal to mildly elevated filling pressures. Right Ventricle The right ventricle is normal in size and function. Right Atrium The right atrium is normal in size. Left Atrium The left atrium is normal in size. Mitral Valve Moderately thickened mitral valve. No mitral valve stenosis. Trace mitral valve regurgitation. Aortic Valve Severe aortic valve calcification. No aortic valve stenosis. Trace aortic valve regurgitation. Tricuspid Valve Structurally normal tricuspid valve without significant stenosis or regurgitation. Pulmonary artery systolic pressure is normal. Pulmonic Valve Structurally normal pulmonic valve without significant stenosis. There is no pulmonic regurgitation. Pericardium Normal pericardium without effusion. Aorta Normal ascending aorta dimension. IVC The inferior vena cava appears normal. CONCLUSIONS Normal left ventricular size, systolic function and wall thickness, with no regional wall motion abnormalities. Left ventricular ejection fraction is estimated at 60 %. Grade I/IV diastolic dysfunction (abnormal relaxation filling pattern), normal to mildly elevated filling pressures. There is no pericardial effusion. No significant valve abnormalities. Right atrial pressure is around 5 mm of mercury. Marichuy Bates MD (Electronically Signed) Final Date: 04 February 2025 14:55 S
--- NOTE | 2025-02-04 22:15 | PC.NURSE ---
Patient on PO cardizem and per Dr. Armas note wean off amio. Amio gtt currently at 0.5 will turn off per protocol since it has been 18 hrs at the 0.5 mg.
[2025-02-04] MEDS: guaiFENesin 100 mg/5 mL UDC 10 mL 200 MG PO (23:02)
[2025-02-05] VITALS (14 sets, daily range): BP systolic 114–147; BP diastolic 63–79; PULSE 73–95; RESP 16–27; TEMP 36.5–36.8; O2SAT 90–97
[2025-02-05 02:53] LABS: Hematocrit 28.3 % (37-53); Hemoglobin 8.30 g/dL (11.27-16.99); Mean Corpuscular HGB Conc 29.3 g/dL (30-55); Mean Corpuscular Hemoglobin 24.6 pg (27-33); Mean Corpuscular Volume 84.0 fl (82-101); Nucleated Red Blood Cells % 0 %; Platelet Count 228 10^3/cmm (157-399); Red Blood Count 3.37 10^6/uL (3.85-5.65); White Blood Count 11.04 10^3/uL (3.29-11.43)
[2025-02-05] MEDS: sucralfate 1 gm/10 mL Oral Liq UDC PO ×4 (02:57→21:18)
[2025-02-05 03:20] LABS: Alanine Aminotransferase 11 U/L (0-41); Albumin Level 3.4 g/dL (3.5-5.2); Alkaline Phosphatase 97 U/L (40-130); Anion Gap 12.5 (5-19); Aspartate Amino Transferase 11 U/L (0-40); Blood Urea Nitrogen 32 mg/dL (8-23); Calcium 8.8 mg/dL (8.5-10.5); Carbon Dioxide 28 mmol/L (22-29); Chloride 100 mmol/L (98-107); Creatinine Clr Calc Pharmacy 85.7796; Globulin 2.7 g/dL (1.3-4.6); Glucose 256 mg/dL (65-115); Magnesium 2.2 mg/dL (1.7-2.3); Osmolality Calculated 298 mOsm/kg (285-295); Potassium 4.5 mmol/L (3.5-5.1); Sodium 136 mmol/L (136-145); Total Protein 6.1 g/dL (6.6-8.7)
[2025-02-05] MEDS: guaiFENesin 100 mg/5 mL UDC 10 mL 200 MG PO ×4 (03:28→21:17)
[2025-02-05] MEDS: bumetanide 0.25 mg/mL SDV 4 mL 1 MG IVP ×2 (06:27→21:18)
[2025-02-05 06:51] LABS: NT Pro B Type Natriuretic Pept 506 pg/mL (0-125)
[2025-02-05] MEDS: pantoprazole 40 mg SDV IVP ×2 (07:51→21:16)
[2025-02-05] MEDS: insulin glargine 100 units/1 mL 20 UNIT SUBCUT (09:37)
--- NOTE | 2025-02-05 10:35 | P.PN_ITS ---
Subjective 2 Subjective: Patient was seen this morning, currently alert oriented x 3, following all commands, does report persistent shortness of breath, wheezing, his edema is improving but persists, no abdominal pain Vitals/I&O/Wt Last Vital Signs Temp 97.7 F 02/05/25 07:23 Pulse 87 02/05/25 07:47 Resp 24 H 02/05/25 07:47 BP 141/79 02/05/25 07:23 Pulse Ox 94 02/05/25 07:47 O2 Del Method Nasal Cannula 02/05/25 07:47 O2 Flow Rate 4 02/05/25 07:47 02/04/25 02/05/25 02/05/25 22:59 06:59 14:59 Intake Total 740 / 1220 710 / 1930 260 / 260 Output Total 750 / 1850 1400 / 3250 825 / 825 Balance -10 / -630 -690 / -1320 -565 / -565 Weight last 48 hrs Weight 99.365 kg Weight 100.726 kg Weight 100.726 kg Weight 100.244 kg Physical Exam 2 Const: COMMON NORMALS: no acute distress and patient oriented x3 Resp: COMMON NORMALS: normal respiratory effort, No retractions and No use of accessory muscles AUSCULTATION: crackles and wheezes Cardio: COMMON NORMALS: regular rate, regular rhythm, S1 normal heart sound present and S2 normal heart sound present RATE: regular rate RHYTHM: r egular rhythm HEART SOUNDS: S1 normal heart sound present and S2 normal heart sound present GI: COMMON NORMALS: Normal to inspection, nondistended, normoactive bowel sounds present and non-tender Extremity: NARRATIVE EXTREMITY EXAM: 2+ pitting edema Neuro: COMMON NORMALS: patient oriented x3 Psych: COMMON NORMALS: mental status grossly normal Data 02/05/25 02:43 02/05/25 02:43 A&P Assessment and plan 1. Chest pain: 2. Atrial fibrillation with RVR: 3. CHF exacerbation: 4. CAD (coronary artery disease): 5. Chronic anticoagulation: 6. Type 2 diabetes mellitus: 7. History of deep vein thrombosis: 8. Acute respiratory failure with hypoxia: 9. Acute exacerbation of chronic obstructive airways disease: Plan: #1 Chest pain, NSTEMI - Monitor for recurrent chest pain -Aspirin, statin -Therapeutic Lovenox - Cardiology consulted #2 Atrial fibrillation with rapid ventricular response - Currently off amiodarone drip -Continue p.o. Cardizem -Continue therapeutic Lovenox #3COPD exacerbation - Wean steroids due to hyperglycemia -Prednisone 40 mg daily -Azithromycin - DuoNeb - Oxygen therapy #4 Heart failure with preserved ejection fraction -Bumex 1 mg IV twice daily, 1 dose metolazone today #5 acute hypoxic respiratory failure - Multifactorial from heart failure with preserved ejection fraction, COPD #6 History of acute on chronic anemia - Protonix, Carafate - Monitor hemoglobin afternoon #7 type 2 diabetes mellitus - Monitor blood sugars closely - High dose insulin sliding scale, will consider transitioning him back to his home insulin Full code GI and DVT prophylaxis in place Plan for today, continue steroids, continue antibiotics, continue IV diuresis, monitor respiratory status closely PDMP PDMP Reviewed: Not Reviewed Attestations 2 Medical Necessity Statement*: Patient requires hospitalization for acute hypoxic respiratory failure secondary to COPD, CHF requiring IV diuresis Diagnoses Chest pain R07.9 Atrial fibrillation with RVR I48.91 CHF exacerbation I50.9 CAD (coronary artery disease) I25.10 Chronic anticoagulation Z79.01 Type 2 diabetes mellitus E11.9 History of deep vein thrombosis Z86.718 Acute respiratory failure with hypoxia J96.01 Acute exacerbation of chronic obstructive airways disease J44.1
--- NOTE | 2025-02-05 11:06 | PC.NURSE ---
Dr Bates asked nursing to order metoprolol succinate 12.5mg daily to start now. Order entered.
[2025-02-05] MEDS: metoprolol succinate ER (24 HR) 25 mg Tablet 12.5 MG PO (11:34)
[2025-02-05 16:19] LABS: Hematocrit 27.2 % (37-53); Hemoglobin 7.90 g/dL (11.27-16.99); Mean Corpuscular HGB Conc 29.0 g/dL (30-55); Mean Corpuscular Hemoglobin 24.5 pg (27-33); Mean Corpuscular Volume 84.2 fl (82-101); Nucleated Red Blood Cells % 0 %; Platelet Count 265 10^3/cmm (157-399); Red Blood Count 3.23 10^6/uL (3.85-5.65); White Blood Count 16.07 10^3/uL (3.29-11.43)
--- NOTE | 2025-02-05 18:05 | P.PN_ITS ---
Subjective 2 Subjective: Patient converted back to sinus rhythm denies any chest pain, remains short of breath but much better Vitals/I&O/Wt Last Vital Signs Temp 98.2 F 02/05/25 11:31 Pulse 90 02/05/25 16:00 Resp 27 H 02/05/25 16:00 BP 138/75 02/05/25 16:00 Pulse Ox 92 02/05/25 16:00 O2 Del Method Nasal Cannula 02/05/25 13:51 O2 Flow Rate 4 02/05/25 16:00 02/05/25 02/05/25 02/05/25 06:59 14:59 22:59 Intake Total 710 / 1930 1100 / 1100 480 / 1580 Output Total 1400 / 3250 1300 / 1300 250 / 1550 Balance -690 / -1320 -200 / -200 230 / 30 Weight last 48 hrs Weight 219 lb 1 oz Weight 222 lb 1 oz Weight 222 lb 1 oz Weight 221 lb Physical Exam 2 Const: OTHER: GENERAL: Patient is alert, awake and oriented x3. HEART: Regular S1 and S2. No murmur, rub or gallop. LUNGS: Decreased breath bilaterally. With expiratory wheeze mild CENTRAL NERVOUS SYSTEM: Grossly nonfocal. EXTREMITIES: Lower extremities with out edema bilaterally. Data 02/05/25 16:07 02/05/25 02:43 A&P Assessment and plan 1. CAD (coronary artery disease): 2. PAD (peripheral artery disease): 3. History of deep vein thrombosis: 4. Atrial fibrillation with RVR: 5. Chest pain: 6. Essential hypertension: 7. BARGER (dyspnea on exertion): 8. Type 2 diabetes mellitus with diabetic peripheral angiopathy without gangrene, unspecified whether intermediate insulin use: 9. Iron deficiency anemia due to chronic blood loss: 10. Acute exacerbation of chronic obstructive airways disease: Plan: Continue to diurese patient is feeling little better Once euvolemic may need further assessment for ischemia as patient has unexplained worsening of shortness of breath, history of given PAD with high probability for obstructive coronary disease, history of evidence of calcification on CT scan, last year stress test was negative however patient continues to deteriorate less of breath de [place] and cannot walk barely few feet before being short of breath. Once euvolemic and improved from a COPD perspective we will proceed with left heart cath most likely Friday. Continue Bumex Continue treatment for COPD exacerbation as per medicine clinic Continue statin aspirin, add beta-sharmin Continue Cardizem and switch to 180 mg of Cardizem from tomorrow long-acting Possible left heart cath Friday or Friday depending upon when patient is ready from pulmonary perspective PDMP PDMP Reviewed: Not Reviewed Attestations 2 Medical Necessity Statement*: Patient require continuation hospitalization for above defined care Coding Level of Care Code Acute Code for Chg Fwd Diagnoses CAD (coronary artery disease) I25.10 PAD (peripheral artery disease) I73.9 History of deep vein thrombosis Z86.718 Atrial fibrillation with RVR I48.91 Chest pain R07.9 Essential hypertension I10 Hypertension type: essential hypertension BARGER (dyspnea on exertion) R06.09 Type 2 diabetes mellitus with diabetic peripheral angiopathy without gangrene, 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
[2025-02-05] MEDS: HYDROmorphone 0.5 MG/0.5 ML INJ 1 MG IVP (22:08)
[2025-02-06] VITALS (21 sets, daily range): BP systolic 124–151; BP diastolic 60–96; PULSE 82–104; RESP 16–26; TEMP 36.4–37.1; O2SAT 0–100
[2025-02-06] MEDS: guaiFENesin 100 mg/5 mL UDC 10 mL 200 MG PO ×3 (01:43→20:09)
[2025-02-06] MEDS: sucralfate 1 gm/10 mL Oral Liq UDC PO ×4 (01:43→20:09)
[2025-02-06] MEDS: HYDROmorphone 0.5 MG/0.5 ML INJ IVP ×4 (02:19→20:08)
[2025-02-06] MEDS: bumetanide 0.25 mg/mL SDV 4 mL 1 MG IVP ×2 (06:25→17:22)
[2025-02-06 06:38] LABS: Hematocrit 25.0 % (37-53); Hemoglobin 7.30 g/dL (11.27-16.99); Mean Corpuscular HGB Conc 29.2 g/dL (30-55); Mean Corpuscular Hemoglobin 24.1 pg (27-33); Mean Corpuscular Volume 82.5 fl (82-101); Nucleated Red Blood Cells % 0.1 %; Platelet Count 267 10^3/cmm (157-399); Red Blood Count 3.03 10^6/uL (3.85-5.65); White Blood Count 14.35 10^3/uL (3.29-11.43)
[2025-02-06 07:30] LABS: NT Pro B Type Natriuretic Pept 331 pg/mL (0-125)
[2025-02-06 07:56] LABS: Alanine Aminotransferase 12 U/L (0-41); Albumin Level 3.7 g/dL (3.5-5.2); Alkaline Phosphatase 91 U/L (40-130); Anion Gap 12.2 (5-19); Aspartate Amino Transferase 11 U/L (0-40); Blood Urea Nitrogen 49 mg/dL (8-23); Calcium 9.6 mg/dL (8.5-10.5); Carbon Dioxide 30 mmol/L (22-29); Chloride 94 mmol/L (98-107); Creatinine Clr Calc Pharmacy 85.1865; Globulin 2.4 g/dL (1.3-4.6); Glucose 211 mg/dL (65-115); Magnesium 2.1 mg/dL (1.7-2.3); Osmolality Calculated 293 mOsm/kg (285-295); Potassium 4.2 mmol/L (3.5-5.1); Sodium 132 mmol/L (136-145); Total Protein 6.1 g/dL (6.6-8.7)
[2025-02-06] MEDS: metoprolol succinate ER (24 HR) 25 mg Tablet 12.5 MG PO (08:11)
[2025-02-06] MEDS: pantoprazole 40 mg SDV IVP ×2 (08:13→20:09)
[2025-02-06] MEDS: insulin glargine 100 units/1 mL 20 UNIT SUBCUT (08:13)
--- NOTE | 2025-02-06 08:44 | CTR_ITS ---
PROCEDURE INFORMATION: Exam: CT Chest Without Contrast; Diagnostic Exam date and time: 02/06/2025 9:57 AM Age: 64 years old Clinical indication: Shortness of breath; Additional info: Wheezing, SOB. No history of recent trauma or surgery is provided. TECHNIQUE: Imaging protocol: Diagnostic computed tomography of the chest without contrast. 272image(s) are provided. Radiation optimization: All CT scans at this facility use at least one of these dose optimization techniques: automated exposure control; mA and/or kV adjustment per patient size (includes targeted exams where dose is matched to clinical indication); or iterative reconstruction. Other technique: Axial images are available with sagittal and coronal reconstruction views. Automated dose exposure control is utilized. The DLP is 631.82. COMPARISON: 1. CT angio chest PE protcl [id number] 01/04/2025 8:26 AM 2. CR (CHEST, ) 02/03/2025 7:23 PM 3. CR (CHEST, ) 01/25/2025 8:[address] chest w/o HI-Res(Pulm Only) 01/04/2025 8:[address] angio chest PE protcl [id number] 07/13/2023 3:07 PM 6. There is some slight lung fissure thickening. No interval parenchymal mass type changes are currently appreciated. RADIATION DOSE METRICS: Total DLP (mGy-cm): 631.82 FINDINGS: Trachea: The central airways appear grossly patent overall. There appears to be some marginal scarring, bronchiolectasis. There appear to be some trace secretions for example about the maynor, bronchus intermedius margin. Lungs: No lobar consolidation is appreciated.There is some subsegmental atelectasis versus post inflammatory reticulonodular scarring demonstrated. There are some dense calcified granulomata appearance similar right lower lobe predominance corresponding to the previous description. There is some chronic air trapping appearance overall with some upper lung zone distribution centrilobular appearance and marginal blebs. This may correspond with subtle heterogeneity of the parenchyma which could also be seen with processes including sequela of previous inflammation or small airways disease related change. There are some similar areas of scarring and bronchovascular thickening suggested of the lingula with slight volume loss for example including of the inferior segment. Some of these areas appear decreased for example compared to the previous 2023 CT. Pleural spaces: No pneumothorax or significant pleural effusion is appreciated. Heart: No significant pericardial fluid collection is appreciated. Coronary arteries: There are dense multi-vessel coronary arterial calcifications demonstrated. Lymph nodes: There are some lymph node granulomatous type calcifications present. There are some similar lymph nodes present for example including with some fatty hilum appearance of the precarinal space which measures around 2.6 x 1 cm. Vasculature: No thoracic aortic saccular aneurysmal dilatation is appreciated with some chronic atherosclerotic related changes. This includes some aortic as well as branch vessel calcifications. There are some aortic root type calcifications as well as of the mitral apparatus. Gallbladder and biliary ducts: There is some patulous appearance of what appears to be the gallbladder with trace sludge albeit with incomplete inclusion along with trace fluid. Consider hepatobiliary laboratory profile studies. Stomach: There is a small sliding-type hiatal hernia demonstrated with slight gastroesophageal fold thickening.There is some ingested bowel content present. There is some esophageal air overall present. Consider if there is history of reflux or dysmotility. Intraperitoneal space: The included intraperitoneal space, upper abdominal structures appear similar otherwise overall. Bones/joints: No interval displaced fracture or dislocation is appreciated.There are some degenerative changes of the shoulders and spine overall present. There are some chronic appearing deformities of the medial clavicles as well as cortical undulation of the sternomanubrial junction corresponding to the previous description. There are some chronic appearing rib deformities present. Soft tissues: No radiopaque foreign body or subcutaneous emphysema is appreciated. No subcutaneous fluid collections are appreciated. There is some motion artifact present. No other significant interval changes are appreciated. CT/CT chest wo con [id number] IMPRESSION: 1. No interval lobar consolidation is appreciated with findings suggestive of post inflammation, granulomatous related sequela including calcifications on the right as well as some centrilobular, patchy scarring type volume loss of the lingula. If there are persistent clinical findings then consider bronchoscopy. 2. There is some mild air trapping appearance overall along with some central bronchiolectasis. Consider pulmonary function studies. 3. There are dense multi-vessel coronary calcifications overall present as well as some of the aortic root and mitral apparatus. Consider calcium scoring CT, echocardiography.
[2025-02-06 10:00] LABS: Procalcitonin 0.14 ng/mL (0-0.5)
[2025-02-06] MEDS: cefTRIAXone 1,000 mg SDV 1000 MG IVP (11:37)
--- NOTE | 2025-02-06 12:15 | P.PN_ITS ---
Subjective 2 Subjective: Patient says he is steadily getting better breathing is better today Vitals/I&O/Wt Last Vital Signs Temp 97.5 F L 02/06/25 12:03 Pulse 95 02/06/25 12:03 Resp 16 02/06/25 12:03 BP 129/81 02/06/25 12:03 Pulse Ox 94 02/06/25 12:03 O2 Del Method Nasal Cannula 02/06/25 11:11 O2 Flow Rate 4 02/06/25 11:11 02/05/25 02/06/25 02/06/25 22:59 06:59 14:59 Intake Total 480 / 1580 1670 / 3250 360 / 360 Output Total 1150 / 2450 1285 / 3735 550 / 550 Balance -670 / -870 385 / -485 -190 / -190 Weight last 48 hrs Weight 218 lb 11.2 oz Weight 219 lb 1 oz Physical Exam 2 Const: OTHER: GENERAL: Patient is alert, awake and oriented x3. HEART: Regular S1 and S2. No murmur, rub or gallop. LUNGS: Creased breath sounds but no obvious wheeze today CENTRAL NERVOUS SYSTEM: Grossly nonfocal. EXTREMITIES: Lower extremities with out edema bilaterally. Data 02/06/25 06:01 02/06/25 06:01 A&P Assessment and plan 1. CAD (coronary artery disease): 2. PAD (peripheral artery disease): 3. History of deep vein thrombosis: 4. Atrial fibrillation with RVR: 5. Chest pain: 6. Essential hypertension: 7. BARGER (dyspnea on exertion): 8. Type 2 diabetes mellitus with diabetic peripheral angiopathy without gangrene, unspecified whether director long term care insulin use: 9. Iron deficiency anemia due to chronic blood loss: 10. Acute exacerbation of chronic obstructive airways disease: Plan: Continue to diurese patient is feeling little better Once euvolemic may need further assessment for ischemia as patient has unexplained worsening of shortness of breath, history of given PAD with high probability for obstructive coronary disease, history of evidence of calcification on CT scan, last year stress test was negative however patient continues to deteriorate less of breath [place] and cannot walk barely few feet before being short of breath. Once euvolemic and improved from a COPD perspective we will proceed with left heart cath most likely Friday. Continue Bumex Continue treatment for COPD exacerbation as per medicine clinic Continue statin aspirin, add beta-sharmin Continue Cardizem and switch to 180 mg of Cardizem from tomorrow long-acting Possible left heart cath Friday or Friday depending upon when patient is ready from pulmonary perspective On today's visit patient steadily improving. Continue current plan Plan for left heart cath Friday PDMP PDMP Reviewed: Not Reviewed Attestations 2 Medical Necessity Statement*: Patient require continuation hospitalization for above defined care Coding Level of Care Code Acute Code for Chg Fwd Diagnoses CAD (coronary artery disease) I25.10 PAD (peripheral artery disease) I73.9 History of deep vein thrombosis Z86.718 Atrial fibrillation with RVR I48.91 Chest pain R07.9 Essential hypertension I10 Hypertension type: essential hypertension BARGER (dyspnea on exertion) R06.09 Type 2 diabetes mellitus with diabetic peripheral angiopathy without gangrene, unspecified whether director long term care insulin use E11.51 Diabetes mellitus complication detail: with peripheral angiopathy without gangrene Diabetes mellitus complication status: with circulatory complication Diabetes mellitus assisted insulin use: unspecified director long term care insulin use status Iron deficiency anemia due to chronic blood loss D50.0 Acute exacerbation of chronic obstructive airways disease J44.1
--- NOTE | 2025-02-06 12:51 | P.PN_ITS ---
Subjective 2 Subjective: Patient was seen this morning, currently alert to person, to place, not to time can follow commands, continues to complain of edema, lower extremity edema, shortness of breath, has wheezing, no cough, no lightheadedness, dizziness, no nausea, no vomiting, abdomen is distended but had a bowel movement no chest pain, denies any bloody or black stools Vitals/I&O/Wt Last Vital Signs Temp 97.5 F L 02/06/25 12:03 Pulse 95 02/06/25 12:03 Resp 16 02/06/25 12:03 BP 129/81 02/06/25 12:03 Pulse Ox 94 02/06/25 12:03 O2 Del Method Nasal Cannula 02/06/25 11:11 O2 Flow Rate 4 02/06/25 11:11 02/05/25 02/06/25 02/06/25 22:59 06:59 14:59 Intake Total 480 / 1580 1670 / 3250 360 / 360 Output Total 1150 / 2450 1285 / 3735 550 / 550 Balance -670 / -870 385 / -485 -190 / -190 Weight last 48 hrs Weight 99.201 kg Weight 99.365 kg Physical Exam 2 Const: COMMON NORMALS: no acute distress and patient oriented x3 Resp: COMMON NORMALS: normal respiratory effort, No retractions and No use of accessory muscles AUSCULTATION: wheezes OTHER: Wheezing and crackles on lower lung jones Cardio: COMMON NORMALS: regular rate, regular rhythm, S1 normal heart sound present and S2 normal heart sound present RATE: regular rate RHYTHM: r egular rhythm HEART SOUNDS: S1 normal heart sound present and S2 normal heart sound present GI: COMMON NORMALS: Normal to inspection, nondistended, normoactive bowel sounds present and non-tender Extremity: NARRATIVE EXTREMITY EXAM: 2+ edema Neuro: COMMON NORMALS: patient oriented x3 Psych: COMMON NORMALS: mental status grossly normal Data 02/06/25 06:01 02/06/25 06:01 A&P Assessment and plan 1. Chest pain: 2. Atrial fibrillation with RVR: 3. CHF exacerbation: 4. CAD (coronary artery disease): 5. Chronic anticoagulation: 6. Type 2 diabetes mellitus: 7. History of deep vein thrombosis: 8. Acute respiratory failure with hypoxia: 9. Acute exacerbation of chronic obstructive airways disease: Plan: #1 Chest pain, NSTEMI - Monitor for recurrent chest pain -Aspirin, statin -Therapeutic Lovenox currently on hold due to acute anemia - Cardiology consulted #2 Atrial fibrillation with rapid ventricular response - Currently off amiodarone drip -Continue p.o. Cardizem -Continue therapeutic Lovenox as above #3COPD exacerbation - Wean steroids due to hyperglycemia -Prednisone 40 mg daily -Azithromycin -Rocephin - DuoNeb - Oxygen therapy #4 Heart failure with preserved ejection fraction -Bumex 1 mg IV every 8 hours, 1 dose metolazone today #5 acute hypoxic respiratory failure - Multifactorial from heart failure with preserved ejection fraction, COPD #6 History of acute on chronic anemia, hemoglobin down to 7.3, denies any blood black stools - Protonix, Carafate - Will transfuse 1 unit PRBC, hold Lovenox - Lovenox currently on hold #7 type 2 diabetes mellitus - Monitor blood sugars closely - High dose insulin sliding scale, will consider transitioning him back to his home insulin Full code GI and DVT prophylaxis in place Plan for today, will do CT of the chest, IV diuresis increase Bumex to 1 mg every 8 hours due to persistent edema add metolazone add Rocephin, CT of the chest, monitor respiratory status closely, due to acute anemia transfuse 1 unit PRBC, hold therapeutic Lovenox, discussed risk and benefits of holding anticoagulant therapy with patient, he voiced understanding, all questions answered, agreed to proceed PDMP PDMP Reviewed: Not Reviewed Attestations 2 Medical Necessity Statement*: Patient requires hospitalization for acute hypoxic respiratory failure, COPD, CHF, acute anemia Diagnoses Chest pain R07.9 Atrial fibrillation with RVR I48.91 CHF exacerbation I50.9 CAD (coronary artery disease) I25.10 Chronic anticoagulation Z79.01 Type 2 diabetes mellitus E11.9 History of deep vein thrombosis Z86.718 Acute respiratory failure with hypoxia J96.01 Acute exacerbation of chronic obstructive airways disease J44.1
--- NOTE | 2025-02-06 22:24 | PC.NURSE ---
Recieved phone call from Dr. Bunch regarding this patients respiratory status and if he can lay flat. Discussed lovenox status, plavix usage, and recent blood transfusion. Since patient received a blood transfusion and hgb is in the 7's. At this time Dr. Bunch is not wanting him to go to cath in the AM due to the risk of bleeding. Dr. bunch to see the patient in the AM and explain the situation in depth.
[2025-02-07] VITALS (11 sets, daily range): BP systolic 128–152; BP diastolic 72–85; PULSE 83–108; RESP 13–24; TEMP 36.4–36.8; O2SAT 90–98
[2025-02-07] MEDS: bumetanide 0.25 mg/mL SDV 4 mL 1 MG IVP ×3 (03:14→18:06)
[2025-02-07] MEDS: sucralfate 1 gm/10 mL Oral Liq UDC PO ×4 (03:14→23:21)
[2025-02-07] MEDS: HYDROmorphone 0.5 MG/0.5 ML INJ IVP ×3 (03:14→20:30)
[2025-02-07] MEDS: guaiFENesin 100 mg/5 mL UDC 10 mL 200 MG PO ×3 (03:14→18:30)
--- NOTE | 2025-02-07 03:27 | ECG_ITS ---
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 Measurements Intervals [place] Rate: 79 P: 56 [place]: 199 QRS: -1 QRSD: 103 T: 40 QT: 398 QTc: 458 Interpretive Statements SINUS RHYTHM WITH OCCASIONAL SUPRAVENTRICULAR PREMATURE COMPLEXES INCOMPLETE RIGHT BUNDLE BRANCH BLOCK [90+ ms QRS DURATION, TERMINAL R IN V1/V2, 40+ ms S IN I/aVL/V4/V5/V6] Compared to ECG 02/04/2025 00:13:32 Atrial fibrillation no longer present ST (T wave) deviation no longer present Electronically Signed On 02-10-2025 23:34:16 CDT by Melida Bejarano M.D. [email or web address]
[2025-02-07 04:24] LABS: Hematocrit 25.7 % (37-53); Hemoglobin 7.80 g/dL (11.27-16.99); Mean Corpuscular HGB Conc 30.4 g/dL (30-55); Mean Corpuscular Hemoglobin 24.9 pg (27-33); Mean Corpuscular Volume 82.1 fl (82-101); Nucleated Red Blood Cells % 0.2 %; Platelet Count 208 10^3/cmm (157-399); Red Blood Count 3.13 10^6/uL (3.85-5.65); White Blood Count 11.93 10^3/uL (3.29-11.43)
[2025-02-07 05:03] LABS: Alanine Aminotransferase 16 U/L (0-41); Albumin Level 3.7 g/dL (3.5-5.2); Alkaline Phosphatase 97 U/L (40-130); Anion Gap 15.0 (5-19); Aspartate Amino Transferase 18 U/L (0-40); Blood Urea Nitrogen 52 mg/dL (8-23); Calcium 9.9 mg/dL (8.5-10.5); Carbon Dioxide 33 mmol/L (22-29); Chloride 90 mmol/L (98-107); Globulin 2.4 g/dL (1.3-4.6); Glucose 179 mg/dL (65-115); Magnesium 2.0 mg/dL (1.7-2.3); NT Pro B Type Natriuretic Pept 273 pg/mL (0-125); Osmolality Calculated 297 mOsm/kg (285-295); Potassium 4.0 mmol/L (3.5-5.1); Sodium 134 mmol/L (136-145); Total Protein 6.1 g/dL (6.6-8.7)
[2025-02-07 05:05] LABS: Creatinine Clr Calc Pharmacy 72.0809
[2025-02-07] MEDS: pantoprazole 40 mg SDV IVP ×2 (08:03→20:29)
[2025-02-07] MEDS: metoprolol succinate ER (24 HR) 25 mg Tablet 12.5 MG PO (08:05)
[2025-02-07] MEDS: insulin glargine 100 units/1 mL 20 UNIT SUBCUT (08:06)
[2025-02-07] MEDS: iron sucrose 200 MG in sodium chloride 0.9% (100 ml) 100 ML 220 MG IV (09:38)
[2025-02-07] MEDS: heparin drip 25,000 UNIT/500 ML PREMIX 27 UNIT IV (09:42)
--- NOTE | 2025-02-07 11:46 | P.PN_ITS ---
<Statement entered by Marichuy Bates MD - 02/10/25 20:06> Patient was evaluated and cared for in conjunction with an advanced practice practitioner. I personally examined the patient and reviewed the chart and all pertinent data including imaging, telemetry, and laboratory results. I discussed the patient in detail with the advanced practice practitioner. Please see their note for complete H&P testing result and agreed upon plan of care for the patient. Vitals/I&O/Wt Last Vital Signs Temp 98.2 F 02/07/25 08:00 Pulse 94 02/07/25 08:00 Resp 21 H 02/07/25 08:00 BP 148/80 02/07/25 08:00 Pulse Ox 97 02/07/25 08:00 O2 Del Method Nasal Cannula 02/07/25 07:49 O2 Flow Rate 4 02/07/25 07:49 02/06/25 02/07/25 02/07/25 22:59 06:59 14:59 Intake Total 360 / 1790 480 / 1790 590 / 590 Output Total 1675 / 4930 2275 / 4930 1690 / 1690 Balance -1315 / -3140 -1795 / -3140 -1100 / -1100 Weight last 48 hrs Weight 216 lb 4.8 oz Weight 218 lb 11.2 oz Data 02/08/25 05:18 02/08/25 06:55 Micro: Microbiology 02/06/25 11:20 Gram Stain - Final Sputum - Expectorated Sputum Sputum Culture - Preliminary A&P Assessment and plan 1. CAD (coronary artery disease): 2. PAD (peripheral artery disease): 3. BARGER (dyspnea on exertion): 4. Hypertension: 5. Type 2 diabetes mellitus: 6. COPD (chronic obstructive pulmonary disease): Plan: stress test tomorrow, plavix, check stool for heme scope PDMP PDMP Reviewed: Not Reviewed Attestations 2 Medical Necessity Statement*: atrial fibrillation, ischemic workup Coding Level of Care Code Acute Code for g Fwd Diagnoses CAD (coronary artery disease) I25.10 PAD (peripheral artery disease) I73.9 BARGER (dyspnea on exertion) R06.09 Hypertension I10 Type 2 diabetes mellitus E11.9 COPD (chronic obstructive pulmonary disease) J44.9
[2025-02-07] MEDS: dilTIAZem ER (24HR) 240 mg Capsule PO (12:21)
[2025-02-07] MEDS: cefTRIAXone 1,000 mg SDV 1000 MG IVP (12:27)
[2025-02-07 12:47] LABS: Hematocrit 27.0 % (37-53); Hemoglobin 8.80 g/dL (11.27-16.99)
--- NOTE | 2025-02-07 13:49 | P.PN_ITS ---
<Statement entered by Herbert Mayes MD - 02/07/25 17:02> Patient was evaluated and cared for in conjunction with an advanced practice practitioner. I personally saw the patient and reviewed the chart and all pertinent data. I discussed the patient in detail with the advanced practice practitioner and with the Cardiology Interventionalist Dr. Bates. Please see below note for complete assessment and agreed upon plan of care for the patient. Subjective 2 Subjective: He has diuresed well, is -3500mL for the last 24 hours, net -4845mL. Currently a bit tachycardic, in sinus rhythm. Chest pain free, shortness of breath improved. Hemoglobin was 10.6 on admission, has gradually dropped to 7.8 over the last few days. He has history of GI bleed s/p clip. Vitals/I&O/Wt Last Vital Signs Temp 98.2 F 02/07/25 08:00 Pulse 98 02/07/25 12:00 Resp 23 H 02/07/25 12:00 BP 128/72 02/07/25 12:00 Pulse Ox 97 02/07/25 12:00 O2 Del Method Nasal Cannula 02/07/25 12:00 O2 Flow Rate 4 02/07/25 12:00 02/06/25 02/07/25 02/07/25 22:59 06:59 14:59 Intake Total 360 / 1790 480 / 1790 950 / 950 Output Total 1675 / 4930 2275 / 4930 2640 / 2640 Balance -1315 / -3140 -1795 / -3140 -1690 / -1690 Weight last 48 hrs Weight 216 lb 4.8 oz Weight 218 lb 11.2 oz Physical Exam 2 Const: COMMON NORMALS: no acute distress and patient oriented x3 GENERAL APPEARANCE: cooperative and comfortable ORIENTATION/CONSCIOUSNESS: Yes awake, Yes oriented to person, Yes oriented to place and Yes oriented to time Chest: COMMONS NORMALS: normal inspection of the chest and normal palpation of entire chest wall CHEST: Yes Symmetrical chest wall rise Resp: COMMON NORMALS: normal respiratory effort, No retractions, No use of accessory muscles and clear to auscultation bilaterally EFFORT & INSPECTION: Yes symmetric chest movement AUSCULTATION: clear to auscultation bilaterally Cardio: COMMON NORMALS: regular rate, regular rhythm, S1 normal heart sound present, S2 normal heart sound present, No gallops present (Cardio), No clicks present (Cardio), No murmurs present (Cardio) and No rub (Cardio) RATE: r egular rate RHYTHM: regular rhythm HEART SOUNDS: S1 normal heart sound present and S2 normal heart sound present PERIPHERAL PULSES: radial pulses present Extremity: COMMON NORMALS: no pedal edema Neuro: COMMON NORMALS: patient oriented x3 and moves all extremities S ENSORIUM/ORIENTATION: Yes oriented to person, Yes oriented to place and Yes oriented to time Data 02/07/25 12:14 02/07/25 02:51 Micro: Microbiology 02/06/25 11:20 Gram Stain - Final Sputum - Expectorated Sputum Sputum Culture - Preliminary A&P Assessment and plan 1. Atrial fibrillation with RVR: 2. CAD (coronary artery disease): 3. PAD (peripheral artery disease): 4. Tobacco dependence due to cigarettes, in remission: 5. Type 2 diabetes mellitus: 6. Acute renal insufficiency: 7. COPD (chronic obstructive pulmonary disease): Plan: He has normal LVEF, no valvular abnormalities. Will switch him to long acting diltiazem for better rate control, 240mg daily. Uptitrate metoprolol succinate to 25mg daily in the evening. Plan for now is medical management, given the high risk of bleeding if coronary angiogram were performed. Will plan for stress test, start Plavix and test stool for blood. If he is able to tolerate a trial of Plavix with no drop in hemoglobin or bloody stool, then can perform coronary angiogram safely, likely as an outpatient. PDMP PDMP Reviewed: Not Reviewed Attestations 2 Medical Necessity Statement*: stress test Coding Level of Care Code Acute Code for [facility] Diagnoses Atrial fibrillation with RVR I48.91 CAD (coronary artery disease) I25.10 PAD (peripheral artery disease) I73.9 Tobacco dependence due to cigarettes, in remission F17.211 Type 2 diabetes mellitus E11.9 Acute renal insufficiency N28.9 COPD (chronic obstructive pulmonary disease) J44.9
--- NOTE | 2025-02-07 15:55 | P.PN_ITS ---
Subjective 2 Subjective: Patient seen this morning, currently alert and oriented x 3, following commands, does report shortness of breath, does have wheezing, continues to have 2+ pitting edema, he was diuresed over 4 L yesterday but continued to feel short of breath, we discussed Carey catheter placement, further diuresis, if he continues to have shortness of breath he might require a Bumex drip, he is in agreement we also discussed his acute on chronic anemia he required 1 unit PRBC, his hemoglobin has improved, he denies any bloody black stools, we discussed holding anticoagulant therapy versus a trial of a heparin drip, and watching his hemoglobin every 6 hours, after discussing the risk benefits of all options, he voiced understanding, agreed with aspirin, agreed to proceed with trial of heparin drip, watching his hemoglobin every 6 hours, if his hemoglobin drops below 7 and he will likely require a unit of blood, or if he develops any bloody black stools he will likely require EGD/colonoscopy/stoppage of anticoagulant therapy Vitals/I&O/Wt Last Vital Signs Temp 98.2 F 02/07/25 08:00 Pulse 98 02/07/25 12:00 Resp 23 H 02/07/25 12:00 BP 128/72 02/07/25 12:00 Pulse Ox 97 02/07/25 12:00 O2 Del Method Nasal Cannula 02/07/25 12:00 O2 Flow Rate 4 02/07/25 12:00 02/07/25 02/07/25 02/07/25 06:59 14:59 22:59 Intake Total 480 / 1790 950 / 950 Output Total 2275 / 4930 2640 / 2640 800 / 3440 Balance -1795 / -3140 -1690 / -1690 -800 / -2490 Weight last 48 hrs Weight 98.112 kg Weight 99.201 kg Physical Exam 2 Const: COMMON NORMALS: no acute distress and patient oriented x3 Resp: COMMON NORMALS: normal respiratory effort, No retractions and No use of accessory muscles AUSCULTATION: crackles and wheezes Cardio: COMMON NORMALS: regular rate, regular rhythm, S1 normal heart sound present and S2 normal heart sound present RATE: regular rate RHYTHM: r egular rhythm HEART SOUNDS: S1 normal heart sound present and S2 normal heart sound present GI: COMMON NORMALS: Normal to inspection, nondistended, normoactive bowel sounds present and non-tender Extremity: OTHER: 2+ pitting edema Neuro: COMMON NORMALS: patient oriented x3, CN's II-XII intact bilaterally and moves all extremities Psych: COMMON NORMALS: mental status grossly normal Data 02/07/25 12:14 02/07/25 02:51 Micro: Microbiology 02/06/25 11:20 Gram Stain - Final Sputum - Expectorated Sputum Sputum Culture - Preliminary A&P Assessment and plan 1. Chest pain: 2. Atrial fibrillation with RVR: 3. CHF exacerbation: 4. CAD (coronary artery disease): 5. Chronic anticoagulation: 6. Type 2 diabetes mellitus: 7. History of deep vein thrombosis: 8. Acute respiratory failure with hypoxia: 9. Acute exacerbation of chronic obstructive airways disease: Plan: #1 Chest pain, NSTEMI Cardiac echo CONCLUSIONS Normal left ventricular size, systolic function and wall thickness, with no regional wall motion abnormalities. Left ventricular ejection fraction is estimated at 60 %. Grade I/IV diastolic dysfunction (abnormal relaxation filling pattern), normal to mildly elevated filling pressures. There is no pericardial effusion. No significant valve abnormalities. Right atrial pressure is around 5 mm of mercury. - Monitor for recurrent chest pain -Aspirin, statin - Currently on heparin drip, - Cardiology consulted #2 Atrial fibrillation with rapid ventricular response - Currently off amiodarone drip -Continue p.o. Cardizem - Currently on heparin drip #3COPD exacerbation - Wean steroids due to hyperglycemia -Prednisone 40 mg daily -Azithromycin -Rocephin - DuoNeb - Oxygen therapy #4 Heart failure with preserved ejection fraction -Continues to have wheezing, pitting edema, crackles -Bumex 1 mg IV every 8 hours, 1 dose metolazone today - Please Carey catheter - Monitor urine output, monitor creatinine #5 acute hypoxic respiratory failure CT chest CT/CT chest wo con [id number] IMPRESSION: 1. No interval lobar consolidation is appreciated with findings suggestive of post inflammation, granulomatous related sequela including calcifications on the right as well as some centrilobular, patchy scarring type volume loss of the lingula. If there are persistent clinical findings then consider bronchoscopy. 2. There is some mild air trapping appearance overall along with some central bronchiolectasis. Consider pulmonary function studies. 3. There are dense multi-vessel coronary calcifications overall present as well as some of the aortic root and mitral apparatus. Consider calcium scoring CT, echocardiography. - Multifactorial from heart failure with preserved ejection fraction, COPD #6 History of acute on chronic anemia, hemoglobin down to 7.3, denies any blood black stools - Protonix, Carafate - Status post 1 unit PRBC -Discussed risks and benefits of trial of heparin drip, patient voiced understanding, all questions answered, agreed to proceed - Watch hemoglobin every 6 hours #7 type 2 diabetes mellitus - Monitor blood sugars closely - High dose insulin sliding scale, will consider transitioning him back to his home insulin Full code GI and DVT prophylaxis in place Plan for today, Bumex IV every 8 hours, metolazone, continue Rocephin, continue azithromycin, trial of heparin drip, monitor BMP, monitor hemoglobin every 6 hours, n.p.o. midnight for possible stress test tomorrow PDMP PDMP Reviewed: Not Reviewed Attestations 2 Medical Necessity Statement*: Patient requires hospitalization for acute hypoxic respiratory failure secondary to CHF, fluid overload, acute anemia, atrial fibrillation, pneumonia Diagnoses Chest pain R07.9 Atrial fibrillation with RVR I48.91 CHF exacerbation I50.9 CAD (coronary artery disease) I25.10 Chronic anticoagulation Z79.01 Type 2 diabetes mellitus E11.9 History of deep vein thrombosis Z86.718 Acute respiratory failure with hypoxia J96.01 Acute exacerbation of chronic obstructive airways disease J44.1
[2025-02-07 16:56] LABS: Partial Thromboplastin Time 57.7 SECONDS (23.9-36.7)
[2025-02-07 18:51] LABS: Hematocrit 25.5 % (37-53); Hemoglobin 7.80 g/dL (11.27-16.99)
[2025-02-07 19:12] LABS: Blood Urea Nitrogen 49 mg/dL (8-23); Calcium 9.7 mg/dL (8.5-10.5); Carbon Dioxide 31 mmol/L (22-29); Chloride 85 mmol/L (98-107); Creatinine Clr Calc Pharmacy 84.7630; Glucose 254 mg/dL (65-115); Osmolality Calculated 292 mOsm/kg (285-295); Sodium 130 mmol/L (136-145)
[2025-02-07 19:20] LABS: Anion Gap 17.6 (5-19); Potassium 3.6 mmol/L (3.5-5.1)
[2025-02-07 22:48] LABS: Partial Thromboplastin Time 34.5 SECONDS (23.9-36.7)
[2025-02-07] MEDS: heparin 5,000 unit/mL INJ 1 mL IVP (23:21)
[2025-02-08] VITALS (33 sets, daily range): BP systolic 91–151; BP diastolic 55–89; PULSE 76–128; RESP 13–26; TEMP 36.4–36.7; O2SAT 90–97; BMI 27.6
[2025-02-08 01:33] LABS: Hematocrit 24.0 % (37-53); Hemoglobin 7.40 g/dL (11.27-16.99)
[2025-02-08] MEDS: bumetanide 0.25 mg/mL SDV 4 mL 1 MG IVP ×3 (02:53→17:42)
[2025-02-08] MEDS: ondansetron 2 mg/ML SDV 2 mL 4 MG IVP (05:02)
[2025-02-08 05:27] LABS: Hematocrit 24.0 % (37-53); Hemoglobin 7.40 g/dL (11.27-16.99)
[2025-02-08] MEDS: heparin drip 25,000 UNIT/500 ML PREMIX 33 UNIT IV (05:28)
[2025-02-08 06:00] LABS: Partial Thromboplastin Time 183.3 SECONDS (23.9-36.7)
--- NOTE | 2025-02-08 06:15 | PC.NURSE ---
Patient woke up to do a breathing treatment and developed nausea. Patient started dry heaving and telemetry showed rhythm going back into AF with HR in 130's. EKG obtained and Dr. Kelly notified. No new orders received.
[2025-02-08] MEDS: sucralfate 1 gm/10 mL Oral Liq UDC PO ×4 (06:23→23:57)
--- NOTE | 2025-02-08 06:33 | ECG_ITS ---
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 Measurements Intervals [place] Rate: 107 P: 0 NE: 0 QRS: 50 QRSD: 114 T: 59 QT: 341 QTc: 456 Interpretive Statements ATRIAL FIBRILLATION WITH RAPID VENTRICULAR RESPONSE INCOMPLETE RIGHT BUNDLE BRANCH BLOCK [90+ ms QRS DURATION, TERMINAL R IN V1/V2, 40+ ms S IN I/aVL/V4/V5/V6] ABNORMAL RHYTHM ECG Compared to ECG 02/07/2025 03:27:29 Sinus rhythm no longer present Electronically Signed On 02-10-2025 08:45:41 CDT by Gurmeet Treadwell M.D. [email or web address] [id number]
--- NOTE | 2025-02-08 06:35 | P.EN_ITS ---
Event Note Event Note: Chest pain: Patient was seen and evaluated sitting with chest pain. Troponins and EKG requested Sublingual nitrates and Dilaudid added Cardiology on board and for further evaluation and recommendation to follow Event Notes Attestations Time Spent in Patient Care: less than 15 minutes (>than 50% of time spent in counselling and/or direct pt care on unit) .
[2025-02-08 07:17] LABS: Anion Gap 14.3 (5-19); Blood Urea Nitrogen 58 mg/dL (8-23); Calcium 9.6 mg/dL (8.5-10.5); Carbon Dioxide 34 mmol/L (22-29); Chloride 84 mmol/L (98-107); Creatinine Clr Calc Pharmacy 70.7673; Glucose 245 mg/dL (65-115); Osmolality Calculated 292 mOsm/kg (285-295); Potassium 3.3 mmol/L (3.5-5.1); Sodium 129 mmol/L (136-145); Troponin(5th) Baseline 50 ng/L (0-15)
--- NOTE | 2025-02-08 07:19 | PC.NURSE ---
Around 0629 patient was sitting on side of bedside stating he wasn't feeling good, he is still nauseous. He also endorses chest pressure 7/10 and still SOB. Zofran given earlier and no PRN pain medications avaliable. Dr. Kelly notified, MD to place orders. Patient did receive 1 nitro BP taken prior of 126/70. Noris VELÁSQUEZ at bedside for report and shortly after nitro patient stated he felt lightheaded. Patient laid back in bed and BP retaken reading 67/44. Dr. Kelly and Dr. Zafar notifed. BP retaken about 5 minutes later reading 101/63.
[2025-02-08] MEDS: amiodarone 150 MG/100 ML PREMIX 400 MG IV (07:35)
[2025-02-08] MEDS: cefTRIAXone 1,000 mg SDV 1000 MG IVP (07:42)
[2025-02-08] MEDS: pantoprazole 40 mg SDV IVP ×2 (07:43→19:45)
[2025-02-08] MEDS: iron sucrose 200 MG in sodium chloride 0.9% (100 ml) 100 ML 220 MG IV (07:44)
[2025-02-08] MEDS: dilTIAZem ER (24HR) 240 mg Capsule PO (07:49)
[2025-02-08] MEDS: AMIODARONE HCL/D5W 900 MG/500 ML BAG 33.33 MG IV (07:51)
[2025-02-08] MEDS: insulin glargine 100 units/1 mL 20 UNIT SUBCUT (07:54)
--- NOTE | 2025-02-08 07:54 | PC.NURSE ---
stress test cancelled per dr bunch
--- NOTE | 2025-02-08 08:56 | P.PN_ITS ---
<Statement entered by Marichuy Bates MD - 02/08/25 19:58> Patient was evaluated and cared for in conjunction with an advanced practice practitioner. I personally examined the patient and reviewed the chart and all pertinent data including imaging, telemetry, and laboratory results. I discussed the patient in detail with the advanced practice practitioner. Please see their note for complete H&P testing result and agreed upon plan of care for the patient. Patient had episode of A-fib with RVR along with chest pressure this morning. Hemoglobin was also around 7.0 GENERAL: Patient is alert, awake and oriented x3. HEART: Irregularly irregular S1 and S2. LUNGS: Decreased breath sound bilaterally. CENTRAL NERVOUS SYSTEM: Grossly nonfocal. EXTREMITIES: Lower extremities with out edema bilaterally. Assessment and plan Chest pain suggestive of angina Atrial fibrillation rapid ventricular response Anemia quiring transfusion COPD Severe peripheral arterial disease Started on amiodarone to keep him out of atrial fibrillation, he was transfused to improve hemoglobin Continue p.o. Cardizem Heparin to prevent stroke Patient will be needing endoscopy colonoscopy to rule out source of anemia such as GI bleed Once anemia stable may will give a trial of Plavix for couple of days if hemoglobin remains stable will proceed with left heart cath Keep hemoglobin above 8 I have detailed discussion with the patient and with his spouse by bedside this is my third meeting with them they both are in agreement as currently given persistently low blood count in the form of anemia cannot rule out GI bleed patient will be high risk to take to [employer] for bleeding. At this point there is no hemodynamic or EKG changes requiring urgency and performing left heart catheter Subjective 2 Subjective: Events overnight: his hemoglobin dropped to 7.4, he went into atrial fibrillation with RVR. He was started on amiodarone 1mg/min, at this time ventricular rates 100-114. Plan to transfuse today. Stress test canceled. Vitals/I&O/Wt Last Vital Signs Temp 98.0 F 02/08/25 07:47 Pulse 95 02/08/25 08:15 Resp 22 H 02/08/25 08:15 BP 91/55 02/08/25 08:15 Pulse Ox 94 02/08/25 08:15 O2 Del Method Nasal Cannula 02/08/25 07:58 O2 Flow Rate 4 02/08/25 07:58 02/07/25 02/08/25 02/08/25 22:59 06:59 14:59 Intake Total 1032.55 / 2314.15 331.60 / 2314.15 210 / 210 Output Total 2900 / 7090 1550 / 7090 Balance -1867.45 / -4775.85 -1218.40 / -4775.85 210 / 210 Weight last 48 hrs Weight 209 lb 14.4 oz Weight 216 lb 4.8 oz Physical Exam 2 Const: COMMON NORMALS: no acute distress and patient oriented x3 Chest: COMMONS NORMALS: normal inspection of the chest and normal palpation of entire chest wall CHEST: Yes Symmetrical chest wall rise Resp: COMMON NORMALS: normal respiratory effort, No retractions, No use of accessory muscles and clear to auscultation bilaterally EFFORT & INSPECTION: Yes symmetric chest movement AUSCULTATION: clear to auscultation bilaterally and wheezes expiratory wheezes, upper bilaterally and anterior Cardio: COMMON NORMALS: S1 normal heart sound present, S2 normal heart sound present, No gallops present (Cardio), No clicks present (Cardio), No murmurs present (Cardio) and No rub (Cardio) RHYTHM: abnormal rhythm irregularly irregular HEART SOUNDS: S1 normal heart sound present and S2 normal heart sound present PERIPHERAL PULSES: radial pulses present, posterior tibial pulses present and dorsalis pedis present Extremity: GENERAL: No edema Neuro: COMMON NORMALS: patient oriented x3 and moves all extremities Psych: COMMON NORMALS: mental status grossly normal and cooperative Urinary Catheter Management: Carey Latex Free: Cath Placed During This Visit: yes Reason for Continuing Indwelling Catheter: Accurate Measurement of Urinary Output in Critically Ill Patients Urinary Catheter Date of Insertion: 02/07/25 Urinary Catheter Time of Insertion: 18:45 Data 02/08/25 08:57 02/08/25 08:57 Micro: Microbiology 02/06/25 11:20 Gram Stain - Final Sputum - Expectorated Sputum Sputum Culture - Preliminary A&P Assessment and plan 1. Atrial fibrillation with RVR: 2. CAD (coronary artery disease): 3. PAD (peripheral artery disease): 4. BARGER (dyspnea on exertion): 5. Hypertension: 6. Type 2 diabetes mellitus: 7. Acute renal insufficiency: 8. COPD (chronic obstructive pulmonary disease): Plan: He is significantly anemic, causing chest pain and recurrence of atrial fibrillation. Recommend to evaluate further with EGD and colonoscopy prior to consideration of any coronary angiogram procedure, as he is unable to tolerate any anticoagulation at this point. No active chest pain now. PDMP PDMP Reviewed: Not Reviewed Attestations 2 Medical Necessity Statement*: significant anemia, atrial fibrillation, ischemic workup Coding Level of Care Code Acute Code for Chg Fwd Diagnoses Atrial fibrillation with RVR I48.91 CAD (coronary artery disease) I25.10 PAD (peripheral artery disease) I73.9 BARGER (dyspnea on exertion) R06.09 Hypertension I10 Type 2 diabetes mellitus E11.9 Acute renal insufficiency N28.9 COPD (chronic obstructive pulmonary disease) J44.9
--- NOTE | 2025-02-08 09:07 | ECG_ITS ---
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 Measurements Intervals [place] Rate: 98 P: 0 ME: 0 QRS: 29 QRSD: 121 T: 28 QT: 378 QTc: 484 Interpretive Statements ATRIAL FIBRILLATION RIGHT BUNDLE BRANCH BLOCK [120+ ms QRS DURATION, UPRIGHT V1, 40+ ms S IN I/aVL/V4/V5/V6] Compared to ECG 02/08/2025 05:09:53 Right bundle-branch block now present Incomplete right bundle-branch block no longer present Electronically Signed On 02-10-2025 09:01:43 CDT by Gurmeet Treadwell M.D. [id number] [id number]
[2025-02-08 09:27] LABS: Hematocrit 22.5 % (37-53); Hemoglobin 7.00 g/dL (11.27-16.99); Mean Corpuscular HGB Conc 31.1 g/dL (30-55); Mean Corpuscular Hemoglobin 25.4 pg (27-33); Mean Corpuscular Volume 81.5 fl (82-101); Nucleated Red Blood Cells % 1.1 %; Platelet Count 360 10^3/cmm (157-399); Red Blood Count 2.76 10^6/uL (3.85-5.65); White Blood Count 25.32 10^3/uL (3.29-11.43)
[2025-02-08 09:48] LABS: Anion Gap 13.1 (5-19); Blood Urea Nitrogen 59 mg/dL (8-23); Calcium 9.7 mg/dL (8.5-10.5); Carbon Dioxide 36 mmol/L (22-29); Chloride 83 mmol/L (98-107); Creatinine Clr Calc Pharmacy 76.6646; Glucose 208 mg/dL (65-115); Magnesium 1.9 mg/dL (1.7-2.3); Osmolality Calculated 291 mOsm/kg (285-295); Potassium 3.1 mmol/L (3.5-5.1); Sodium 129 mmol/L (136-145); Troponin 5 2HR 50.42 ng/L (0-15); Troponin 5 2HR Delta 0.42 ABS# (0-10)
[2025-02-08 10:14] LABS: Slide Review Slide Review Perform
[2025-02-08] MEDS: guaiFENesin 100 mg/5 mL UDC 10 mL 200 MG PO (12:04)
[2025-02-08] MEDS: HYDROmorphone 0.5 MG/0.5 ML INJ IVP ×4 (12:04→23:58)
--- NOTE | 2025-02-08 12:04 | XRR_ITS ---
PROCEDURE INFORMATION: Exam: XR Chest Exam date and time: 02/08/2025 1:04 PM Age: 64 years old Clinical indication: Shortness of breath; Additional info: SOB TECHNIQUE: Imaging protocol: Radiologic exam of the chest. Views: 1 view. COMPARISON: CT chest con [id number] 02/06/2025 9:57 AM FINDINGS: Tubes, catheters and devices: Overlying monitor leads and oxygen tubing. Lungs: Small benign calcified granulomata lower right lung. No infiltrate/edema or consolidation. Mild emphysematous change. Pleural spaces: No significant pleural effusion. No pneumothorax. Heart/Mediastinum: No significant cardiomegaly. Vasculature: Mild arteriosclerosis thoracic aorta. Bones/joints: Visualized osseous structures show no acute abnormality. Old healed fracture deformity mid right clavicle. Other findings: No significant change with prior chest radiograph exam 02/03/2025. XR/XR chest 1V portable [id number] IMPRESSION: Stable appearance of the chest with prior chest radiographic exam 02/03/2025. Mild emphysematous change. No acute findings.
--- NOTE | 2025-02-08 12:04 | CT_ITS ---
WS: [id number] CT ABDOMEN AND PELVIS NONCONTRAST HISTORY: distention TECHNIQUE: Imaging performed through the abdomen and pelvis. Coronal and sagittal reformats are submitted. All CT scans at [facility] use at least one of these dose optimization techniques: automated exposure control; mA and/or kV adjustment per patient size (includes targeted exams where dose is matched to clinical indication); or iterative reconstruction. DLP: 892.60 mGy.cm COMPARISON: 05/10/2022 Lower thorax: Benign granuloma RIGHT lower lobe. Heart size is normal. Liver: Nodular surface of the liver Gallbladder: Normally distended with cholelithiasis. Pancreas: Normal size and attenuation. Normal pancreatic duct. No pancreatitis or mass. Spleen: Normal. Adrenal glands: Normal. No mass. Right kidney: Mild perinephric stranding. No obstruction. Left kidney: Mild perinephric stranding with no obstruction. Aorta: Diffuse vascular sclerotic plaque throughout the abdominal aorta. Minimal dilatation to 2.9 cm distally is similar to the prior study. No periaortic fluid collection. Extensive arterial calcification continues into the celiac axis and SMA. No free fluid, intraperitoneal air or significant lymphadenopathy. GI tract: Normal noncontrast imaging of the stomach, small bowel and colon. No obstruction or wall thickening. Normal appendix. Postsurgical anastomotic sutures in the sigmoid. No obstruction. No colitis. Abdominal wall: Thinning of the abdominal wall musculature. Broad-based umbilical hernia containing nondilated loops of small bowel. There are a few additional very small abdominal wall defects. There is a single loop of small bowel extending through the infraumbilical portion of the ventral abdominal wall hernia. No obstruction. Similar to the prior study from 05/10/2022. Pelvis: Nondistended urinary bladder. Carey catheter is in place. No free fluid in the pelvis. Osseous structures: No destructive bone lesions. CT/CT abdomen pelvis wo con [id number] IMPRESSION: 1. No intra-abdominal or pelvic hematomas or fluid collections. 2. Cirrhotic appearing liver. 3. Moderate atherosclerosis aorta. Atherosclerotic plaque extends into the mes enteric arteries. No GI tract ischemia. 4. Multifocal ventral abdominal wall hernias. There is a single loop of nondil ated small bowel extending through an infraumbilical hernia. Similar to the radhames or study from 2021. 5. Carey catheter in good position. 6. Cholelithiasis without acute cholecystitis.
--- NOTE | 2025-02-08 12:27 | PHA.VACGOAL ---
Vancomycin Goal - Goal Vancomycin Goal:: 15-20 mg/L Vancomycin Indication:: Other - Therapy Current therapy:: Cefepime Day of therpy:: Day []of [] . Actual body weight (kg): 209 lb 14.4 oz - Data Labs: WBC 25.32 10^3/uL (3.29-11.43) H 02/08/25 08:57 RBC 2.76 10^6/uL (3.85-5.65) L 02/08/25 08:57 Hgb 7.00 g/dL (11.27-16.99) L 02/08/25 08:57 Hct 22.5 % (37-53) L 02/08/25 08:57 MCV 81.5 fl (82-101) L 02/08/25 08:57 MCH 25.4 pg (27-33) L 02/08/25 08:57 MCHC 31.1 g/dL (30-55) 02/08/25 08:57 RDW 16.9 % (12.1-15.1) H 02/08/25 08:57 Sodium 129 mmol/L (136-145) L 02/08/25 08:57 Potassium 3.1 mmol/L (3.5-5.1) L 02/08/25 08:57 Chloride 83 mmol/L (98-107) L 02/08/25 08:57 Carbon Dioxide 36 mmol/L (22-29) H 02/08/25 08:57 Anion Gap 13.1 (5-19) 02/08/25 08:57 BUN 59 mg/dL (8-23) H 02/08/25 08:57 Creatinine 1.2 mg/dL (0.7-1.2) 02/08/25 08:57 GFR Calculation 61.1 mL/min (90-130) L 02/08/25 08:57 Last dialysis session:: N/A Treatment plan:: new consult Regimen:: STARTING DOSE OF 1500 MG Q12H PER DOSING PROTOCOL Follow up:: WILL CONTINUE TO MONITOR AND FOLLOW UP DAILY
--- NOTE | 2025-02-08 12:33 | ECG_ITS ---
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 Measurements Intervals [place] Rate: 86 P: 0 MA: 0 QRS: 19 QRSD: 112 T: 62 QT: 357 QTc: 428 Interpretive Statements ATRIAL FIBRILLATION INCOMPLETE RIGHT BUNDLE BRANCH BLOCK [90+ ms QRS DURATION, TERMINAL R IN V1/V2, 40+ ms S IN I/aVL/V4/V5/V6] MINIMAL ST DEPRESSION [0.025+ mV ST DEPRESSION] Compared to ECG 02/08/2025 09:07:23 Incomplete right bundle-branch block now present ST (T wave) deviation now present Right bundle-branch block no longer present Electronically Signed On 02-10-2025 09:01:30 CDT by Gurmeet Treadwell M.D. [email or web address] [id number]
[2025-02-08 13:19] LABS: Glucose Urine UA 2+ (Normal); Nitrate Urine Negative (Negative); Specific Gravity, Urine 1.011 (1.005-1.030)
[2025-02-08 13:31] LABS: Troponin 5 6HR 44.53 ng/L (0-15)
[2025-02-08 13:35] LABS: Troponin 5 6HR Delta -5.47 ng/L (0-12)
[2025-02-08 13:35] LABS: Add Urine Microscopic? YES
[2025-02-08 13:37] LABS: Alanine Aminotransferase 20 U/L (0-41); Albumin Level 3.6 g/dL (3.5-5.2); Alkaline Phosphatase 75 U/L (40-130); Aspartate Amino Transferase 17 U/L (0-40); Globulin 2.2 g/dL (1.3-4.6); Lipase 29 U/L (13-60); Total Protein 5.8 g/dL (6.6-8.7)
[2025-02-08 13:44] LABS: Procalcitonin 0.45 ng/mL (0-0.5)
--- NOTE | 2025-02-08 13:46 | P.ANESASSM_ITS ---
Pre-Anesthetic Assessment Height/Weight: Height 6 ft 1 in Weight 209 lb 14.4 oz Temp Pulse Resp BP Pulse Ox O2 Del Method O2 Flow Rate 98.0 F 95 19 H 112/83 97 Nasal Cannula 3 02/08/25 12:31 02/08/25 12:31 02/08/25 12:31 02/08/25 12:31 02/08/25 12:00 02/08/25 11:37 02/08/25 11:37 Preop Diagnosis: Concern for GI bleed Was Beta Ren taken within 24 hours: Yes Was Clonidine taken within 24 hours: N/A Social Tobacco Exam alert and oriented x 3 Airway Submandibular: within normal limits Cervical ROM: within normal limits Comments: Comments: Large miranda Anesthetic Plan ASA status: 4 Anesthesia: MAC Other: Patient initially presented on 02/03/2025 with acute exacerbation of COPD and A- fib with RVR Patient found to have concerns of GI bleed, initial hemoglobin 10.6 at admission, down to 7.0 on 02/08/2025 IDDM, preop BS Hypertension on losartan Current smoker Echo performed on 02/04/2025 showing EF of 60% with no RWMA A-fib with RVR is currently controlled, HR 95. Patient is on amiodarone Labs reviewed from 02/08/2025, WBC 25.3, hemoglobin 7.0, NA 129, K+ 3.1 Will obtain labs in the a.m. Plan for MAC anesthesia Medications/Allergies Home Medications ?Medication ?Instructions ?Recorded ?Confirmed ?Last Taken ?Type tamsulosin 0.4 mg capsule 0.4 mg PO QAM #90 caps 02/2202/03/25 01/25/25 Rx fluticasone propionate 50 2 spray intranasal DAILY 02/03/25 01/25/25 History mcg/actuation nasal spray,suspension blood-glucose sensor (Dexcom G6 #3 ea 06/15/24 5 Unknown Rx Sensor device) blood-glucose,beam builder,cont #1 ea 06/15/24 02/03/25 Un known Rx (Dexcom G6 Distilling Department Supervisor) lancets for glucose testing #1 ea 07/21/24 02/03/25 Un known Rx insulin lispro 100 unit/mL 30 unit SUBCUT TID 09/30/24 02/03/25 01/25/25 History subcutaneous pen (Humalog KwikPen (U-100) Insulin) lancets 33 gauge (OneTouch Delica #100 ea 11/01/24 Unknown Rx Plus Lancet) blood sugar diagnostic (OneTouch #300 ea 11/05/24/10/03 Unknown Rx Verio test strips) alprazolam 0.5 mg tablet 0.5 mg PO TID PRN 12/22/24 0 02/03/25 Unknown History smothering/anxiety budesonide 160 mcg-glycopyr 9 2 inh inhalation BID #10 .7 grams 12/22/24 02/03/25 01/25/25 Rx mcg-formot 4.8 mcg/actuation HFA inhaler (Breztri Aerosphere) one touch ben test strips #200 ea 12/29/24 02/03/25 U nknown Rx portable oxygen #1 ea 01/11/25 02/03/25 Unkn own Rx portable oxygen concentrator #1 ea 01/11/25 02/03/25 U nknown Rx portable oxygen container #1 ea 01/11/25 02/03/25 Unkn own Rx dabigatran etexilate 75 mg capsule 75 mg PO BID #60 ca ps 01/12/25 02/03/25 Unknown Rx (Pradaxa) potassium chloride 10 mEq 10 meq PO BID Edema 01/18/25 02/03/25 Unknown History tablet,extended release(part/cryst) atorvastatin 40 mg tablet (Lipitor) 40 mg PO DAILY #90 tabs 01/19/25 02/03/25 02/02/25 09:00 Rx empagliflozin 10 mg tablet 10 mg PO DAILY #90 tabs 03/0502/03/25 01/25/25 Rx (Jardiance) roflumilast 250 mcg tablet 250 mcg PO DAILY 4 weeks #3 0 tabs 01/25/25 02/03/25 Unknown Rx albuterol sulfate 90 mcg/actuation 2 puff inhalation Q 4H PRN 01/26/25 02/03/25 01/25/25 History aerosol inhaler Shortness Of Breath Or Wheez ing bumetanide 1 mg tablet 1 mg PO DAILY #270 tabs 01/1002/03/25 01/24/25 Rx insulin glargine-aglr 100 unit/mL 20 unit SUBCUT QAM 0 01/26/25 02/03/25 01/25/25 History (3 mL) subcutaneous pen (Fay Leyva) ipratropium 0.5 mg-albuterol 3 mg 3 ml inhalation TID #180 mL 01/26/25 02/03/25 Unknown Rx (2.5 mg base)/3 mL nebulization soln losartan 100 mg tablet 50 mg (1/2 x 100 mg) PO DEJA Y #90 01/26/25 02/03/25 01/25/25 Rx tabs pantoprazole 40 mg tablet,delayed 40 mg PO BID@0500,17 00 30 days #60 01/26/25 02/03/25 Unknown Rx release tabs sucralfate 1 gram tablet (Carafate) 1 g PO BID 4 weeks #56 tabs 01/26/25 02/03/25 Unknown Rx ferrous sulfate 325 mg (65 mg See Rx Instructions .Rou te 01/31/25 02/03/25 Unknown Rx iron) tablet (Iron (ferrous .COMPLEX #90 tabs sulfate)) Allergies Allergy/AdvReac Type Severity Reaction Status Date / Time No Known Allergies Allergy Verified 02/02/25 09:48 Current Medications Generic Name Dose Route Start Last Admin Trade Name Freq PRN Reason Stop Dose Admin Acetaminophen 650 mg 02/03/25 20:52 02/05/25 16:28 Acetaminophen 325 Mg Tablet PO 650 mg Q6H PRN Administration Mild/Mod Pain Or Temp >/= 101 Albuterol/Ipratropium 3 ml 02/06/25 00:00 02/08/25 11:37 Ipratropium-Albuterol 3 Ml Neb INHALATION 3 ml Q4H.RESPIRATORY SHERITA Administration Aspirin 81 mg 02/04/25 09:00 02/08/25 07:49 Aspirin 81 Mg Ec Tablet PO 81 mg DAILY SHERITA Administration Atorvastatin Calcium 40 mg 02/04/25 21:00 02/07/25 20:29 Atorvastatin 40 Mg Tablet PO 40 mg BEDTIME SHERITA Administration Budesonide 0.5 mg 02/06/25 08:00 02/08/25 07:58 Budesonide 0.5 Mg/2 Ml Neb INHALATION 0.5 mg BID.RESPIRATORY SHERITA Administration Bumetanide 1 mg 02/06/25 18:00 02/08/25 07:50 Bumetanide 0.25 Mg/Ml Sdv 4 Ml IVP 1 mg Q8H SHERITA Administration Diltiazem HCl 240 mg 02/07/25 11:55 02/08/25 07:49 Diltiazem Er (24hr) 240 Mg Capsule PO 240 mg DAILY SHERITA Administration Docusate Sodium 100 mg 02/04/25 09:00 02/08/25 07:49 Docusate Sodium 100 Mg Capsule PO 100 mg BID SHERITA Administration Guaifenesin 200 mg 02/04/25 22:55 02/08/25 12:04 Guaifenesin 100 Mg/5 Ml Udc 10 Ml PO 200 mg Q4H PRN Administration COUGH Hydromorphone HCl 0.5 mg 02/08/25 06:34 02/08/25 12:04 Hydromorphone 0.5 Mg/0.5 Ml Inj IVP 0.5 mg Q4H PRN Administration PAIN Iron Sucrose 200 mg/ Sodium 110 mls @ 220 mls/hr 02/07/25 08:30 02/08/25 08:22 Chloride IV 02/11/25 08:59 Infused Q24H [facility] Infusion AMIODARONE HCL/D5W 900 mg in 500 mls @ 0 mls/hr 02/08/25 07:15 02/08/25 07:51 Amiodarone 900 Mg/500 Ml-D5w IV 1 mg/min .Q0M SHERITA 33.33 mls/hr Protocol Administration Per Protocol Insulin Glargine 20 unit 02/05/25 09:00 02/08/25 07:54 Insulin Glargine 100 Units/1 Ml SUBCUT 20 unit DAILY SHERITA Administration Insulin Human Lispro 0 unit 02/04/25 08:00 02/08/25 11:57 Insulin Lispro 100 Unit/1 Ml SUBCUT 15 unit WM&BEDTIME SHERITA Administration Protocol Nitroglycerin 0.4 mg 02/08/25 06:32 02/08/25 06:37 Nitroglycerin 0.4 Mg Sublingual Tablet SUBLINGUAL 0.4 mg Q5M PRN Administration CHEST PAIN Ondansetron HCl 4 mg 02/03/25 20:52 02/08/25 05:02 Ondansetron 2 Mg/Ml Sdv 2 Ml IVP 4 mg Q8H PRN Administration vomiting, or N/V if npo Pantoprazole Sodium 40 mg 02/04/25 08:15 02/08/25 07:43 Pantoprazole 40 Mg Sdv IVP 40 mg Q12H SHERITA Administration Prednisone 40 mg 02/05/25 09:00 02/08/25 07:49 Prednisone 20 Mg Tablet PO 40 mg DAILY SHERITA Administration Sucralfate 1 gm 02/04/25 08:15 02/08/25 11:56 Sucralfate 1 Gm/10 Ml Oral Liq Udc PO 1 gm Q6H SHERITA Administration [facility] Anesthesia Medical History (Updated 02/08/25 @ 15:26 by Marshall Ugalde MD) Acute respiratory failure with hypoxia Iron deficiency anemia due to chronic blood loss Prediabetes COPD (chronic obstructive pulmonary disease) Hypertension Nicotine dependence Alcohol abuse New onset of congestive heart failure Acute hyponatremia Community acquired pneumonia Chronic maxillary sinusitis Prostatic hypertrophy Duodenal ulcer Liver cirrhosis Anemia COPD exacerbation Erectile dysfunction History of abdominal hernia Renal insufficiency GI bleed Surgical History History of bowel resection History of colon surgery Family History Other CAD (coronary artery disease) Social History Smoking and tobacco/nicotine status: former use of tobacco/nicotine Quit status (tobacco/nicotine): has quit using Year quit tobacco: 2009 Former quit date comment: 2 ppd X 40 years Alcohol intake: current Substance/Drug Use: never Additional social history: 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 as discussed with myself and his Rae 01/26/2025 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 Data Anesthesia 02/09/25 14:08 02/09/25 14:08 Short CBC 02/07/25 02/07/25 02/07/25 Range/Units 02:51 12:14 18:04 WBC 11.93 H (3.29-11.43) 10^3/uL Hgb 7.80 L 8.80 L 7.80 L (11.27-16.99) g/dL Hct 25.7 L 27.0 L 25.5 L (37-53) % MCV 82.1 (82-101) fl Plt Count 208 (157-399) 10^3/cmm Neut % (Auto) 83.3 % Neut # (Auto) 9.94 H (1.8-7.7) 10^3/uL 02/08/25 02/08/25 02/08/25 Range/Units 00:33 05:18 08:57 WBC 25.32 H (3.29-11.43) 10^3/uL Hgb 7.40 L 7.40 L 7.00 L (11.27-16.99) g/dL Hct 24.0 L 24.0 L 22.5 L (37-53) % MCV 81.5 L (82-101) fl Plt Count 360 (157-399) 10^3/cmm Neut % (Auto) 75.9 % Neut # (Auto) 19.20 H (1.8-7.7) 10^3/uL BMP 02/07/25 02/07/25 02/08/25 02:51 18:09 06:55 Sodium 134 L 130 L 129 L Potassium 4.0 3.6 3.3 L Chloride 90 L 85 L 84 L Carbon Dioxide 33 H 31 H 34 H BUN 52 H 49 H 58 H Creatinine 1.3 H 1.1 1.3 H Glucose 179 H 254 H 245 H Calcium 9.9 9.7 9.6 02/08/25 08:57 Sodium 129 L Potassium 3.1 L Chloride 83 L Carbon Dioxide 36 H BUN 59 H Creatinine 1.2 Glucose 208 H Calcium 9.7 Cardiac Enzymes 02/07/25 02/08/25 02/08/25 Range/Units 02:51 06:55 08:57 Troponin T Baseline 50 H (0-15) ng/L Troponin T 120 Minute 50.42 H (0-15) ng/L Delta Troponin T 0.42 (0-10) ABS# Troponin T Hi Sens 6Hr (0-15) ng/L Troponin T Hi Sens 6Hr Delta (0-12) ng/L NT-Pro-B Natriuret Pep 273 H (0-125) pg/mL 02/08/25 Range/Units 12:51 Troponin T Baseline (0-15) ng/L Troponin T 120 Minute (0-15) ng/L Delta Troponin T (0-10) ABS# Troponin T Hi Sens 6Hr 44.53 H (0-15) ng/L Troponin T Hi Sens 6Hr Delta -5.47 L (0-12) ng/L NT-Pro-B Natriuret Pep (0-125) pg/mL Liver Function 02/07/25 02/08/25 Range/Units 02:51 12:51 Total Bilirubin 0.4 0.5 (0.15-1.2) mg/dL Direct Bilirubin 0.25 (0.00-0.30) mg/dL GGT 52 (8-61) U/L AST 18 17 (0-40) U/L ALT 16 20 (0-41) U/L Alkaline Phosphatase 97 75 (40-130) U/L Albumin 3.7 3.6 (3.5-5.2) g/dL Urine 02/08/25 Range/Units 12:47 Urine Color Yellow (Yellow) Urine Appearance Clear (CLEAR) Urine pH 6.5 (5-7) Ur Specific [place] 1.011 (1.005-1.030) Urine Protein Negative (Negative) Urine Glucose (UA) 2+ H (Normal) Urine Ketones Negative (Negative) Urine Nitrate Negative (Negative) Urine Bilirubin Negative (Negative) Ur Leukocyte Esterase Trace A (Negative) Urine RBC 0-4 H (0-2) /hpf Urine WBC 0-4 H (0-5) /hpf Blood Bank 02/06/25 08:52 Blood Type O Positive Rho(D) Type Rh positive Antibody Screen Negative Coags 02/07/25 02/07/25 02/08/25 16:30 22:10 05:18 APTT 57.7 H 34.5 183.3 H* D C-Reactive Protein 02/08/25 12:51 APTT C-Reactive Protein 7.0 H Microbiology 02/08/25 12:56 Blood Culture - Preliminary Blood SPECIMEN COLLECTED 02/08/25 12:51 Blood Culture - Preliminary Blood SPECIMEN COLLECTED 02/06/25 11:20 Gram Stain - Final Sputum - Expectorated Sputum Sputum Culture - Final Cardiac Studies: 2 Echocardiogram 02/04/25 Sestamibi Stress Test (Cardiology) 07/14
[2025-02-08] MEDS: cefepime 2,000 mg SDV 2000 MG IVP ×2 (14:06→19:44)
[2025-02-08 14:26] LABS: MRSA PCR OZH (swab) NOT DETECTED (Negative)
--- NOTE | 2025-02-08 15:23 | P.CONIM_ITS ---
Providers/Reason For Consult 2 Consulting Physician/Specialty*: General Surgery Reason for Consult*: Need for upper endoscopy Attending Physician: Neil Zafar MD Primary Care Provider: Abram Horn MD History of Present Illness History of Present Illness Joshua Avila is a 64 year old male with multiple comorbidities who has been admitted to the hospital with a possible NSTEMI, fluid overload, heart failure and is planned to have possible cardiac cath. I have been consulted since his hemoglobin has been steadily dropping since admission and since he will require long-term anticoagulation GI bleed should be ruled out. Patient denies abdominal pain denies blood in the stool no changes in bowel movements. Review of Systems 2 General: Reports: 10 or more systems reviewed and unremarkable except in HPI and below Medications/Allergies Home Medications ?Medication ?Instructions ?Recorded ?Confirmed ?Last Taken ?Type tamsulosin 0.4 mg capsule 0.4 mg PO QAM #90 caps 02/2202/03/25 01/25/25 Rx fluticasone propionate 50 2 spray intranasal DAILY 02/03/25 01/25/25 History mcg/actuation nasal spray,suspension blood-glucose sensor (Dexcom G6 #3 ea 06/15/24 5 Unknown Rx Sensor device) blood-glucose,receiver setter,cont #1 ea 06/15/24 02/03/25 Un known Rx (Dexcom G6 Information Technology Data Analyst) lancets for glucose testing #1 ea 07/21/24 02/03/25 Un known Rx insulin lispro 100 unit/mL 30 unit SUBCUT TID 09/30/24 02/03/25 01/25/25 History subcutaneous pen (Humalog KwikPen (U-100) Insulin) lancets 33 gauge (OneTouch Delica #100 ea 11/01/24 Unknown Rx Plus Lancet) blood sugar diagnostic (OneTouch #300 ea 11/05/2401/11 Unknown Rx Verio test strips) alprazolam 0.5 mg tablet 0.5 mg PO TID PRN 12/22/24 0 02/03/25 Unknown History smothering/anxiety budesonide 160 mcg-glycopyr 9 2 inh inhalation BID #10 .7 grams 12/22/24 02/03/25 01/25/25 Rx mcg-formot 4.8 mcg/actuation HFA inhaler (Breztri Aerosphere) one touch ben test strips #200 ea 12/29/24 02/03/25 U nknown Rx portable oxygen #1 ea 01/11/25 02/03/25 Unkn own Rx portable oxygen concentrator #1 ea 01/11/25 02/03/25 U nknown Rx portable oxygen container #1 ea 01/11/25 02/03/25 Unkn own Rx dabigatran etexilate 75 mg capsule 75 mg PO BID #60 ca ps 01/12/25 02/03/25 Unknown Rx (Pradaxa) potassium chloride 10 mEq 10 meq PO BID Edema 01/18/25 02/03/25 Unknown History tablet,extended release(part/cryst) atorvastatin 40 mg tablet (Lipitor) 40 mg PO DAILY #90 tabs 01/19/25 02/03/25 02/02/25 09:00 Rx empagliflozin 10 mg tablet 10 mg PO DAILY #90 tabs 03/0502/03/25 01/25/25 Rx (Jardiance) roflumilast 250 mcg tablet 250 mcg PO DAILY 4 weeks #3 0 tabs 01/25/25 02/03/25 Unknown Rx albuterol sulfate 90 mcg/actuation 2 puff inhalation Q 4H PRN 01/26/25 02/03/25 01/25/25 History aerosol inhaler Shortness Of Breath Or Wheez ing bumetanide 1 mg tablet 1 mg PO DAILY #270 tabs 01/1002/03/25 01/24/25 Rx insulin glargine-aglr 100 unit/mL 20 unit SUBCUT QAM 0 01/26/25 02/03/25 01/25/25 History (3 mL) subcutaneous pen (Fay Leyva) ipratropium 0.5 mg-albuterol 3 mg 3 ml inhalation TID #180 mL 01/26/25 02/03/25 Unknown Rx (2.5 mg base)/3 mL nebulization soln losartan 100 mg tablet 50 mg (1/2 x 100 mg) PO DEJA Y #90 01/26/25 02/03/25 01/25/25 Rx tabs pantoprazole 40 mg tablet,delayed 40 mg PO BID@0500,17 00 30 days #60 01/26/25 02/03/25 Unknown Rx release tabs sucralfate 1 gram tablet (Carafate) 1 g PO BID 4 weeks #56 tabs 01/26/25 02/03/25 Unknown Rx ferrous sulfate 325 mg (65 mg See Rx Instructions .Rou te 01/31/25 02/03/25 Unknown Rx iron) tablet (Iron (ferrous .COMPLEX #90 tabs sulfate)) Allergies Allergy/AdvReac Type Severity Reaction Status Date / Time No Known Allergies Allergy Verified 02/02/25 09:48 Current Medications Generic Name Dose Route Start Last Admin Trade Name Freq PRN Reason Stop Dose Admin Acetaminophen 650 mg 02/03/25 20:52 02/05/25 16:28 Acetaminophen 325 Mg Tablet PO 650 mg Q6H PRN Administration Mild/Mod Pain Or Temp >/= 101 Albuterol/Ipratropium 3 ml 02/06/25 00:00 02/08/25 15:05 Ipratropium-Albuterol 3 Ml Neb INHALATION 3 ml Q4H.RESPIRATORY SHERITA Administration Aspirin 81 mg 02/04/25 09:00 02/08/25 07:49 Aspirin 81 Mg Ec Tablet PO 81 mg DAILY SHERITA Administration Atorvastatin Calcium 40 mg 02/04/25 21:00 02/07/25 20:29 Atorvastatin 40 Mg Tablet PO 40 mg BEDTIME SHERITA Administration Budesonide 0.5 mg 02/06/25 08:00 02/08/25 07:58 Budesonide 0.5 Mg/2 Ml Neb INHALATION 0.5 mg BID.RESPIRATORY SHERITA Administration Bumetanide 1 mg 02/06/25 18:00 02/08/25 07:50 Bumetanide 0.25 Mg/Ml Sdv 4 Ml IVP 1 mg Q8H SHERITA Administration Cefepime HCl 2,000 mg 02/08/25 12:15 02/08/25 14:06 Cefepime 2,000 Mg Sdv IVP 2,000 mg Q8H SHERITA Administration Protocol Diltiazem HCl 240 mg 02/07/25 11:55 02/08/25 07:49 Diltiazem Er (24hr) 240 Mg Capsule PO 240 mg DAILY SHERITA Administration Docusate Sodium 100 mg 02/04/25 09:00 02/08/25 07:49 Docusate Sodium 100 Mg Capsule PO 100 mg BID SHERITA Administration Guaifenesin 200 mg 02/04/25 22:55 02/08/25 12:04 Guaifenesin 100 Mg/5 Ml Udc 10 Ml PO 200 mg Q4H PRN Administration COUGH Hydromorphone HCl 0.5 mg 02/08/25 06:34 02/08/25 12:04 Hydromorphone 0.5 Mg/0.5 Ml Inj IVP 0.5 mg Q4H PRN Administration PAIN Iron Sucrose 200 mg/ Sodium 110 mls @ 220 mls/hr 02/07/25 08:30 02/08/25 08:22 Chloride IV 02/11/25 08:59 Infused Q24H SHERITA Infusion AMIODARONE HCL/D5W 900 mg in 500 mls @ 0 mls/hr 02/08/25 07:15 02/08/25 14:06 Amiodarone 900 Mg/500 Ml-D5w IV 0.5 mg/min .Q0M SHERITA 16.67 mls/hr Protocol Titration Per Protocol Vancomycin HCl 1,500 mg in 300 mls @ 200 mls/hr 02/08/25 12:30 02/08/25 14:06 Vancocin IV 200 mls/hr Q12H SHERITA Administration Insulin Glargine 20 unit 02/05/25 09:00 02/08/25 07:54 Insulin Glargine 100 Units/1 Ml SUBCUT 20 unit DAILY SHERITA Administration Insulin Human Lispro 0 unit 02/04/25 08:00 02/08/25 11:57 Insulin Lispro 100 Unit/1 Ml SUBCUT 15 unit WM&BEDTIME SHERITA Administration Protocol Nitroglycerin 0.4 mg 02/08/25 06:32 02/08/25 06:37 Nitroglycerin 0.4 Mg Sublingual Tablet SUBLINGUAL 0.4 mg Q5M PRN Administration CHEST PAIN Ondansetron HCl 4 mg 02/03/25 20:52 02/08/25 05:02 Ondansetron 2 Mg/Ml Sdv 2 Ml IVP 4 mg Q8H PRN Administration vomiting, or N/V if npo Pantoprazole Sodium 40 mg 02/04/25 08:15 02/08/25 07:43 Pantoprazole 40 Mg Sdv IVP 40 mg Q12H SHERITA Administration Prednisone 40 mg 02/05/25 09:00 02/08/25 07:49 Prednisone 20 Mg Tablet PO 40 mg DAILY SHERITA Administration Sucralfate 1 gm 02/04/25 08:15 02/08/25 11:56 Sucralfate 1 Gm/10 Ml Oral Liq Udc PO 1 gm Q6H SHERITA Administration PFSH Acute 2 PFSH: Medical History (Updated 02/08/25 @ 15:26 by Marshall Ugalde MD) Acute respiratory failure with hypoxia Iron deficiency anemia due to chronic blood loss Prediabetes COPD (chronic obstructive pulmonary disease) Hypertension Nicotine dependence Alcohol abuse New onset of congestive heart failure Acute hyponatremia Community acquired pneumonia Chronic maxillary sinusitis Prostatic hypertrophy Duodenal ulcer Liver cirrhosis Anemia COPD exacerbation Erectile dysfunction History of abdominal hernia Renal insufficiency GI bleed Surgical History History of bowel resection History of colon surgery Family History Other CAD (coronary artery disease) Social History Smoking and tobacco/nicotine status: former use of tobacco/nicotine Quit status (tobacco/nicotine): has quit using Year quit tobacco: 2009 Former quit date comment: 2 ppd X 40 years Alcohol intake: current Substance/Drug Use: never Additional social history: 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 as discussed with myself and his Rae 01/26/2025 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 Urinary Catheter Management: Carey Latex Free: Cath Placed During This Visit: yes Reason for Continuing Indwelling Catheter: Accurate Measurement of Urinary Output in Critically Ill Patients Urinary Catheter Date of Insertion: 02/07/25 Urinary Catheter Time of Insertion: 18:45 Data 02/08/25 08:57 02/08/25 08:57 Micro: Microbiology 02/08/25 12:56 Blood Culture - Preliminary Blood SPECIMEN COLLECTED 02/08/25 12:51 Blood Culture - Preliminary Blood SPECIMEN COLLECTED 02/06/25 11:20 Gram Stain - Final Sputum - Expectorated Sputum Sputum Culture - Final A&P Assessment and plan 1. Chronic anticoagulation: 2. Upper GI bleed: Plan: Is a 64-year-old gentleman with multiple medical comorbidities who requires upper endoscopy to rule out GI bleeding, he does have a history of previous upper GI bleeds but this time he denies any significant hematemesis melena or blood in the stool. I agree that the EGD is indicated in this case as the patient most likely will require to be on dual anticoagulation after cardiac catheterization especially if he ends up having stents. Therefore I have agreed to proceed with upper endoscopy despite of the fact that the patient has multiple comorbidities. I discussed with the patient all findings and possible need for endoscopy he agrees with the plan we discussed all recent benefits including the risk of perforation requiring surgical intervention and possibility of clinical deterioration and that in the case of perforation. He shows understanding agrees. I have discussed the case with the anesthesia team and we will plan to proceed tomorrow at 7 AM. Patient should be n.p.o. after midnight. PDMP PDMP Reviewed: Not Reviewed Coding Level of Care Code Acute Code for Chg Fwd Diagnoses Chronic anticoagulation Z79.01 Upper GI bleed K92.2
[2025-02-08 16:54] LABS: Coronavirus 229E,HKU1,NL63,OC4 Not Detected (NOT DETECT); Parainfluenza Virus Type 1 Not Detected (NOT DETECT); Parainfluenza Virus Type 2 Not Detected (NOT DETECT); Parainfluenza Virus Type 3 Not Detected (NOT DETECT); Parainfluenza Virus Type 4 Not Detected (NOT DETECT); SARS-COV-2 Not Detected (NOT DETECT)
--- NOTE | 2025-02-08 16:59 | P.PN_ITS ---
Subjective 2 Subjective: - Patient was seen this morning - Reports feeling short of breath, has a bnormal wheezing in all lung jones, nasal flaring, suprasternal retractions, intercostal retractions, tachypnea, tachycardia - He has a Carey catheter in place - Early this morning he was found to hav e A-fib with RVR placed on amiodarone drip, heart rates fluctuate, on amiodarone drip, atrial fibrillation - He is hemoglobin is down to 7, heparin drip has been stopped - He has had good urine output he is -10 L so far - Does report abdominal distention but n o abdominal pain he had a bowel movement, no bloody black stool - I discussed with Joshua difficulty of th e situation that he is not - The issue is is that he continues to h ave shortness of breath, I continue to diurese him, I am hoping with further diuresis today his shortness of breath and wheezing and mild respiratory failure improves - He denies any choking any coughing, bu t I will have speech therapy see him -White blood cell count is up to 25,000? , No fevers - Repeat chest x-ray, respiratory viral panel - Will broaden his antibiotic coverage t o vancomycin and cefepime for now - The issue is is that his hemoglobin co ntinues to drop, I am going to have to hold his heparin drip and give him another unit of blood - The issue being that unfortunately he was not able to complete a stress test given his atrial fibrillation and if he needs to have any coronary intervention with his now acute anemia, it is going to be difficult to commit his life to anticoagulant therapy/antiplatelet therapy with his acute and persistent anemia requiring recurrent transfusions He is already dependent on anticoagulant therapy-given his atrial fibrillation - Discussed that certainly this is a dif ficult situation I have done a trial with heparin drip, for the last 24 hours his hemoglobin has dropped again down to 7 we will resulting in pausing anticoagulant therapy and transfusion of blood - So the path moving forward, in terms o f Joshua's care, would be to find a source of bleeding/anemia, to discuss with surgery doing an EGD tomorrow to find a source of bleeding - Thus if he can find a source of bleedi ng, and potentially intervene this would help with his acute anemia, more effective anemia control would also help his NSTEMI, and help alleviate cardiac stress - And then we could safely proceed with potentially a further cardiac evaluation such as an angiogram or even a stress test,, and even continue to try anticoagulant therapy - Discussed that certainly the other opt ion would be to hold all anticoagulant therapy, medical management, but given his persistent shortness of breath, persistent anemia, chest pain, need for anticoagulant therapy, need for further cardiac evaluation this issue is going to continue to present itself, and be an issue in the near future - He does have a history of GI bleeds, h e does have evidence of iron deficiency - I have him on Protonix, Carafate I hav e him on IV Venofer here - Discussed risks and benefits of pursui ng evaluation for GI blood losses, such as EGD, he voiced understanding, all question answered, shared decision making, agreed to proceed - Agreed to hold anticoagulant therapy f or now, - Will continue to bob, - Spoke to cardiology, about the plan, c ardiology is in agreement, but GI evaluation such as EGD to find the source of bleeding before we do more extensive cardiac evaluation as patient is not able to tolerate blood thinners at this current time - Spoke to general surgery, they will co nsult Vitals/I&O/Wt Last Vital Signs Temp 98.1 F 02/08/25 16:00 Pulse 80 02/08/25 16:00 Resp 19 H 02/08/25 16:00 BP 130/81 02/08/25 16:00 Pulse Ox 94 02/08/25 16:00 O2 Del Method Nasal Cannula 02/08/25 15:05 O2 Flow Rate 3 02/08/25 15:05 02/08/25 02/08/25 02/08/25 06:59 14:59 22:59 Intake Total 331.60 / 2314.15 938.313 / 938.313 300 / 1238.313 Output Total 1550 / 7090 1950 / 1950 Balance -1218.40 / -4775.85 938.313 / 938.313 -1650 / -711.687 Weight last 48 hrs Weight 95.209 kg Weight 98.112 kg Physical Exam 2 Const: COMMON NORMALS: no acute distress and patient oriented x3 Resp: OTHER: Wheezing and crackles in all lung jones, tachypnea, tachycardia, mild nasal flaring, intercostal, suprasternal retractions Cardio: COMMON NORMALS: regular rate, regular rhythm, S1 normal heart sound present and S2 normal heart sound present RATE: regular rate RHYTHM: r egular rhythm HEART SOUNDS: S1 normal heart sound present and S2 normal heart sound present GI: COMMON NORMALS: Normal to inspection, nondistended, normoactive bowel sounds present and non-tender Extremity: NARRATIVE EXTREMITY EXAM: 1+ edema Neuro: COMMON NORMALS: patient oriented x3 Psych: COMMON NORMALS: mental status grossly normal Urinary Catheter Management: Carey Latex Free: Cath Placed During This Visit: yes Reason for Continuing Indwelling Catheter: Accurate Measurement of Urinary Output in Critically Ill Patients Urinary Catheter Date of Insertion: 02/07/25 Urinary Catheter Time of Insertion: 18:45 Data 02/08/25 08:57 02/08/25 08:57 Micro: Microbiology 02/08/25 12:56 Blood Culture - Preliminary Blood SPECIMEN COLLECTED 02/08/25 12:51 Blood Culture - Preliminary Blood SPECIMEN COLLECTED 02/06/25 11:20 Gram Stain - Final Sputum - Expectorated Sputum Sputum Culture - Final A&P Assessment and plan 1. Chest pain: 2. Atrial fibrillation with RVR: 3. CHF exacerbation: 4. CAD (coronary artery disease): 5. Chronic anticoagulation: 6. Type 2 diabetes mellitus: 7. History of deep vein thrombosis: 8. Acute respiratory failure with hypoxia: 9. Acute exacerbation of chronic obstructive airways disease: Plan: #1 Chest pain, NSTEMI Cardiac echo CONCLUSIONS Normal left ventricular size, systolic function and wall thickness, with no regional wall motion abnormalities. Left ventricular ejection fraction is estimated at 60 %. Grade I/IV diastolic dysfunction (abnormal relaxation filling pattern), normal to mildly elevated filling pressures. There is no pericardial effusion. No significant valve abnormalities. Right atrial pressure is around 5 mm of mercury. - Did not tolerate stress test due to atrial fibrillation - Monitor for recurrent chest pain -Aspirin, statin - Heparin drip has been discontinued due to acute anemia -Transfuse 1 unit PRBC maintain hemoglobin greater than 8 - Cardiology consulted #2 Atrial fibrillation with rapid ventricular response - Currently on amiodarone drip -Continue p.o. Cardizem - Heparin drip has been held #3COPD exacerbation - Wean steroids due to hyperglycemia -Prednisone 40 mg daily -Due to persistent shortness of breath, wheezing, leukocytosis -Will order respiratory viral panel -Chest x-ray -Broaden antibiotic coverage to vancomycin, cefepime - DuoNeb - Oxygen therapy #4 Heart failure with preserved ejection fraction --10 L so far -Continues to have wheezing, pitting edema, crackles -Bumex 1 mg IV every 8 hours, 1 dose metolazone today - Carey catheter - Monitor urine output, monitor creatinine #5 acute hypoxic respiratory failure CT chest CT/CT chest wo con [id number] IMPRESSION: 1. No interval lobar consolidation is appreciated with findings suggestive of post inflammation, granulomatous related sequela including calcifications on the right as well as some centrilobular, patchy scarring type volume loss of the lingula. If there are persistent clinical findings then consider bronchoscopy. 2. There is some mild air trapping appearance overall along with some central bronchiolectasis. Consider pulmonary function studies. 3. There are dense multi-vessel coronary calcifications overall present as well as some of the aortic root and mitral apparatus. Consider calcium scoring CT, echocardiography. - Multifactorial from heart failure with preserved ejection fraction, COPD, possible pneumonia? - Diuresis as above - Steroids as above - Antibiotic coverage broadened to vancomycin, cefepime - Sputum culture - Blood culture #6 History of acute on chronic anemia, hemoglobin down to 7.0, denies any blood black stools -Possible slow GI bleed? - Protonix, Carafate - Status post 1 unit PRBC -Another unit of PRBC ordered -IV Venofer ordered -Discussed risks and benefits of EGD, he agreed to proceed - Watch hemoglobin closely #7 type 2 diabetes mellitus - Monitor blood sugars closely - High dose insulin sliding scale, will consider transitioning him back to his home insulin Full code GI and DVT prophylaxis in place Plan for today, Bumex IV every 8 hours, metolazone, IV vancomycin, cefepime, hold anticoagulant therapy, transfuse 1 unit PRBC, monitor respiratory status, amiodarone drip, cardiology consulted, general surgery consulted PDMP PDMP Reviewed: Not Reviewed Attestations 2 Medical Necessity Statement*: Patient requires hospitalization for acute anemia, concerns for slow GI bleed, NSTEMI, chest pain, CHF, fluid overload, pneumonia, COPD, Diagnoses Chest pain R07.9 Atrial fibrillation with RVR I48.91 CHF exacerbation I50.9 CAD (coronary artery disease) I25.10 Chronic anticoagulation Z79.01 Type 2 diabetes mellitus E11.9 History of deep vein thrombosis Z86.718 Acute respiratory failure with hypoxia J96.01 Acute exacerbation of chronic obstructive airways disease J44.1
[2025-02-08 17:48] LABS: Anion Gap 12.2 (5-19); Blood Urea Nitrogen 50 mg/dL (8-23); Calcium 9.4 mg/dL (8.5-10.5); Carbon Dioxide 36 mmol/L (22-29); Chloride 82 mmol/L (98-107); Creatinine Clr Calc Pharmacy 83.6341; Glucose 267 mg/dL (65-115); Osmolality Calculated 287 mOsm/kg (285-295); Potassium 3.2 mmol/L (3.5-5.1); Sodium 127 mmol/L (136-145)
[2025-02-08 17:53] LABS: Hemoglobin 8.00 g/dL (11.27-16.99)
[2025-02-09] VITALS (25 sets, daily range): BP systolic 102–149; BP diastolic 59–92; PULSE 71–92; RESP 16–22; TEMP 36–37.2; O2SAT 88–100; BMI 27.7
[2025-02-09] MEDS: bumetanide 0.25 mg/mL SDV 4 mL 1 MG IVP (01:56)
[2025-02-09] MEDS: dilTIAZem ER (24HR) 240 mg Capsule PO (04:08)
[2025-02-09] MEDS: metoprolol succinate ER (24 HR) 25 mg Tablet PO (04:08)
[2025-02-09] MEDS: cefepime 2,000 mg SDV 2000 MG IVP ×2 (04:09→20:26)
[2025-02-09 04:11] LABS: Hematocrit 28.0 % (37-53); Hemoglobin 8.60 g/dL (11.27-16.99); Mean Corpuscular HGB Conc 30.7 g/dL (30-55); Mean Corpuscular Hemoglobin 26.5 pg (27-33); Mean Corpuscular Volume 86.4 fl (82-101); Nucleated Red Blood Cells % 2.8 %; Platelet Count 293 10^3/cmm (157-399); Red Blood Count 3.24 10^6/uL (3.85-5.65); White Blood Count 30.03 10^3/uL (3.29-11.43)
[2025-02-09 04:35] LABS: Blood Urea Nitrogen 47 mg/dL (8-23); Calcium 9.3 mg/dL (8.5-10.5); Carbon Dioxide 28 mmol/L (22-29); Chloride 81 mmol/L (98-107); Creatinine Clr Calc Pharmacy 83.6341; Glucose 134 mg/dL (65-115); Osmolality Calculated 270 mOsm/kg (285-295); Sodium 123 mmol/L (136-145)
[2025-02-09 04:44] LABS: Anion Gap 16.8 (5-19)
[2025-02-09 04:47] LABS: Potassium 2.8 mmol/L (3.5-5.1)
[2025-02-09 05:06] LABS: Slide Review Slide Review Perform
[2025-02-09] MEDS: HYDROmorphone 0.5 MG/0.5 ML INJ IVP ×2 (05:06→20:26)
[2025-02-09] MEDS: potassium chloride premix 100 ML 50 MEQ IV (05:07)
[2025-02-09] MEDS: insulin glargine 100 units/1 mL 20 UNIT SUBCUT (06:13)
[2025-02-09] MEDS: iron sucrose 200 MG in sodium chloride 0.9% (100 ml) 100 ML 220 MG IV (07:51)
[2025-02-09] MEDS: AMIODARONE HCL/D5W 900 MG/500 ML BAG 16.67 MG IV (07:52)
[2025-02-09] MEDS: pantoprazole 40 mg SDV IVP ×2 (07:52→20:26)
--- NOTE | 2025-02-09 08:18 | P.PN_ITS ---
<Statement entered by Marichuy Bates MD - 02/09/25 20:27> Patient was evaluated and cared for in conjunction with an advanced practice practitioner. I personally examined the patient and reviewed the chart and all pertinent data including imaging, telemetry, and laboratory results. I discussed the patient in detail with the advanced practice practitioner. Please see their note for complete H&P testing result and agreed upon plan of care for the patient. Patient was noted to have source of GI bleed which was clipped through upper gastroscopy GENERAL: Patient is alert, awake and oriented x3. HEART: Regular S1 and S2. No murmur, rub or gallop. LUNGS: Clear to auscultate bilaterally. CENTRAL NERVOUS SYSTEM: Grossly nonfocal. EXTREMITIES: Lower extremities with out edema bilaterally. Shortness of breath Atrial fibrillation Coronary artery disease Angina equivalent shortness of breath requiring left heart cath COPD exacerbation GI bleed treated with clipping Anemia requiring 3 transfusions in the hospital Plan: Continue optimization of medicine, continue beta-sharmin add isosorbide mononitrate, switch to amiodarone 400 mg once a day statin. Hold aspirin for GI ulcer. Continue to monitor hemoglobin closely. Continue PPI once stable from GI bleed perspective and hemoglobin and noted to be tolerant with dual antiplatelet therapy can proceed with left heart cath as an outpatient. Subjective 2 Subjective: He is short of breath, abdomen is more firm today, no edema, he has crackles in bases. EGD planned today. Update: EGD revealed mild gastritis, polypoid lesion at the level of the antrum eroded with active oozing, which was removed and clips placed. Recommended PPI high-dose. Hemoglobin 8.6, improved after 2 units blood transfusion yesterday. He is in sinus rhythm. Positive for rhinovirus. Vitals/I&O/Wt Last Vital Signs Temp 96.8 F L 02/09/25 03:44 Pulse 80 02/09/25 07:48 Resp 18 02/09/25 07:48 BP 142/81 02/09/25 03:44 Pulse Ox 95 02/09/25 07:48 O2 Del Method Nasal Cannula 02/09/25 07:48 O2 Flow Rate 4 02/09/25 07:48 02/08/25 02/09/25 02/09/25 22:59 06:59 14:59 Intake Total 300 / 1538.313 300 / 1538.313 391.687 / 391.687 Output Total 4900 / 6450 1550 / 6450 Balance -4600 / -4911.687 -1250 / -4911.687 391.687 / 391.687 Weight last 48 hrs Weight 210 lb 5.136 oz Weight 209 lb 14.4 oz Physical Exam 2 Const: COMMON NORMALS: no acute distress and patient oriented x3 Chest: COMMONS NORMALS: normal inspection of the chest and normal palpation of entire chest wall CHEST: Yes Symmetrical chest wall rise Resp: COMMON NORMALS: normal respiratory effort, No retractions and No use of accessory muscles EFFORT & INSPECTION: Yes symmetric chest movement A USCULTATION: crackles (bases) Laterality: bilateral and posterior Cardio: COMMON NORMALS: S1 normal heart sound present, S2 normal heart sound present, No gallops present (Cardio), No clicks present (Cardio), No murmurs present (Cardio) and No rub (Cardio) RHYTHM: abnormal rhythm irregularly irregular HEART SOUNDS: S1 normal heart sound present and S2 normal heart sound present PERIPHERAL PULSES: radial pulses present, posterior tibial pulses present and dorsalis pedis present GI: PALPATION: Yes Firmness to palpation present (GI) Neuro: COMMON NORMALS: patient oriented x3 and moves all extremities Psych: COMMON NORMALS: mental status grossly normal and cooperative Urinary Catheter Management: Carey Latex Free: Cath Placed During This Visit: yes Reason for Continuing Indwelling Catheter: Acute Urinary Retention or Obstruction Urinary Catheter Date of Insertion: 02/07/25 Urinary Catheter Time of Insertion: 18:45 Data 02/09/25 03:22 02/09/25 08:59 Micro: Microbiology 02/08/25 12:56 Blood Culture - Preliminary Blood SPECIMEN COLLECTED 02/08/25 12:51 Blood Culture - Preliminary Blood SPECIMEN COLLECTED 02/06/25 11:20 Gram Stain - Final Sputum - Expectorated Sputum Sputum Culture - Final A&P Assessment and plan 1. Atrial fibrillation with RVR: 2. CAD (coronary artery disease): 3. Hypertension: 4. BARGER (dyspnea on exertion): 5. Tobacco dependence due to cigarettes, in remission: 6. Type 2 diabetes mellitus: 7. Obesity (BMI 30.0-34.9): 8. Upper GI bleed: 9. Anemia: 10. COPD (chronic obstructive pulmonary disease): Plan: He had a source of active bleeding which has been clipped and he has been placed on high-dose PPI. Will plan for coronary angiogram as an outpatient, once hemoglobin has improved and verified to be stable. No chest pain. Will switch amiodarone to oral, starting at 400 mg twice daily today. Discontinue infusion. Continue metoprolol succinate 25 mg daily, diltiazem 240 mg daily. Potassium has been replaced, was 2.8 this morning. At the time of discharge, please arrange follow-up with Dr. Treadwell, his primary fifth hand. PDMP PDMP Reviewed: Not Reviewed Attestations 2 Medical Necessity Statement*: amiodarone infusion to oral today, atrial fibrillation with RVR Coding Level of Care Code Acute Code for g Fwd Diagnoses Atrial fibrillation with RVR I48.91 CAD (coronary artery disease) I25.10 Hypertension I10 BARGER (dyspnea on exertion) R06.09 Tobacco dependence due to cigarettes, in remission F17.211 Type 2 diabetes mellitus E11.9 Obesity (BMI 30.0-34.9) E66.811 Upper GI bleed K92.2 Anemia D64.9 COPD (chronic obstructive pulmonary disease) J44.9
[2025-02-09 09:23] LABS: Anion Gap 17.1 (5-19); Blood Urea Nitrogen 46 mg/dL (8-23); Calcium 9.4 mg/dL (8.5-10.5); Carbon Dioxide 33 mmol/L (22-29); Chloride 81 mmol/L (98-107); Creatinine Clr Calc Pharmacy 76.7326; Glucose 258 mg/dL (65-115); Osmolality Calculated 287 mOsm/kg (285-295); Potassium 3.1 mmol/L (3.5-5.1); Sodium 128 mmol/L (136-145)
--- NOTE | 2025-02-09 10:36 | PM.MISC ---
Miscellaneous Note Purpose of Documentation: Update on patient care Note: EGD was done today, there was mild gastritis, minimal amount of retained food in the stomach, there was polypoid lesion at the level of the antrum that was eroded and have active oozing, which was removed with biopsy forceps and clips were placed for bleeding control. Patient should continue on high-dose PPI, can follow-up as outpatient with general surgery in 2 to 4 weeks. Otherwise he is cleared from the general surgery standpoint for any additional procedure.
--- NOTE | 2025-02-09 11:08 | ANE.PACU2 ---
Inpatient post-anesthesia follow up: Airway intact: Yes Vital signs: Temperature 97.6 F Pulse Rate 71 Respiratory Rate 22 Blood Pressure 124/74 Pulse Oximetry 90 Oxygen Delivery Me thod Nasal Cannula Oxygen Flow Rate 3 Fraction of Inspir ed Oxygen Hydration adequate: Yes Nausea and vomiting: No Pain level: 1 Mental status: Baseline
--- NOTE | 2025-02-09 13:32 | P.PN_ITS ---
Subjective 2 Subjective: Patient was seen this morning, currently alert oriented x 3, following all commands, sitting up to side of the bed, he feels better he tells me he no fevers, no chills, no abdominal pain no diarrhea, no dysuria, currently n.p.o. for his EGD, does report persistent shortness of breath but significant improved he tells me, his edema is improving Vitals/I&O/Wt Last Vital Signs Temp 97.6 F 02/09/25 11:07 Pulse 80 02/09/25 11:07 Resp 19 H 02/09/25 11:07 BP 124/70 02/09/25 11:07 Pulse Ox 96 02/09/25 11:07 O2 Del Method Nasal Cannula 02/09/25 11:07 O2 Flow Rate 3 02/09/25 11:07 02/08/25 02/09/25 02/09/25 22:59 06:59 14:59 Intake Total 300 / 1238.313 300 / 1538.313 578.369 / 578.369 Output Total 4900 / 4900 1550 / 6450 Balance -4600 / -3661.687 -1250 / -4911.687 578.369 / 578.369 Weight last 48 hrs Weight 95.4 kg Weight 95.209 kg Physical Exam 2 Const: COMMON NORMALS: no acute distress and patient oriented x3 Resp: COMMON NORMALS: normal respiratory effort, No retractions and No use of accessory muscles AUSCULTATION: crackles and wheezes Cardio: COMMON NORMALS: regular rate, regular rhythm, S1 normal heart sound present and S2 normal heart sound present RATE: regular rate RHYTHM: r egular rhythm HEART SOUNDS: S1 normal heart sound present and S2 normal heart sound present GI: COMMON NORMALS: Normal to inspection, nondistended, normoactive bowel sounds present and non-tender Extremity: OTHER: 1+ edema Neuro: COMMON NORMALS: patient oriented x3 Psych: COMMON NORMALS: mental status grossly normal Urinary Catheter Management: Carey Latex Free: Cath Placed During This Visit: yes Reason for Continuing Indwelling Catheter: Acute Urinary Retention or Obstruction Urinary Catheter Date of Insertion: 02/07/25 Urinary Catheter Time of Insertion: 18:45 Data 02/09/25 03:22 02/09/25 08:59 Micro: Microbiology 02/08/25 12:56 Blood Culture - Preliminary Blood NEGATIVE TO DATE 02/08/25 12:51 Blood Culture - Preliminary Blood NEGATIVE TO DATE 02/08/25 12:47 Urine Culture - Preliminary Urine Catheterized 02/06/25 11:20 Gram Stain - Final Sputum - Expectorated Sputum Sputum Culture - Final A&P Assessment and plan 1. Chest pain: 2. Atrial fibrillation with RVR: 3. CHF exacerbation: 4. CAD (coronary artery disease): 5. Chronic anticoagulation: 6. Type 2 diabetes mellitus: 7. History of deep vein thrombosis: 8. Acute respiratory failure with hypoxia: 9. Acute exacerbation of chronic obstructive airways disease: Plan: #1 Chest pain, NSTEMI Cardiac echo CONCLUSIONS Normal left ventricular size, systolic function and wall thickness, with no regional wall motion abnormalities. Left ventricular ejection fraction is estimated at 60 %. Grade I/IV diastolic dysfunction (abnormal relaxation filling pattern), normal to mildly elevated filling pressures. There is no pericardial effusion. No significant valve abnormalities. Right atrial pressure is around 5 mm of mercury. - Did not tolerate stress test due to atrial fibrillation - Monitor for recurrent chest pain -Aspirin, statin - Heparin drip has been discontinued due to acute anemia -Transfuse 1 unit PRBC maintain hemoglobin greater than 8 - Cardiology consulted, following medical management #2 Atrial fibrillation with rapid ventricular response - Currently on amiodarone drip -Continue p.o. Cardizem - Heparin drip has been held, EGD today #3COPD exacerbation - Wean steroids due to hyperglycemia -Prednisone 40 mg daily Persistent leukocytosis? -Due to persistent shortness of breath, wheezing, leukocytosis. CT chest ordered concerns for pneumonia CT of the chest showing volume loss lingula, was on Rocephin, azithromycin, but has persistent leukocytosis, shortness of breath, wheezing, thus antibiotics therapy was broadened to vancomycin and cefepime -Will order respiratory viral panel, positive for rhinovirus -Chest x-ray no acute infiltrates -Broaden antibiotic coverage to vancomycin, cefepime - DuoNeb - Oxygen therapy #4 Heart failure with preserved ejection fraction - -15 L so far -Due to hyponatremia serum sodium 123, diuresis on hold -Continues to have wheezing, pitting edema, crackles although improving -Bumex 1 mg IV every 8 hours currently on hold due to hyponatremia will consider resuming based on serum sodium progress - Carey catheter - Monitor urine output, monitor creatinine #5 acute hypoxic respiratory failure CT chest CT/CT chest wo con [id number] IMPRESSION: 1. No interval lobar consolidation is appreciated with findings suggestive of post inflammation, granulomatous related sequela including calcifications on the right as well as some centrilobular, patchy scarring type volume loss of the lingula. If there are persistent clinical findings then consider bronchoscopy. 2. There is some mild air trapping appearance overall along with some central bronchiolectasis. Consider pulmonary function studies. 3. There are dense multi-vessel coronary calcifications overall present as well as some of the aortic root and mitral apparatus. Consider calcium scoring CT, echocardiography. - Multifactorial from heart failure with preserved ejection fraction, COPD, possible pneumonia? - Diuresis as above - Steroids as above - Antibiotic coverage broadened to vancomycin, cefepime - Sputum culture - Blood culture, so far no growth #6 History of acute on chronic anemia, hemoglobin down to 7.0, denies any blood black stools -Hemoglobin 8.6 -Possible slow GI bleed? - Protonix, Carafate - Status post 2 unit PRBC - Hemoglobin stable -IV Venofer day 3 of 5 -Discussed risks and benefits of EGD, he agreed to proceed, EGD today - Watch hemoglobin closely #7 type 2 diabetes mellitus - Monitor blood sugars closely - High dose insulin sliding scale, will consider transitioning him back to his home insulin #[address]/CT abdomen pelvis wo con [id number] IMPRESSION: 1. No intra-abdominal or pelvic hematomas or fluid collections. 2. Cirrhotic appearing liver. 3. Moderate atherosclerosis aorta. Atherosclerotic plaque extends into the mesenteric arteries. No GI tract ischemia. 4. Multifocal ventral abdominal wall hernias. There is a single loop of nondilated small bowel extending through an infraumbilical hernia. Similar to the prior study from 2021. 5. Carey catheter in good position. 6. Cholelithiasis without acute cholecystitis. Full code GI and DVT prophylaxis in place Plan for today, monitor serum sodium, will consider IV diuresis based on the serum sodium progress, leukocytosis, monitor, IV antibiotics, EGD, monitor hemoglobin, leukocytosis, monitor PDMP PDMP Reviewed: Not Reviewed Attestations 2 Medical Necessity Statement*: Patient requires hospitalization for acute hypoxic respiratory failure,, leukocytosis, GI bleed, NSTEMI, CHF, rhinovirus Diagnoses Chest pain R07.9 Atrial fibrillation with RVR I48.91 CHF exacerbation I50.9 CAD (coronary artery disease) I25.10 Chronic anticoagulation Z79.01 Type 2 diabetes mellitus E11.9 History of deep vein thrombosis Z86.718 Acute respiratory failure with hypoxia J96.01 Acute exacerbation of chronic obstructive airways disease J44.1
[2025-02-09 14:23] LABS: Hematocrit 24.2 % (37-53); Hemoglobin 7.80 g/dL (11.27-16.99)
[2025-02-09 14:37] LABS: Anion Gap 15.1 (5-19); Blood Urea Nitrogen 44 mg/dL (8-23); Calcium 9.2 mg/dL (8.5-10.5); Carbon Dioxide 32 mmol/L (22-29); Chloride 79 mmol/L (98-107); Creatinine Clr Calc Pharmacy 76.7326; Glucose 332 mg/dL (65-115); Osmolality Calculated 280 mOsm/kg (285-295); Potassium 3.1 mmol/L (3.5-5.1); Sodium 123 mmol/L (136-145)
[2025-02-10] VITALS (14 sets, daily range): BP systolic 117–156; BP diastolic 61–77; PULSE 68–95; RESP 16–21; TEMP 36.4–36.9; O2SAT 90–95
[2025-02-10] MEDS: HYDROmorphone 0.5 MG/0.5 ML INJ IVP ×6 (00:41→21:15)
[2025-02-10 03:04] LABS: Hematocrit 26.2 % (37-53); Hemoglobin 8.50 g/dL (11.27-16.99); Mean Corpuscular HGB Conc 32.4 g/dL (30-55); Mean Corpuscular Hemoglobin 27.2 pg (27-33); Mean Corpuscular Volume 83.7 fl (82-101); Nucleated Red Blood Cells % 1.8 %; Platelet Count 251 10^3/cmm (157-399); Red Blood Count 3.13 10^6/uL (3.85-5.65); White Blood Count 25.31 10^3/uL (3.29-11.43)
[2025-02-10 03:31] LABS: Alanine Aminotransferase 18 U/L (0-41); Albumin Level 3.7 g/dL (3.5-5.2); Alkaline Phosphatase 87 U/L (40-130); Anion Gap 12.5 (5-19); Aspartate Amino Transferase 16 U/L (0-40); Blood Urea Nitrogen 36 mg/dL (8-23); Calcium 9.6 mg/dL (8.5-10.5); Carbon Dioxide 37 mmol/L (22-29); Chloride 82 mmol/L (98-107); Creatinine Clr Calc Pharmacy 76.7326; Globulin 2.4 g/dL (1.3-4.6); Glucose 124 mg/dL (65-115); Osmolality Calculated 278 mOsm/kg (285-295); Sodium 129 mmol/L (136-145); Total Protein 6.1 g/dL (6.6-8.7)
[2025-02-10 03:32] LABS: NT Pro B Type Natriuretic Pept 295 pg/mL (0-125)
[2025-02-10 03:41] LABS: Potassium 2.5 mmol/L (3.5-5.1)
[2025-02-10] MEDS: sucralfate 1 gm/10 mL Oral Liq UDC PO ×5 (04:42→23:47)
[2025-02-10] MEDS: dilTIAZem ER (24HR) 240 mg Capsule PO (04:43)
[2025-02-10] MEDS: metoprolol succinate ER (24 HR) 25 mg Tablet PO (04:43)
[2025-02-10] MEDS: cefepime 2,000 mg SDV 2000 MG IVP ×3 (04:46→21:14)
[2025-02-10] MEDS: magnesium sulfate premix 1 GM/100 ML PIGGYBACK IV (05:16)
[2025-02-10] MEDS: potassium chloride premix 100 ML 50 MEQ IV (05:16)
[2025-02-10] MEDS: insulin glargine 100 units/1 mL 20 UNIT SUBCUT (06:05)
[2025-02-10] MEDS: pantoprazole 40 mg SDV IVP ×2 (09:20→21:15)
[2025-02-10] MEDS: iron sucrose 200 MG in sodium chloride 0.9% (100 ml) 100 ML 220 MG IV (09:28)
--- NOTE | 2025-02-10 09:46 | XRR_ITS ---
PROCEDURE INFORMATION: Exam: XR Abdomen Exam date and time: 02/10/2025 10:11 AM Age: 64 years old Clinical indication: Abdominal pain; Generalized; Additional info: Abd pain, distention TECHNIQUE: Imaging protocol: Radiologic exam of the abdomen. Views: Frontal supine view of the abdomen. 1 View. COMPARISON: CT abdomen pelvis con [id number] 02/08/2025 1:19 PM FINDINGS: Gastrointestinal tract: There is a nonobstructed small bowel gas pattern. There is a large volume of stool throughout the colon suggesting significant constipation. Intraperitoneal space: No visible intra-abdominal free air. Bones/joints: Mild chronic osteoarthritic changes at each hip. XR/XR KUB portable [id number] IMPRESSION: Constipation. No radiographic evidence of a small bowel obstruction at this time.
--- NOTE | 2025-02-10 10:28 | P.PN_ITS ---
Subjective 2 Subjective: He still has shortness of breath. No chest pain. Abdomen appears distended, hospitalist service is addressing, no bowel obstruction. Hemoglobin dropped after EGD to 7.8. He received 1 unit PRBC, up to 8.5 today. Reports chest pain, 6/10, constant and worse with exertion. Will start imdur. Vitals/I&O/Wt Last Vital Signs Temp 97.7 F 02/10/25 08:00 Pulse 70 02/10/25 08:00 Resp 18 02/10/25 08:00 BP 124/67 02/10/25 08:00 Pulse Ox 91 02/10/25 08:00 O2 Del Method Nasal Cannula 02/10/25 08:00 O2 Flow Rate 4 02/10/25 08:00 02/09/25 02/10/25 02/10/25 22:59 06:59 14:59 Intake Total 350 / 1808.369 400 / 1808.369 210 / 210 Output Total 550 / 850 300 / 850 Balance -200 / 958.369 100 / 958.369 210 / 210 Weight last 48 hrs Weight 209 lb 11.2 oz Weight 210 lb 5.136 oz Physical Exam 2 Const: COMMON NORMALS: no acute distress and patient oriented x3 GENERAL APPEARANCE: cooperative and comfortable ORIENTATION/CONSCIOUSNESS: Yes awake, Yes oriented to person, Yes oriented to place and Yes oriented to time Chest: COMMONS NORMALS: normal inspection of the chest and normal palpation of entire chest wall CHEST: Yes Symmetrical chest wall rise Resp: COMMON NORMALS: normal respiratory effort, No retractions and No use of accessory muscles EFFORT & INSPECTION: Yes symmetric chest movement A USCULTATION: wheezes Cardio: COMMON NORMALS: regular rate, regular rhythm, S1 normal heart sound present, S2 normal heart sound present, No gallops present (Cardio), No clicks present (Cardio), No murmurs present (Cardio) and No rub (Cardio) RATE: r egular rate RHYTHM: regular rhythm HEART SOUNDS: S1 normal heart sound present and S2 normal heart sound present PERIPHERAL PULSES: radial pulses present GI: INSPECTION: Yes abdominal distension Extremity: COMMON NORMALS: no pedal edema Neuro: COMMON NORMALS: patient oriented x3 and moves all extremities S ENSORIUM/ORIENTATION: Yes oriented to person, Yes oriented to place and Yes oriented to time Urinary Catheter Management: Carey Latex Free: Cath Placed During This Visit: yes Reason for Continuing Indwelling Catheter: Accurate Measurement of Urinary Output in Critically Ill Patients Urinary Catheter Date of Insertion: 02/07/25 Urinary Catheter Time of Insertion: 18:45 Data 02/10/25 13:13 02/10/25 13:13 Micro: Microbiology 02/08/25 12:56 Blood Culture - Preliminary Blood NEGATIVE TO DATE 02/08/25 12:51 Blood Culture - Preliminary Blood NEGATIVE TO DATE 02/08/25 12:47 Urine Culture - Preliminary Urine Catheterized A&P Assessment and plan 1. Atrial fibrillation with RVR: 2. CAD (coronary artery disease): 3. PAD (peripheral artery disease): 4. Acute on chronic congestive heart failure with left ventricular diastolic dysfunction: 5. Hypertension: 6. Type 2 diabetes mellitus: 7. Upper GI bleed: Plan: No plan for coronary angiogram at this time, due to bleeding. Patient states he does not want to go home without having an angiogram. We explained to him the risk of bleeding with that procedure, especially if stent is placed requiring DAPT. He acknowledges understanding. Hospitalist service monitoring CBC, BMP this afternoon. Plan for follow up in 2 weeks in the office, plan for coronary angiogram when hemoglobin stable. At that time, can trial Plavix to see if there is any drop in hemoglobin before procedure is scheduled. PDMP PDMP Reviewed: Not Reviewed Attestations 2 Medical Necessity Statement*: gi bleed, ischemic workup Coding Level of Care Code Acute Code for Chg Fwd Diagnoses Atrial fibrillation with RVR I48.91 CAD (coronary artery disease) I25.10 PAD (peripheral artery disease) I73.9 Acute on chronic congestive heart failure with left ventricular diastolic dysfunction I50.33 Hypertension I10 Type 2 diabetes mellitus E11.9 Upper GI bleed K92.2
[2025-02-10] MEDS: lactulose oral liq 20 gm/30 mL UDC 10 GM PO (11:23)
[2025-02-10] MEDS: polyethylene glycol 3350 Pkt 17 gm PO ×2 (11:25→17:07)
--- NOTE | 2025-02-10 12:16 | P.PN_ITS ---
Subjective 2 Subjective: Patient was seen this morning, he feels better this morning, denies any fevers, chills, does have cough, but his wheezing is improving, but does report shortness with exertion discussed monitoring his hemoglobin keeping him off anticoagulant therapy as he received another 1 unit of PRBC yesterday afternoon, potassium is 2.5 is requiring potassium replacement therapy, recheck blood work this afternoon, will consider further diuresis Vitals/I&O/Wt Last Vital Signs Temp 97.7 F 02/10/25 08:00 Pulse 68 02/10/25 11:37 Resp 18 02/10/25 11:37 BP 124/67 02/10/25 08:00 Pulse Ox 93 02/10/25 11:37 O2 Del Method Nasal Cannula 02/10/25 11:37 O2 Flow Rate 4 02/10/25 11:37 02/09/25 02/10/25 02/10/25 22:59 06:59 14:59 Intake Total 350 / 1408.369 400 / 1808.369 690 / 690 Output Total 550 / 550 300 / 850 1850 / 1850 Balance -200 / 858.369 100 / 958.369 -1160 / -1160 Weight last 48 hrs Weight 95.118 kg Weight 95.4 kg Physical Exam 2 Const: COMMON NORMALS: no acute distress and patient oriented x3 Resp: COMMON NORMALS: normal respiratory effort, No retractions and No use of accessory muscles AUSCULTATION: crackles and wheezes Cardio: COMMON NORMALS: regular rate, regular rhythm, S1 normal heart sound present and S2 normal heart sound present RATE: regular rate RHYTHM: r egular rhythm HEART SOUNDS: S1 normal heart sound present and S2 normal heart sound present GI: COMMON NORMALS: Normal to inspection, nondistended, normoactive bowel sounds present and non-tender Extremity: NARRATIVE EXTREMITY EXAM: 1+ edema Neuro: COMMON NORMALS: patient oriented x3 and CN's II-XII intact bilaterally Psych: COMMON NORMALS: mental status grossly normal Urinary Catheter Management: Carey Latex Free: Cath Placed During This Visit: yes Reason for Continuing Indwelling Catheter: Accurate Measurement of Urinary Output in Critically Ill Patients Urinary Catheter Date of Insertion: 02/07/25 Urinary Catheter Time of Insertion: 18:45 Data 02/10/25 02:35 02/10/25 02:35 Micro: Microbiology 02/08/25 12:47 Urine Culture - Final Urine Catheterized 02/08/25 12:56 Blood Culture - Preliminary Blood NEGATIVE TO DATE 02/08/25 12:51 Blood Culture - Preliminary Blood NEGATIVE TO DATE A&P Assessment and plan 1. Chest pain: 2. Atrial fibrillation with RVR: 3. CHF exacerbation: 4. CAD (coronary artery disease): 5. Chronic anticoagulation: 6. Type 2 diabetes mellitus: 7. History of deep vein thrombosis: 8. Acute respiratory failure with hypoxia: 9. Acute exacerbation of chronic obstructive airways disease: 10. Rhinovirus: Plan: #1 Chest pain, NSTEMI Cardiac echo CONCLUSIONS Normal left ventricular size, systolic function and wall thickness, with no regional wall motion abnormalities. Left ventricular ejection fraction is estimated at 60 %. Grade I/IV diastolic dysfunction (abnormal relaxation filling pattern), normal to mildly elevated filling pressures. There is no pericardial effusion. No significant valve abnormalities. Right atrial pressure is around 5 mm of mercury. - Did not tolerate stress test due to atrial fibrillation - Monitor for recurrent chest pain -Aspirin, statin - Heparin drip has been discontinued due to acute anemia -Transfused 3 unit PRBC, maintain hemoglobin greater than 8 - Cardiology consulted, following medical management #2 Atrial fibrillation with rapid ventricular response - Currently on oral amiodarone -Continue p.o. Cardizem - Heparin drip has been held due to persistent anemia #3COPD exacerbation - Wean steroids due to hyperglycemia -Prednisone 40 mg daily Persistent leukocytosis? -Due to persistent shortness of breath, wheezing, leukocytosis. CT chest ordered concerns for pneumonia CT of the chest showing volume loss lingula, was on Rocephin, azithromycin, but has persistent leukocytosis, shortness of breath, wheezing, thus antibiotics therapy was broadened to vancomycin and cefepime - Rhinovirus positive -Chest x-ray no acute infiltrates -Broaden antibiotic coverage to vancomycin, cefepime - DuoNeb - Oxygen therapy #4 Heart failure with preserved ejection fraction - -13 L so far -Due to hyponatremia serum sodium 123, diuresis on hold -Continues to have wheezing, pitting edema, crackles although improving -Bumex 1 mg IV every 8 hours currently on hold due to hyponatremia will consider resuming based on serum sodium progress, potassium replacement - Carey catheter - Monitor urine output, monitor creatinine #5 acute hypoxic respiratory failure CT chest CT/CT chest wo con [id number] IMPRESSION: 1. No interval lobar consolidation is appreciated with findings suggestive of post inflammation, granulomatous related sequela including calcifications on the right as well as some centrilobular, patchy scarring type volume loss of the lingula. If there are persistent clinical findings then consider bronchoscopy. 2. There is some mild air trapping appearance overall along with some central bronchiolectasis. Consider pulmonary function studies. 3. There are dense multi-vessel coronary calcifications overall present as well as some of the aortic root and mitral apparatus. Consider calcium scoring CT, echocardiography. - Multifactorial from heart failure with preserved ejection fraction, COPD, possible pneumonia? - Diuresis as above - Steroids as above - Antibiotic coverage broadened to vancomycin, cefepime - Sputum culture - Blood culture, so far no growth #6 History of acute on chronic anemia, hemoglobin down to 7.0, denies any blood black stools -Hemoglobin 8.5 -Possible slow GI bleed? -EGD showed mild gastritis, small polypoid lesion of the antrum with active oozing, removed with forcep biopsy, clips placed x 2 - Protonix, Carafate - Status post 3 unit PRBC - Hemoglobin stable -IV Venofer day 4 of 5 -Discussed risks and benefits of EGD, he agreed to proceed, EGD today - Watch hemoglobin closely #7 type 2 diabetes mellitus - Monitor blood sugars closely - High dose insulin sliding scale, will consider transitioning him back to his home insulin #[address]/CT abdomen pelvis wo con [id number] IMPRESSION: 1. No intra-abdominal or pelvic hematomas or fluid collections. 2. Cirrhotic appearing liver. 3. Moderate atherosclerosis aorta. Atherosclerotic plaque extends into the mesenteric arteries. No GI tract ischemia. 4. Multifocal ventral abdominal wall hernias. There is a single loop of nondilated small bowel extending through an infraumbilical hernia. Similar to the prior study from 2021. 5. Carey catheter in good position. 6. Cholelithiasis without acute cholecystitis. Full code GI and DVT prophylaxis in place Plan for today, versus leukocytosis, fluid overload, hypokalemia, anemia, heart failure with preserved ejection fraction, PDMP PDMP Reviewed: Not Reviewed Attestations 2 Medical Necessity Statement*: Patient requires hospitalization for acute anemia, hypokalemia, fluid overload, wheezing, NSTEMI Diagnoses Chest pain R07.9 Atrial fibrillation with RVR I48.91 CHF exacerbation I50.9 CAD (coronary artery disease) I25.10 Chronic anticoagulation Z79.01 Type 2 diabetes mellitus E11.9 History of deep vein thrombosis Z86.718 Acute respiratory failure with hypoxia J96.01 Acute exacerbation of chronic obstructive airways disease J44.1 Rhinovirus B34.8
[2025-02-10 13:21] LABS: Hematocrit 25.7 % (37-53); Hemoglobin 8.20 g/dL (11.27-16.99); Mean Corpuscular HGB Conc 31.9 g/dL (30-55); Mean Corpuscular Hemoglobin 28.0 pg (27-33); Mean Corpuscular Volume 87.7 fl (82-101); Nucleated Red Blood Cells % 0.6 %; Platelet Count 279 10^3/cmm (157-399); Red Blood Count 2.93 10^6/uL (3.85-5.65); White Blood Count 26.71 10^3/uL (3.29-11.43)
[2025-02-10 13:39] LABS: Anion Gap 14.2 (5-19); Blood Urea Nitrogen 37 mg/dL (8-23); Calcium 9.4 mg/dL (8.5-10.5); Carbon Dioxide 32 mmol/L (22-29); Chloride 84 mmol/L (98-107); Creatinine Clr Calc Pharmacy 83.5987; Glucose 302 mg/dL (65-115); Osmolality Calculated 282 mOsm/kg (285-295); Potassium 4.2 mmol/L (3.5-5.1); Sodium 126 mmol/L (136-145)
[2025-02-10 14:34] LABS: NT Pro B Type Natriuretic Pept 291 pg/mL (0-125)
[2025-02-11] VITALS (19 sets, daily range): BP systolic 113–145; BP diastolic 58–80; PULSE 62–90; RESP 16–23; TEMP 36.4–36.9; O2SAT 89–97
[2025-02-11] MEDS: HYDROmorphone 0.5 MG/0.5 ML INJ IVP ×2 (01:55→06:15)
[2025-02-11 03:17] LABS: Hematocrit 22.8 % (37-53); Hemoglobin 7.30 g/dL (11.27-16.99); Mean Corpuscular HGB Conc 32.0 g/dL (30-55); Mean Corpuscular Hemoglobin 27.8 pg (27-33); Mean Corpuscular Volume 86.7 fl (82-101); Nucleated Red Blood Cells % 1.1 %; Platelet Count 280 10^3/cmm (157-399); Red Blood Count 2.63 10^6/uL (3.85-5.65); White Blood Count 27.24 10^3/uL (3.29-11.43)
--- NOTE | 2025-02-11 03:49 | PC.NURSE ---
Notified that patients hemoglobin was 7.3, given orders to monitor at this time.
[2025-02-11 03:52] LABS: Alanine Aminotransferase 18 U/L (0-41); Albumin Level 3.5 g/dL (3.5-5.2); Alkaline Phosphatase 90 U/L (40-130); Anion Gap 13.6 (5-19); Aspartate Amino Transferase 18 U/L (0-40); Blood Urea Nitrogen 37 mg/dL (8-23); Calcium 9.3 mg/dL (8.5-10.5); Carbon Dioxide 31 mmol/L (22-29); Chloride 84 mmol/L (98-107); Creatinine Clr Calc Pharmacy 83.5987; Globulin 2.3 g/dL (1.3-4.6); Glucose 142 mg/dL (65-115); Osmolality Calculated 271 mOsm/kg (285-295); Potassium 3.6 mmol/L (3.5-5.1); Sodium 125 mmol/L (136-145); Total Protein 5.8 g/dL (6.6-8.7)
[2025-02-11 04:04] LABS: NT Pro B Type Natriuretic Pept 342 pg/mL (0-125)
[2025-02-11] MEDS: metoprolol succinate ER (24 HR) 25 mg Tablet PO (04:54)
[2025-02-11] MEDS: cefepime 2,000 mg SDV 2000 MG IVP ×2 (04:54→20:56)
[2025-02-11] MEDS: polyethylene glycol 3350 Pkt 17 gm PO ×2 (04:54→17:34)
[2025-02-11] MEDS: dilTIAZem ER (24HR) 240 mg Capsule PO (04:54)
[2025-02-11] MEDS: sucralfate 1 gm/10 mL Oral Liq UDC PO ×3 (05:30→17:34)
[2025-02-11] MEDS: insulin glargine 100 units/1 mL 20 UNIT SUBCUT (06:15)
[2025-02-11] MEDS: iron sucrose 200 MG in sodium chloride 0.9% (100 ml) 100 ML IV (08:32)
[2025-02-11] MEDS: pantoprazole 40 mg SDV IVP ×2 (08:33→20:56)
--- NOTE | 2025-02-11 10:01 | P.PN_ITS ---
<Statement entered by Marichuy Bates MD - 02/20/25 19:58> Patient was evaluated and cared for in conjunction with an advanced practice practitioner. I personally examined the patient and reviewed the chart and all pertinent data including imaging, telemetry, and laboratory results. I discussed the patient in detail with the advanced practice practitioner. Please see their note for complete H&P testing result and agreed upon plan of care for the patient. Subjective 2 Subjective: Hemoglobin 7.3 this morning, down from 8.2 yesterday. Appears he is still bleeding from some location. No active chest pain currently, remains in sinus rhythm. Vitals/I&O/Wt Last Vital Signs Temp 97.6 F 02/11/25 07:42 Pulse 64 02/11/25 07:56 Resp 16 02/11/25 07:56 BP 145/70 02/11/25 07:42 Pulse Ox 97 02/11/25 07:56 O2 Del Method Nasal Cannula 02/11/25 07:56 O2 Flow Rate 4 02/11/25 07:56 02/10/25 02/11/25 02/11/25 22:59 06:59 14:59 Intake Total 300 / 1970 540 / 1970 120 / 120 Output Total 1600 / 3800 350 / 3800 Balance -1300 / -1830 190 / -1830 120 / 120 Weight last 48 hrs Weight 211 lb 10.3 oz Weight 209 lb 11.2 oz Physical Exam 2 Const: COMMON NORMALS: no acute distress and patient oriented x3 GENERAL APPEARANCE: cooperative and comfortable ORIENTATION/CONSCIOUSNESS: Yes awake, Yes oriented to person, Yes oriented to place and Yes oriented to time Chest: COMMONS NORMALS: normal inspection of the chest and normal palpation of entire chest wall CHEST: Yes Symmetrical chest wall rise Resp: COMMON NORMALS: normal respiratory effort, No retractions, No use of accessory muscles and clear to auscultation bilaterally (coarse) EFFORT & INSPECTION: Yes symmetric chest movement and Yes prolonged expiratory phase A USCULTATION: clear to auscultation bilaterally (coarse) Cardio: COMMON NORMALS: regular rate, regular rhythm, S1 normal heart sound present, S2 normal heart sound present, No gallops present (Cardio), No clicks present (Cardio), No murmurs present (Cardio) and No rub (Cardio) RATE: r egular rate RHYTHM: regular rhythm HEART SOUNDS: S1 normal heart sound present and S2 normal heart sound present PERIPHERAL PULSES: radial pulses present Extremity: COMMON NORMALS: no pedal edema Neuro: COMMON NORMALS: patient oriented x3 and moves all extremities S ENSORIUM/ORIENTATION: Yes oriented to person, Yes oriented to place and Yes oriented to time Urinary Catheter Management: Carey Latex Free: Cath Placed During This Visit: yes Reason for Continuing Indwelling Catheter: Accurate Measurement of Urinary Output in Critically Ill Patients Urinary Catheter Date of Insertion: 02/07/25 Urinary Catheter Time of Insertion: 18:45 Data 02/11/25 02:44 02/11/25 02:44 Micro: Microbiology 02/08/25 12:47 Urine Culture - Final Urine Catheterized A&P Assessment and plan 1. CAD (coronary artery disease): 2. PAD (peripheral artery disease): 3. Tobacco dependence due to cigarettes, in remission: 4. BARGER (dyspnea on exertion): 5. Hypertension: 6. Type 2 diabetes mellitus: 7. Obesity (BMI 30.0-34.9): 8. Upper GI bleed: 9. Anemia: 10. COPD (chronic obstructive pulmonary disease): Plan: Chest pain resolved with addition of Imdur yesterday. He remains in sinus rhythm with amiodarone 400 mg twice daily and diltiazem 240 mg daily. He does not appear volume overloaded, shortness of breath primarily related to his COPD at this point. Hospitalist service and surgery managing bleeding. No further cardiac workup recommended until we can demonstrate stability of hemoglobin and lack of GI bleeding. Follow-up with Dr. Mayes 2 weeks after discharge. PDMP PDMP Reviewed: Not Reviewed Attestations 2 Medical Necessity Statement*: Per hospitalist Coding Level of Care Code Acute Code for g Fwd Diagnoses CAD (coronary artery disease) I25.10 PAD (peripheral artery disease) I73.9 Tobacco dependence due to cigarettes, in remission F17.211 BARGER (dyspnea on exertion) R06.09 Hypertension I10 Type 2 diabetes mellitus E11.9 Obesity (BMI 30.0-34.9) E66.811 Upper GI bleed K92.2 Anemia D64.9 COPD (chronic obstructive pulmonary disease) J44.9
--- NOTE | 2025-02-11 16:20 | P.PN_ITS ---
Subjective 2 Subjective: Patient was seen and supportive, currently alert oriented x 3, following all commands, breath is improving, wheezing improving, his hemoglobin down to 7.3 he denies any active bloody or black stools he is worried about a lower GI source of bleeding, he is wondering why he has not had a colonoscopy, we discussed the risks and benefits of a colonoscopy, he voiced understanding, could answer, will consult general surgery, but denies any bloody vomit, no bloody cough, no bloody or black stools, Vitals/I&O/Wt Last Vital Signs Temp 97.9 F 02/11/25 11:51 Pulse 70 02/11/25 15:07 Resp 16 02/11/25 15:01 BP 118/59 02/11/25 13:46 Pulse Ox 91 02/11/25 15:01 O2 Del Method Nasal Cannula 02/11/25 15:01 O2 Flow Rate 2 02/11/25 15:01 02/11/25 02/11/25 02/11/25 06:59 14:59 22:59 Intake Total 540 / 1970 480 / 480 Output Total 350 / 3800 Balance 190 / -1830 480 / 480 Weight last 48 hrs Weight 96 kg Weight 95.118 kg Physical Exam 2 Const: COMMON NORMALS: no acute distress and patient oriented x3 Resp: COMMON NORMALS: normal respiratory effort, No retractions, No use of accessory muscles and clear to auscultation bilaterally AUSCULTATION: clear to auscultation bilaterally Cardio: COMMON NORMALS: regular rate, regular rhythm, S1 normal heart sound present and S2 normal heart sound present RATE: regular rate RHYTHM: r egular rhythm HEART SOUNDS: S1 normal heart sound present and S2 normal heart sound present GI: COMMON NORMALS: Normal to inspection, nondistended, normoactive bowel sounds present and non-tender Extremity: COMMON NORMALS: no pedal edema Neuro: COMMON NORMALS: patient oriented x3 Psych: COMMON NORMALS: mental status grossly normal Urinary Catheter Management: Carey Latex Free: Cath Placed During This Visit: yes Reason for Continuing Indwelling Catheter: Accurate Measurement of Urinary Output in Critically Ill Patients Urinary Catheter Date of Insertion: 02/07/25 Urinary Catheter Time of Insertion: 18:45 Data 02/11/25 02:44 02/11/25 02:44 Micro: Microbiology 02/08/25 12:47 Urine Culture - Final Urine Catheterized A&P Assessment and plan 1. Chest pain: 2. Atrial fibrillation with RVR: 3. CHF exacerbation: 4. CAD (coronary artery disease): 5. Chronic anticoagulation: 6. Type 2 diabetes mellitus: 7. History of deep vein thrombosis: 8. Acute respiratory failure with hypoxia: 9. Acute exacerbation of chronic obstructive airways disease: 10. Rhinovirus: Plan: #1 Chest pain, NSTEMI Cardiac echo CONCLUSIONS Normal left ventricular size, systolic function and wall thickness, with no regional wall motion abnormalities. Left ventricular ejection fraction is estimated at 60 %. Grade I/IV diastolic dysfunction (abnormal relaxation filling pattern), normal to mildly elevated filling pressures. There is no pericardial effusion. No significant valve abnormalities. Right atrial pressure is around 5 mm of mercury. - Did not tolerate stress test due to atrial fibrillation - Monitor for recurrent chest pain -Aspirin, statin - Heparin drip has been discontinued due to acute anemia -Transfused 3 unit PRBC, maintain hemoglobin greater than 8 - Cardiology consulted, following medical management #2 Atrial fibrillation with rapid ventricular response - Currently on oral amiodarone -Continue p.o. Cardizem - Heparin drip has been held due to persistent anemia #3COPD exacerbation - Wean steroids due to hyperglycemia -Prednisone 40 mg daily Persistent leukocytosis? -Due to persistent shortness of breath, wheezing, leukocytosis. CT chest ordered concerns for pneumonia CT of the chest showing volume loss lingula, was on Rocephin, azithromycin, but has persistent leukocytosis, shortness of breath, wheezing, thus antibiotics therapy was broadened to vancomycin and cefepime - Rhinovirus positive -Chest x-ray no acute infiltrates -Broaden antibiotic coverage to vancomycin, cefepime - DuoNeb - Oxygen therapy #4 Heart failure with preserved ejection fraction - -15 L so far -Due to hyponatremia serum sodium 123, diuresis on hold -Continues to have wheezing, pitting edema, crackles although improving -Bumex 1 mg IV every 8 hours currently on hold due to hyponatremia will consider resuming based on serum sodium progress, potassium replacement - Carey catheter - Monitor urine output, monitor creatinine #5 acute hypoxic respiratory failure CT chest CT/CT chest wo con [id number] IMPRESSION: 1. No interval lobar consolidation is appreciated with findings suggestive of post inflammation, granulomatous related sequela including calcifications on the right as well as some centrilobular, patchy scarring type volume loss of the lingula. If there are persistent clinical findings then consider bronchoscopy. 2. There is some mild air trapping appearance overall along with some central bronchiolectasis. Consider pulmonary function studies. 3. There are dense multi-vessel coronary calcifications overall present as well as some of the aortic root and mitral apparatus. Consider calcium scoring CT, echocardiography. - Multifactorial from heart failure with preserved ejection fraction, COPD, possible pneumonia? - Diuresis as above - Steroids as above - Antibiotic coverage broadened to vancomycin, cefepime - Sputum culture - Blood culture, so far no growth #6 History of acute on chronic anemia, hemoglobin down to 7.0, denies any blood black stools -Hemoglobin 8.5 -Possible slow GI bleed? -EGD showed mild gastritis, small polypoid lesion of the antrum with active oozing, removed with forcep biopsy, clips placed x 2 - Protonix, Carafate - Status post 4 unit PRBC - Hemoglobin stable -IV Venofer completed, 5 doses -Discussed risks and benefits of EGD, he agreed to proceed, EGD today - Watch hemoglobin closely #7 type 2 diabetes mellitus - Monitor blood sugars closely - High dose insulin sliding scale, will consider transitioning him back to his home insulin #[address]/CT abdomen pelvis wo con [id number] IMPRESSION: 1. No intra-abdominal or pelvic hematomas or fluid collections. 2. Cirrhotic appearing liver. 3. Moderate atherosclerosis aorta. Atherosclerotic plaque extends into the mesenteric arteries. No GI tract ischemia. 4. Multifocal ventral abdominal wall hernias. There is a single loop of nondilated small bowel extending through an infraumbilical hernia. Similar to the prior study from 2021. 5. Carey catheter in good position. 6. Cholelithiasis without acute cholecystitis. Full code GI protonix DVT prophylaxis SCD, Lovenox relatively contraindicated given anemia Plan for today, transfuse 1 unit PRBC, PT OT, consult general surgery for colonoscopy PDMP PDMP Reviewed: Not Reviewed Attestations 2 Medical Necessity Statement*: Patient requires hospitalization with persistent anemia with non-ST elevation myocardial infarction, with respiratory failure Diagnoses Chest pain R07.9 Atrial fibrillation with RVR I48.91 CHF exacerbation I50.9 CAD (coronary artery disease) I25.10 Chronic anticoagulation Z79.01 Type 2 diabetes mellitus E11.9 History of deep vein thrombosis Z86.718 Acute respiratory failure with hypoxia J96.01 Acute exacerbation of chronic obstructive airways disease J44.1 Rhinovirus B34.8
[2025-02-11 17:03] LABS: Hematocrit 24.5 % (37-53); Hemoglobin 7.90 g/dL (11.27-16.99); Mean Corpuscular HGB Conc 32.2 g/dL (30-55); Mean Corpuscular Hemoglobin 28.1 pg (27-33); Mean Corpuscular Volume 87.2 fl (82-101); Nucleated Red Blood Cells % 0.8 %; Platelet Count 196 10^3/cmm (157-399); Red Blood Count 2.81 10^6/uL (3.85-5.65); White Blood Count 18.52 10^3/uL (3.29-11.43)
[2025-02-11 17:14] LABS: INR 0.98 (0.8-1.2); Prothrombin Time 13.70 SECONDS (12.1-14.9)
[2025-02-11 17:19] LABS: Alanine Aminotransferase 18 U/L (0-41); Albumin Level 3.4 g/dL (3.5-5.2); Alkaline Phosphatase 88 U/L (40-130); Anion Gap 16.2 (5-19); Aspartate Amino Transferase 18 U/L (0-40); Blood Urea Nitrogen 31 mg/dL (8-23); Calcium 9.0 mg/dL (8.5-10.5); Carbon Dioxide 27 mmol/L (22-29); Chloride 86 mmol/L (98-107); Creatinine Clr Calc Pharmacy 102.5954; Globulin 1.9 g/dL (1.3-4.6); Glucose 181 mg/dL (65-115); Osmolality Calculated 271 mOsm/kg (285-295); Potassium 4.2 mmol/L (3.5-5.1); Sodium 125 mmol/L (136-145); Total Protein 5.3 g/dL (6.6-8.7)
--- NOTE | 2025-02-11 19:53 | PM.CONSULT ---
Providers/Reason For Consult Consulting Physician/Specialty*: adalid davies MD general surgery Reason for Consult*: anemia Requesting Physician: MD Evangelist hospitalist Attending Physician: Neil Zafar MD Primary Care Provider: Abram Horn MD History of Present Illness History of Present Illness Joshua Avila is a 64 year old male with heart disease in need of cardiology testing and treatment but needs GI source of bleeding ruled out because of history of anemia prior to proceeding with testing. He has had small polyp in stomach biopsied that may have been source of anemia but still quite anemic. It has been 10 years since last colonoscopy and does not think any polyps were removed. He has no Fmhx of CRC. History of colectomy in past.On higher dose of prednisone. Review of Systems Narrative: Constitutional: denies rigors, singnificant weight gain, increased appetite HEENT: denies chronic cough, blurry vision, excessive tearing, eye pain, flashing lights, odynophagia, painful mastication, change in voice, change in taste, chronic sore throat, hypersalivation Heart: denies racing heart, palpitations Lungs: denies hemoptysis, pain with deep inspiration, chronic bronchitis GI: denies hematemesis, hematochezia, dysphagia, tenesmus : denies polyuria, hematuria, painful micturation Musculoskeletal: denies hemarthrosis, Muscle wasting, change in ambulation Neuro: denies new onset syncope, dysesthesia, dysequilibrium, ptosis eyelid or face SKin: denies new onset hyperalgia, new rash new cyanosis Endocrine: denies new polyuria, polydipsia, polyphagia, heat intolerance, excessive energy Hem/Onc: denies new petechiae, swollen glands, new excessive epstaxis Psych: denies racing thought Medications/Allergies Home Medications ?Medication ?Instructions ?Recorded ?Confirmed ?Last Taken ?Type tamsulosin 0.4 mg capsule 0.4 mg PO QAM #90 caps 02/23/24 02/03/25 01/25/25 Rx fluticasone propionate 50 2 spray intranasal DAILY 04/09/24 02/03/25 01/25/25 History mcg/actuation nasal spray,suspension blood-glucose sensor (Dexcom G6 #3 ea 06/15/24 02/03/25 Unknown Rx Sensor device) blood-glucose,vision therapist,cont #1 ea 06/15/24 02/03/25 Unknown Rx (Dexcom G6 Global Manager) lancets for glucose testing #1 ea 07/21/24 02/03/25 Unknown Rx insulin lispro 100 unit/mL 30 unit SUBCUT TID 09/30/24 02/03/25 01/25/25 History subcutaneous pen (Humalog KwikPen (U-100) Insulin) lancets 33 gauge (OneTouch Delica #100 ea 11/01/24 02/03/25 Unknown Rx Plus Lancet) blood sugar diagnostic (OneTouch #300 ea 11/05/24 02/03/25 Unknown Rx Verio test strips) alprazolam 0.5 mg tablet 0.5 mg PO TID PRN 12/22/24 02/03/25 Unknown History smothering/anxiety budesonide 160 mcg-glycopyr 9 2 inh inhalation BID #10.7 grams 12/22/24 02/03/25 01/25/25 Rx mcg-formot 4.8 mcg/actuation HFA inhaler ([employer] [place]) one touch ben test strips #200 ea 12/29/24 02/03/25 Unknown Rx portable oxygen #1 ea 01/11/25 02/03/25 Unknown Rx portable oxygen concentrator #1 ea 01/11/25 02/03/25 Unknown Rx portable oxygen container #1 ea 01/11/25 02/03/25 Unknown Rx dabigatran etexilate 75 mg capsule 75 mg PO BID #60 caps 01/12/25 02/03/25 Unknown Rx (Pradaxa) potassium chloride 10 mEq 10 meq PO BID Edema 01/18/25 02/03/25 Unknown History tablet,extended release(part/cryst) atorvastatin 40 mg tablet (Lipitor) 40 mg PO DAILY #90 tabs 01/19/25 02/03/25 02/02/25 09:00 Rx empagliflozin 10 mg tablet 10 mg PO DAILY #90 tabs 01/19/25 02/03/25 01/25/25 Rx (Jardiance) roflumilast 250 mcg tablet 250 mcg PO DAILY 4 weeks #30 tabs 01/25/25 02/03/25 Unknown Rx albuterol sulfate 90 mcg/actuation 2 puff inhalation Q4H PRN 09/02/03/25 01/25/25 History aerosol inhaler Shortness Of Breath Or Wheezing bumetanide 1 mg tablet 1 mg PO DAILY #270 tabs 01/26/25 02/03/25 01/24/25 Rx insulin glargine-aglr 100 unit/mL 20 unit SUBCUT QAM 01/26/25 02/03/25 01/25/25 History (3 mL) subcutaneous pen (Fay Leyva) ipratropium 0.5 mg-albuterol 3 mg 3 ml inhalation TID #180 mL 01/26/25 02/03/25 Unknown Rx (2.5 mg base)/3 mL nebulization soln losartan 100 mg tablet 50 mg (1/2 x 100 mg) PO DAILY #90 01/26/25 02/03/25 01/25/25 Rx tabs pantoprazole 40 mg tablet,delayed 40 mg PO BID@0500,1700 30 days #60 01/26/25 02/03/25 Unknown Rx release tabs sucralfate 1 gram tablet (Carafate) 1 g PO BID 4 weeks #56 tabs 01/26/25 02/03/25 Unknown Rx ferrous sulfate 325 mg (65 mg See Rx Instructions .Route 01/31/25 02/03/25 Unknown Rx iron) tablet (Iron (ferrous .COMPLEX #90 tabs sulfate)) Allergies Allergy/AdvReac Type Severity Reaction Status Date / Time No Known Allergies Allergy Verified 02/02/25 09:48 Current Medications Generic Name Dose Route Start Last Admin Trade Name Freq PRN Reason Stop Dose Admin Acetaminophen 650 mg 02/03/25 20:52 02/10/25 23:47 Acetaminophen 325 Mg Tablet PO 650 mg Q6H PRN Administration Mild/Mod Pain Or Temp >/= 101 Albuterol/Ipratropium 3 ml 02/06/25 00:00 02/11/25 15:02 Ipratropium-Albuterol 3 Ml Neb INHALATION 3 ml Q4H.RESPIRATORY SHERITA Administration Amiodarone HCl 400 mg 02/09/25 17:00 02/11/25 17:35 Amiodarone 200 Mg Tablet PO 400 mg BID SHERITA Administration Aspirin 81 mg 02/09/25 05:00 02/11/25 04:54 Aspirin 81 Mg Ec Tablet PO 81 mg DAILY SHERITA Administration Atorvastatin Calcium 40 mg 02/04/25 21:00 02/10/25 21:15 Atorvastatin 40 Mg Tablet PO 40 mg BEDTIME SHERITA Administration Bisacodyl 10 mg 02/11/25 08:15 02/11/25 08:33 Bisacodyl 5 Mg Tablet PO 10 mg DAILY SHERITA Administration Budesonide 0.5 mg 02/06/25 08:00 02/11/25 07:55 Budesonide 0.5 Mg/2 Ml Neb INHALATION 0.5 mg BID.RESPIRATORY SHERITA Administration Cefepime HCl 2,000 mg 02/08/25 12:15 02/11/25 13:39 Cefepime 2,000 Mg Sdv IVP Not Given Q8H [facility] Protocol Diltiazem HCl 240 mg 02/09/25 05:00 02/11/25 04:54 Diltiazem Er (24hr) 240 Mg Capsule PO 240 mg DAILY SHERITA Administration Docusate Sodium 100 mg 02/09/25 05:00 02/11/25 17:35 Docusate Sodium 100 Mg Capsule PO 100 mg BID SHERITA Administration Guaifenesin 200 mg 02/04/25 22:55 02/08/25 12:04 Guaifenesin 100 Mg/5 Ml Udc 10 Ml PO 200 mg Q4H PRN Administration COUGH Vancomycin HCl 1,500 mg in 300 mls @ 200 mls/hr 02/11/25 15:00 02/11/25 17:29 Vancocin IV Infused Q12H SHERITA Infusion Insulin Glargine 20 unit 02/09/25 07:00 02/11/25 06:15 Insulin Glargine 100 Units/1 Ml SUBCUT 20 unit ACBREAKFAST SHERITA Administration Insulin Human Lispro 0 unit 02/04/25 08:00 02/11/25 17:35 Insulin Lispro 100 Unit/1 Ml SUBCUT 8 unit WM&BEDTIME SHERITA Administration Protocol Isosorbide Mononitrate 30 mg 02/10/25 12:35 02/11/25 04:54 Isosorbide Mononitrate Er 30 Mg Tablet PO 30 mg DAILY SHERITA Administration Metoprolol Succinate 25 mg 02/09/25 05:00 02/11/25 04:54 Metoprolol Succinate Er (24 Hr) 25 Mg Tablet PO 25 mg DAILY SHERITA Administration Nitroglycerin 0.4 mg 02/08/25 06:32 02/08/25 06:37 Nitroglycerin 0.4 Mg Sublingual Tablet SUBLINGUAL 0.4 mg Q5M PRN Administration CHEST PAIN Ondansetron HCl 4 mg 02/03/25 20:52 02/08/25 05:02 Ondansetron 2 Mg/Ml Sdv 2 Ml IVP 4 mg Q8H PRN Administration vomiting, or N/V if npo Pantoprazole Sodium 40 mg 02/04/25 08:15 02/11/25 08:33 Pantoprazole 40 Mg Sdv IVP 40 mg Q12H SHERITA Administration Polyethylene Glycol 17 gm 02/10/25 17:00 02/11/25 17:34 Polyethylene Glycol 3350 Pkt 17 Gm PO 17 gm BID SHERITA Administration Prednisone 40 mg 02/09/25 05:00 02/11/25 04:54 Prednisone 20 Mg Tablet PO 40 mg DAILY SHERITA Administration Sucralfate 1 gm 02/04/25 08:15 02/11/25 17:34 Sucralfate 1 Gm/10 Ml Oral Liq Udc PO 1 gm Q6H SHERITA Administration PFSH Acute PFSH: Medical History (Updated 02/10/25 @ 12:19 by Neil Zafar MD) Acute respiratory failure with hypoxia Iron deficiency anemia due to chronic blood loss Prediabetes COPD (chronic obstructive pulmonary disease) Hypertension Nicotine dependence Alcohol abuse New onset of congestive heart failure Acute hyponatremia Community acquired pneumonia Chronic maxillary sinusitis Prostatic hypertrophy Duodenal ulcer Liver cirrhosis Anemia COPD exacerbation Erectile dysfunction History of abdominal hernia Renal insufficiency GI bleed Surgical History History of bowel resection History of colon surgery Family History Other CAD (coronary artery disease) Social History Smoking and tobacco/nicotine status: former use of tobacco/nicotine Quit status (tobacco/nicotine): has quit using Year quit tobacco: 2009 Former quit date comment: 2 ppd X 40 years Alcohol intake: current Substance/Drug Use: never Additional social history: 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 as discussed with myself and his Rae 01/26/2025 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 [employer] 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 Vitals/I&O/Wt Last Vital Signs Temp 98.5 F 02/11/25 19:14 Pulse 79 02/11/25 19:14 Resp 23 H 02/11/25 19:14 BP 137/68 02/11/25 19:14 Pulse Ox 91 02/11/25 19:14 O2 Del Method Nasal Cannula 02/11/25 19:14 O2 Flow Rate 2 02/11/25 15:01 02/11/25 02/11/25 02/11/25 06:59 14:59 22:59 Intake Total 540 / 1970 480 / 480 540 / 1020 Output Total 350 / 3800 1925 / 1925 Balance 190 / -1830 480 / 480 -1385 / -905 Weight last 48 hrs Weight 211 lb 10.3 oz Weight 209 lb 11.2 oz Physical Exam Narrative: Patient is a well developed well nourished and in NAD and is afebrile with vitals stable and is answering questions appropriately with a normal affect and is alert and oriented x3 HEENT: normocephalic with normal external ears and nonicteric, oral mucosa moist and dentition normal for age, trachea midline with no large masses visualized Heart: RRR, no gallops murmurs or rubs, normal PMI with no thrills Lungs: normal excursions, no loud audible wheezing, no subcutaneous emphysema Abdomen: distended, no gross hepatosplenomegaly, no masses, no rigidity or rebound, no loud borborygmi Neuro: nonfocal, GUADARRAMA, grossly normal sensation Musculoskeletal: good muscle tone, no fasciculations, normal gait Skin: pink warm and dry with no rashes or ecchymosis Vascular: good radial pulses, no ulceration, less than 2 second capillary refill in hand : deferred Urinary Catheter Management: Carey Latex Free: Cath Placed During This Visit: yes Reason for Continuing Indwelling Catheter: Accurate Measurement of Urinary Output in Critically Ill Patients Urinary Catheter Date of Insertion: 02/07/25 Urinary Catheter Time of Insertion: 18:45 Data 02/11/25 16:55 02/11/25 16:55 A&P Assessment and plan 1. Anemia: Request made to have colonoscopy done to rule out obvious cause of anemia prior to having cardiology diagnostic testing and treatment for heart disease. Will start on bowel prep and plan colonoscopy in AM. PDMP PDMP Reviewed: Not Reviewed Coding Level of Care Code 34923 Diagnoses Anemia D64.9
[2025-02-11] MEDS: peg /e-lyte soln 4,000 mL Btl 4000 ML PO (20:54)
[2025-02-11 21:49] LABS: C.Diff PCR (Lab) NEGATIVE (Negative)
[2025-02-11] MEDS: ondansetron 2 mg/ML SDV 2 mL 4 MG IVP (22:56)
[2025-02-12] VITALS (13 sets, daily range): BP systolic 107–150; BP diastolic 60–82; PULSE 73–102; RESP 12–20; TEMP 36.6–36.9; O2SAT 90–99
--- NOTE | 2025-02-12 00:19 | PC.NURSE ---
Patient started having nausea around 2229 and stated he couldn't finish bowel prep. This nurse gave zofran and tried to encourage once nausea resolves to finish the rest of the colonoprep. Patient had two emesis episode and is still refusing to finish colonprep, he has drank all but about [address] Kelly made aware.
[2025-02-12 02:44] LABS: Alanine Aminotransferase 21 U/L (0-41); Albumin Level 3.9 g/dL (3.5-5.2); Alkaline Phosphatase 97 U/L (40-130); Anion Gap 12.7 (5-19); Aspartate Amino Transferase 23 U/L (0-40); Blood Urea Nitrogen 31 mg/dL (8-23); Calcium 9.8 mg/dL (8.5-10.5); Carbon Dioxide 31 mmol/L (22-29); Chloride 87 mmol/L (98-107); Creatinine Clr Calc Pharmacy 92.3358; Globulin 2.0 g/dL (1.3-4.6); Glucose 103 mg/dL (65-115); Osmolality Calculated 271 mOsm/kg (285-295); Potassium 3.7 mmol/L (3.5-5.1); Sodium 127 mmol/L (136-145); Total Protein 5.9 g/dL (6.6-8.7)
[2025-02-12 02:52] LABS: Hematocrit 26.7 % (37-53); Hemoglobin 8.70 g/dL (11.27-16.99); Mean Corpuscular HGB Conc 32.6 g/dL (30-55); Mean Corpuscular Hemoglobin 28.3 pg (27-33); Mean Corpuscular Volume 87.0 fl (82-101); Nucleated Red Blood Cells % 1.2 %; Platelet Count 224 10^3/cmm (157-399); Red Blood Count 3.07 10^6/uL (3.85-5.65); White Blood Count 21.42 10^3/uL (3.29-11.43)
[2025-02-12 03:10] LABS: NT Pro B Type Natriuretic Pept 493 pg/mL (0-125)
[2025-02-12] MEDS: cefepime 2,000 mg SDV 2000 MG IVP ×3 (04:25→21:00)
[2025-02-12] MEDS: dilTIAZem ER (24HR) 240 mg Capsule PO (04:26)
[2025-02-12] MEDS: metoprolol succinate ER (24 HR) 25 mg Tablet PO (04:26)
[2025-02-12] MEDS: polyethylene glycol 3350 Pkt 17 gm PO (04:26)
[2025-02-12] MEDS: sucralfate 1 gm/10 mL Oral Liq UDC PO ×4 (04:41→22:59)
--- NOTE | 2025-02-12 06:18 | PC.NURSE ---
Notified Dr. Aranda that patient was unable t finish go-lytely prep and is still having BM that are not yet clear. Clarifying if patient is still going to get a colonoscopy. Discussed patient tolerance to go-lytely last night and that patient was requesting magnesium citrate. Received orders to see if the patient will drink magnesium citrate however this will be a couple day prep. Also received orders to make him a clear liquid diet.
[2025-02-12] MEDS: magnesium citrate Btl 296 mL PO ×2 (07:18→11:30)
[2025-02-12] MEDS: insulin glargine 100 units/1 mL 20 UNIT SUBCUT (07:19)
[2025-02-12] MEDS: pantoprazole 40 mg SDV IVP ×2 (08:28→21:00)
--- NOTE | 2025-02-12 09:04 | P.PN_ITS ---
Subjective 2 Subjective: Cardiology coverage Patient with chest pain, shortness of breath. Found to have severe anemia and evidence of GI bleed. the patient received IV iron transfusion and a unit of blood transfusion yesterday. He seems to be doing okay. However he continues to have the pressure in the chest. No new symptoms. No fever or chills. No cough. The vitals are stable. Remains afebrile. Medications: Medication Review Details: Current Medications Acetaminophen (Acetaminophen 325 Mg Tablet) 650 mg PO Q6H PRN PRN Reason: Mild/Mod Pain Or Temp >/= 101 Last Admin: 02/10/25 23:47 Dose: 650 mg Albuterol/Ipratropium (Ipratropium-Albuterol 3 Ml Neb) 3 ml INHALATION Q4H.RESPIRATORY SHERITA Last Admin: 02/12/25 08:08 Dose: 3 ml Amiodarone HCl (Amiodarone 200 Mg Tablet) 400 mg PO BID SHERITA Last Admin: 02/12/25 04:25 Dose: 400 mg Aspirin (Aspirin 81 Mg Ec Tablet) 81 mg PO DAILY SHERITA Last Admin: 02/12/25 04:25 Dose: 81 mg Atorvastatin Calcium (Atorvastatin 40 Mg Tablet) 40 mg PO BEDTIME SHERITA Last Admin: 02/11/25 20:56 Dose: 40 mg Bisacodyl (Bisacodyl 5 Mg Tablet) 10 mg PO DAILY SHERITA Last Admin: 02/12/25 04:26 Dose: 10 mg Budesonide (Budesonide 0.5 Mg/2 Ml Neb) 0.5 mg INHALATION BID.RESPIRATORY SHERITA Last Admin: 02/12/25 08:08 Dose: 0.5 mg Cefepime HCl (Cefepime 2,000 Mg Sdv) 2,000 mg IVP Q8H [facility]; Protocol Last Admin: 02/12/25 04:25 Dose: 2,000 mg Diltiazem HCl (Diltiazem Er (24hr) 240 Mg Capsule) 240 mg PO DAILY SHERITA Last Admin: 02/12/25 04:26 Dose: 240 mg Docusate Sodium (Docusate Sodium 100 Mg Capsule) 100 mg PO BID SHERITA Last Admin: 02/12/25 04:26 Dose: 100 mg Glucagon (Glucagon 1 Mg/Ml Kit 1 Ml) 1 mg IM ONCE PRN; Protocol PRN Reason: Adult Acute Hypoglycemia Nursing Prot. Guaifenesin (Guaifenesin 100 Mg/5 Ml Udc 10 Ml) 200 mg PO Q4H PRN PRN Reason: COUGH Last Admin: 02/08/25 12:04 Dose: 200 mg Dextrose (D5w) 500 mls @ 0 mls/hr IV ONCE PRN; Protocol PRN Reason: Adult Acute Hypoglycemia Prot Vancomycin HCl 1,000 mg/ (Sodium Chloride) 250 mls @ 250 mls/hr IV Q12H [facility] Last Admin: 02/12/25 08:29 Dose: 250 mls/hr Insulin Glargine (Insulin Glargine 100 Units/1 Ml) 20 unit SUBCUT ACBREAKFAST [facility] Last Admin: 02/12/25 07:19 Dose: 20 unit Insulin Human Lispro (Insulin Lispro 100 Unit/1 Ml) 0 unit SUBCUT WM&BEDTIME [facility]; Protocol Last Admin: 02/12/25 07:27 Dose: Not Given Isosorbide Mononitrate (Isosorbide Mononitrate Er 30 Mg Tablet) 30 mg PO DAILY [facility] Last Admin: 02/12/25 04:26 Dose: 30 mg Magnesium Citrate (Magnesium Citrate Btl 296 Ml) 296 ml PO ONCE ONE Stop: 02/12/25 12:31 Metoprolol Succinate (Metoprolol Succinate Er (24 Hr) 25 Mg Tablet) 25 mg PO DAILY [facility] Last Admin: 02/12/25 04:26 Dose: 25 mg Nitroglycerin (Nitroglycerin 0.4 Mg Sublingual Tablet) 0.4 mg SUBLINGUAL Q5M PRN PRN Reason: CHEST PAIN Last Admin: 02/08/25 06:37 Dose: 0.4 mg Ondansetron HCl (Ondansetron 2 Mg/Ml Sdv 2 Ml) 4 mg IVP Q8H PRN PRN Reason: vomiting, or N/V if npo Last Admin: 02/11/25 22:56 Dose: 4 mg Pantoprazole Sodium (Pantoprazole 40 Mg Sdv) 40 mg IVP Q12H [facility] Last Admin: 02/12/25 08:28 Dose: 40 mg Polyethylene Glycol (Polyethylene Glycol 3350 Pkt 17 Gm) 17 gm PO BID [facility] Last Admin: 02/12/25 04:26 Dose: 17 gm Prednisone (Prednisone 20 Mg Tablet) 40 mg PO DAILY [facility] Last Admin: 02/12/25 04:26 Dose: 40 mg Sucralfate (Sucralfate 1 Gm/10 Ml Oral Liq Udc) 1 gm PO Q6H [facility] Last Admin: 02/12/25 04:41 Dose: 1 gm Vitals/I&O/Wt Last Vital Signs Temp 97.9 F 02/12/25 07:27 Pulse 75 02/12/25 08:09 Resp 16 02/12/25 08:09 BP 107/60 02/12/25 07:27 Pulse Ox 94 02/12/25 08:09 O2 Del Method Nasal Cannula 02/12/25 08:09 O2 Flow Rate 3 02/12/25 08:09 02/11/25 02/12/25 02/12/25 22:59 06:59 14:59 Intake Total 540 / 1020 Output Total 2450 / 2450 200 / 2650 Balance -1910 / -1430 -200 / -1630 Weight last 48 hrs Weight 214 lb 1.102 oz Weight 211 lb 10.3 oz Physical Exam 2 Narrative: GENERAL: The patient is alert and oriented times three. Not in any acute distress. [] HEENT: No significant pallor, icterus or lymphadenopathy.Oral cavity: There are no mucous membrane lesions. NECK: Trachea appears to be central. No masses noted. No JVD or thyromegaly appreciated. RESPIRATORY: Chest is symmetrical. No intercostals muscle retraction or any accessory muscle activation. There is no chest wall tenderness. Breath sounds are heard bilaterally. No rales or rhonchi heard. No evidence of any consolidation. [] BREASTS: Deferred. [] HEART: The heart sounds are normal. No S3 or S4. [No significant murmurs] []. No pericardial rub ABDOMEN: No vessel pulsations or distention. No tenderness. No organomegaly appreciated. Bowel sounds are normally heard. [] : Deferred. [] RECTAL: Deferred. [] LYMPHATIC: No lymphadenopathy noted in the neck. EXTREMITIES: No edema or cyanosis. No clubbing. MUSCULOSKELETAL: No acute joint deformities or swelling SKIN: There are no significant rashes or ecchymosis NEUROPSYCHIATRIC: The patient is alert and oriented x3. Appears to be in a good mood. No tremors or rigidity noted. [] Urinary Catheter Management: Carey Latex Free: Cath Placed During This Visit: yes Reason for Continuing Indwelling Catheter: Accurate Measurement of Urinary Output in Critically Ill Patients Urinary Catheter Date of Insertion: 02/07/25 Urinary Catheter Time of Insertion: 18:45 Data 02/12/25 02:18 02/12/25 02:18 Other Labs: Laboratory Last Values WBC 21.42 10^3/uL (3.29-11.43) H 02/12/25 02:18 RBC 3.07 10^6/uL (3.85-5.65) L 02/12/25 02:18 Hgb 8.70 g/dL (11.27-16.99) L 02/12/25 02:18 Hct 26.7 % (37-53) L 02/12/25 02:18 MCV 87.0 fl (82-101) 02/12/25 02:18 MCH 28.3 pg (27-33) 02/12/25 02:18 MCHC 32.6 g/dL (30-55) 02/12/25 02:18 RDW 19.7 % (12.1-15.1) H 02/12/25 02:18 Plt Count 224 10^3/cmm (157-399) 02/12/25 02:18 MPV 9.9 fL (7.4-10.4) 02/12/25 02:18 Neut % (Auto) 82.6 % 02/12/25 02:18 Lymph % (Auto) 6.2 % 02/12/25 02:18 [place] % (Auto) 6.3 % 02/12/25 02:18 Eos % (Auto) 0.4 % 02/12/25 02:18 Baso % (Auto) 0.1 % 02/12/25 02:18 Neut # (Auto) 17.68 10^3/uL (1.8-7.7) H 02/12/25 02:18 Lymph # (Auto) 1.3 10^3/uL (0.8-4.8) 02/12/25 02:18 [place] # (Auto) 1.4 10^3/uL (0.2-0.9) H 02/12/25 02:18 Eos # (Auto) 0.1 10^3/uL (0.0-0.8) 02/12/25 02:18 Baso # (Auto) 0.0 10^3/uL (0.0-0.1) 02/12/25 02:18 Nucleated RBC % (auto) 1.2 % 02/12/25 02:18 Nucleated RBCs # 0.3 /100WBC 02/12/25 02:18 PT 13.70 SECONDS (12.1-14.9) 02/11/25 16:55 INR 0.98 (0.8-1.2) 02/11/25 16:55 APTT 183.3 SECONDS (23.9-36.7) H* D 02/08/25 05:18 D-Dimer 0.56 ug/mLFEU (0-0.59) 02/03/25 18:30 Sodium 127 mmol/L (136-145) L 02/12/25 02:18 Potassium 3.7 mmol/L (3.5-5.1) 02/12/25 02:18 Chloride 87 mmol/L (98-107) L 02/12/25 02:18 Carbon Dioxide 31 mmol/L (22-29) H 02/12/25 02:18 Anion Gap 12.7 (5-19) 02/12/25 02:18 BUN 31 mg/dL (8-23) H 02/12/25 02:18 Creatinine 1.0 mg/dL (0.7-1.2) 02/12/25 02:18 GFR Calculation 75.5 mL/min (90-130) L 02/12/25 02:18 Glucose 103 mg/dL (65-115) 02/12/25 02:18 POC Glucose 135 mg/dL (70-110) H 02/12/25 06:36 Estimat Average Glucose 123 02/04/25 00:37 Hemoglobin A1c 5.9 % (4.0-6.0) 02/04/25 00:37 Calculated Osmolality 271 mOsm/kg (285-295) L 02/12/25 02:18 Lactic Acid 1.5 mmol/L (0.5-2.2) 02/03/25 18:30 Calcium 9.8 mg/dL (8.5-10.5) 02/12/25 02:18 Phosphorus 5.0 mg/dL (2.5-4.5) H 02/04/25 00:37 Magnesium 1.9 mg/dL (1.7-2.3) 02/08/25 08:57 Total Bilirubin 2.1 mg/dL (0.15-1.2) H 02/12/25 02:18 Direct Bilirubin 0.25 mg/dL (0.00-0.30) 02/08/25 12:51 GGT 52 U/L (8-61) 02/08/25 12:51 AST 23 U/L (0-40) 02/12/25 02:18 ALT 21 U/L (0-41) 02/12/25 02:18 Alkaline Phosphatase 97 U/L (40-130) 02/12/25 02:18 Troponin T Baseline 50 ng/L (0-15) H 02/08/25 06:55 Troponin T 120 Minute 50.42 ng/L (0-15) H 02/08/25 08:57 Delta Troponin T 0.42 ABS# (0-10) 02/08/25 08:57 Troponin T Hi Sens 6Hr 44.53 ng/L (0-15) H 02/08/25 12:51 Troponin T Hi Sens 6Hr Delta -5.47 ng/L (0-12) L 02/08/25 12:51 C-Reactive Protein 5.9 mg/L (0.0-4.9) H 02/12/25 02:18 NT-Pro-B Natriuret Pep 493 pg/mL (0-125) H 02/12/25 02:18 Total Protein 5.9 g/dL (6.6-8.7) L 02/12/25 02:18 Albumin 3.9 g/dL (3.5-5.2) 02/12/25 02:18 Globulin 2.0 g/dL (1.3-4.6) 02/12/25 02:18 Triglycerides 72 mg/dL (0-150) 02/04/25 00:37 Cholesterol 94 mg/dL (0-200) 02/04/25 00:37 LDL Cholesterol, Calc 34 mg/dL (50-129) L 02/04/25 00:37 HDL Cholesterol 46 mg/dL (60-100) L 02/04/25 00:37 LDL/HDL Ratio 0.74 RATIO (0.00-3.22) 02/04/25 00:37 Cholesterol/HDL Ratio 2.04 mg/dL (1.0-5.00) 02/04/25 00:37 Lipase 29 U/L (13-60) 02/08/25 12:51 Procalcitonin 0.45 ng/mL (0-0.5) 02/08/25 12:51 TSH 0.59 uIU/mL (0.27-4.20) 02/04/25 00:37 Urine Color Yellow (Yellow) 02/08/25 12:47 Urine Appearance Clear (CLEAR) 02/08/25 12:47 Urine pH 6.5 (5-7) 02/08/25 12:47 Ur Specific [place] 1.011 (1.005-1.030) 02/08/25 12:47 Urine Protein Negative (Negative) 02/08/25 12:47 Urine Glucose (UA) 2+ (Normal) H 02/08/25 12:47 Urine Ketones Negative (Negative) 02/08/25 12:47 Urine Blood Non-haemolysed trace (Negative) 02/08/25 12:47 Urine Nitrate Negative (Negative) 02/08/25 12:47 Urine Bilirubin Negative (Negative) 02/08/25 12:47 Urine Urobilinogen 0.2 mg/dL (Negative) 02/08/25 12:47 Ur Leukocyte Esterase Trace (Negative) A 02/08/25 12:47 Urine RBC 0-4 /hpf (0-2) H 02/08/25 12:47 Urine WBC 0-4 /hpf (0-5) H 02/08/25 12:47 Ur Squamous Epith Cells 0-4 /hpf (0-5) H 02/08/25 12:47 Amorphous Sediment Not Reportable 02/08/25 12:47 Urine Bacteria None /hpf (NONE) 02/08/25 12:47 Urine Mucus None /hpf 02/08/25 12:47 Nasal MRSA (PCR) Not detected (Negative) 02/08/25 12:47 Vancomycin Trough 24.5 ug/mL (10-15) H 02/12/25 02:18 Adenovirus (PCR) Not detected (NOT DETECT) 02/08/25 12:47 C. pneumoniae DNA (PCR) Not detected (NOT DETECT) 02/08/25 12:47 C. difficile (PCR) Negative (Negative) 02/11/25 20:07 Coronavirus 229E (PCR) Not detected (NOT DETECT) 02/08/25 12:47 Human Metapneumovir PCR Not detected (NOT DETECT) 02/08/25 12:47 Influenza A (H1) PCR Not detected (NOT DETECT) 02/08/25 12:47 Influ A (H1/09) PCR Not detected (NOT DETECT) 02/08/25 12:47 Influenza A (H3) PCR Not detected (NOT DETECT) 02/08/25 12:47 Influenza Type A (PCR) Not detected (NOT DETECT) 02/08/25 12:47 Influenza Type B (PCR) Not detected (NOT DETECT) 02/08/25 12:47 M. pneumoniae (PCR) Not detected (NOT DETECT) 02/08/25 12:47 Parainfluenza 1 (PCR) Not detected (NOT DETECT) 02/08/25 12:47 Parainfluenza 2 (PCR) Not detected (NOT DETECT) 02/08/25 12:47 Parainfluenza 3 (PCR) Not detected (NOT DETECT) 02/08/25 12:47 Parainfluenza 4 (PCR) Not detected (NOT DETECT) 02/08/25 12:47 RSV Type A (PCR) Not detected (NOT DETECT) 02/08/25 12:47 RSV Type B (PCR) Not detected (NOT DETECT) 02/08/25 12:47 Entero/Rhino (PCR) Detected (NOT DETECT) A 02/08/25 12:47 SARS-CoV-2 (PCR) Not detected (NOT DETECT) 02/08/25 12:47 Blood Type O Positive 02/10/25 02:35 Rho(D) Type Rh positive 02/10/25 02:35 Antibody Screen Negative 02/10/25 02:35 Crossmatch See Detail 02/10/25 02:35 Micro: Microbiology 02/11/25 20:07 Occult Blood (FIT) - Final Stool - Stool Aspirate A&P Assessment and plan 1. Elevated troponin: Etiology? Possibly related to type II [place] from atrial fibrillation. His LV ejection fraction was normal by echocardiogram last month. He had a Myocardial perfusion imaging last year which was unremarkable.. 2. Atrial fibrillation with RVR: Patient seems to have intermittent atrial fibrillation. May continue on the current management. Patient may continue on the amiodarone 400 mg p.o. twice daily for a week followed by 4 mg daily for a week followed by 200 mg p.o. daily. 3. Acute on chronic congestive heart failure with left ventricular diastolic dysfunction: Heart failure is clinically compensated. Continue on as needed IV Lasix. 4. Coronary artery disease involving [place] coronary artery of [place] heart with other form of angina pectoris: This is based on the CT of the chest. Patient apparently was found to extensive coronary calcification. He had an unremarkable Myocardial perfusion imaging. In view of his ongoing chest symptoms, it might be appropriate to do a cardiac catheterization to further evaluate the coronary status. This may be done once the source of bleeding is identified and treated appropriately. Also would like to see the hemoglobin remaining stable. 5. PAD (peripheral artery disease): Patient is status post thrombectomy, currently seems to be stable. 6. Tobacco dependence due to cigarettes, in remission: Strongly advised to quit smoking. 7. Primary hypertension: The blood pressure is fairly under control. 8. Upper GI bleed: Plan: The other problems are Type 2 diabetes GI bleed Anemia, status post blood transfusion COPD Hyponatremia Leukocytosis May gradually go up on the isosorbide mononitrate for better control of the angina. Based on the patient's clinical progress, further recommendations will be made. She requires a cardiac catheterization as mentioned above. To further evaluate the coronary status and decide on management. PDMP PDMP Reviewed: Not Reviewed Attestations 2 Medical Necessity Statement*: Patient requires continued hospital stay for close monitoring and further management Coding Level of Care Code Acute Code for [facility] Fwd Diagnoses Elevated troponin R79.89 Atrial fibrillation with RVR I48.91 Acute on chronic congestive heart failure with left ventricular diastolic dysfunction I50.33 Coronary artery disease involving [place] coronary artery of [place] heart with other form of angina pectoris I25.118 Coronary Disease-Associated Artery/Lesion type: [place] artery [place] vs. transplanted heart: [place] heart Associated angina: with other forms of angina PAD (peripheral artery disease) I73.9 Tobacco dependence due to cigarettes, in remission F17.211 Primary hypertension I10 Hypertension type: primary hypertension Upper GI bleed K92.2
--- NOTE | 2025-02-12 14:15 | P.PN_ITS ---
Subjective 2 Subjective: Patient was seen this morning, denies any blood black stools, his Hemoccult stool was positive, no lightheadedness, dizziness, shortness of breath is improving, he is having difficulty with his bowel regimen for plans on colonoscopy Vitals/I&O/Wt Last Vital Signs Temp 98.2 F 02/12/25 11:48 Pulse 75 02/12/25 11:48 Resp 18 02/12/25 11:48 BP 127/67 02/12/25 11:48 Pulse Ox 90 02/12/25 11:48 O2 Del Method Nasal Cannula 02/12/25 11:48 O2 Flow Rate 2 02/12/25 11:48 02/11/25 02/12/25 02/12/25 22:59 06:59 14:59 Intake Total 540 / 1020 370 / 370 Output Total 2450 / 2450 200 / 2650 300 / 300 Balance -1910 / -1430 -200 / -1630 70 / 70 Weight last 48 hrs Weight 97.1 kg Weight 96 kg Physical Exam 2 Const: COMMON NORMALS: no acute distress and patient oriented x3 Resp: COMMON NORMALS: normal respiratory effort, No retractions, No use of accessory muscles and clear to auscultation bilaterally AUSCULTATION: clear to auscultation bilaterally Cardio: COMMON NORMALS: regular rate, regular rhythm, S1 normal heart sound present and S2 normal heart sound present RATE: regular rate RHYTHM: r egular rhythm HEART SOUNDS: S1 normal heart sound present and S2 normal heart sound present GI: COMMON NORMALS: Normal to inspection, nondistended, normoactive bowel sounds present and non-tender Extremity: COMMON NORMALS: no pedal edema Neuro: COMMON NORMALS: patient oriented x3 Psych: COMMON NORMALS: mental status grossly normal Urinary Catheter Management: Carey Latex Free: Cath Placed During This Visit: yes Reason for Continuing Indwelling Catheter: Accurate Measurement of Urinary Output in Critically Ill Patients Urinary Catheter Date of Insertion: 02/07/25 Urinary Catheter Time of Insertion: 18:45 Data 02/12/25 02:18 02/12/25 02:18 Micro: Microbiology 02/11/25 20:07 Occult Blood (FIT) - Final Stool - Stool Aspirate A&P Assessment and plan 1. Chest pain: 2. Atrial fibrillation with RVR: 3. CHF exacerbation: 4. CAD (coronary artery disease): 5. Chronic anticoagulation: 6. Type 2 diabetes mellitus: 7. History of deep vein thrombosis: 8. Acute respiratory failure with hypoxia: 9. Acute exacerbation of chronic obstructive airways disease: 10. Rhinovirus: Plan: #1 Chest pain, NSTEMI Cardiac echo CONCLUSIONS Normal left ventricular size, systolic function and wall thickness, with no regional wall motion abnormalities. Left ventricular ejection fraction is estimated at 60 %. Grade I/IV diastolic dysfunction (abnormal relaxation filling pattern), normal to mildly elevated filling pressures. There is no pericardial effusion. No significant valve abnormalities. Right atrial pressure is around 5 mm of mercury. - Did not tolerate stress test due to atrial fibrillation - Monitor for recurrent chest pain -Aspirin, statin - Heparin drip has been discontinued due to acute anemia -Transfused 4 unit PRBC, maintain hemoglobin greater than 8 - Cardiology consulted, following medical management #2 Atrial fibrillation with rapid ventricular response - Currently on oral amiodarone -Continue p.o. Cardizem - Heparin drip has been held due to persistent anemia #3COPD exacerbation - Wean steroids due to hyperglycemia -Prednisone 40 mg daily Persistent leukocytosis? -Due to persistent shortness of breath, wheezing, leukocytosis. CT chest ordered concerns for pneumonia CT of the chest showing volume loss lingula, was on Rocephin, azithromycin, but has persistent leukocytosis, shortness of breath, wheezing, thus antibiotics therapy was broadened to vancomycin and cefepime - Rhinovirus positive -Chest x-ray no acute infiltrates -Broadened antibiotic coverage to vancomycin, cefepime - DuoNeb - Oxygen therapy #4 Heart failure with preserved ejection fraction - -156 L so far -Due to hyponatremia serum sodium 123, diuresis on hold -Continues to have wheezing, pitting edema, crackles although improving -Bumex 1 mg IV every 8 hours currently on hold due to hyponatremia will consider resuming based on serum sodium progress, potassium replacement - Carey catheter - Monitor urine output, monitor creatinine #5 acute hypoxic respiratory failure CT chest CT/CT chest wo con [id number] IMPRESSION: 1. No interval lobar consolidation is appreciated with findings suggestive of post inflammation, granulomatous related sequela including calcifications on the right as well as some centrilobular, patchy scarring type volume loss of the lingula. If there are persistent clinical findings then consider bronchoscopy. 2. There is some mild air trapping appearance overall along with some central bronchiolectasis. Consider pulmonary function studies. 3. There are dense multi-vessel coronary calcifications overall present as well as some of the aortic root and mitral apparatus. Consider calcium scoring CT, echocardiography. - Multifactorial from heart failure with preserved ejection fraction, COPD, possible pneumonia? - Diuresis as above - Steroids as above - Antibiotic coverage broadened to vancomycin, cefepime - Sputum culture - Blood culture, so far no growth #6 History of acute on chronic anemia, hemoglobin down to 7.0, denies any blood black stools -Hemoglobin 8.5 -Possible slow GI bleed? -EGD showed mild gastritis, small polypoid lesion of the antrum with active oozing, removed with forcep biopsy, clips placed x 2 - Protonix, Carafate - Status post 4 unit PRBC - Hemoglobin stable -IV Venofer completed, 5 doses - Due to persistent anemia, general surgery consulted for colonoscopy - Watch hemoglobin closely #7 type 2 diabetes mellitus - Monitor blood sugars closely - High dose insulin sliding scale, will consider transitioning him back to his home insulin #[address]/CT abdomen pelvis wo con [id number] IMPRESSION: 1. No intra-abdominal or pelvic hematomas or fluid collections. 2. Cirrhotic appearing liver. 3. Moderate atherosclerosis aorta. Atherosclerotic plaque extends into the mesenteric arteries. No GI tract ischemia. 4. Multifocal ventral abdominal wall hernias. There is a single loop of nondilated small bowel extending through an infraumbilical hernia. Similar to the prior study from 2021. 5. Carey catheter in good position. 6. Cholelithiasis without acute cholecystitis. Full code GI protonix DVT prophylaxis SCD, Lovenox relatively contraindicated given anemia, status post 4 units PRBC, discussed risks and benefits with patient, he voiced understanding, all questions answered, agreed to proceed Plan for today, monitor hemoglobin, bowel prep, planning colonoscopy, hold off on further diuresis monitor hyponatremia de-escalate off IV vancomycin continue cefepime, working on discharge in next 24 hours PDMP PDMP Reviewed: Not Reviewed Attestations 2 Medical Necessity Statement*: Patient requires hospitalization for acute anemia, respiratory failure, NSTEMI Diagnoses Chest pain R07.9 Atrial fibrillation with RVR I48.91 CHF exacerbation I50.9 CAD (coronary artery disease) I25.10 Chronic anticoagulation Z79.01 Type 2 diabetes mellitus E11.9 History of deep vein thrombosis Z86.718 Acute respiratory failure with hypoxia J96.01 Acute exacerbation of chronic obstructive airways disease J44.1 Rhinovirus B34.8
--- NOTE | 2025-02-12 20:05 | P.PN_ITS ---
Subjective 2 Subjective: No complaints Vitals/I&O/Wt Last Vital Signs Temp 98.0 F 02/12/25 19:21 Pulse 73 02/12/25 19:21 Resp 19 H 02/12/25 19:21 BP 132/67 02/12/25 19:21 Pulse Ox 93 02/12/25 19:21 O2 Del Method Nasal Cannula 02/12/25 19:21 O2 Flow Rate 2 02/12/25 15:22 02/12/25 02/12/25 02/12/25 06:59 14:59 22:59 Intake Total 490 / 490 120 / 610 Output Total 200 / 2650 300 / 300 Balance -200 / -1630 190 / 190 120 / 310 Weight last 48 hrs Weight 214 lb 1.102 oz Weight 211 lb 10.3 oz Physical Exam 2 Narrative: Patient is a well developed well nourished and in NAD and is afebrile with vitals stable and is answering questions appropriately with a normal affect and is alert and oriented x3 HEENT: normocephalic with normal external ears and nonicteric, oral mucosa moist and dentition normal for age, trachea midline with no large masses visualized Heart: RRR, no gallops murmurs or rubs, normal PMI with no thrills Lungs: normal excursions, no loud audible wheezing, no subcutaneous emphysema Abdomen: distended, no gross hepatosplenomegaly, no masses, no rigidity or rebound, no loud [place]orb[place]mi Neuro: nonfocal, [place], grossly normal sensation Musculoskeletal: good muscle tone, no fasciculations, normal gait Skin: pink warm and dry with no rashes or ecchymosis Vascular: good radial pulses, no ulceration, less than 2 second capillary refill in hand : deferred Urinary Catheter Management: Carey Latex Free: Cath Placed During This Visit: yes Reason for Continuing Indwelling Catheter: Accurate Measurement of Urinary Output in Critically Ill Patients Urinary Catheter Date of Insertion: 02/07/25 Urinary Catheter Time of Insertion: 18:45 Data 02/12/25 02:18 02/12/25 02:18 Micro: Microbiology 02/11/25 20:07 Occult Blood (FIT) - Final Stool - Stool Aspirate A&P Assessment and plan 1. Anemia: Cardiology is requesting colonoscopy and making sure there is not GI source of anemia prior to diagnostic and therapeutic intervention in patients heart disease. Patient was not cleaned out enough to have colonoscopy today. PDMP PDMP Reviewed: Not Reviewed Attestations 2 Medical Necessity Statement*: Patient with significant heart disease and anemia requiring work up Coding Level of Care Code 88518 Diagnoses Anemia D64.9
[2025-02-13] VITALS (11 sets, daily range): BP systolic 104–134; BP diastolic 58–81; PULSE 65–80; RESP 16–21; TEMP 36.1–36.7; O2SAT 92–100
[2025-02-13] MEDS: cefepime 2,000 mg SDV 2000 MG IVP (04:16)
[2025-02-13 05:06] LABS: Hematocrit 25.1 % (37-53); Hemoglobin 8.00 g/dL (11.27-16.99); Mean Corpuscular HGB Conc 31.9 g/dL (30-55); Mean Corpuscular Hemoglobin 29.3 pg (27-33); Mean Corpuscular Volume 91.9 fl (82-101); Nucleated Red Blood Cells % 0.3 %; Platelet Count 146 10^3/cmm (157-399); Red Blood Count 2.73 10^6/uL (3.85-5.65); White Blood Count 11.81 10^3/uL (3.29-11.43)
[2025-02-13 05:22] LABS: Alanine Aminotransferase 19 U/L (0-41); Albumin Level 3.4 g/dL (3.5-5.2); Alkaline Phosphatase 80 U/L (40-130); Aspartate Amino Transferase 27 U/L (0-40); Blood Urea Nitrogen 19 mg/dL (8-23); Calcium 8.3 mg/dL (8.5-10.5); Carbon Dioxide 29 mmol/L (22-29); Chloride 95 mmol/L (98-107); Creatinine Clr Calc Pharmacy 114.6177; Globulin 1.6 g/dL (1.3-4.6); Glucose 95 mg/dL (65-115); Osmolality Calculated 278 mOsm/kg (285-295); Sodium 133 mmol/L (136-145); Total Protein 5.0 g/dL (6.6-8.7)
[2025-02-13 05:27] LABS: Anion Gap 12.4 (5-19); Potassium 3.4 mmol/L (3.5-5.1)
[2025-02-13] MEDS: insulin glargine 100 units/1 mL 20 UNIT SUBCUT (06:24)
[2025-02-13] MEDS: pantoprazole 40 mg SDV IVP (08:11)
--- NOTE | 2025-02-13 09:32 | P.ANESUD_ITS ---
Pre-Anesthetic Update Pre-Anesthetic Assessment: Date of Surgery/Procedure: 02/13/25 Preop Martha gnosis: Concern for GI bleed Proposed Procedure: Operation Date: 02/09/25 10:00 Proposed Procedures p EGD WITH POSS BLEEDING CONTROL(Not Applicable) - Marshall Ugalde MD Operation Date: 02/13/25 09:30 Proposed Procedures p Colonoscopy(Not Applicable) - Abdullahi Aranda MD Changes from Pre-Anesthetic Assessment: Hemoglobin continues to drop. Labs from today reviewed, hemoglobin 8.0, WBC 11.8, NA 133, K+ 3.5. Completed bowel prep. Heart rate controlled, currently 69. Plan for MAC anesthesia. ASA 4 Last Intake: Intake Last Liquid Date 02/09/25 Last Solid Date 02/08/25 Labs Last 48hrs: Short CBC 02/11/25 02/12/25 02/13/25 Range/Units 16:55 02:18 04:35 WBC 18.52 H 21.42 H 11.81 H (3.29-11.43) 10^ 3/uL Hgb 7.90 L 8.70 L 8.00 L (11.27-16.99) g/ dL Hct 24.5 L 26.7 L 25.1 L (37-53) % MCV 87.2 87.0 91.9 (82-101) fl Plt Count 196 224 146 L D (157-399) 10^3/c mm Neut % (Auto) 85.7 82.6 82.3 % Neut # (Auto) 15.90 H 17.68 H 9.71 H (1.8-7.7) 10^3/u L BMP 02/11/25 02/12/25 02/13/25 16:55 02:18 04:35 Sodium 125 L 127 L 133 L Potassium 4.2 3.7 3.4 L Chloride 86 L 87 L 95 L Carbon Dioxide 27 31 H 29 BUN 31 H 31 H 19 Creatinine 0.9 1.0 0.8 Glucose 181 H 103 95 Calcium 9.0 9.8 8.3 L Cardiac Enzymes 02/12/25 Range/Units 02:18 NT-Pro-B Natriuret Pep 493 H (0-125) pg/mL Liver Function 02/11/25 02/12/25 02/13/25 Range/Units 16:55 02:18 04:35 Total Bilirubin 1.2 2.1 H 0.5 (0.15-1.2) mg/dL AST 18 23 27 (0-40) U/L ALT 18 21 19 (0-41) U/L Alkaline Phosphata se 88 97 80 (40-130) U/L Albumin 3.4 L 3.9 3.4 L (3.5-5.2) g/dL Blood Bank 02/10/25 02:35 Blood Type O Positive Rho(D) Type Rh positive Antibody Screen Negative Coags 02/11/25 02/12/25 16:55 02:18 PT 13.70 INR 0.98 C-Reactive Protein 5.9 H Vitals: Temperature 97.4 F L 02/13/25 07:48 Temperature Source Axillary 02/13/25 07:48 Pulse Rate 69 02/13/25 07:48 Pulse Rhythm Regular 02/11/25 13:46 Pulse Strength 3+ Normal 02/13/25 08:00 Respiratory Rate 16 02/13/25 07:48 Respiratory Effort Spontaneous, Non- Labored 02/13/25 08:00 Respiratory Depth Normal 02/13/25 08:00 Respiratory Patter n Normal 02/11/25 10:46 Blood Pressure 121/68 02/13/25 07:48 Blood Pressure Huma n 85 02/13/25 07:48 Blood Pressure Pos ition Supine 02/12/25 11:48 Pulse Oximetry 100 02/13/25 07:48 Oxygen Delivery Me thod Nasal Cannula 02/13/25 07:48 Oxygen Flow Rate 2 02/13/25 07:48 Sepsis Recent Feve r Within 48 Hours No 02/03/25 18:24 Cardiac Studies: Echocardiogram 02/04/25 Sestamibi Stress Test (Cardiology) 07/14
--- NOTE | 2025-02-13 09:39 | PC.NURSE ---
Patient left CSU to GI lab at 0925 for colonoscopy.
--- NOTE | 2025-02-13 09:40 | PC.NURSE ---
While patient was in the bathroom he bumped his left elbow and got a very small skin tear. Area is covered with a bandaid.
--- NOTE | 2025-02-13 10:04 | P.PN_ITS ---
Subjective 2 Subjective: Patient is feeling okay. No chest pain or palpitation. No fever or chills. Vitals are stable. Medications: Medication Review Details: Current Medications Acetaminophen (Acetaminophen 325 Mg Tablet) 650 mg PO Q6H PRN On Hold: 02/13/25 09:27 Comment: Order held by Process Transfer PRN Reason: Mild/Mod Pain Or Temp >/= 101 Last Admin: 02/10/25 23:47 Dose: 650 mg Albuterol/Ipratropium (Ipratropium-Albuterol 3 Ml Neb) 3 ml INHALATION Q4H.RESPIRATORY SHERITA On Hold: 02/13/25 09:27 Comment: Order held by Process Transfer Last Admin: 02/13/25 07:44 Dose: 3 ml Amiodarone HCl (Amiodarone 200 Mg Tablet) 400 mg PO BID SHERITA On Hold: 02/13/25 09:27 Comment: Order held by Process Transfer Last Admin: 02/13/25 04:08 Dose: Not Given Aspirin (Aspirin 81 Mg Ec Tablet) 81 mg PO DAILY SHERITA On Hold: 02/13/25 09:27 Comment: Order held by Process Transfer Last Admin: 02/13/25 04:09 Dose: Not Given Atorvastatin Calcium (Atorvastatin 40 Mg Tablet) 40 mg PO BEDTIME SHERITA On Hold: 02/13/25 09:27 Comment: Order held by Process Transfer Last Admin: 02/12/25 21:00 Dose: 40 mg Bisacodyl (Bisacodyl 5 Mg Tablet) 10 mg PO DAILY SHERITA On Hold: 02/13/25 09:27 Comment: Order held by Process Transfer Last Admin: 02/13/25 04:09 Dose: Not Given Budesonide (Budesonide 0.5 Mg/2 Ml Neb) 0.5 mg INHALATION BID.RESPIRATORY SHERITA On Hold: 02/13/25 09:27 Comment: Order held by Process Transfer Last Admin: 02/13/25 07:44 Dose: 0.5 mg Cefepime HCl (Cefepime 2,000 Mg Sdv) 2,000 mg IVP Q8H SHERITA; Protocol On Hold: 02/13/25 09:27 Comment: Order held by Process Transfer Last Admin: 02/13/25 04:16 Dose: 2,000 mg Diltiazem HCl (Diltiazem Er (24hr) 240 Mg Capsule) 240 mg PO DAILY SHERITA On Hold: 02/13/25 09:27 Comment: Order held by Process Transfer Last Admin: 02/13/25 04:09 Dose: Not Given Docusate Sodium (Docusate Sodium 100 Mg Capsule) 100 mg PO BID SHERITA On Hold: 02/13/25 09:27 Comment: Order held by Process Transfer Last Admin: 02/13/25 04:09 Dose: Not Given Glucagon (Glucagon 1 Mg/Ml Kit 1 Ml) 1 mg IM ONCE PRN; Protocol On Hold: 02/13/25 09:27 Comment: Order held by Process Transfer PRN Reason: Adult Acute Hypoglycemia Nursing Prot. Guaifenesin (Guaifenesin 100 Mg/5 Ml Udc 10 Ml) 200 mg PO Q4H PRN On Hold: 02/13/25 09:27 Comment: Order held by Process Transfer PRN Reason: COUGH Last Admin: 02/08/25 12:04 Dose: 200 mg Dextrose (D5w) 500 mls @ 0 mls/hr IV ONCE PRN; Protocol On Hold: 02/13/25 09:27 Comment: Order held by Process Transfer PRN Reason: Adult Acute Hypoglycemia Prot Sodium Chloride (Sodium Chloride 0.9%) 1,000 mls @ 15 mls/hr IV .Q24H PRN PRN Reason: COLONOSCOPY FLUIDS Stop: 02/14/25 09:26 Insulin Glargine (Insulin Glargine 100 Units/1 Ml) 20 unit SUBCUT ACBREAKFAST SHERITA On Hold: 02/13/25 09:27 Comment: Order held by Process Transfer Last Admin: 02/13/25 06:24 Dose: 20 unit Insulin Human Lispro (Insulin Lispro 100 Unit/1 Ml) 0 unit SUBCUT WM&BEDTIME SHERITA; Protocol On Hold: 02/13/25 09:27 Comment: Order held by Process Transfer Last Admin: 02/13/25 07:42 Dose: Not Given Isosorbide Mononitrate (Isosorbide Mononitrate Er 30 Mg Tablet) 30 mg PO DAILY SHERITA On Hold: 02/13/25 09:27 Comment: Order held by Process Transfer Last Admin: 02/13/25 04:10 Dose: Not Given Lidocaine HCl (Lidocaine 1% Inj 20 Ml) 0.1 ml INTRADERMA PRN PRN PRN Reason: anesthetic prior to IV start Stop: 02/14/25 09:26 Lidocaine HCl (Lidocaine 2% Viscous 15 Ml Udc) 1 ml TOPICAL PRN PRN PRN Reason: Anesthetic prior to IV start Metoprolol Succinate (Metoprolol Succinate Er (24 Hr) 25 Mg Tablet) 25 mg PO DAILY SHERITA On Hold: 02/13/25 09:27 Comment: Order held by Process Transfer Last Admin: 02/13/25 04:10 Dose: Not Given Midazolam HCl (Midazolam 1 Mg/Ml Inj 2 Ml) 2 mg IVP Q5M PRN PRN Reason: Preop Anxiety Morphine Sulfate (Morphine 4 Mg/Ml Sdv 1 Ml) 0 mg IVP Q5M PRN PRN Reason: Breakthrough Pain PACU PhaseII Nitroglycerin (Nitroglycerin 0.4 Mg Sublingual Tablet) 0.4 mg SUBLINGUAL Q5M PRN On Hold: 02/13/25 09:27 Comment: Order held by Process Transfer PRN Reason: CHEST PAIN Last Admin: 02/08/25 06:37 Dose: 0.4 mg Ondansetron HCl (Ondansetron 2 Mg/Ml Sdv 2 Ml) 4 mg IVP Q8H PRN On Hold: 02/13/25 09:27 Comment: Order held by Process Transfer PRN Reason: vomiting, or N/V if npo Last Admin: 02/11/25 22:56 Dose: 4 mg Ondansetron HCl (Ondansetron 2 Mg/Ml Sdv 2 Ml) 4 mg IVP Q15M PRN PRN Reason: Nausea/Vomiting PACU PHASE II Pantoprazole Sodium (Pantoprazole 40 Mg Sdv) 40 mg IVP Q12H SHERITA On Hold: 02/13/25 09:27 Comment: Order held by Process Transfer Last Admin: 02/13/25 08:11 Dose: 40 mg Polyethylene Glycol (Polyethylene Glycol 3350 Pkt 17 Gm) 17 gm PO BID SHERITA On Hold: 02/13/25 09:27 Comment: Order held by Process Transfer Last Admin: 02/13/25 04:10 Dose: Not Given Prednisone (Prednisone 20 Mg Tablet) 40 mg PO DAILY SHERITA On Hold: 02/13/25 09:27 Comment: Order held by Process Transfer Last Admin: 02/13/25 04:10 Dose: Not Given Sodium Chloride (Sodium Chloride 0.9 % (Flush) Syringe 10 Ml) 2 ml IV DIRECTED PRN PRN Reason: EGD MEDICATION FLUSH Stop: 02/14/25 09:26 Sucralfate (Sucralfate 1 Gm/10 Ml Oral Liq Udc) 1 gm PO Q6H SHERITA On Hold: 02/13/25 09:27 Comment: Order held by Process Transfer Last Admin: 02/13/25 04:33 Dose: Not Given Vitals/I&O/Wt Last Vital Signs Temp 97.0 F L 02/13/25 09:57 Pulse 70 02/13/25 10:03 Resp 18 02/13/25 10:03 BP 111/67 02/13/25 10:03 Pulse Ox 97 02/13/25 10:03 O2 Del Method Nasal Cannula 02/13/25 10:03 O2 Flow Rate 3 02/13/25 10:03 02/12/25 02/13/25 02/13/25 22:59 06:59 14:59 Intake Total 600 / 1090 710 / 1800 Output Total 0 / 300 0 / 300 1 / 1 Balance 600 / 790 710 / 1500 -1 / -1 Weight last 48 hrs Weight 208 lb 5.389 oz Weight 214 lb 1.102 oz Physical Exam 2 Narrative: GENERAL: The patient is alert and oriented times three. Not in any acute distress. HEENT: No significant pallor, icterus or lymphadenopathy.Oral cavity: There are no mucous membrane lesions. NECK: Trachea appears to be central. No masses noted. No JVD or thyromegaly appreciated. RESPIRATORY: Chest is symmetrical. No intercostals muscle retraction or any accessory muscle activation. There is no chest wall tenderness. Breath sounds are heard bilaterally. No rales or rhonchi heard. No evidence of any consolidation. BREASTS: Deferred. HEART: The heart sounds are normal. No S3 or S4. No significant murmurs. No pericardial rub ABDOMEN: No vessel pulsations or distention. No tenderness. No organomegaly appreciated. Bowel sounds are normally heard. : Deferred. RECTAL: Deferred. LYMPHATIC: No lymphadenopathy noted in the neck. EXTREMITIES: No edema or cyanosis. No clubbing. MUSCULOSKELETAL: No acute joint deformities or swelling SKIN: There are no significant rashes or ecchymosis NEUROPSYCHIATRIC: The patient is alert and oriented x3. Appears to be in a good mood. No tremors or rigidity noted. Urinary Catheter Management: Carey Latex Free: Cath Placed During This Visit: yes Reason for Continuing Indwelling Catheter: Accurate Measurement of Urinary Output in Critically Ill Patients Urinary Catheter Date of Insertion: 02/07/25 Urinary Catheter Time of Insertion: 18:45 Data 02/13/25 04:35 02/13/25 04:35 Other Labs: Laboratory Last Values WBC 11.81 10^3/uL (3.29-11.43) H 02/13/25 04:35 RBC 2.73 10^6/uL (3.85-5.65) L 02/13/25 04:35 Hgb 8.00 g/dL (11.27-16.99) L 02/13/25 04:35 Hct 25.1 % (37-53) L 02/13/25 04:35 MCV 91.9 fl (82-101) 02/13/25 04:35 MCH 29.3 pg (27-33) 02/13/25 04:35 MCHC 31.9 g/dL (30-55) 02/13/25 04:35 RDW 21.6 % (12.1-15.1) H 02/13/25 04:35 Plt Count 146 10^3/cmm (157-399) L D 02/13/25 04:35 MPV 10.1 fL (7.4-10.4) 02/13/25 04:35 Neut % (Auto) 82.3 % 02/13/25 04:35 Lymph % (Auto) 8.6 % 02/13/25 04:35 [place] % (Auto) 6.0 % 02/13/25 04:35 Eos % (Auto) 1.0 % 02/13/25 04:35 Baso % (Auto) 0.0 % 02/13/25 04:35 Neut # (Auto) 9.71 10^3/uL (1.8-7.7) H 02/13/25 04:35 Lymph # (Auto) 1.0 10^3/uL (0.8-4.8) 02/13/25 04:35 [place] # (Auto) 0.7 10^3/uL (0.2-0.9) 02/13/25 04:35 Eos # (Auto) 0.1 10^3/uL (0.0-0.8) 02/13/25 04:35 Baso # (Auto) 0.0 10^3/uL (0.0-0.1) 02/13/25 04:35 Nucleated RBC % (auto) 0.3 % 02/13/25 04:35 Nucleated RBCs # 0.0 /100WBC 02/13/25 04:35 PT 13.70 SECONDS (12.1-14.9) 02/11/25 16:55 INR 0.98 (0.8-1.2) 02/11/25 16:55 APTT 183.3 SECONDS (23.9-36.7) H* D 02/08/25 05:18 D-Dimer 0.56 ug/mLFEU (0-0.59) 02/03/25 18:30 Sodium 133 mmol/L (136-145) L 02/13/25 04:35 Potassium 3.4 mmol/L (3.5-5.1) L 02/13/25 04:35 Chloride 95 mmol/L (98-107) L 02/13/25 04:35 Carbon Dioxide 29 mmol/L (22-29) 02/13/25 04:35 Anion Gap 12.4 (5-19) 02/13/25 04:35 BUN 19 mg/dL (8-23) 02/13/25 04:35 Creatinine 0.8 mg/dL (0.7-1.2) 02/13/25 04:35 GFR Calculation 97.6 mL/min (90-130) 02/13/25 04:35 Glucose 95 mg/dL (65-115) 02/13/25 04:35 POC Glucose 104 mg/dL (70-110) 02/13/25 06:03 Estimat Average Glucose 123 02/04/25 00:37 Hemoglobin A1c 5.9 % (4.0-6.0) 02/04/25 00:37 Calculated Osmolality 278 mOsm/kg (285-295) L 02/13/25 04:35 Lactic Acid 1.5 mmol/L (0.5-2.2) 02/03/25 18:30 Calcium 8.3 mg/dL (8.5-10.5) L 02/13/25 04:35 Phosphorus 5.0 mg/dL (2.5-4.5) H 02/04/25 00:37 Magnesium 1.9 mg/dL (1.7-2.3) 02/08/25 08:57 Total Bilirubin 0.5 mg/dL (0.15-1.2) 02/13/25 04:35 Direct Bilirubin 0.25 mg/dL (0.00-0.30) 02/08/25 12:51 GGT 52 U/L (8-61) 02/08/25 12:51 AST 27 U/L (0-40) 02/13/25 04:35 ALT 19 U/L (0-41) 02/13/25 04:35 Alkaline Phosphatase 80 U/L (40-130) 02/13/25 04:35 Troponin T Baseline 50 ng/L (0-15) H 02/08/25 06:55 Troponin T 120 Minute 50.42 ng/L (0-15) H 02/08/25 08:57 Delta Troponin T 0.42 ABS# (0-10) 02/08/25 08:57 Troponin T Hi Sens 6Hr 44.53 ng/L (0-15) H 02/08/25 12:51 Troponin T Hi Sens 6Hr Delta -5.47 ng/L (0-12) L 02/08/25 12:51 C-Reactive Protein 5.9 mg/L (0.0-4.9) H 02/12/25 02:18 NT-Pro-B Natriuret Pep 493 pg/mL (0-125) H 02/12/25 02:18 Total Protein 5.0 g/dL (6.6-8.7) L 02/13/25 04:35 Albumin 3.4 g/dL (3.5-5.2) L 02/13/25 04:35 Globulin 1.6 g/dL (1.3-4.6) 02/13/25 04:35 Triglycerides 72 mg/dL (0-150) 02/04/25 00:37 Cholesterol 94 mg/dL (0-200) 02/04/25 00:37 LDL Cholesterol, Calc 34 mg/dL (50-129) L 02/04/25 00:37 HDL Cholesterol 46 mg/dL (60-100) L 02/04/25 00:37 LDL/HDL Ratio 0.74 RATIO (0.00-3.22) 02/04/25 00:37 Cholesterol/HDL Ratio 2.04 mg/dL (1.0-5.00) 02/04/25 00:37 Lipase 29 U/L (13-60) 02/08/25 12:51 Procalcitonin 0.45 ng/mL (0-0.5) 02/08/25 12:51 TSH 0.59 uIU/mL (0.27-4.20) 02/04/25 00:37 Urine Color Yellow (Yellow) 02/08/25 12:47 Urine Appearance Clear (CLEAR) 02/08/25 12:47 Urine pH 6.5 (5-7) 02/08/25 12:47 Ur Specific [place] 1.011 (1.005-1.030) 02/08/25 12:47 Urine Protein Negative (Negative) 02/08/25 12:47 Urine Glucose (UA) 2+ (Normal) H 02/08/25 12:47 Urine Ketones Negative (Negative) 02/08/25 12:47 Urine Blood Non-haemolysed trace (Negative) 02/08/25 12:47 Urine Nitrate Negative (Negative) 02/08/25 12:47 Urine Bilirubin Negative (Negative) 02/08/25 12:47 Urine Urobilinogen 0.2 mg/dL (Negative) 02/08/25 12:47 Ur Leukocyte Esterase Trace (Negative) A 02/08/25 12:47 Urine RBC 0-4 /hpf (0-2) H 02/08/25 12:47 Urine WBC 0-4 /hpf (0-5) H 02/08/25 12:47 Ur Squamous Epith Cells 0-4 /hpf (0-5) H 02/08/25 12:47 Amorphous Sediment Not Reportable 02/08/25 12:47 Urine Bacteria None /hpf (NONE) 02/08/25 12:47 Urine Mucus None /hpf 02/08/25 12:47 Nasal MRSA (PCR) Not detected (Negative) 02/08/25 12:47 Vancomycin Trough 24.5 ug/mL (10-15) H 02/12/25 02:18 Adenovirus (PCR) Not detected (NOT DETECT) 02/08/25 12:47 C. pneumoniae DNA (PCR) Not detected (NOT DETECT) 02/08/25 12:47 C. difficile (PCR) Negative (Negative) 02/11/25 20:07 Coronavirus 229E (PCR) Not detected (NOT DETECT) 02/08/25 12:47 Human Metapneumovir PCR Not detected (NOT DETECT) 02/08/25 12:47 Influenza A (H1) PCR Not detected (NOT DETECT) 02/08/25 12:47 Influ A (H1/09) PCR Not detected (NOT DETECT) 02/08/25 12:47 Influenza A (H3) PCR Not detected (NOT DETECT) 02/08/25 12:47 Influenza Type A (PCR) Not detected (NOT DETECT) 02/08/25 12:47 Influenza Type B (PCR) Not detected (NOT DETECT) 02/08/25 12:47 M. pneumoniae (PCR) Not detected (NOT DETECT) 02/08/25 12:47 Parainfluenza 1 (PCR) Not detected (NOT DETECT) 02/08/25 12:47 Parainfluenza 2 (PCR) Not detected (NOT DETECT) 02/08/25 12:47 Parainfluenza 3 (PCR) Not detected (NOT DETECT) 02/08/25 12:47 Parainfluenza 4 (PCR) Not detected (NOT DETECT) 02/08/25 12:47 RSV Type A (PCR) Not detected (NOT DETECT) 02/08/25 12:47 RSV Type B (PCR) Not detected (NOT DETECT) 02/08/25 12:47 Entero/Rhino (PCR) Detected (NOT DETECT) A 02/08/25 12:47 SARS-CoV-2 (PCR) Not detected (NOT DETECT) 02/08/25 12:47 Blood Type O Positive 02/10/25 02:35 Rho(D) Type Rh positive 02/10/25 02:35 Antibody Screen Negative 02/10/25 02:35 Crossmatch See Detail 02/10/25 02:35 A&P Assessment and plan 1. Elevated troponin: Etiology? Possibly related to type II [place] from atrial fibrillation. His LV ejection fraction was normal by echocardiogram last month. He had a Myocardial perfusion imaging last year which was unremarkable.. 2. Atrial fibrillation with RVR: Patient seems to have intermittent atrial fibrillation. Currently in sinus rhythm. May continue on the current management. Patient may continue on the amiodarone 400 mg p.o. twice daily for a week followed by 4 mg daily for a week followed by 200 mg p.o. daily. 3. Acute on chronic congestive heart failure with left ventricular diastolic dysfunction: Heart failure is clinically compensated. Continue on as needed IV Lasix. 4. Coronary artery disease involving mechoopda coronary artery of mechoopda heart with other form of angina pectoris: This is based on the CT of the chest. Patient apparently was found to extensive coronary calcification. He had an unremarkable Myocardial perfusion imaging. Patient may benefit from a cardiac catheterization.. Consider this after the GI workup. 5. PAD (peripheral artery disease): Patient is status post thrombectomy, currently seems to be stable. 6. Tobacco dependence due to cigarettes, in remission: Strongly advised to quit smoking. 7. Primary hypertension: The blood pressure is fairly under control. 8. Upper GI bleed: Requires further workup. Hemoglobin seems to be staying around 8. Plan: The other problems are Type 2 diabetes Anemia, status post blood transfusion COPD Hyponatremia, improving Leukocytosis Consider further cardiac workup once GI workup is completed [facility]ointment at [facility] in 2-weeks PDMP PDMP Reviewed: Not Reviewed Attestations 2 Medical Necessity Statement*: Deferred to the primary Coding Level of Care Code 31470 Diagnoses Elevated troponin R79.89 Atrial fibrillation with RVR I48.91 Acute on chronic congestive heart failure with left ventricular diastolic dysfunction I50.33 Coronary artery disease involving mechoopda coronary artery of [place] heart with other form of angina pectoris I25.118 Associated angina: with other forms of angina Coronary Disease-Associated Artery/Lesion type: [place] artery [place] vs. transplanted heart: [place]da heart PAD (peripheral artery disease) I73.9 Tobacco dependence due to cigarettes, in remission F17.211 Primary hypertension I10 Hypertension type: primary hypertension Upper GI bleed K92.2
--- NOTE | 2025-02-13 10:18 | ANE.PACU2 ---
Inpatient post-anesthesia follow up: Airway intact: Yes Vital signs: Temperature 97.2 F Pulse Rate 80 Respiratory Rate 21 Blood Pressure 120/64 Pulse Oximetry 93 Oxygen Delivery Me thod Nasal Cannula Oxygen Flow Rate 3 Fraction of Inspir ed Oxygen Hydration adequate: Yes Nausea and vomiting: No Pain level: 1 Mental status: Baseline
--- NOTE | 2025-02-13 10:34 | PC.NURSE ---
Patient returned from GI lab to [facility]SU at 1025.
--- NOTE | 2025-02-13 10:58 | PC.NURSE ---
Provider is updated that patient is back from GI lab and has eaten a sandwich. Provider ordered a clear liquid diet for now. Ordered entered.
--- NOTE | 2025-02-13 11:40 | PM.DCS ---
Discharge Providers Date of Admission: 02/03/25 20:09 Date of Discharge: February 13, 2025 Attending Provider at Admission: Oanh Page MD Attending Provider at Discharge: Neil Zafar MD Primary Care Provider: Abram Horn MD Diagnoses at Discharge Discharge Diagnosis 1. Elevated troponin: 2. Atrial fibrillation with RVR: 3. Acute on chronic congestive heart failure with left ventricular diastolic dysfunction: 4. Coronary artery disease involving [place] coronary artery of [place] heart with other form of angina pectoris: 5. PAD (peripheral artery disease): 6. Tobacco dependence due to cigarettes, in remission: 7. Primary hypertension: 8. Upper GI bleed: Reason for Visit Reason for Visit: CP SOB can't breath Hospital Course Hospital Course This is a 64-year-old male with a past medical history of type 2 diabetes mellitus, history of acute anemia, history of GI bleed, history of iron deficiency, history of chronic anticoagulant therapy Pradaxa due to history of DVT, history of arterial occlusion, who presents to [facility] due to shortness of breath Patient had a prolonged hospitalization, please look at my last progress note for further detail Patient was admitted to [facility] for acute hypoxic respiratory failure - Multifactorial from COPD exacerbation, pneumonia, systolic and diastolic CHF - For COPD exacerbation received IV steroids, breathing treatments, overall clinical improvement discharged on prednisone burst - For concern for pneumonia, managed with broad-spectrum antibiotic therapy, overall clinically improved, will be discharged on p.o. antibiotic therapy - For patient's fluid overload, systolic and diastolic CHF, received IV diuresis, diuresed over 15 L, discharged on Bumex therapy, with potassium For patient's chest pain, NSTEMI - Cardiac echo showed EF of 60%, no regional motion abnormalities - There was an attempt on stress testing however it had to be aborted due to patient developing atrial fibrillation with rapid margin response initially managed on anticoagulant therapy which had to be discontinued due to acute anemia, requiring 4 units of blood -Cardiology consulted - Recommended medical management, aspirin, statin -Follow-up cardiology outpatient - Once patient has stability of hemoglobin, cardiology will decide about stress testing versus coronary angiography as outpatient For patient's acute on chronic anemia with evidence of iron deficiency - History of iron deficiency, history of GI bleed - He required 4 units of blood -Hemoccult stool positive for blood - Completed 5 treatments of IV Venofer initially due to anemia patient underwent EGD which showed mild gastritis, small polypoid lesion of the antrum which was actively oozing requiring Forceps biopsy and clips placed x 2 - However due to persistent anemia after procedure, patient underwent colonoscopy, no active bleeding seen - Patient will be discharged with Protonix, Carafate - Follow-up with general surgery - Due to persistent anemia, patient will have to follow-up with GI as outpatient, for consideration of capsule endoscopy - If patient does develop recurrent anemia, requiring hospitalization, I recommend transfer to tertiary level center for GI evaluation, capsule endoscopy, IR intervention -As patient has had an exhaustive workup during his hospitalization, with sources of bleeding certainly found in the antrum of the stomach, but even with interventions on EGD, medications, and further colonoscopy, and for blood transfusion continues to have persistent anemia, hemoglobin discharge 8 -No hemodynamic compromise, no bloody or black stools - Nonetheless on discharge we will hold Pradaxa For patient's history of DVT - Discussed risks and benefits of holding Pradaxa - Given acute anemia, certainly this is a difficult decision - As patient has a risk of recurrent DVT, and morbidity mortality associated - Put on Pradaxa or blood thinners, as displayed during his hospitalization, he has recurrent anemia, requiring blood transfusion, has a risk of GI bleed and morbidity mortality associated - After discussing risk benefits of all options, he voiced understanding, all question answered, agreed to hold anticoagulant therapy for now -Would recommend holding for at least 2 weeks, documenting stability of hemoglobin -Hemoglobin at discharge was 8 - Follow-up with primary care - Follow-up with cardiology Patient was hospitalized for rhinovirus, medically managed during hospitalization Physical Exam Const: COMMON NORMALS: no acute distress and patient oriented x3 Resp: COMMON NORMALS: normal respiratory effort, No retractions, No use of accessory muscles and clear to auscultation bilaterally AUSCULTATION: clear to auscultation bilaterally Cardio: COMMON NORMALS: regular rate, regular rhythm, S1 normal heart sound present and S2 normal heart sound present RATE: regular rate RHYTHM: regular rhythm HEART SOUNDS: S1 normal heart sound present and S2 normal heart sound present GI: COMMON NORMALS: Normal to inspection, nondistended, normoactive bowel sounds present and non-tender Extremity: COMMON NORMALS: no calf tenderness and no pedal edema Neuro: COMMON NORMALS: patient oriented x3, CN's II-XII intact bilaterally, moves all extremities and no focal motor deficits Psych: COMMON NORMALS: mental status grossly normal Urinary Catheter Management: Carey Latex Free: Cath Placed During This Visit: yes Reason for Continuing Indwelling Catheter: Accurate Measurement of Urinary Output in Critically Ill Patients Urinary Catheter Date of Insertion: 02/07/25 Urinary Catheter Time of Insertion: 18:45 Discharge Data Studies Completed and Pending Completed Studies During Hospitalization Category Date Time Status CT abdomen pelvis wo con [id number] Stat Cat Scan 02/08/25 12:[address] chest wo con [id number] Routine Cat Scan 02/06/25 08:44 Completed CXRP [XR chest 1V portable [id number]] Stat Exams 02/03/25 19:13 Completed XR KUB portable [id number] Routine Exams 02/10/25 09:46 Completed XR chest 1V portable [id number] Routine Exams 02/08/25 12:04 Completed CV. echo complete* [id number] Routine Ultrasound 02/04/25 21:07 Completed Pending at discharge Category Date Time Status Cardiac Stress Test MIBI [Sestamibi Stress Test Request Exams 02/07/25 15:33 Ordered ] Routine Blood Culture Stat Lab 02/08/25 12:56 Results Complete Blood Count w/Auto AM LABS Lab 02/14/25 04:00 Ordered Complete Blood Count w/Auto AM LABS Lab 02/15/25 04:00 Ordered Comprehensive Metabolic Panel AM LABS Lab 02/14/25 04:00 Ordered Comprehensive Metabolic Panel AM LABS Lab 02/15/25 04:00 Ordered Sputum Culture and Gram Stain Stat Lab 02/08/25 12:15 Uncollected Pathology: Surgical [PTH] Routine Pth 02/09/25 10:35 Received Radiology Impressions Chest CT 02/06/25 08:44 IMPRESSION: 1. No interval lobar consolidation is appreciated with findings suggestive of post inflammation, granulomatous related sequela including calcifications on the right as well as some centrilobular, patchy scarring type volume loss of the lingula. If there are persistent clinical findings then consider bronchoscopy. 2. There is some mild air trapping appearance overall along with some central bronchiolectasis. Consider pulmonary function studies. 3. There are dense multi-vessel coronary calcifications overall present as well as some of the aortic root and mitral apparatus. Consider calcium scoring CT, echocardiography. Abdomen/Pelvis CT 02/08/25 12:04 IMPRESSION: 1. No intra-abdominal or pelvic hematomas or fluid collections. 2. Cirrhotic appearing liver. 3. Moderate atherosclerosis aorta. Atherosclerotic plaque extends into the mesenteric arteries. No GI tract ischemia. 4. Multifocal ventral abdominal wall hernias. There is a single loop of nondilated small bowel extending through an infraumbilical hernia. Similar to the prior study from 2021. 5. Carey catheter in good position. 6. Cholelithiasis without acute cholecystitis. Chest X-Ray 02/08/25 12:04 IMPRESSION: Stable appearance of the chest with prior chest radiographic exam 02/03/2025. Mild emphysematous change. No acute findings. KUB X-Ray 02/10/25 09:46 IMPRESSION: Constipation. No radiographic evidence of a small bowel obstruction at this time. Laboratory Results WBC 11.81 10^3/uL (3.29-11.43) H 02/13/25 04:35 RBC 2.73 10^6/uL (3.85-5.65) L 02/13/25 04:35 Hgb 8.00 g/dL (11.27-16.99) L 02/13/25 04:35 Hct 25.1 % (37-53) L 02/13/25 04:35 MCV 91.9 fl (82-101) 02/13/25 04:35 MCH 29.3 pg (27-33) 02/13/25 04:35 MCHC 31.9 g/dL (30-55) 02/13/25 04:35 RDW 21.6 % (12.1-15.1) H 02/13/25 04:35 Plt Count 146 10^3/cmm (157-399) L D 02/13/25 04:35 MPV 10.1 fL (7.4-10.4) 02/13/25 04:35 Neut % (Auto) 82.3 % 02/13/25 04:35 Lymph % (Auto) 8.6 % 02/13/25 04:35 [place] % (Auto) 6.0 % 02/13/25 04:35 Eos % (Auto) 1.0 % 02/13/25 04:35 Baso % (Auto) 0.0 % 02/13/25 04:35 Neut # (Auto) 9.71 10^3/uL (1.8-7.7) H 02/13/25 04:35 Lymph # (Auto) 1.0 10^3/uL (0.8-4.8) 02/13/25 04:35 [place] # (Auto) 0.7 10^3/uL (0.2-0.9) 02/13/25 04:35 Eos # (Auto) 0.1 10^3/uL (0.0-0.8) 02/13/25 04:35 Baso # (Auto) 0.0 10^3/uL (0.0-0.1) 02/13/25 04:35 Nucleated RBC % (auto) 0.3 % 02/13/25 04:35 Nucleated RBCs # 0.0 /100WBC 02/13/25 04:35 PT 13.70 SECONDS (12.1-14.9) 02/11/25 16:55 INR 0.98 (0.8-1.2) 02/11/25 16:55 APTT 183.3 SECONDS (23.9-36.7) H* D 02/08/25 05:18 D-Dimer 0.56 ug/mLFEU (0-0.59) 02/03/25 18:30 Sodium 133 mmol/L (136-145) L 02/13/25 04:35 Potassium 3.4 mmol/L (3.5-5.1) L 02/13/25 04:35 Chloride 95 mmol/L (98-107) L 02/13/25 04:35 Carbon Dioxide 29 mmol/L (22-29) 02/13/25 04:35 Anion Gap 12.4 (5-19) 02/13/25 04:35 BUN 19 mg/dL (8-23) 02/13/25 04:35 Creatinine 0.8 mg/dL (0.7-1.2) 02/13/25 04:35 GFR Calculation 97.6 mL/min (90-130) 02/13/25 04:35 Glucose 95 mg/dL (65-115) 02/13/25 04:35 POC Glucose 129 mg/dL (70-110) H 02/13/25 10:58 Estimat Average Glucose 123 02/04/25 00:37 Hemoglobin A1c 5.9 % (4.0-6.0) 02/04/25 00:37 Calculated Osmolality 278 mOsm/kg (285-295) L 02/13/25 04:35 Lactic Acid 1.5 mmol/L (0.5-2.2) 02/03/25 18:30 Calcium 8.3 mg/dL (8.5-10.5) L 02/13/25 04:35 Phosphorus 5.0 mg/dL (2.5-4.5) H 02/04/25 00:37 Magnesium 1.9 mg/dL (1.7-2.3) 02/08/25 08:57 Total Bilirubin 0.5 mg/dL (0.15-1.2) 02/13/25 04:35 Direct Bilirubin 0.25 mg/dL (0.00-0.30) 02/08/25 12:51 GGT 52 U/L (8-61) 02/08/25 12:51 AST 27 U/L (0-40) 02/13/25 04:35 ALT 19 U/L (0-41) 02/13/25 04:35 Alkaline Phosphatase 80 U/L (40-130) 02/13/25 04:35 Troponin T Baseline 50 ng/L (0-15) H 02/08/25 06:55 Troponin T 120 Minute 50.42 ng/L (0-15) H 02/08/25 08:57 Delta Troponin T 0.42 ABS# (0-10) 02/08/25 08:57 Troponin T Hi Sens 6Hr 44.53 ng/L (0-15) H 02/08/25 12:51 Troponin T Hi Sens 6Hr Delta -5.47 ng/L (0-12) L 02/08/25 12:51 C-Reactive Protein 5.9 mg/L (0.0-4.9) H 02/12/25 02:18 NT-Pro-B Natriuret Pep 493 pg/mL (0-125) H 02/12/25 02:18 Total Protein 5.0 g/dL (6.6-8.7) L 02/13/25 04:35 Albumin 3.4 g/dL (3.5-5.2) L 02/13/25 04:35 Globulin 1.6 g/dL (1.3-4.6) 02/13/25 04:35 Triglycerides 72 mg/dL (0-150) 02/04/25 00:37 Cholesterol 94 mg/dL (0-200) 02/04/25 00:37 LDL Cholesterol, Calc 34 mg/dL (50-129) L 02/04/25 00:37 HDL Cholesterol 46 mg/dL (60-100) L 02/04/25 00:37 LDL/HDL Ratio 0.74 RATIO (0.00-3.22) 02/04/25 00:37 Cholesterol/HDL Ratio 2.04 mg/dL (1.0-5.00) 02/04/25 00:37 Lipase 29 U/L (13-60) 02/08/25 12:51 Procalcitonin 0.45 ng/mL (0-0.5) 02/08/25 12:51 TSH 0.59 uIU/mL (0.27-4.20) 02/04/25 00:37 Urine Color Yellow (Yellow) 02/08/25 12:47 Urine Appearance Clear (CLEAR) 02/08/25 12:47 Urine pH 6.5 (5-7) 02/08/25 12:47 Ur Specific [place] 1.011 (1.005-1.030) 02/08/25 12:47 Urine Protein Negative (Negative) 02/08/25 12:47 Urine Glucose (UA) 2+ (Normal) H 02/08/25 12:47 Urine Ketones Negative (Negative) 02/08/25 12:47 Urine Blood Non-haemolysed trace (Negative) 02/08/25 12:47 Urine Nitrate Negative (Negative) 02/08/25 12:47 Urine Bilirubin Negative (Negative) 02/08/25 12:47 Urine Urobilinogen 0.2 mg/dL (Negative) 02/08/25 12:47 Ur Leukocyte Esterase Trace (Negative) A 02/08/25 12:47 Urine RBC 0-4 /hpf (0-2) H 02/08/25 12:47 Urine WBC 0-4 /hpf (0-5) H 02/08/25 12:47 Ur Squamous Epith Cells 0-4 /hpf (0-5) H 02/08/25 12:47 Amorphous Sediment Not Reportable 02/08/25 12:47 Urine Bacteria None /hpf (NONE) 02/08/25 12:47 Urine Mucus None /hpf 02/08/25 12:47 Nasal MRSA (PCR) Not detected (Negative) 02/08/25 12:47 Vancomycin Trough 24.5 ug/mL (10-15) H 02/12/25 02:18 Adenovirus (PCR) Not detected (NOT DETECT) 02/08/25 12:47 C. pneumoniae DNA (PCR) Not detected (NOT DETECT) 02/08/25 12:47 C. difficile (PCR) Negative (Negative) 02/11/25 20:07 Coronavirus 229E (PCR) Not detected (NOT DETECT) 02/08/25 12:47 Human Metapneumovir PCR Not detected (NOT DETECT) 02/08/25 12:47 Influenza A (H1) PCR Not detected (NOT DETECT) 02/08/25 12:47 Influ A (H1/09) PCR Not detected (NOT DETECT) 02/08/25 12:47 Influenza A (H3) PCR Not detected (NOT DETECT) 02/08/25 12:47 Influenza Type A (PCR) Not detected (NOT DETECT) 02/08/25 12:47 Influenza Type B (PCR) Not detected (NOT DETECT) 02/08/25 12:47 M. pneumoniae (PCR) Not detected (NOT DETECT) 02/08/25 12:47 Parainfluenza 1 (PCR) Not detected (NOT DETECT) 02/08/25 12:47 Parainfluenza 2 (PCR) Not detected (NOT DETECT) 02/08/25 12:47 Parainfluenza 3 (PCR) Not detected (NOT DETECT) 02/08/25 12:47 Parainfluenza 4 (PCR) Not detected (NOT DETECT) 02/08/25 12:47 RSV Type A (PCR) Not detected (NOT DETECT) 02/08/25 12:47 RSV Type B (PCR) Not detected (NOT DETECT) 02/08/25 12:47 Entero/Rhino (PCR) Detected (NOT DETECT) A 02/08/25 12:47 SARS-CoV-2 (PCR) Not detected (NOT DETECT) 02/08/25 12:47 Blood Type O Positive 02/10/25 02:35 Rho(D) Type Rh positive 02/10/25 02:35 Antibody Screen Negative 02/10/25 02:35 Crossmatch See Detail 02/10/25 02:35 Vitals Last Vital Signs Temp 97.0 F L 02/13/25 09:57 Pulse 78 02/13/25 10:25 Resp 19 H 02/13/25 10:17 BP 134/72 02/13/25 10:25 Pulse Ox 95 02/13/25 10:25 O2 Del Method Room Air 02/13/25 10:25 O2 Flow Rate 3 02/13/25 10:17 Discharge Plan Discharge Patient Disposition: Home Condition: Stable Prescriptions: New aspirin 81 mg Tablet,Delayed Release (Dr/Ec) 81 mg PO DAILY 30 Days Qty: 30 0RF prednisone 20 mg Tablet 40 mg PO DAILY 3 Days Qty: 6 0RF diltiazem HCl 240 mg Capsule,Extended Release 24hr 240 mg PO DAILY 30 Days Qty: 30 0RF metoprolol succinate 25 mg Tablet Extended Release 24 Hr 25 mg PO DAILY 30 Days Qty: 30 0RF amiodarone [Pacerone] 200 mg Tablet See Rx Instructions .ROUTE .COMPLEX Qty: 60 0RF Rx Instructions: 1 tab twice daily for 7 days, followed by 1 tab daily thereafter polyethylene glycol 3350 17 gram Powder In Packet 17 g PO DAILY 30 Days Qty: 30 0RF isosorbide mononitrate 30 mg Tablet Extended Release 24 Hr 30 mg PO DAILY 30 Days Qty: 30 0RF potassium chloride [Klor-Con M20] 20 mEq tablet,ER particles/crystals 40 meq PO DAILY 30 Days Qty: 60 0RF docusate sodium 100 mg Capsule 100 mg PO BID 30 Days Qty: 60 0RF doxycycline hyclate 100 mg tablet 100 mg PO BID 5 Days Qty: 10 0RF Continued Jardiance 10 mg tablet 10 mg PO DAILY Qty: 90 3RF atorvastatin [Lipitor] 40 mg tablet 40 mg PO DAILY Qty: 90 3RF roflumilast 250 mcg tablet 250 mcg PO DAILY 28 Days Qty: 30 1RF tamsulosin 0.4 mg capsule 0.4 mg PO QAM Qty: 90 3RF alprazolam 0.5 mg tablet 0.5 mg PO TID PRN (Reason: smothering/anxiety) Afshin Aerosphere 160-9-4.8 mcg/actuation HFA aerosol inhaler 2 inh inhalation BID Qty: 10.7 3RF ipratropium-albuterol 0.5 mg-3 mg(2.5 mg base)/3 mL solution for nebulization 3 ml inhalation TID Qty: 180 5RF ferrous sulfate [Iron (ferrous sulfate)] 325 mg (65 mg iron) tablet See Rx Instructions .ROUTE .COMPLEX Qty: 90 1RF Dose Instruction: TAKE 1 TABLET BY MOUTH TWICE DAILY FOR ACUTE BLOOD LOSS Rx Instructions: TAKE 1 TABLET BY MOUTH TWICE DAILY FOR ACUTE BLOOD LOSS fluticasone propionate 50 mcg/actuation spray,suspension 2 spray intranasal DAILY Rezvoglar KwikPen 100 unit/mL (3 mL) insulin pen 20 unit SUBCUT QAM albuterol sulfate 90 mcg/actuation HFA aerosol inhaler 2 puff inhalation Q4H PRN (Reason: Shortness Of Breath Or Wheezing) pantoprazole 40 mg Tablet,Delayed Release (Dr/Ec) 40 mg PO BID@0500,1700 30 Days Qty: 60 0RF sucralfate [Carafate] 1 gram tablet 1 g PO BID 28 Days Qty: 56 0RF bumetanide 1 mg tablet 1 mg PO DAILY Qty: 270 1RF Changed insulin lispro [Humalog KwikPen Insulin] 100 unit/mL insulin pen See Rx Instructions .ROUTE .COMPLEX 30 Days Qty: 15 0RF Rx Instructions: Inject, subcut, 3 times daily, after meals, based on moderate-dose sliding scale Discontinued potassium chloride 10 mEq tablet,ER particles/crystals 10 meq PO BID Rx Instructions: Only take when you take Lasix dabigatran etexilate [Pradaxa] 75 mg capsule 75 mg PO BID Qty: 60 3RF losartan 100 mg tablet 50 mg PO DAILY Qty: 90 3RF No Action (DME) Dexcom G6 Rn [facility]om[facility] Misc See Rx Instructions .Route Qty: 1 0RF Rx Instructions: As directed (DME) Dexcom G6 Sensor Device See Rx Instructions .Route Qty: 3 0RF Rx Instructions: As directed (DME) lancets for glucose testing See Rx Instructions .Route .MEDSUPPLY Qty: 1 0RF Rx Instructions: As directed (DME) lancets [OneTouch Delica Plus Lancet] 33 gauge misc See Rx Instructions .ROUTE .COMPLEX Qty: 100 4RF Dose Instruction: USE DIRECTED ONCE DAILY FOR TESTING Rx Instructions: USE DIRECTED ONCE DAILY FOR TESTING (DME) OneTouch Verio test strips Strip See Rx Instructions .ROUTE .COMPLEX Qty: 300 3RF Dose Instruction: USE DIRECTED Rx Instructions: USE DIRECTED (DME) one touch ben test strips See Rx Instructions .Route .MEDSUPPLY Qty: 200 0RF Rx Instructions: As directed (DME) portable oxygen See Rx Instructions .Route .MEDSUPPLY Qty: 1 0RF Rx Instructions: As directed (DME) portable oxygen container 4liter continous See Rx Instructions .Route .MEDSUPPLY Qty: 1 0RF Rx Instructions: As directed (DME) portable oxygen concentrator See Rx Instructions .Route .MEDSUPPLY Qty: 1 0RF Rx Instructions: As directed Referrals: Abram Horn MD [Primary Care Provider, Family Practice] - 02/21/25 8:30 am Herbert Mayes MD [Physician, Cardiology] - 02/28/25 1:45 pm Discharge Diet: Cardiac Discharge Activity: Resume usual activity Patient Instructions: Metoprolol (By mouth) (Lopressor, Toprol XL), Diltiazem (By mouth) (Cardizem, Cardizem CD, Cardizem LA, Cardizem SR), Doxycycline (By mouth), Prednisone (By mouth), Potassium Chloride (By mouth), Aspirin (By mouth), Amiodarone (By mouth) (Cordarone, Pacerone), Isosorbide Mononitrate (By mouth) (Imdur, Imdur ER, Ismo), Polyethylene Glycol 3350 (By mouth) (Miralax, Healthylax..., Coronary Artery Disease (DC), A-fib (Atrial Fibrillation) (DC), Chronic Respiratory Failure (DC), CHF Stoplight, GI Post Discharge Instructions w/ Anesthesia, Opioid Safety, Patient Portal & Arina Instructions Activity Restrictions/Additional Instructions: - Please continue to hold Pradaxa for at least 2 weeks due to persistent anemia - Follow-up with general surgery for biopsy results - Have primary care provider recheck your hemoglobin in 1 week - If you have any recurrent chest pain go to the emergency room - Follow-up with cardiology in 1 week - Discharge Attestations Time Spent in Discharge Care*: greater than 30 min Quality Metrics Clinical Quality Measures [ No reported AMI, CVA or VTE this stay] Coding Level of Care Code 42963 Total time (in minutes) for Discharge: 45 Diagnoses Elevated troponin R79.89 Atrial fibrillation with RVR I48.91 Acute on chronic congestive heart failure with left ventricular diastolic dysfunction I50.33 Coronary artery disease involving [place] coronary artery of [place] heart with other form of angina pectoris I25.118 Associated angina: with other forms of angina Coronary Disease-Associated Artery/Lesion type: [place] artery [place] vs. transplanted heart: [place] heart PAD (peripheral artery disease) I73.9 Tobacco dependence due to cigarettes, in remission F17.211 Primary hypertension I10 Hypertension type: primary hypertension Upper GI bleed K92.2
--- NOTE | 2025-02-13 11:42 | USR_ITS ---
PROCEDURE INFORMATION: Exam: US Duplex Lower Extremity Veins, Bilateral Exam date and time: 02/13/2025 12:19 PM Age: 64 years old Clinical indication: Screening exam; Dvt TECHNIQUE: Imaging protocol: Real-time duplex ultrasound of the bilateral extremities with 2-D granado scale, color Doppler flow and spectral waveform analysis including responses to compression and other maneuvers (when performed) with image documentation. Complete exam focused on the lower extremity veins. COMPARISON: CT abdomen pelvis wo con [id number] 02/08/2025 1:19 PM FINDINGS: Right deep veins: Unremarkable. The common femoral, femoral, proximal profunda femoral and popliteal veins are patent without thrombus. Normal Doppler waveforms. Normal compressibility and/or augmentation response. Left deep veins: Unremarkable. The common femoral, femoral, proximal profunda femoral and popliteal veins are patent without thrombus. Normal Doppler waveforms. Normal compressibility and/or augmentation response. Superficial veins: Greater saphenous veins at the saphenofemoral junctions are patent bilaterally without thrombus. Soft tissues: Unremarkable. US/CV venous duplex [facility] [id number] IMPRESSION: No evidence of deep vein thrombosis.
[2025-02-13] MEDS: FUROsemide 10 mg/mL SDV 4mL 40 MG IVP (12:13)
--- NOTE | 2025-02-13 16:02 | PC.NURSE ---
Patient was discharged to home with a friend. Patient insisted on leaving prior to getting one of his home O2 tanks. He said that he does not use it at home when he is just sitting around and he only lives 10 miles from here. He would not let his friend go and get oxygen for him. I did try to send him home with a tank from here and they could return it and he said no .
== END 2025-02-13 16:02 | disposition home or self-care (01) | DRG 280 ==
LOC: ER 19:56 → CSU 20:09
PROVIDERS: Emergency Medicine; Specialist; Student in an Organized Health Care Education/Training Program; Surgery; Admitting Provider Internal Medicine; Emergency Provider Emergency Medicine; PCP Family Medicine; Visit Provider Family Medicine
PROC: 0DJ08ZZ Inspection of Upper Intestinal Tract, Via Natural or Artificial Opening Endoscopic (ICD-10-PCS; principal; 2025-02-09 10:00)
PROC: 0DJD8ZZ Inspection of Lower Intestinal Tract, Via Natural or Artificial Opening Endoscopic (ICD-10-PCS; CPT 45378; principal; 2025-02-13 09:30)
DX: I48.91 Unspecified atrial fibrillation (principal); I50.33 Acute on chronic diastolic (congestive) heart failure; I21.A1 Myocardial infarction type 2; K25.4 Chronic or unspecified gastric ulcer with hemorrhage; J96.01 Acute respiratory failure with hypoxia; J18.9 Pneumonia, unspecified organism; J44.1 Chronic obstructive pulmonary disease with (acute) exacerbation; J44.0 Chronic obstructive pulmonary disease with (acute) lower respiratory infection; N17.9 Acute kidney failure, unspecified; I25.10 Atherosclerotic heart disease of native coronary artery without angina pectoris; I11.0 Hypertensive heart disease with heart failure; E11.42 Type 2 diabetes mellitus with diabetic polyneuropathy; E11.51 Type 2 diabetes mellitus with diabetic peripheral angiopathy without gangrene; D50.0 Iron deficiency anemia secondary to blood loss (chronic); F10.10 Alcohol abuse, uncomplicated; N40.0 Benign prostatic hyperplasia without lower urinary tract symptoms; K70.30 Alcoholic cirrhosis of liver without ascites; N52.9 Male erectile dysfunction, unspecified; E78.5 Hyperlipidemia, unspecified; R00.0 Tachycardia, unspecified; E66.9 Obesity, unspecified; K29.70 Gastritis, unspecified, without bleeding; B97.89 Other viral agents as the cause of diseases classified elsewhere; E87.6 Hypokalemia; K57.30 Diverticulosis of large intestine without perforation or abscess without bleeding; Z68.27 Body mass index [BMI] 27.0-27.9, adult; Z79.01 Long term (current) use of anticoagulants; Z79.82 Long term (current) use of aspirin; Z79.84 Long term (current) use of oral hypoglycemic drugs; Z79.51 Long term (current) use of inhaled steroids; Z79.4 Long term (current) use of insulin; Z90.49 Acquired absence of other specified parts of digestive tract; Z87.891 Personal history of nicotine dependence; Z86.718 Personal history of other venous thrombosis and embolism
CPT/HCPCS: 36415; 36416; 36430; 43239; 43255; 45378; 51702; 71045; 71250; 74018; 74176; 80048; 80053; 80061; 80076; 80202; 81001; 82274; 82962; 82977; 83036; 83605; 83690; 83735; 83880; 84100; 84145; 84443; 84484; 85014; 85018; 85025; 85378; 85610; 85730; 86140; 86850; 86900; 86902; 86920; 87040; 87070; 87086; 87205; 87486; 87493; 87581; 87633; 88305; 88312; 88313; 88342; 92507; 92523; 92526; 92610; 93005; 93306; 93970; 94640; 96365; 96367; 96372; 96375; 99285; A4222; J0282; J0283; J0692; J0696; J1171; J1644; J1650; J1756; J1815; J1938; J2405; J2470; J2704; J2919; J3010; J3373; J3475; J3480; J3490; J7050; J7512; J7626; J9999; P9016; P9040; Q0144

== ENCOUNTER → 2025-02-21 09:53 | Outpatient (BNVA) | payer OTHER, SELFPAY | PROVIDERS: PCP Family Medicine; Visit Provider Family Medicine | DX: E11.51 Type 2 diabetes mellitus with diabetic peripheral angiopathy without gangrene (principal); I95.9 Hypotension, unspecified; Z79.01 Long term (current) use of anticoagulants | CPT/HCPCS: 85025 ==

== ENCOUNTER 2025-03-03 08:02 | Outpatient (CLI) | payer OTHER, SELFPAY ==
[2025-03-03 08:28] VITALS: PULSE 98; RESP 18; O2SAT 96
== END 2025-03-03 08:03 | disposition home or self-care (01) ==
LOC: RT 08:03
PROVIDERS: PCP Family Medicine; Visit Provider Internal Medicine
DX: J44.9 Chronic obstructive pulmonary disease, unspecified (principal); J98.8 Other specified respiratory disorders; R94.2 Abnormal results of pulmonary function studies
CPT/HCPCS: 94060; 94726; 94729; J7613

== ENCOUNTER 2025-03-09 08:07 | Oncology outpatient (recurring) (ONCR) | payer OTHER, SELFPAY ==
[2025-02-23] VITALS (12 sets, daily range): BP systolic 94–120; BP diastolic 51–69; PULSE 83–92; RESP 17; TEMP 36.8–37.4; O2SAT 93–99
[2025-02-23 08:29] LABS: Hematocrit 25.3 % (37-53); Hemoglobin 7.40 g/dL (11.27-16.99)
[2025-03-02 10:31] LABS: Hematocrit 24.7 % (37-53); Hemoglobin 7.40 g/dL (11.27-16.99); Mean Corpuscular HGB Conc 30.0 g/dL (30-55); Mean Corpuscular Hemoglobin 26.4 pg (27-33); Mean Corpuscular Volume 88.2 fl (82-101); Nucleated Red Blood Cells % 0 %; Platelet Count 183 10^3/cmm (157-399); Red Blood Count 2.80 10^6/uL (3.85-5.65); White Blood Count 5.69 10^3/uL (3.29-11.43)
[2025-03-02 10:50] LABS: Alanine Aminotransferase 19 U/L (0-41); Albumin Level 3.5 g/dL (3.5-5.2); Alkaline Phosphatase 106 U/L (40-130); Anion Gap 16.9 (5-19); Aspartate Amino Transferase 12 U/L (0-40); Blood Urea Nitrogen 13 mg/dL (8-23); Calcium 8.5 mg/dL (8.5-10.5); Carbon Dioxide 23 mmol/L (22-29); Chloride 99 mmol/L (98-107); Creatinine Clr Calc Pharmacy 83.6516; Globulin 2.4 g/dL (1.3-4.6); Glucose 176 mg/dL (65-115); Osmolality Calculated 284 mOsm/kg (285-295); Potassium 3.9 mmol/L (3.5-5.1); Sodium 135 mmol/L (136-145); Total Protein 5.9 g/dL (6.6-8.7)
[2025-03-02 14:20] VITALS: BP 122/65; PULSE 91; RESP 17; TEMP 36.9; O2SAT 94
[2025-03-02 14:35] VITALS: BP 111/66; PULSE 84; RESP 17; TEMP 36.9; O2SAT 90
[2025-03-02 14:50] VITALS: BP 111/65; PULSE 85; RESP 17; TEMP 36.9; O2SAT 95
[2025-03-02 15:20] VITALS: BP 115/61; PULSE 85; RESP 17; TEMP 37; O2SAT 93
[2025-03-02 16:28] VITALS: BP 125/73; PULSE 85; RESP 18; TEMP 36.7; O2SAT 94
[2025-03-02 16:38] VITALS: BP 125/73; PULSE 93; RESP 18; TEMP 36.7; O2SAT 94
[2025-03-09] VITALS (10 sets, daily range): BP systolic 105–122; BP diastolic 60–69; PULSE 84–90; RESP 16–18; TEMP 36.6–37.1; O2SAT 94–98
[2025-03-09 08:59] LABS: INR 1.00 (0.8-1.2); Prothrombin Time 13.90 SECONDS (12.1-14.9)
[2025-03-09 09:00] LABS: Partial Thromboplastin Time 23.2 SECONDS (23.9-36.7)
[2025-03-09 09:57] LABS: Alanine Aminotransferase 12 U/L (0-41); Albumin Level 3.2 g/dL (3.5-5.2); Alkaline Phosphatase 112 U/L (40-130); Anion Gap 15.4 (5-19); Aspartate Amino Transferase 11 U/L (0-40); Blood Urea Nitrogen 19 mg/dL (8-23); Calcium 8.5 mg/dL (8.5-10.5); Carbon Dioxide 24 mmol/L (22-29); Chloride 98 mmol/L (98-107); Creatinine Clr Calc Pharmacy 76.0339; Ferritin 47 ng/mL (30-400); Globulin 2.9 g/dL (1.3-4.6); Glucose 138 mg/dL (65-115); Iron 50 ug/dL (59-158); Osmolality Calculated 282 mOsm/kg (285-295); Potassium 3.4 mmol/L (3.5-5.1); Sodium 134 mmol/L (136-145); Total Iron Binding Capacity 323 mcg/dl; Total Protein 6.1 g/dL (6.6-8.7); Unsaturated Iron Binding 273 ug/dL (112-347); Vitamin B12 235 pg/mL (232-1245)
== END 2025-03-11 23:59 | disposition home or self-care (01) ==
PROVIDERS: Internal Medicine; PCP Family Medicine; Visit Provider Internal Medicine
DX: Z53.9 Procedure and treatment not carried out, unspecified reason; D50.0 Iron deficiency anemia secondary to blood loss (chronic)
CPT/HCPCS: 36415; 36430; 80053; 82607; 82728; 82746; 83010; 83540; 83550; 83615; 85014; 85018; 85025; 85045; 85610; 85730; 86850; 86900; 86920; J7050; J9999; P9016

== ENCOUNTER → 2025-03-15 08:01 | Outpatient (BNVA) | payer OTHER, SELFPAY | PROVIDERS: PCP Family Medicine; Visit Provider Family Medicine | DX: E11.51 Type 2 diabetes mellitus with diabetic peripheral angiopathy without gangrene (principal); I95.9 Hypotension, unspecified; Z79.01 Long term (current) use of anticoagulants | CPT/HCPCS: 80048 ==

== ENCOUNTER → 2025-03-18 09:52 | Outpatient (BNVA) | payer OTHER, SELFPAY | PROVIDERS: PCP Family Medicine; Visit Provider Family Medicine | DX: D50.0 Iron deficiency anemia secondary to blood loss (chronic) (principal) | CPT/HCPCS: 85025 ==

== ENCOUNTER 2025-03-30 08:15 | Oncology outpatient (recurring) (ONCR) | payer OTHER, SELFPAY ==
[2025-03-16 07:57] LABS: Hematocrit 29.0 % (37-53); Hemoglobin 9.10 g/dL (11.27-16.99); Mean Corpuscular HGB Conc 31.4 g/dL (30-55); Mean Corpuscular Hemoglobin 26.7 pg (27-33); Mean Corpuscular Volume 85.0 fl (82-101); Nucleated Red Blood Cells % 0 %; Platelet Count 411 10^3/cmm (157-399); Red Blood Count 3.41 10^6/uL (3.85-5.65); White Blood Count 11.61 10^3/uL (3.29-11.43)
[2025-03-16] MEDS: diphenhydrAMINE 50 mg/mL SDV 1mL 25 MG IVP (09:17)
[2025-03-16 09:21] VITALS: BP 112/64; PULSE 85; RESP 18; TEMP 36.7; O2SAT 100
[2025-03-16] MEDS: iron dextran 975 MG in sodium chloride 0.9% 1,000 ML 250.75 MG IV (11:02)
[2025-03-16 15:19] VITALS: BP 113/61; PULSE 77; RESP 17; TEMP 36.6; O2SAT 96
[2025-03-30 08:49] LABS: Hematocrit 28.0 % (37-53); Hemoglobin 8.70 g/dL (11.27-16.99); Mean Corpuscular HGB Conc 31.1 g/dL (30-55); Mean Corpuscular Hemoglobin 28.0 pg (27-33); Mean Corpuscular Volume 90.0 fl (82-101); Nucleated Red Blood Cells % 0 %; Platelet Count 282 10^3/cmm (157-399); Red Blood Count 3.11 10^6/uL (3.85-5.65); White Blood Count 9.69 10^3/uL (3.29-11.43)
[2025-03-30 09:14] LABS: Alanine Aminotransferase 8 U/L (0-41); Albumin Level 3.4 g/dL (3.5-5.2); Alkaline Phosphatase 122 U/L (40-130); Anion Gap 14.8 (5-19); Aspartate Amino Transferase 13 U/L (0-40); Blood Urea Nitrogen 13 mg/dL (8-23); Calcium 8.8 mg/dL (8.5-10.5); Carbon Dioxide 28 mmol/L (22-29); Chloride 97 mmol/L (98-107); Ferritin 278 ng/mL (30-400); Globulin 3.2 g/dL (1.3-4.6); Glucose 108 mg/dL (65-115); Iron 51 ug/dL (59-158); Osmolality Calculated 285 mOsm/kg (285-295); Sodium 137 mmol/L (136-145); Total Iron Binding Capacity 263 mcg/dl; Total Protein 6.6 g/dL (6.6-8.7); Unsaturated Iron Binding 212 ug/dL (112-347)
[2025-03-30 09:27] LABS: Potassium 2.8 mmol/L (3.5-5.1)
[2025-03-30 09:30] LABS: Vitamin B12 337 pg/mL (232-1245)
== END 2025-04-10 23:59 | disposition home or self-care (01) ==
PROVIDERS: Internal Medicine; PCP Family Medicine; Visit Provider Internal Medicine
DX: D50.0 Iron deficiency anemia secondary to blood loss (chronic); Z53.9 Procedure and treatment not carried out, unspecified reason
CPT/HCPCS: 80053; 82607; 82728; 82746; 83540; 83550; 83615; 85025; 96365; 96366; 96375; J1200; J1750; J7030; J7040; J9999

== ENCOUNTER 2025-05-10 08:02 | Oncology outpatient (recurring) (ONCR) | payer OTHER, SELFPAY ==
[2025-04-13 08:24] LABS: Hematocrit 30.5 % (37-53); Hemoglobin 9.40 g/dL (11.27-16.99); Mean Corpuscular HGB Conc 30.8 g/dL (30-55); Mean Corpuscular Hemoglobin 27.5 pg (27-33); Mean Corpuscular Volume 89.2 fl (82-101); Nucleated Red Blood Cells % 0 %; Platelet Count 372 10^3/cmm (157-399); Red Blood Count 3.42 10^6/uL (3.85-5.65); White Blood Count 9.19 10^3/uL (3.29-11.43)
[2025-04-13 08:48] LABS: Alanine Aminotransferase 10 U/L (0-41); Albumin Level 3.4 g/dL (3.5-5.2); Alkaline Phosphatase 127 U/L (40-130); Anion Gap 15.1 (5-19); Aspartate Amino Transferase 15 U/L (0-40); Blood Urea Nitrogen 11 mg/dL (8-23); Calcium 8.8 mg/dL (8.5-10.5); Carbon Dioxide 25 mmol/L (22-29); Chloride 101 mmol/L (98-107); Globulin 3.5 g/dL (1.3-4.6); Glucose 141 mg/dL (65-115); Osmolality Calculated 286 mOsm/kg (285-295); Potassium 4.1 mmol/L (3.5-5.1); Sodium 137 mmol/L (136-145); Total Protein 6.9 g/dL (6.6-8.7)
[2025-04-13] MEDS: diphenhydrAMINE 50 mg/mL SDV 1mL 25 MG IVP (09:30)
[2025-04-13 15:43] VITALS: BP 118/64; PULSE 92; RESP 18; TEMP 36.9; O2SAT 94
[2025-04-27 08:33] LABS: Hematocrit 29.5 % (37-53); Hemoglobin 9.10 g/dL (11.27-16.99); Mean Corpuscular HGB Conc 30.8 g/dL (30-55); Mean Corpuscular Hemoglobin 27.9 pg (27-33); Mean Corpuscular Volume 90.5 fl (82-101); Nucleated Red Blood Cells % 0 %; Platelet Count 343 10^3/cmm (157-399); Red Blood Count 3.26 10^6/uL (3.85-5.65); White Blood Count 9.93 10^3/uL (3.29-11.43)
[2025-04-27 08:54] LABS: Alanine Aminotransferase 8 U/L (0-41); Albumin Level 3.9 g/dL (3.5-5.2); Alkaline Phosphatase 119 U/L (40-130); Anion Gap 15.9 (5-19); Aspartate Amino Transferase 15 U/L (0-40); Blood Urea Nitrogen 12 mg/dL (8-23); Calcium 9.4 mg/dL (8.5-10.5); Carbon Dioxide 27 mmol/L (22-29); Chloride 98 mmol/L (98-107); Globulin 2.9 g/dL (1.3-4.6); Glucose 134 mg/dL (65-115); Osmolality Calculated 286 mOsm/kg (285-295); Potassium 3.9 mmol/L (3.5-5.1); Sodium 137 mmol/L (136-145); Total Protein 6.8 g/dL (6.6-8.7)
[2025-05-10 08:36] LABS: Hematocrit 27.3 % (37-53); Hemoglobin 8.50 g/dL (11.27-16.99); Mean Corpuscular HGB Conc 31.1 g/dL (30-55); Mean Corpuscular Hemoglobin 28.5 pg (27-33); Mean Corpuscular Volume 91.6 fl (82-101); Nucleated Red Blood Cells % 0 %; Platelet Count 358 10^3/cmm (157-399); Red Blood Count 2.98 10^6/uL (3.85-5.65); White Blood Count 9.36 10^3/uL (3.29-11.43)
== END 2025-05-11 23:59 | disposition home or self-care (01) ==
PROVIDERS: Internal Medicine Medical Oncology; Nurse Practitioner; PCP Family Medicine; Visit Provider Internal Medicine
DX: D50.0 Iron deficiency anemia secondary to blood loss (chronic); Z53.9 Procedure and treatment not carried out, unspecified reason
CPT/HCPCS: 36415; 80053; 85025; 96365; 96366; 96375; J1200; J1750; J7030; J7040; J9999